=== PATIENT | male | born 1950 | race Caucasian/White ===

== ENCOUNTER → 2022-05-12 13:01 | Outpatient (BNVA) | payer MEDICARE, SELFPAY | PROVIDERS: PCP Internal Medicine; Visit Provider Internal Medicine | DX: M53.3 Sacrococcygeal disorders, not elsewhere classified (principal) | CPT/HCPCS: 99202 ==

== ENCOUNTER 2022-07-09 12:53 | Day surgery (SDC) | payer MEDICARE, SELFPAY ==
--- NOTE | ~2022-07-09 | FL_ITS ---
EXAMINATION: XR FLUOROSCOPY WITH IMAGES CLINICAL INFORMATION: Right sacroiliac joint RFA COMPARISON: None. TECHNIQUE: Fluoroscopy performed by Dr. Michele Rangel. Fluoroscopy time: 0.8. Cumulative Dose: 28.1 mGy. DAP: 4.36 Gy-cm2. Images: 6. FINDINGS: There are 3 electrodes overlying the right lumbosacral junction and right sacrum, at several positions mammography spot views. FL/FL guidance in OR IMPRESSION: Fluoroscopy for pain management procedure.
[2022-07-09 13:15] VITALS: BMI 38.0
--- NOTE | 2022-07-09 13:31 | PC.NURSE ---
verified IV ABX order with Dr. Rangel via [facility] as patient is scheduled as LOCAL procedure. Per Dr. Rangel IV Abx is not needed for this procedure today.
[2022-07-09 13:32] VITALS: BP 176/89; PULSE 98; RESP 20; TEMP 37.1; O2SAT 95
[2022-07-09 17:58] VITALS: BP 155/88; PULSE 92; RESP 18; TEMP 36.7; O2SAT 95
--- NOTE | 2022-07-09 18:03 | MHC.SHP ---
Pre-Procedural Eval Section A Date of Service: 07/09/22 The patient is an INPATIENT: No Changes since office visit: Yes Patient answered all questions The History & Physical has been completed within 30 days and I have reviewed it.: No Section B Chief Complaint: Sacrococcygeal disorders, not elsewhere classified Relevant Family History (Specify if Yes): Yes Relevant Social History: None Present Medications: see Short Stay Collaborative assessment Medical History: No relevant PMH History of Previous Operations: No relevant previous surgery Allergies: Allergies Allergy/AdvReac Type Severity Reaction Status Date / Time No Known Allergies Allergy Verified 05/12/22 13:05 Review of Systems Sugical H&P ROS: Negative: Constitution, Cardiovascular and Respiratory Exam Surgical H&P Exam: Normal: HEENT, Normal: Heart and Normal: Lungs Plan Diagnosis/Plan: Unchanged I have reviewed the history and physical and performed a pertinent physical examination on my patient. No changes have occurred unless specified.
--- NOTE | 2022-07-09 18:04 | PM.OP ---
Brief Operative Note Date of Service: 07/09/22 Pre-op diagnosis: Right sacroiliac joint dysfunction and pain Post-op diagnosis: same Procedure: Right SIJ innervation cooled radiofrequency ablation Implants: None Surgeon: Michele Rangel MD Anesthesia: local Was an Nuclear Weapons Mechanical Specialist used for this Procedure?: No Estimated blood loss (mL): 5 Pathology: none sent Condition: stable Disposition: same day
--- NOTE | 2022-07-09 18:05 | W.PM.OPN ---
Operative Note Operative Note Date of Service: 07/09/22 Narrative: Cooled radiofrequency ablation, Right L5 dorsal ramus and lateral branches of the S1, S2, S3 posterior primary rami nerves - fluoroscopic guided After obtaining written consent, pre-procedure blood pressure and heart rate were stable and recorded in the nursing record. The patient was placed prone on the fluoroscopy table. The area overlying the peripheral nerves was widely prepped with chloraprep, allowed to dry and sterilely draped. Using fluoroscopy, the appropriate landmarks were identified. The skin overlying the target was anesthetized with 0.5% lidocaine. 18 gauge 50mm radiofrequency needles were advanced under fluoroscopic guidance to the sacral ala (L5 medial branch) and around the lateral margins of the S1, S2 & S3 foramina (sacral lateral branches). Verification was done using lateral and AP views. Aspiration was negative for heme. Impedences were verified under 600 ohms. Sensory testing (50 Hz) and then motor testing (2 Hz) confirmed needle placement at each site within the appropriate voltage thresholds. Each site was injected with 0.5-1 ml 2% preservative-free lidocaine. Radiofrequency lesioning was performed for 165 seconds at 80 deg Celcius tissue temperature. Each site was then injected with 1 ml 0.5% preservative-free ropivacaine. The needles were removed, skin cleansed and a sterile bandage was applied. The patient tolerated the procedure well and no complications were encountered. No immediate evidence of skin damage was seen. Following the procedure the patient's vital signs were stable. The patient was discharged home in good condition with post-procedural instructions. Time Out: Immediately prior to the procedure, the following was verbally confirmed that there is a signed consent form and that the correct patient, planned procedure, site and side are consistent with documentation and that necessary equipment and/or blood products are available prior to the start of the case. Complications: none EBL: <5 cc
== END 2022-07-09 18:08 | disposition home or self-care (01) ==
PROVIDERS: PCP Internal Medicine; Visit Provider Internal Medicine
PROC: (CPT 64635; principal; 2022-07-09 14:50)
DX: M53.3 Sacrococcygeal disorders, not elsewhere classified (principal); M54.50 Low back pain, unspecified; I10 Essential (primary) hypertension; G40.909 Epilepsy, unspecified, not intractable, without status epilepticus; E11.9 Type 2 diabetes mellitus without complications; Z79.84 Long term (current) use of oral hypoglycemic drugs; Z79.899 Other long term (current) drug therapy
CPT/HCPCS: 64625; J2795; J3300

== ENCOUNTER → 2022-07-21 09:10 | Outpatient (BNVA) | payer MEDICARE, SELFPAY | PROVIDERS: PCP Internal Medicine; Visit Provider Internal Medicine | DX: M53.3 Sacrococcygeal disorders, not elsewhere classified (principal); M48.062 Spinal stenosis, lumbar region with neurogenic claudication; M54.16 Radiculopathy, lumbar region | CPT/HCPCS: Q3014 ==

== ENCOUNTER → 2022-08-08 10:04 | Outpatient (BNVA) | payer MEDICARE, SELFPAY | PROVIDERS: PCP Internal Medicine; Visit Provider Internal Medicine | DX: M48.062 Spinal stenosis, lumbar region with neurogenic claudication (principal) | CPT/HCPCS: 99212 ==

== ENCOUNTER 2023-09-14 14:00 | Outpatient (AMB) | payer MEDICARE, SELFPAY ==
[2023-09-14 14:06] VITALS: BP 149/83; PULSE 97; RESP 14; O2SAT 94; BMI 40.0
--- NOTE | 2023-09-14 14:06 | A.OFFVIS_ITS ---
Intake Vital Signs 09/14/23 14:06 Height 6 ft Weight 295 lb BMI 40.0 BP 149/83 H Blood Pressure Location Rt brachial Position Sitting Respiration 14 Pulse 97 Pulse Source Pulse Oximeter Pulse Oximetry (%) 94 Oxygen Delivery Method Room Air Intake Visit Reasons: DISORDER OF SACRUM Allergies No Known Allergies Allergy (Verified 09/14/23 14:07) Medication List - Last Reconciled 09/14/23 by Concepcion Lewis LPN glimepiride 4 mg PO BID hydrochlorothiazide 25 mg PO DAILY irbesartan 300 mg PO DAILY levetiracetam 500 mg PO BID pioglitazone 15 mg PO DAILY potassium chloride ER 10 mEq PO BID rosuvastatin 5 mg PO DAILY HPI DISORDER OF SACRUM HPI Details 72-year-old male who presents today to t office for a disorder of sacrum. He did not get much relief from the SI joint ablation. He had an MRI scan at [facility]. He states that his imaging shows some spinal stenosis at L3-L4-L5 levels. He visited Dr. Aragon, Dr. Stockton, and Dr. Singh for a second opinion. He underwent back surgery but continues to have significant pain. He reports pain in his lower back that radiates down to his lower extremities. His left side is worse compared to his right side. He describes his pain as ?someone stuck the screwdriver?. He states that he is not physically active at home and spends most of the time sitting or resting. He is also not performing exercises at home. He reports pain while standing from the sitting position. He lives alone at home. Past Procedures: 07/09/22: Right SIJ Innervation Cooled RF A ? greater than 50% relief, significant local site tenderness manages with cold compresses [facility] Medical History (Updated 09/22/23 @ 08:46 by Michele Rangel MD) Cluneal neuropathy Seizure disorder Hypertension Type 2 diabetes mellitus Review of Systems Const All systems reviewed & are unremarkable except as noted in HPI and below Physical Exam Vital Signs: Last Vital Signs Pulse 97 09/14/23 14:06 Resp 14 09/14/23 14:06 BP 149/83 H 09/14/23 14:06 Pulse Ox 94 09/14/23 14:06 Oxygen Delivery Method Room Air 09/14/23 14:06 BMI result Body Mass Index 40.0 General: Appears afebrile. Alert and oriented. Mood and affect appropriate. Follows and participates in conversation appropriately. Respiratory effort is unlabored. Able to transition from sit to stand unassisted. Ambulates with bilaterally normal heel strike and toe off. Results Reviewed Results Reviewed: No imaging is available for review. Assessment & Plan Assessment & Plan (1) Lumbar spondylosis: Code(s): M47.816 - Spondylosis without myelopathy or radiculopathy, lumbar region (2) Intractable back pain: Code(s): M54.9 - Dorsalgia, unspecified Plan Discussed temporary nerve stimulator vs. spinal cord stimulator as a possible treatment options. A device brochure was provided to the patient. Will schedule him for a right L4 medial branch nerve stimulator placement followed by left L4 medial branch nerve stimulator placement two weeks later for chronic intractable pain. Discussed the risks and benefits of the procedure with the patient in detail. All questions were answered. The patient is on board with the plan. Informed the patient that insurance approval is required. We will file a PA for approval and keep him updated. Justification for interventional therapy: ? Patient with average pain > 6/10 ? Patient has exhausted conservative therapy ? Patient unable to tolerate physical therapy due to pain. Scribed for Dr. Rangel by Derrick Corea, medical sociologist, on 09/14/2023. I, Dr. Rangel, have personally reviewed and agree with the information entered by the scribe. Coding Level of Care Code Est Pt Level 3 (82648) Diagnoses Lumbar spondylosis M47.816 Intractable back pain M54.9
== END 2023-09-14 14:36 | disposition home or self-care (01) ==
PROVIDERS: PCP Internal Medicine; Visit Provider Internal Medicine
DX: M47.816 Spondylosis without myelopathy or radiculopathy, lumbar region (principal); M54.9 Dorsalgia, unspecified
CPT/HCPCS: 99213

== ENCOUNTER → 2023-09-14 14:00 | Outpatient (BNVA) | payer MEDICARE, SELFPAY | PROVIDERS: PCP Internal Medicine; Visit Provider Internal Medicine | DX: M47.816 Spondylosis without myelopathy or radiculopathy, lumbar region (principal); M54.9 Dorsalgia, unspecified | CPT/HCPCS: 99212 ==

== ENCOUNTER 2023-10-14 08:16 | Day surgery (SDC) | payer MEDICARE, SELFPAY ==
--- NOTE | ~2023-10-14 | FL_ITS ---
EXAMINATION: XR FLUOROSCOPY WITH IMAGES CLINICAL INFORMATION: L4 medial branch Sprint, right. COMPARISON: None available. TECHNIQUE: Fluoroscopy Supervised By: Dr. Michele Rangel. Fluoroscopy Time: 0.1 minute. Cumulative Dose: 5.30 mGy. DAP: 0.744 Gycm2. Images: 2. FINDINGS: Images demonstrate wires projecting over the right lateral lower lumbar spine FL/FL guidance in OR IMPRESSION: Fluoroscopy guidance for pain management procedure
[2023-10-14 09:08] VITALS: BMI 40.0
[2023-10-14 09:15] VITALS: BP 102/72; PULSE 111; RESP 18; TEMP 36.8; O2SAT 94
[2023-10-14 11:36] VITALS: BP 132/82; PULSE 101; RESP 16; TEMP 36.4; O2SAT 95
--- NOTE | 2023-10-14 11:39 | PC.NURSE ---
patient received thorough treatment from [facility] patient representative
--- NOTE | 2023-10-14 15:12 | P.BOP_ITS ---
Brief Operative Note Date of Service: 10/14/23 Pre-op diagnosis: Intractable back pain, lumbar spondylosis Post-op diagnosis: same Procedure: Temporary left L4 medial branch nerve stimulator placement Implants: Sprint temporary PNS system Surgeon: Michele Rangel MD Anesthesia: local Was an Psychology Intern used for this Procedure?: No Estimated blood loss (mL): 1 Pathology: none sent Condition: stable Disposition: same day
--- NOTE | 2023-10-14 15:12 | MHC.SHP ---
Pre-Procedural Eval Section A Date of Service: 10/14/23 The patient is an INPATIENT: No Changes since office visit: Yes Patient answered all questions The History & Physical has been completed within 30 days and I have reviewed it.: No Section B Chief Complaint: Intractable back pain Relevant Family History (Specify if Yes): No Relevant Social History: None Present Medications: see Short Stay Collaborative assessment Medical History: No relevant PMH History of Previous Operations: No relevant previous surgery Allergies: Allergies Allergy/AdvReac Type Severity Reaction Status Date / Time No Known Allergies Allergy Verified 09/14/23 14:07 Review of Systems Sugical H&P ROS: Negative: Constitution, Cardiovascular and Respiratory Exam Surgical H&P Exam: Normal: HEENT, Normal: Heart and Normal: Lungs Plan Diagnosis/Plan: Unchanged I have reviewed the history and physical and performed a pertinent physical examination on my patient. No changes have occurred unless specified. Time Spent With Patient Time: Total time managing care of this patient today ____ minutes.
--- NOTE | 2023-10-14 15:13 | W.PM.OPN ---
Operative Note Operative Note Date of Service: 10/14/23 Narrative: Lumbar Medial Branch Nerve Stimulation Lead Placement, SPR (Sprint) System, right L4 ? After the risks, benefits and alternatives were discussed with the patient and informed consent was obtained, patient was placed in the prone position and padded to foster comfort. The skin overlying the lumbosacral spine was prepped and draped in sterile fashion. Fluoroscopy was used to identify the spinous process and lamina in the center of the patient?s region of pain. After identifying and marking the intended target along the course of the medial branch nerve, the skin around the planned entry point and the subcutaneous tissues were injected with lidocaine 1%. An introducer needle and stimulating probe were assembled, inserted and advanced along the intended course of the medial branch nerve as it traverses the lamina medial and inferior to the zygapophyseal joint, taking care to maintain the proper depth of insertion as the introducer is advanced under fluoroscopic guidance. The introducer needle was delivered to a location in proximity to the nerve. Multiple stimulation parameters were used to deliver stimulation to the target medial branch nerve in concert with stimulating at multiple positions around the nerve. Nerve target acquisition was confirmed noting generation of paresthesias in the paravertebral regions corresponding to the level being stimulated. Various electrical parameter combinations were tested, and the lead location was adjusted (physically relocated) until the patient indicated paresthesia/muscle tension overlapping the distribution of the patient?s typical region of pain. The stimulating probe was removed from the introducer and a percutaneous lead was guided through the needle and delivered to a location in similar proximity to the nerve. Final location was verified with electrical stimulation and documented with fluoroscopy. The introducer needle was removed, and the exposed end of the percutaneous lead was attached to an external stimulator unit. Various electrical parameter combinations were again tested until the patient indicated paresthesia or muscle tension overlapping the distribution of the patient?s typical region of pain. After confirming that lead impedance was in the normal range, the external unit was detached, the needle was removed, and the lead was anchored at the skin. The lead was threaded into the connector block and electrical continuity and desired patient response was confirmed. The connector block was attached to the external stimulator unit. The site was covered with a sterile occlusive dressing. The patient was observed for stability of vital signs and comfort.
== END 2023-10-14 11:44 | disposition home or self-care (01) ==
PROVIDERS: PCP Internal Medicine; Visit Provider Internal Medicine
PROC: (CPT 64555; principal; 2023-10-14 09:40)
DX: M48.062 Spinal stenosis, lumbar region with neurogenic claudication (principal); G58.9 Mononeuropathy, unspecified; M47.816 Spondylosis without myelopathy or radiculopathy, lumbar region; M54.9 Dorsalgia, unspecified; I10 Essential (primary) hypertension; G40.909 Epilepsy, unspecified, not intractable, without status epilepticus; E11.9 Type 2 diabetes mellitus without complications; Z79.84 Long term (current) use of oral hypoglycemic drugs; Z79.899 Other long term (current) drug therapy; Z98.890 Other specified postprocedural states
CPT/HCPCS: 64555; C1778

== ENCOUNTER → 2023-10-14 08:16 | Outpatient (BNV) | payer MEDICARE, SELFPAY | PROVIDERS: PCP Internal Medicine; Visit Provider Internal Medicine | DX: M47.816 Spondylosis without myelopathy or radiculopathy, lumbar region (principal) | CPT/HCPCS: 64555 ==

== ENCOUNTER 2023-10-19 10:55 | Outpatient (AMB) | payer MEDICARE, SELFPAY ==
[2023-10-19 11:00] VITALS: PULSE 108; RESP 12; O2SAT 94; BMI 40.7
--- NOTE | 2023-10-19 11:00 | MHC.OFFVIS ---
Intake Vital Signs 10/19/23 11:00 Height 6 ft Weight 300 lb BMI 40.7 Blood Pressure Location Rt brachial Position Sitting Respiration 12 Pulse 108 H Pulse Source Pulse Oximeter Pulse Oximetry (%) 94 Oxygen Delivery Method Room Air Intake Visit Reasons: s/p Right L4 Sprint/confirmed Allergies No Known Allergies Allergy (Verified 10/19/23 11:10) Medication List - Last Reconciled 10/19/23 by Concepcion Lewis LPN glimepiride 4 mg PO BID hydrochlorothiazide 25 mg PO DAILY irbesartan 300 mg PO DAILY levetiracetam 500 mg PO BID pioglitazone 15 mg PO DAILY potassium chloride ER 10 mEq PO BID rosuvastatin 5 mg PO DAILY HPI s/p Right L4 Sprint/confirmed HPI Details 72-year-old male who presents today to the office for a status post right L4 sprint. The patient reports mild relief following the procedure. His device is functional at 70, and he is tolerating it well. He reports right-sided back pain that is radiating down to his legs. He disconnected his device while driving. He requested extra dressing and bandages today in the office. The patient wants to reschedule his left L4 sprint after the removal of his right L4 sprint. His last MRI scan was completed earlier this year. He had surgery on 01/02/2023. He has been taking ALA with minimal benefit since his last surgery. He uses heating pad compression every morning around the implanted device with good relief. He had an epidural steroid injection by Dr. Stockton in the past. Past Procedures: 10/14/23: Lumbar Medial Branch Nerve Stimulation Lead Placement, SPR (Sprint) System, right L4: Mild relief tp date. 07/09/22: Right SIJ Innervation Cooled RFA ? greater than 50% relief, significant local site tenderness manages with cold compresses [facility] Medical History (Updated 09/22/23 @ 08:46 by Michele Rangel MD) Cluneal neuropathy Seizure disorder Hypertension Type 2 diabetes mellitus Review of Systems Const All systems reviewed & are unremarkable except as noted in HPI and below Physical Exam Vital Signs: Last Vital Signs Pulse 108 H 10/19/23 11:00 Resp 12 10/19/23 11:00 Pulse Ox 94 10/19/23 11:00 Oxygen Delivery Method Room Air 10/19/23 11:00 BMI result Body Mass Index 40.7 General: Appears afebrile. Alert and oriented. Mood and affect appropriate. Follows and participates in conversation appropriately. Respiratory effort is unlabored. Able to transition from sit to stand unassisted. Ambulates with bilaterally normal heel strike and toe off. Lead insertion site is clean dry and intact. Results Reviewed Results Reviewed: No imaging is available for review. Assessment & Plan Assessment & Plan (1) Lumbar spondylosis: Code(s): M47.816 - Spondylosis without myelopathy or radiculopathy, lumbar region (2) Lumbar radiculopathy: Code(s): M54.16 - Radiculopathy, lumbar region (3) Intractable back pain: Code(s): M54.9 - Dorsalgia, unspecified Plan The patient will follow up in seven weeks for the removal of the device. We will reschedule the left L4 sprint after the removal of the right L4 sprint. Discussed epidural steroid injection as a possible treatment option for his radicular symptoms. We will schedule him for caudal epidural steroid injection after removal of his right sprint device. Discussed the risks and benefits of the procedure with the patient in detail. All questions were answered. The patient is on board with the plan. Justification for interventional therapy: ? Patient with average pain > 6/10 ? Patient has exhausted conservative therapy Scribed for Dr. Rangel by Derrick Corea, biomedical engineering technician, on 10/19/2023. I, Dr. Rangel, have personally reviewed and agree with the information entered by the scribe. Coding Level of Care Code Est Pt Level 4 (34240) Diagnoses Lumbar spondylosis M47.816 Lumbar radiculopathy M54.16 Intractable back pain M54.9
== END 2023-10-19 11:43 | disposition home or self-care (01) ==
PROVIDERS: PCP Internal Medicine; Visit Provider Internal Medicine
DX: M47.26 Other spondylosis with radiculopathy, lumbar region (principal); M54.9 Dorsalgia, unspecified
CPT/HCPCS: 99024

== ENCOUNTER → 2023-10-19 10:55 | Outpatient (BNVA) | payer MEDICARE, SELFPAY | PROVIDERS: PCP Internal Medicine; Visit Provider Internal Medicine | DX: M47.816 Spondylosis without myelopathy or radiculopathy, lumbar region (principal); M54.16 Radiculopathy, lumbar region; M54.9 Dorsalgia, unspecified | CPT/HCPCS: 99212 ==

== ENCOUNTER 2023-12-18 08:48 | Outpatient (AMB) | payer MEDICARE, SELFPAY ==
--- NOTE | 2023-12-18 08:53 | MHC.OFFVIS ---
Intake Vital Signs 12/18/23 08:55 Height 6 ft Weight 290 lb BMI 39.3 BP 189/91 H Blood Pressure Location Lt radial Position Sitting Respiration 12 Pulse 104 H Pulse Source Pulse Oximeter Pulse Oximetry (%) 93 Oxygen Delivery Method Room Air Intake Visit Reasons: Right Sprint removal/confirmed Allergies No Known Allergies Allergy (Verified 12/18/23 08:58) Medication List - Last Reconciled 12/18/23 by Concepcion Lewis LPN glimepiride 4 mg PO BID hydrochlorothiazide 25 mg PO DAILY irbesartan 300 mg PO DAILY levetiracetam 500 mg PO BID pioglitazone 15 mg PO DAILY potassium chloride ER 10 mEq PO BID rosuvastatin 5 mg PO DAILY HPI Right Sprint removal/confirmed HPI Details 73-year-old male who presents today for right sprint removal. The patient reports minimal benefit from the last procedure. He reports some improvement in his low back pain but continues to have pain that radiates down to his right leg. He also reports stiffness and aching pain that radiates down to both sides of the back side of the calf. He has scheduled an epidural steroid injection in one week. He had back surgery on the 01/02/[address] Singh at [facility] where he underwent right L3 and L4 laminectomy for severe spinal stenosis. He had an MRI scan of the lumbar spine at [place] in March 2023 that showed adequate decompression with some fluid in the laminectomy beds. He has noticed elevated blood pressure and visited his PCP yesterday. He chops his wood with sledgehammer at home but he denies any heavy lifting. Past Procedures: 10/14/23: Lumbar Medial Branch Nerve Stimulation Lead Placement, SPR (Sprint) System, right L4: Mild relief of low back pain with persistent radicular symptoms 07/09/22: Right SIJ Innervation Cooled RFA ? greater than 50% relief, significant local site tenderness manages with cold compresses [facility] Medical History (Updated 12/18/23 @ 12:07 by Michele Rangel MD) Cluneal neuropathy Seizure disorder Hypertension Type 2 diabetes mellitus Review of Systems Const All systems reviewed & are unremarkable except as noted in HPI and below Physical Exam Vital Signs: Last Vital Signs Pulse 104 H 12/18/23 08:55 Resp 12 12/18/23 08:55 BP 189/91 H 12/18/23 08:55 Pulse Ox 93 12/18/23 08:55 Oxygen Delivery Method Room Air 12/18/23 08:55 BMI result Body Mass Index 39.3 General: Appears afebrile. Alert and oriented. Mood and affect appropriate. Follows and participates in conversation appropriately. Respiratory effort is unlabored. Able to transition from sit to stand unassisted. Ambulates with bilaterally normal heel strike and toe off. Results Reviewed Results Reviewed: Reviewed pre and postoperative MR images with the patient showing vertebral endplate degeneration, intervertebral disc degeneration, facet arthropathy and laminectomies Assessment & Plan Assessment & Plan (1) Post laminectomy syndrome: Code(s): M96.1 - Postlaminectomy syndrome, not elsewhere classified Plan Discussed spinal cord stimulator vs. epidural steroid injections vs. intrathecal pain pump as possible treatment options. The patient is already scheduled for a caudal epidural steroid injection next week. If he has a good response from the [facility] for 4-6 months, we can reschedule it every six months. We discussed risks and benefits of spinal cord stimulation for his post laminectomy pain issue. If his pain continues to persist, we can start with the trial of SCS for his pain. Scribed for Dr. Rangel by Derrick Corea, medical office manager, on 12/18/2023. I, Dr. Rangel, have personally reviewed and agree with the information entered by the scribe. Coding Level of Care Code Est Pt Level 4 (71145) Diagnoses Post laminectomy syndrome M96.1
[2023-12-18 08:55] VITALS: BP 189/91; PULSE 104; RESP 12; O2SAT 93; BMI 39.3
== END 2023-12-18 09:46 | disposition home or self-care (01) ==
PROVIDERS: PCP Internal Medicine; Visit Provider Internal Medicine
DX: M96.1 Postlaminectomy syndrome, not elsewhere classified (principal)
CPT/HCPCS: 99214

== ENCOUNTER → 2023-12-18 08:48 | Outpatient (BNVA) | payer MEDICARE, SELFPAY | PROVIDERS: PCP Internal Medicine; Visit Provider Internal Medicine | DX: M96.1 Postlaminectomy syndrome, not elsewhere classified (principal) | CPT/HCPCS: 99212 ==

== ENCOUNTER 2023-12-24 06:17 | Outpatient (REF) | payer MEDICARE, SELFPAY | END 2023-12-24 06:18 | disposition home or self-care (01) | LOC: CF 06:17 | PROVIDERS: Visit Provider Internal Medicine | DX: Z13.89 Encounter for screening for other disorder (principal) ==

== ENCOUNTER 2024-01-07 06:12 | Outpatient (REF) | payer MEDICARE, SELFPAY ==
--- NOTE | ~2024-01-07 | FL_ITS ---
EXAMINATION: XR FLUOROSCOPY WITH IMAGES CLINICAL INFORMATION: Spinal stenosis lumbar region with neurogenic claudication. COMPARISON: 11/03/2023 fluoroscopy with images. TECHNIQUE: Fluoroscopy Supervised By: Donna Zheng APRN Fluoroscopy Time: 0.3 minutes Cumulative Dose: 29.0 mGy-cm DAP: 0.273 Gy-cm2 Images: 4 FINDINGS: Two images demonstrate wire projecting over sacrum. Two images demonstrate contrast at the level of the inferior aspect of the sacrum on the left. FL/FL guidance in treatment room IMPRESSION: Fluoroscopy provided for pain management procedure. Please refer to operative report for more detailed evaluation.
== END 2024-01-07 06:13 | disposition home or self-care (01) ==
LOC: CF 06:12
PROVIDERS: Visit Provider Internal Medicine
DX: M48.062 Spinal stenosis, lumbar region with neurogenic claudication (principal); M54.16 Radiculopathy, lumbar region
CPT/HCPCS: 62323; J2795; J3301

== ENCOUNTER 2024-01-07 12:45 | Outpatient (AMB) | payer MEDICARE, SELFPAY ==
--- NOTE | 2024-01-07 12:49 | MHC.OFFVIS ---
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 Denies any recent cough, cold, infection, fever or other significant changes in medical history since last office visit. [facility] Medical History (Updated 12/18/23 @ 12:07 by Michele Rangel MD) Cluneal neuropathy Seizure disorder Hypertension Type 2 diabetes mellitus Physical Exam Vital Signs: Last Vital Signs Pulse 107 H 01/07/24 12:50 Resp 16 01/07/24 12:50 BP 142/70 H 01/07/24 12:50 Pulse Ox 96 01/07/24 12:50 Oxygen Delivery Method Room Air 01/07/24 12:50 BMI result Body Mass Index 38.6 Office Procedures Joint Injection/Drain Joint Injection/Drain Details: Caudal CHARLI with catheter After obtaining written consent, pre-procedure blood pressure and pulse were measured. Standard monitors were applied. The patient was placed in the prone position. The lumbosacral area was widely prepped with chloraprep and draped in sterile fashion. The skin overlying the target was anesthetized with 0.5% lidocaine. A 17 G needle was used to access the caudal epidural space using anatomic landmarks and x-ray guidance. We then threaded a catheter up to the L5/S1 level and injected contrast 1cc omnipaque 180 for verification of epidural spread. Following negative aspiration of heme or CSF, a mixture of 5 ml 0.5% lidocaine with 80 mg triamcinilone was injected with minimal pressure into the epidural space. The needle was removed, skin cleansed and a sterile bandage was applied. The patient tolerated the procedure well and no complications were encountered. Following the procedure the patient's vital signs were stable. The patient was discharged home in good condition with post-procedural instructions. Time Out: Immediately prior to the procedure, the following was verbally confirmed that there is a signed consent form and that the correct patient, planned procedure, site and side are consistent with documentation and that necessary equipment and/or blood products are available prior to the start of the case. Complications: none EBL: <5 cc Coding 70830 - Caudal/Lumbar Epidural/Interlaminar with fluoroscopy Procedure code (CPT) selection complete Assessment & Plan Assessment & Plan (1) Lumbar radiculopathy: Code(s): M54.16 - Radiculopathy, lumbar region Plan Patient is status post caudal CHARLI with catheter. Patient tolerated procedure well and was discharged home in stable condition with discharge instructions. All questions were answered. We will follow-up via telephone or in clinic to assess response to therapy. A follow-up appointment was made during today's visit. Orders: Orders FL guidance in treatment room Today M48.062 - Spinal stenosis, lumbar region with neurogenic claudication Coding Level of Care Code Procedure Only Diagnoses Lumbar radiculopathy M54.16 CPT Codes Coding - Joint 11: 58308 - Caudal/Lumbar Epidural/Interlaminar with fluoroscopy ([id number])
[2024-01-07 12:50] VITALS: BP 142/70; PULSE 107; RESP 16; O2SAT 96; BMI 38.6
[2024-01-07 13:54] VITALS: BP 140/68; PULSE 95; RESP 16; O2SAT 98; BMI 38.6
== END 2024-01-07 13:42 | disposition home or self-care (01) ==
LOC: HO.PMCPRC 12:45
PROVIDERS: PCP Internal Medicine; Visit Provider Internal Medicine
DX: M54.16 Radiculopathy, lumbar region (principal)
CPT/HCPCS: 62323

== ENCOUNTER 2024-02-05 11:39 | Outpatient (AMB) | payer MEDICARE, SELFPAY ==
--- NOTE | 2024-02-05 11:43 | MHC.OFFVIS ---
Intake Vital Signs 02/05/24 11:44 Height 6 ft Weight 285 lb BMI 38.6 BP 138/63 Blood Pressure Location Rt brachial Position Sitting Respiration 14 Pulse 117 H Pulse Source Pulse Oximeter Pulse Oximetry (%) 92 Oxygen Delivery Method Room Air Intake Visit Reasons: s/p caudal CHARLI Allergies No Known Allergies Allergy (Verified 02/05/24 11:45) Medication List - Last Reconciled 02/05/24 by Concepcion Lewis LPN glimepiride 4 mg PO BID hydrochlorothiazide 25 mg PO DAILY irbesartan 300 mg PO DAILY levetiracetam 500 mg PO BID pioglitazone 30 mg PO DAILY potassium chloride ER 10 mEq PO BID rosuvastatin 5 mg PO DAILY HPI s/p caudal CHARLI HPI Details 73-year-old male who presents today to the office for a status post caudal CHARLI. The patient reports no relief following the procedure. He reports pain in his right buttock cheek that is dull and constant in nature. He has sciatic pain down the back of his legs and into his calves. He states that his leg pain was worse this morning. He states that his leg pain is worse when standing, sitting, or lying down on the sides. He has difficulty sleeping due to pain. He has been using the SIJ belt that was provided by Dr. Stockton with some relief. He had surgery with Dr. Singh at [facility] on 01/02/23. He had a SIJ injection in the past from Dr. Stockton with short-lived relief. He has been applying ice compression every morning to provide some relief. He has a scheduled appointment with Dr. Aragon for 02/10/2024 to see if there are any surgical targets for his symptoms. Past Procedures: 01/07/24: Caudal CHARLI with catheter: No relief. 10/14/23: Lumbar Medial Branch Nerve Stimulation Lead Placement, SPR (Sprint) System, right L4: Mild relief of low back pain with persistent radicular symptoms 07/09/22: Right SIJ Innervation Cooled RFA ? greater than 50% relief, significant local site tenderness manages with cold compresses [facility] Medical History (Updated 12/18/23 @ 12:07 by Michele Rangel MD) Cluneal neuropathy Seizure disorder Hypertension Type 2 diabetes mellitus Review of Systems Const All systems reviewed & are unremarkable except as noted in HPI and below Physical Exam Vital Signs: Last Vital Signs Pulse 117 H 02/05/24 11:44 Resp 14 02/05/24 11:44 BP 138/63 02/05/24 11:44 Pulse Ox 92 02/05/24 11:44 Oxygen Delivery Method Room Air 02/05/24 11:44 BMI result Body Mass Index 38.6 General: Appears afebrile. Alert and oriented. Mood and affect appropriate. Follows and participates in conversation appropriately. Respiratory effort is unlabored. Able to transition from sit to stand unassisted. Ambulates with bilaterally normal heel strike and toe off. Pietro is positive. SI joint tenderness is positive. Results Reviewed Results Reviewed: No imaging is available for review. Assessment & Plan Assessment & Plan (1) Post laminectomy syndrome: Code(s): M96.1 - Postlaminectomy syndrome, not elsewhere classified (2) Intractable back pain: Code(s): M54.9 - Dorsalgia, unspecified (3) Sacroiliac joint dysfunction of right side: Code(s): M53.3 - Sacrococcygeal disorders, not elsewhere classified Plan I believe his current symptoms are secondary to right sacroiliac joint dysfunction. He did get more than 50% response to sacroiliac joint radiofrequency ablation and has a history of relief from prior sacroiliac joint injections done by Dr. Stockton. He also finds the current sacroiliac joint compression belt helpful. I have not done a sacroiliac joint injection on him yet. Will schedule him for a diagnostic right sacroiliac joint injection. Discussed the risks and benefits of the procedure with the patient in detail. All questions were answered. The patient is on board with the plan. Justification for interventional therapy: ? Patient with average pain > 6/10 ? Patient has exhausted conservative therapy ? Patient unable to tolerate physical therapy due to pain Scribed for Dr. Rangel by Derrick Corea, medical equipment repair technician, on 02/05/2024. I, Dr. Rangel, have personally reviewed and agree with the information entered by the scribe. Coding Level of Care Code Est Pt Level 4 (86147) Diagnoses Post laminectomy syndrome M96.1 Intractable back pain M54.9 Sacroiliac joint dysfunction of right side M53.3
[2024-02-05 11:44] VITALS: BP 138/63; PULSE 117; RESP 14; O2SAT 92; BMI 38.6
== END 2024-02-05 13:01 | disposition home or self-care (01) ==
PROVIDERS: PCP Internal Medicine; Visit Provider Internal Medicine
DX: M96.1 Postlaminectomy syndrome, not elsewhere classified (principal); M54.9 Dorsalgia, unspecified; M53.3 Sacrococcygeal disorders, not elsewhere classified
CPT/HCPCS: 99214

== ENCOUNTER → 2024-02-05 11:39 | Outpatient (BNVA) | payer MEDICARE, SELFPAY | PROVIDERS: PCP Internal Medicine; Visit Provider Internal Medicine | DX: M96.1 Postlaminectomy syndrome, not elsewhere classified (principal); M54.9 Dorsalgia, unspecified; M53.3 Sacrococcygeal disorders, not elsewhere classified | CPT/HCPCS: 99212 ==

== ENCOUNTER 2024-02-10 13:52 | Outpatient (AMB) | payer MEDICARE, SELFPAY ==
--- NOTE | 2024-02-10 14:00 | A.SPINEOV_ITS ---
Intake Intake Visit Reasons: Back pain Intake Note: Mr. Smith is here today c/o back pain. 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 HPI: This 73-year-old male is suffering from bilateral tightness with walking and standing that improves when he sits down. He underwent an L3-4 and L4-5 lumbar decompression [address] Singh last year without improvement of the symptoms. A repeat MRI shows a good decompression of the L3-4 and L4-5 areas. A 2nd complaint, which is the most bothersome complaint, is a pain in the right SI joint area. The pain is constant and severe. He had SI joint injections done in the past by Dr. Stockton which gave him significant relief for short period of time. An SI joint belt also relieves his symptoms. He is scheduled to undergo a diagnostic SI joint block by Dr. Rangel next week. PMH: Diabetes mellitus, hypercholesterolemia Medications: Glimepiride, hydrochlorothiazide, Irbesartan, levetiracetam, pioglitazone, rosuvastatin, olmesartan Allergies: NKDA Social history: Nonsmoker Physical Exam: Pleasant obese male. No neurological deficits. There is pain over the right SI joint area. Radiological Studies: No significant residual lumbar stenosis. A dynamic lumbar x-ray today shows no instability. Impression/Plan: This patient is still suffering from neurogenic claudication symptoms despite an adequate decompression. I explained to him that there is a subset of patients that will not respond to a lumbar decompression. I have no surgery to offer for the symptoms. Secondly, I think he suffering from a right SI joint dysfunction and I would recommend an SI joint fusion if the diagnostic block is positive next week. Thank you for allowing me to participate in your patients care. total time spent was 50 minutes in counseling ,coordination of plan, personal review of imaging, surgical decision making and subsequent plan Nolan Aragon MD, PhD Spine Fellowship Trained Neurosurgeon Director, [facility] (2) Sacroiliac joint dysfunction of right side: Code(s): M53.3 - Sacrococcygeal disorders, not elsewhere classified Plan s Orders: Orders XR lumbar spine 4V min Today M96.1 - Postlaminectomy syndrome, not elsewhere classified Coding Level of Care Code New Pt Level 4 (08501) Diagnoses Post laminectomy syndrome M96.1 Sacroiliac joint dysfunction of right side M53.3
== END 2024-02-10 15:15 | disposition home or self-care (01) ==
PROVIDERS: PCP Internal Medicine; Visit Provider Neurological Surgery
DX: M96.1 Postlaminectomy syndrome, not elsewhere classified (principal); M53.3 Sacrococcygeal disorders, not elsewhere classified
CPT/HCPCS: 99204; 99214

== ENCOUNTER 2024-02-10 13:52 | Outpatient (REF) | payer MEDICARE, SELFPAY ==
--- NOTE | ~2024-02-10 | XR_ITS ---
EXAMINATION: XR LUMBOSACRAL SPINE WITH OBLIQUES CLINICAL INFORMATION: Postlaminectomy syndrome. COMPARISON: Fluoroscopic images of the spine from 10/14/2023 and 01/07/2024. TECHNIQUE: 4 views of the lumbar spine, including lateral views acquired during flexion and extension. FINDINGS: 6 degrees of lumbar levocurvature is measured from the superior endplate of L1 to the inferior endplate of L5. The vertebral body heights are maintained. No evidence of vertebral compression fracture or pars interarticularis defect. The lordotic curvature of the lumbar spine is well-preserved. There is multilevel vertebral osteophyte formation and mild narrowing of disc spaces in the lumbar spine. There is approximately 0.2 cm of retrolisthesis at L2-L3 and L3-L4 that remains unchanged on flexion and extension views. The lumbar spinous processes are hypertrophied and are likely chronically abutting at L2-L3, L3-L4 and possibly L4-L5. No suspicious lytic or osteoblastic lesion. Sacrum and sacroiliac joints are unremarkable. There is mild atherosclerotic calcification of the abdominal aorta. XR/XR lumbar spine 4V min IMPRESSION: * Mild multilevel discovertebral degenerative changes of the lumbar spine. * There is a slight retrolisthesis at L2-L3 and L3-L4 that does not appreciably change on flexion or extension views. * There are no vertebral compression fractures.
== END 2024-02-10 13:53 | disposition home or self-care (01) ==
LOC: HO.HOSX 13:52
PROVIDERS: PCP Internal Medicine; Visit Provider Neurological Surgery
DX: M96.1 Postlaminectomy syndrome, not elsewhere classified (principal); M53.3 Sacrococcygeal disorders, not elsewhere classified
CPT/HCPCS: 72110; 99202

== ENCOUNTER 2024-02-18 06:12 | Outpatient (REF) | payer MEDICARE, SELFPAY ==
--- NOTE | ~2024-02-18 | FL_ITS ---
EXAMINATION: XR FLUOROSCOPY WITH IMAGES CLINICAL INFORMATION: Sacrooccygeal disorder COMPARISON: Lumbar spine xray on 04/11/24 TECHNIQUE: Fluoroscopy Supervised By: Dr. Michele Rangel. Fluoroscopy Time: 0.8min. Cumulative Dose: 42.4 mGy. DAP: 0.348 Gycm2. Images: 4. FINDINGS: Fluoroscopy performed during sacral injection. FL/FL guidance in treatment room IMPRESSION: Fluoroscopy performed in the OR. Please see the operative report for further information.
== END 2024-02-18 06:13 | disposition home or self-care (01) ==
LOC: CF 06:12
PROVIDERS: Visit Provider Internal Medicine
DX: M53.3 Sacrococcygeal disorders, not elsewhere classified (principal)
CPT/HCPCS: 27096; J2795

== ENCOUNTER 2024-02-18 12:47 | Outpatient (AMB) | payer MEDICARE, SELFPAY ==
[2024-02-18 13:04] VITALS: BP 150/70; PULSE 94; RESP 18; O2SAT 97; BMI 38.6
--- NOTE | 2024-02-18 13:04 | A.OFFVIS_ITS ---
Intake Vital Signs 02/18/24 13:04 02/18/24 14:19 Height 6 ft Weight 285 lb BMI 38.6 BP 150/70 H 138/80 Blood Pressure Location Lt brachial Lt brachial Position Sitting Sitting Respiration 18 18 Pulse 94 88 Pulse Source Pulse Oximeter Pulse Oximeter Pulse Oximetry (%) 97 98 Oxygen Delivery Method Room Air Room Air Comment Pre-Op Post-Op Intake Visit Reasons: Right Dx SIJ inj Allergies No Known Allergies Allergy (Verified 02/10/24 14:00) HPI Right Dx SIJ inj HPI Details Patient presents for scheduled procedure. Denies any recent cough, cold, infection, fever or other significant changes in medical history since last office visit. [facility] Medical History (Updated 12/18/23 @ 12:07 by Michele Rangel MD) Cluneal neuropathy Seizure disorder Hypertension Type 2 diabetes mellitus Physical Exam Vital Signs: Last Vital Signs Pulse 88 02/18/24 14:19 Resp 18 02/18/24 14:19 BP 138/80 02/18/24 14:19 Pulse Ox 98 02/18/24 14:19 Oxygen Delivery Method Room Air 02/18/24 14:19 BMI result Body Mass Index 38.6 Office Procedures Joint Injection/Drain Joint Injection/Drain Details: Sacroiliac Joint Injection, Right The procedure, its benefits, and its risks were explained and written informed consent was obtained from the patient. Immediately prior to starting the procedure, a time-out safety check was conducted. The patient's identification, procedure name, procedure site, and procedure laterality were confirmed with the patient. ? Patient was placed prone on the fluoroscopy table and the lumbosacral area was prepped using ChloraPrep and draped with sterile drapein standard fashion. The C-arm was rotated in a contralateral oblique fashion until the medial border of the iliac crest no longer foreshadowed the posterior sacroiliac joint line. The skin and subcutaneous tissue was anesthetized using 1 mL of 0.75% plain lidocaine with 1.5-inch 25-gauge needle in the middle region of the joint line.? A 3.5-inch 22-gauge spinal needle with small bend on the tip was slowly advanced towards the joint line, coaxial to the x-ray beam. Once bony content was obtained, the needle was easily slid into the intra-articular space.? Intra- articular needle position was confirmed using lateral fluoroscopy.? A total volume of 2.5mL of solution containing 0.5 ropivacaine was injected intra-a rticularly. The stylet was reinserted and needle was removed. The patient tolerated the procedure well. Patient denied any lower extremity weakness or numbness. Patient was observed for 30 min and was discharged after fulfilling the standard discharge criteria. Coding Procedure code (CPT) selection complete Assessment & Plan Assessment & Plan (1) Sacroiliac joint dysfunction of right side: Code(s): M53.3 - Sacrococcygeal disorders, not elsewhere classified Plan Patient is status post right diagnostic intra-articular sacroiliac joint injection. Patient tolerated procedure well and was discharged home in stable condition with discharge instructions. All questions were answered. We will follow-up via telephone or in clinic to assess response to therapy. A follow-up appointment was made during today's visit. Orders: Orders FL guidance in treatment room Today M53.3 - Sacrococcygeal disorders, not elsewhere classified Coding Level of Care Code Procedure Only Diagnoses Sacroiliac joint dysfunction of right side M53.3
[2024-02-18 14:19] VITALS: BP 138/80; PULSE 88; RESP 18; O2SAT 98
== END 2024-02-18 14:12 | disposition home or self-care (01) ==
LOC: HO.PMCPRC 12:47
PROVIDERS: PCP Internal Medicine; Visit Provider Internal Medicine
DX: M53.3 Sacrococcygeal disorders, not elsewhere classified (principal)
CPT/HCPCS: 27096

== ENCOUNTER 2024-02-22 10:38 | Outpatient (AMB) | payer MEDICARE, SELFPAY ==
--- NOTE | 2024-02-22 10:42 | A.OFFVIS_ITS ---
Intake Vital Signs 02/22/24 10:43 Height 6 ft Weight 285 lb BMI 38.6 BP 140/76 H Blood Pressure Location Rt brachial Position Sitting Respiration 14 Pulse 99 Pulse Source Pulse Oximeter Pulse Oximetry (%) 93 Oxygen Delivery Method Room Air Intake Visit Reasons: s/p right Dx SIJ inj Allergies No Known Allergies Allergy (Verified 02/22/24 10:44) Medication List - Last Reconciled 02/22/24 by Concepcion Lewis LPN glimepiride 4 mg PO BID hydrochlorothiazide 25 mg PO DAILY irbesartan 300 mg PO DAILY levetiracetam 500 mg PO BID pioglitazone 30 mg PO DAILY potassium chloride ER 10 mEq PO BID rosuvastatin 5 mg PO DAILY HPI s/p right Dx SIJ inj HPI Details 73-year-old male who presents today to t he office for a status post right diagnostic SIJ injection. The patient reports 90% relief following the procedure for 15-20 hours. The patient has significant pain relief and was able to sleep without any pain. The patient had an x-ray recently. The patient is amenable to proceed with steroid injection for relief. Past procedures: 02/18/24: Sacroiliac Joint Injection, Ri ght: 90 % relief 15-20 hours. 01/07/24: Caudal CHARLI with catheter: No r elief. 10/14/23: Lumbar Medial Branch Nerve Sti mulation Lead Placement, SPR (Sprint) System, right L4: Mild relief of low back pain with persistent radicular symptoms 07/09/22: Right SIJ Innervation Cooled RF A ? greater than 50% relief, significant local site tenderness manages with cold compresses [facility] Medical History (Updated 12/18/23 @ 12:07 by Michele Rangel MD) Cluneal neuropathy Seizure disorder Hypertension Type 2 diabetes mellitus Review of Systems Const All systems reviewed & are unremarkable except as noted in HPI and below Physical Exam Vital Signs: Last Vital Signs Pulse 99 02/22/24 10:43 Resp 14 02/22/24 10:43 BP 140/76 H 02/22/24 10:43 Pulse Ox 93 02/22/24 10:43 Oxygen Delivery Method Room Air 02/22/24 10:43 BMI result Body Mass Index 38.6 General: Appears afebrile. Alert and oriented. Mood and affect appropriate. Follows and participates in conversation appropriately. Respiratory effort is unlabored. Able to transition from sit to stand unassisted. Ambulates with bilaterally normal heel strike and toe off. Results Reviewed Results Reviewed: No imaging is available for review. Assessment & Plan Assessment & Plan (1) Sacroiliac joint dysfunction of right side: Code(s): M53.3 - Sacrococcygeal disorders, not elsewhere classified Plan Discussed SIJ steroid injection vs. cluneal nerve stimulator vs. SIJ fusion as possible treatment options. We will schedule him for a right sacroiliac joint injection with cortisone. Discussed the risks and benefits of the procedure with the patient in detail. All questions were answered. The patient is on board with the plan. I provided him with an informational brochure on cluneal nerve stimulator for SIJ pain. Justification for interventional therapy: ? Patient with average pain > 6/10 ? Patient has exhausted RFA, Sprint device, CHARLI, and joint injection. ? Diagnostic injection provided more than 90% relief . Patient has a good understanding of their pain condition and has appropriate mental and social support. Scribed for Dr. Rangel by Derrick Corea, medical officer, on 02/22/2024. I, Dr. Rangel, have personally reviewed and agree with the information entered by the scribe. Coding Level of Care Code Est Pt Level 3 (68409) Diagnoses Sacroiliac joint dysfunction of right side M53.3
[2024-02-22 10:43] VITALS: BP 140/76; PULSE 99; RESP 14; O2SAT 93; BMI 38.6
== END 2024-02-22 11:06 | disposition home or self-care (01) ==
PROVIDERS: PCP Internal Medicine; Visit Provider Internal Medicine
DX: M53.3 Sacrococcygeal disorders, not elsewhere classified (principal)
CPT/HCPCS: 99213

== ENCOUNTER → 2024-02-22 10:38 | Outpatient (BNVA) | payer MEDICARE, SELFPAY | PROVIDERS: PCP Internal Medicine; Visit Provider Internal Medicine | DX: M53.3 Sacrococcygeal disorders, not elsewhere classified (principal) | CPT/HCPCS: 99212 ==

== ENCOUNTER 2024-02-25 07:28 | Outpatient (REF) | payer MEDICARE, SELFPAY ==
--- NOTE | ~2024-02-25 | FL_ITS ---
EXAMINATION: XR FLUOROSCOPY WITH IMAGES CLINICAL INFORMATION: Sacrooccygeal disorder COMPARISON: Lumbar spine xray on 04/11/24 TECHNIQUE: Fluoroscopy Supervised By: Dr. Michele Rangel. Fluoroscopy Time: 0.2min. Cumulative Dose: 4.48 mGy. DAP: 0.389 Gycm2. Images: 2 FINDINGS: Fluoroscopy performed during sacral injection. FL/FL guidance in treatment room IMPRESSION: Fluoroscopy performed in the OR. Please see the operative report for further information.
== END 2024-02-25 07:29 | disposition home or self-care (01) ==
LOC: CF 07:28
PROVIDERS: Visit Provider Internal Medicine
DX: M53.3 Sacrococcygeal disorders, not elsewhere classified (principal)
CPT/HCPCS: 27096; J2795; J3301

== ENCOUNTER 2024-02-25 10:45 | Outpatient (AMB) | payer MEDICARE, SELFPAY ==
[2024-02-25 11:24] VITALS: BP 148/82; PULSE 88; RESP 18; O2SAT 97
--- NOTE | 2024-02-25 11:24 | MHC.OFFVIS ---
Intake Vital Signs 02/25/24 11:24 BP 148/82 H Blood Pressure Location Lt brachial Position Sitting Respiration 18 Pulse 88 Pulse Source Pulse Oximeter Pulse Oximetry (%) 97 Oxygen Delivery Method Room Air Comment Post-Op Intake Visit Reasons: right theraputic SIJ inj Allergies No Known Allergies Allergy (Verified 02/22/24 10:44) HPI right theraputic SIJ inj HPI Details Patient presents for scheduled procedure. Denies any recent cough, cold, infection, fever or other significant changes in medical history since last office visit. [facility] Medical History (Updated 12/18/23 @ 12:07 by Michele Rangel MD) Cluneal neuropathy Seizure disorder Hypertension Type 2 diabetes mellitus Physical Exam Vital Signs: Last Vital Signs Pulse 88 02/25/24 11:24 Resp 18 02/25/24 11:24 BP 148/82 H 02/25/24 11:24 Pulse Ox 97 02/25/24 11:24 Oxygen Delivery Method Room Air 02/25/24 11:24 Office Procedures Joint Injection/Drain Joint Injection/Drain Details: Sacroiliac Joint Injection, Right The procedure, its benefits, and its risks were explained and written informed consent was obtained from the patient. Immediately prior to starting the procedure, a time-out safety check was conducted. The patient's identification, procedure name, procedure site, and procedure laterality were confirmed with the patient. ? Patient was placed prone on the fluoroscopy table and the lumbosacral area was prepped using ChloraPrep and draped with sterile draped in standard fashion. The C-arm was rotated in a contralateral oblique fashion until the medial border of the iliac crest no longer foreshadowed the posterior sacroiliac joint line. The skin and subcutaneous tissue was anesthetized using 1 mL of 0.75% plain lidocaine with 1.5-inch 25-gauge needle in the middle region of the joint line.?A 5-inch 22-gauge spinal needle with small bend on the tip was slowly advanced towards the joint line, coaxial to the x-ray beam. Once bony content was obtained, the needle was easily slid into the intra-articular space.? Intra-articular needle position was confirmed using lateral fluoroscopy.? A total volume of 2.5mL of solution containing 40 mg triamcinolone and rest 0.5% of ropivacaine was injected intra-articularly. The stylet was reinserted and needle was removed. The patient tolerated the procedure well. Patient denied any lower extremity weakness or numbness. Patient was observed for 30 min and was discharged after fulfilling the standard discharge criteria. Coding 84615 - Sacroiliac Procedure code (CPT) selection complete Assessment & Plan Assessment & Plan (1) Sacroiliac joint dysfunction of right side: Code(s): M53.3 - Sacrococcygeal disorders, not elsewhere classified Plan Patient is status post therapeutic right intra-articular sacroiliac joint injection. Patient tolerated procedure well and was discharged home in stable condition with discharge instructions. All questions were answered. We will follow-up via telephone or in clinic to assess response to therapy. A follow-up appointment was made during today's visit. Coding Level of Care Code Procedure Only Diagnoses Sacroiliac joint dysfunction of right side M53.3 CPT Codes Coding - Joint 9: 35217 - Sacroiliac ([id number])
== END 2024-02-25 11:25 | disposition home or self-care (01) ==
LOC: HO.PMCPRC 10:45
PROVIDERS: PCP Internal Medicine; Visit Provider Internal Medicine
DX: M53.3 Sacrococcygeal disorders, not elsewhere classified (principal)
CPT/HCPCS: 27096

== ENCOUNTER 2024-03-25 08:28 | Outpatient (AMB) | payer MEDICARE, SELFPAY ==
--- NOTE | 2024-03-25 08:30 | A.OFFVIS_ITS ---
Vital Signs 03/25/24 08:32 Height 6 ft Weight 295 lb BMI 40.0 BP 146/66 H Blood Pressure Location Lt brachial Position Sitting Respiration 14 Pulse 99 Pulse Source Pulse Oximeter Pulse Oximetry (%) 93 Oxygen Delivery Method Room Air Intake Visit Reasons: s/p right theraputic SIJ inj Allergies No Known Allergies Allergy (Verified 03/25/24 08:33) Medication List - Last Reconciled 03/25/24 by Concepcion Lewis LPN glimepiride 4 mg PO BID hydrochlorothiazide 25 mg PO DAILY irbesartan 300 mg PO DAILY levetiracetam 500 mg PO BID pioglitazone 30 mg PO DAILY potassium chloride ER 10 mEq PO BID rosuvastatin 5 mg PO DAILY HPI HPI s/p right theraputic SIJ inj: Details: 73-year-old male who presents today to the office for a status post right therapeutic SIJ injection. The patient reports 90% relief following the procedure, which is ongoing. He sti ll has some pain in his leg, which is manageable. He states that his right-sided hip pain has significantly improved. His cousin recommended trying turmeric (curcumin) supplements for pain. Past procedures 02/25/24: Sacroiliac Joint Injection, Right: 90% relief, ongoing. 02/18/24: Sacroiliac Joint Injection, Right: 90 % relief 15-20 hours. 01/07/24: Caudal CHARLI with catheter: No relief. 10/14/23: Lumbar Medial Branch Nerve Stimulation Lead Placement, SPR (Sprint) System, right L4: Mild relief of low back pain with persistent radicular symptoms 07/09/22: Right SIJ Innervation Cooled RFA ? greater than 50% relief, significant local site tenderness manages with cold compresses [facility] Medical History (Updated 12/18/23 @ 12:07 by Michele Rangel MD) Cluneal neuropathy Seizure disorder Hypertension Type 2 diabetes mellitus Review of Systems Const All systems reviewed & are unremarkable except as noted in HPI and below Physical Exam Vital Signs: Last Vital Signs Pulse 99 03/25/24 08:32 Resp 14 03/25/24 08:32 BP 146/66 H 03/25/24 08:32 Pulse Ox 93 03/25/24 08:32 Oxygen Delivery Method Room Air 03/25/24 08:32 BMI result Body Mass Index 40.0 General: Appears afebrile. Alert and oriented. Mood and affect appropriate. Follows and participates in conversation appropriately. Respiratory effort is unlabored. Able to transition from sit to stand unassisted. Ambulates with bilaterally normal heel strike and toe off. Results Reviewed Results Reviewed: No imaging is available for review. Assessment & Plan Assessment & Plan (1) Sacroiliac joint dysfunction of right side: Code(s): M53.3 - Sacrococcygeal disorders, not elsewhere classified Category: Medical Plan The patient had about 90% relief, which is ongoing. He is more active, and his [place] symptoms have improved. Follow up as needed. He was curious about turmeric supplements; I encouraged him to try them and see if they were helpful.? Scribed for Dr. Rangel by Derrick Coera, medical technical writer, on 03/25/2024. I, Dr. Rangel, have personally reviewed and agree with the information entered by the scribe. Coding Level of Care Code Est Pt Level 3 (87376) Diagnoses Sacroiliac joint dysfunction of right side M53.3
[2024-03-25 08:32] VITALS: BP 146/66; PULSE 99; RESP 14; O2SAT 93; BMI 40.0
== END 2024-03-25 08:55 | disposition home or self-care (01) ==
PROVIDERS: PCP Internal Medicine; Visit Provider Internal Medicine
DX: M53.3 Sacrococcygeal disorders, not elsewhere classified (principal)
CPT/HCPCS: 99213

== ENCOUNTER → 2024-03-25 08:28 | Outpatient (BNVA) | payer MEDICARE, SELFPAY | PROVIDERS: PCP Internal Medicine; Visit Provider Internal Medicine | DX: M53.3 Sacrococcygeal disorders, not elsewhere classified (principal); Z98.890 Other specified postprocedural states | CPT/HCPCS: 99212 ==

== ENCOUNTER 2024-06-09 06:22 | Outpatient (REF) | payer MEDICARE, SELFPAY ==
--- NOTE | ~2024-06-09 | FL_ITS ---
EXAMINATION: XR FLUOROSCOPY WITH IMAGES CLINICAL INFORMATION: Sacrococcygeal disorder. COMPARISON: None available. TECHNIQUE: Fluoroscopy Supervised By: Dr. Rangel. Fluoroscopy Time: 0.1. Cumulative Dose: 4.40 mGy. DAP: 0.0279 Gycm2. Images: 2. FINDINGS: Intraoperative fluoroscopy and spot films were performed during a procedure in the OR. Spinal needle seen overlying the mid right SI joint. Please correlate with Dr. Rangel's report for complete details. FL/FL guidance in treatment room IMPRESSION: Intraoperative fluoroscopy and spot films were obtained. Please see Dr. Rangel's report for complete details.
== END 2024-06-09 06:23 | disposition home or self-care (01) ==
LOC: CF 06:22
PROVIDERS: Visit Provider Internal Medicine
DX: M53.3 Sacrococcygeal disorders, not elsewhere classified (principal)
CPT/HCPCS: 27096; J2795; J3301

== ENCOUNTER 2024-06-09 11:24 | Outpatient (AMB) | payer MEDICARE, SELFPAY ==
--- NOTE | 2024-06-09 11:30 | A.OFFVIS_ITS ---
Vital Signs 06/09/24 12:03 06/09/24 13:12 BP 186/92 H 174/92 H Blood Pressure Location Rt brachial Rt brachial Position Sitting Sitting Pulse 93 95 Pulse Source Pulse Oximeter Pulse Oximeter Pulse Oximetry (%) 97 94 Oxygen Delivery Method Room Air Room Air Comment pre-op post-op Intake Visit Reasons: right theraputic SIJ inj Allergies No Known Allergies Allergy (Verified 03/25/24 08:33) HPI HPI right theraputic SIJ inj: Details: Patient presents for scheduled procedure. Denies any recent cough, cold, infection, fever or other significant changes in medical history since last office visit. [facility] Medical History (Updated 12/18/23 @ 12:07 by Michele Rangel MD) Cluneal neuropathy Seizure disorder Hypertension Type 2 diabetes mellitus Physical Exam Vital Signs: Last Vital Signs Pulse 95 06/09/24 13:12 BP 174/92 H 06/09/24 13:12 Pulse Ox 94 06/09/24 13:12 Oxygen Delivery Method Room Air 06/09/24 13:12 Office Procedures Joint Injection/Drain Joint Injection/Drain Details: Sacroiliac Joint Injection, Right The procedure, its benefits, and its risks were explained and written informed consent was obtained from the patient. Immediately prior to starting the procedure, a time-out safety check was conducted. The patient's identificati on, procedure name, procedure site, and procedure laterality were confirmed with the patient. ? Patient was placed prone on the fluoroscopy table and the lumbosacral area was prepped using ChloraPrep and draped with sterile drape in standard fashion. The C-arm was rotated in a contralateral oblique fashion until the medial border of the iliac crest no longer foreshadowed the posterior sacroiliac joint line. The skin and subcutaneous tissue was anesthetized using 1 mL of 0.75% plain lidocaine with 1.5-inch 25-gauge needle in the middle region of the joint line.? A 3.5-inch 22-gauge spinal needle with small bend on the tip was slowly advanced towards the joint line, coaxial to the x-ray beam. Once bony content was obtained, the needle was easily slid into the intra-articular space.? Intra-ar ticular needle position was confirmed using lateral fluoroscopy.? A total volume of 2.5mL of solution containing 40 mg triamcinilone and rest 0.5% of ropivacaine was injected intra-articularly. The stylet was reinserted and needle was removed. The patient tolerated the procedure well. Patient denied any lower extremity weakness or numbness. Patient was observed for 30 min and was discharged after fulfilling the standard discharge criteria. Coding 47429 - Sacroiliac Procedure code (CPT) selection complete Assessment & Plan Assessment & Plan (1) Sacroiliac joint dysfunction of right side: Code(s): M53.3 - Sacrococcygeal disorders, not elsewhere classified Category: Medical Plan Patient is status post therapeutic right sacroiliac joint injection. Patient tolerated procedure well and was discharged home in stable condition with discharge instructions. All questions were answered. We will follow-up via telephone or in clinic to assess response to therapy. A follow-up appointment was made during today's visit. Orders: Orders FL guidance in treatment room Today M53.3 - Sacrococcygeal disorders, not elsewhere classified Coding Level of Care Code Procedure Only Diagnoses Sacroiliac joint dysfunction of right side M53.3 CPT Codes Coding - Joint 9: 98410 - Sacroiliac ([id number])
[2024-06-09 12:03] VITALS: BP 186/92; PULSE 93; O2SAT 97
[2024-06-09 13:12] VITALS: BP 174/92; PULSE 95; O2SAT 94
== END 2024-06-09 12:30 | disposition home or self-care (01) ==
LOC: HO.PMCPRC 11:24
PROVIDERS: PCP Internal Medicine; Visit Provider Internal Medicine
DX: M53.3 Sacrococcygeal disorders, not elsewhere classified (principal)
CPT/HCPCS: 27096

== ENCOUNTER 2024-07-06 10:32 | Outpatient (AMB) | payer MEDICARE, SELFPAY ==
--- NOTE | 2024-07-06 10:55 | A.OFFVIS_ITS ---
Vital Signs 07/06/24 10:56 Height 6 ft Weight 295 lb BMI 40.0 BP 196/82 H Blood Pressure Location Lt brachial Position Sitting Respiration 14 Pulse 112 H Pulse Source Pulse Oximeter Pulse Oximetry (%) 94 Oxygen Delivery Method Room Air Intake Visit Reasons: s/p right theraputic Sij inj Intake Note: Pt's BP elevated - he states he will call his PCP at the conclusion of the visit Allergies No Known Allergies Allergy (Verified 07/06/24 10:58) Medication List - Last Reconciled 07/06/24 by Concepcion Lewis LPN glimepiride 4 mg PO BID hydrochlorothiazide 25 mg PO DAILY irbesartan 300 mg PO DAILY levetiracetam 500 mg PO BID ondansetron 4 mg PO Q8H PRN pioglitazone 30 mg PO DAILY potassium chloride ER 10 mEq PO BID rosuvastatin 5 mg PO DAILY HPI HPI s/p right theraputic Sij inj: Details: 73-year-old male who presents today to the office for status post therapeutic right sacroiliac joint injection. The patient reports relief for 3 days following the procedure. He experienced severe pain in the morning to the point he was not able to move. When he checked his blood pressure, it was elevated at 180. He has difficulty sleeping due to pain and notices pain is present 22/06. He feels fatigued and drained due to lack of sleep. He was on curcumin for 5 weeks without any improvement. He is taking Mcdaniels 3 supplements. Past procedures 06/09/24: Therapeutic right sacroiliac joint injection: >75% relief for 3 days. 02/25/24: Sacroiliac Joint Injection, Right: 90% relief, ongoing. 02/18/24: Sacroiliac Joint Injection, Right: 90 % relief 15-20 hours. 01/07/24: Caudal CHARLI with catheter: No relief. 10/14/23: Lumbar Medial Branch Nerve Stimulation Lead Placement, SPR (Sprint) System, right L4: Mild relief of low back pain with persistent radicular symptoms 07/09/22: Right SIJ Innervation Cooled RFA ? greater than 50% relief, significant local site tenderness manages with cold compresses COUNT INCLUDES [facility] Medical History (Updated 12/18/23 @ 12:07 by Michele Rangel MD) Cluneal neuropathy Seizure disorder Hypertension Type 2 diabetes mellitus Physical Exam Vital Signs: Last Vital Signs Pulse 112 H 07/06/24 10:56 Resp 14 07/06/24 10:56 BP 196/82 H 07/06/24 10:56 Pulse Ox 94 07/06/24 10:56 Oxygen Delivery Method Room Air 07/06/24 10:56 BMI result Body Mass Index 40.0 Results Reviewed Results Reviewed: Date: 02/10/24 EXAMINATION: XR LUMBOSACRAL SPINE WITH OBLIQUES FINDINGS: 6 degrees of lumbar levocurvature is measured from the superior endplate of L1 to the inferior endplate of L5. The vertebral body heights are maintained. No evidence of vertebral compression fracture or pars interarticularis defect. The lordotic curvature of the lumbar spine is well-preserved. There is multilevel vertebral osteophyte formation and mild narrowing of disc spaces in the lumbar spine. There is approximately 0.2 cm of retrolisthesis at L2-L3 and L3-L4 that remains unchanged on flexion and extension views. The lumbar spinous processes are hypertrophied and are likely chronically abutting at L2-L3, L3-L4 and possibly L4-L5. No suspicious lytic or osteoblastic lesion. Sacrum and sacroiliac joints are unremarkable. There is mild atherosclerotic calcification of the abdominal aorta. IMPRESSION: * Mild multilevel discovertebral degenerative changes of the lumbar spine. * There is a slight retrolisthesis at L2-L3 and L3-L4 that does not appreciably change on flexion or extension views. * There are no vertebral compression fractures. Assessment & Plan Assessment & Plan (1) Post laminectomy syndrome: Code(s): M96.1 - Postlaminectomy syndrome, not elsewhere classified Category: Medical (2) Sacroiliac joint dysfunction of right side: Code(s): M53.3 - Sacrococcygeal disorders, not elsewhere classified Category: Medical Plan Will schedule the patient for a repeat right therapeutic SIJ injection. He only got 3 days relief from the last one and is interested in trying another round of corticosteroid injection before considering other options. I also had a discussion with him regarding a trial of Curonix? PNS device for cluneal neuropathy/SI joint pain. I provided him with a brochure and went over the details of the procedure. If the repeat SIJ injection is not helpful, then we can consider more permanent neuromodulation strategy to treat his right cluneal neuropathy. Discussed the risks and benefits of the procedure with the patient in detail. All questions were answered. The patient is on board with the plan. Justification for interventional therapy: ? Patient with average pain > 6/10 ? Patient has exhausted conservative therapy ? Patient unable to tolerate physical therapy due to pain ? previous SI joint injections have provided more than 90% diagnostic and therapeutic relief . Patient has a good understanding of their pain condition and has appropriate mental and social support Scribed for Dr. Rangel by Andres manager medical device, on 07/06/2024. I, Dr. Rangel, have personally reviewed and agree with the information entered by the scribe. Coding Level of Care Code Est Pt Level 3 (51650) Diagnoses Post laminectomy syndrome M96.1 Sacroiliac joint dysfunction of right side M53.3
[2024-07-06 10:56] VITALS: BP 196/82; PULSE 112; RESP 14; O2SAT 94; BMI 40.0
== END 2024-07-06 11:21 | disposition home or self-care (01) ==
PROVIDERS: PCP Internal Medicine; Visit Provider Internal Medicine
DX: M96.1 Postlaminectomy syndrome, not elsewhere classified (principal); M53.3 Sacrococcygeal disorders, not elsewhere classified
CPT/HCPCS: 99213

== ENCOUNTER → 2024-07-06 10:32 | Outpatient (BNVA) | payer MEDICARE, SELFPAY | PROVIDERS: PCP Internal Medicine; Visit Provider Internal Medicine | DX: M96.1 Postlaminectomy syndrome, not elsewhere classified (principal); M53.3 Sacrococcygeal disorders, not elsewhere classified | CPT/HCPCS: 99212 ==

== ENCOUNTER 2024-07-14 07:20 | Outpatient (REF) | payer MEDICARE, SELFPAY | END 2024-07-14 07:21 | disposition home or self-care (01) | LOC: CF 07:20 | PROVIDERS: Visit Provider Internal Medicine | DX: M53.3 Sacrococcygeal disorders, not elsewhere classified (principal) | CPT/HCPCS: 27096; J2795; J3301 ==

== ENCOUNTER 2024-07-14 13:13 | Outpatient (AMB) | payer MEDICARE, SELFPAY ==
[2024-07-14 13:25] VITALS: BP 150/72; PULSE 97; RESP 16; O2SAT 94
[2024-07-14 14:00] VITALS: BP 127/75; PULSE 90; RESP 16; O2SAT 94
--- NOTE | 2024-07-14 14:01 | MHC.OFFVIS ---
Vital Signs 07/14/24 13:25 07/14/24 14:00 BP 150/72 H 127/75 Blood Pressure Location Rt brachial Rt brachial Position Sitting Sitting Respiration 16 16 Pulse 97 90 Pulse Source Pulse Oximeter Pulse Oximeter Pulse Oximetry (%) 94 94 Oxygen Delivery Method Room Air Room Air Comment Pre-op Post-op Intake Visit Reasons: Right theraputic SIJ inj Allergies No Known Allergies Allergy (Verified 07/06/24 10:58) HPI HPI Right theraputic SIJ inj: Details: Patient presents for scheduled procedure. Denies any recent cough, cold, infection, fever or other significant changes in medical history since last office visit. [facility] Medical History (Updated 12/18/23 @ 12:07 by Michele Rangel MD) Cluneal neuropathy Seizure disorder Hypertension Type 2 diabetes mellitus Physical Exam Vital Signs: Last Vital Signs Pulse 90 07/14/24 14:00 Resp 16 07/14/24 14:00 BP 127/75 07/14/24 14:00 Pulse Ox 94 07/14/24 14:00 Oxygen Delivery Method Room Air 07/14/24 14:00 Office Procedures Joint Injection/Aspiration Joint Injection/Aspiration Details: Sacroiliac Joint Injection, Right The procedure, its benefits, and its risks were explained and written informed consent was obtained from the patient. Immediately prior to starting the procedure, a time-out safety check was conducted. The patient's identification, procedure name, procedure site, and procedure laterality were confirmed with the patient. ? Patient was placed prone on the fluoroscopy table and the lumbosacral area was prepped using ChloraPrep and draped with sterile drapein standard fashion. The C-arm was rotated in a contralateral oblique fashion until the medial border of the iliac crest no longer foreshadowed the posterior sacroiliac joint line. The skin and subcutaneous tissue was anesthetized using 1 mL of 0.75% plain lidocaine with 1.5-inch 25-gauge needle in the middle region of the joint line.? A 3.5-inch 22-gauge spinal needle with small bend on the tip was slowly advanced towards the joint line, coaxial to the x-ray beam. Once bony content was obtained, the needle was easily slid into the intra-articular space.? Intra-articular needle position was confirmed using lateral fluoroscopy.? A total volume of 2.5mL of solution containing 40 mg triamcinolone and rest 0.5% of ropivacaine was injected intra-articularly. The stylet was reinserted and needle was removed. The patient tolerated the procedure well. Patient denied any lower extremity weakness or numbness. Patient was observed for 30 min and was discharged after fulfilling the standard discharge criteria. Coding 65192 - Sacroiliac Procedure code (CPT) selection complete Assessment & Plan Assessment & Plan (1) Sacroiliac joint dysfunction of right side: Code(s): M53.3 - Sacrococcygeal disorders, not elsewhere classified Category: Medical Plan Patient is status post repeat right therapeutic sacroiliac joint injection. Patient tolerated procedure well and was discharged home in stable condition with discharge instructions. All questions were answered. We will follow-up via telephone or in clinic to assess response to therapy. A follow-up appointment was made during today's visit. Orders: Orders FL guidance in treatment room Today M53.3 - Sacrococcygeal disorders, not elsewhere classified Coding Level of Care Code Procedure Only Diagnoses Sacroiliac joint dysfunction of right side M53.3 CPT Codes Coding - Joint 9: 18164 - Sacroiliac ([id number])
== END 2024-07-14 14:00 | disposition home or self-care (01) ==
LOC: HO.PMCPRC 13:13
PROVIDERS: PCP Internal Medicine; Visit Provider Internal Medicine
DX: M53.3 Sacrococcygeal disorders, not elsewhere classified (principal)
CPT/HCPCS: 27096

== ENCOUNTER 2024-08-19 10:51 | Outpatient (AMB) | payer MEDICARE, SELFPAY ==
--- NOTE | 2024-08-19 10:55 | MHC.OFFVIS ---
Vital Signs 08/19/24 10:57 Height 6 ft Weight 301 lb BMI 40.8 BP 171/86 H Blood Pressure Location Lt brachial Position Sitting Respiration 16 Pulse 84 Pulse Source Pulse Oximeter Pulse Oximetry (%) 92 Oxygen Delivery Method Room Air Intake Visit Reasons: s/p right SIJ inj Allergies No Known Allergies Allergy (Verified 08/19/24 10:58) Medication List - Last Reconciled 08/19/24 by Concepcion Lewis LPN carvedilol 6.25 mg PO BID glimepiride 4 mg PO BID irbesartan 300 mg PO DAILY levetiracetam 500 mg PO BID ondansetron 4 mg PO Q8H PRN pioglitazone 30 mg PO DAILY potassium chloride ER 10 mEq PO BID rosuvastatin 5 mg PO DAILY HPI HPI s/p right SIJ inj: Details: 73-year-old male who presents today to the office for a status post right SIJ injection. The patient reports good relief initially following the procedure. He still reports some discomfort and tightness in his sacroiliac joint. He states that his pain aggravates with movements and sitting down. His pain is worse in the morning after waking up. He is a side sleeper. He is not using a pillow between the legs at night. He is using good mattress at home. He has difficulty sleeping at night and is fatigued. He also discussed different treatment options. He was evaluated and had home study for sleep apnea. He also reports discomfort in bowel movements and urinary frequency.? Past procedures: 07/14/24: Sacroiliac Joint Injection, Right: >60% relief for 4-6 weeks. 06/09/24: Therapeutic right sacroiliac joint injection: >75% relief for 3 days. 02/25/24: Sacroiliac Joint Injection, Right: 90% relief, ongoing. 02/18/24: Sacroiliac Joint Injection, Right: 90 % relief 15-20 hours. 01/07/24: Caudal CHARLI with catheter: No relief. 10/14/23: Lumbar Medial Branch Nerve Stimulation Lead Placement, SPR (Sprint) System, right L4: Mild relief of low back pain with persistent radicular symptoms 07/09/22: Right SIJ Innervation Cooled RFA ? greater than 50% relief, significant local site tenderness manages with cold compresses [facility] Medical History (Updated 09/16/24 @ 08:54 by Michele Rangel MD) Cluneal neuropathy Seizure disorder Hypertension Type 2 diabetes mellitus Review of Systems Const All systems reviewed & are unremarkable except as noted in HPI and below Physical Exam Vital Signs: Last Vital Signs Pulse 84 08/19/24 10:57 Resp 16 08/19/24 10:57 BP 171/86 H 08/19/24 10:57 Pulse Ox 92 08/19/24 10:57 Oxygen Delivery Method Room Air 08/19/24 10:57 BMI result Body Mass Index 40.8 General: Appears afebrile. Alert and oriented. Mood and affect appropriate. Follows and participates in conversation appropriately. Respiratory effort is unlabored. Able to transition from sit to stand unassisted. Ambulates with bilaterally normal heel strike and toe off. Results Reviewed Results Reviewed: No imaging is available for review. Assessment & Plan Assessment & Plan (1) Sacroiliac joint dysfunction of right side: Code(s): M53.3 - Sacrococcygeal disorders, not elsewhere classified Category: Medical (2) Cluneal neuropathy: Code(s): G58.8 - Other specified mononeuropathies Category: Medical Plan We will repeat the right sacroiliac joint injection in mid to late August 2024. Discussed the risks and benefits of the procedure with the patient in detail. All questions were answered. The patient is on board with the plan. Justification for interventional therapy: ? Patient with average pain > 6/10 ? Patient has exhausted conservative therapy ? Previous injection provided >50% relief x > 2 weeks. . Patient has a good understanding of their pain condition and has appropriate mental and social support Discussed peripheral nerve stimulator as possible treatment option as well. Will place a referral for psychology clearance. Once we have received psychology clearance, we will plan for trial of the middle cluneal nerve stimulation due to the intractable nature of his pain in the SI joint region. The patient will receive a call from [facility] for the psychology assessment. In the meanwhile recommended trying a knee cushion while sleeping to help support his SI joint while lying on his side. Scribed for Dr. Rangel by Derrick Corea, medical aides teacher, on 08/19/2024. I, Dr. Rangel, have personally reviewed and agree with the information entered by the scribe. Coding Level of Care Code Est Pt Level 3 (36070) Diagnoses Sacroiliac joint dysfunction of right side M53.3 Cluneal neuropathy G58.8
[2024-08-19 10:57] VITALS: BP 171/86; PULSE 84; RESP 16; O2SAT 92; BMI 40.8
== END 2024-08-19 11:27 | disposition home or self-care (01) ==
PROVIDERS: PCP Internal Medicine; Visit Provider Internal Medicine
DX: M53.3 Sacrococcygeal disorders, not elsewhere classified (principal); G58.8 Other specified mononeuropathies
CPT/HCPCS: 99213

== ENCOUNTER → 2024-08-19 10:51 | Outpatient (BNVA) | payer MEDICARE, SELFPAY | PROVIDERS: PCP Internal Medicine; Visit Provider Internal Medicine | DX: M53.3 Sacrococcygeal disorders, not elsewhere classified (principal); G58.8 Other specified mononeuropathies | CPT/HCPCS: 99212 ==

== ENCOUNTER 2024-09-15 06:06 | Outpatient (REF) | payer MEDICARE, SELFPAY | END 2024-09-15 06:07 | disposition home or self-care (01) | LOC: CF 06:06 | PROVIDERS: Visit Provider Internal Medicine | DX: M53.3 Sacrococcygeal disorders, not elsewhere classified (principal) | CPT/HCPCS: 27096; J2003; J2795; J3301 ==

== ENCOUNTER 2024-09-15 11:10 | Outpatient (AMB) | payer MEDICARE, SELFPAY ==
[2024-09-15 11:37] VITALS: BP 169/91; PULSE 95; O2SAT 95
--- NOTE | 2024-09-15 11:37 | MHC.OFFVIS ---
Vital Signs 09/15/24 11:37 09/15/24 12:13 BP 169/91 H 164/85 H Blood Pressure Location Lt brachial Lt brachial Position Sitting Sitting Pulse 95 94 Pulse Source Pulse Oximeter Pulse Oximeter Pulse Oximetry (%) 95 94 Oxygen Delivery Method Room Air Room Air Intake Visit Reasons: right SIJ inj Allergies No Known Allergies Allergy (Verified 08/19/24 10:58) HPI HPI right SIJ inj: Details: Patient presents for scheduled procedure. Denies any recent cough, cold, infection, fever or other significant changes in medical history since last office visit. [facility] Medical History (Updated 12/18/23 @ 12:07 by Michele Rangel MD) Cluneal neuropathy Seizure disorder Hypertension Type 2 diabetes mellitus Physical Exam Vital Signs: Last Vital Signs Pulse 94 09/15/24 12:13 BP 164/85 H 09/15/24 12:13 Pulse Ox 94 09/15/24 12:13 Oxygen Delivery Method Room Air 09/15/24 12:13 Office Procedures Joint Injection/Aspiration Joint Injection/Aspiration Details: Sacroiliac Joint Injection, right The procedure, its benefits, and its risks were explained and written informed consent was obtained from the patient. Immediately prior to starting the procedure, a time-out safety check was conducted. The patient's identification, procedure name, procedure site, and procedure laterality were confirmed with the patient. ? Patient was placed prone on the fluoroscopy table and the lumbosacral area was prepped using ChloraPrep and draped with sterile drapein standard fashion. The C-arm was rotated in a contralateral oblique fashion until the medial border of the iliac crest no longer foreshadowed the posterior sacroiliac joint line. The skin and subcutaneous tissue was anesthetized using 1 mL of 0.75% plain lidocaine with 1.5-inch 25-gauge needle in the middle region of the joint line.? A 3.5-inch 22-gauge spinal needle with small bend on the tip was slowly advanced towards the joint line, coaxial to the x-ray beam. Once bony content was obtained, the needle was easily slid into the intra-articular space.? Intra-articular needle position was confirmed using lateral fluoroscopy.? A total volume of 2.5mL of solution containing 40 mg triamcinolone and rest 0.5% of ropivacaine was injected intra-articularly. The stylet was reinserted and needle was removed. The patient tolerated the procedure well. Patient denied any lower extremity weakness or numbness. Patient was observed for 30 min and was discharged after fulfilling the standard discharge criteria. Coding 05379 - Sacroiliac Procedure code (CPT) selection complete Assessment & Plan Assessment & Plan (1) Sacroiliac joint dysfunction of right side: Code(s): M53.3 - Sacrococcygeal disorders, not elsewhere classified Category: Medical Plan Patient is status post right therapeutic sacroiliac joint injection. Patient tolerated procedure well and was discharged home in stable condition with discharge instructions. All questions were answered. We will follow-up via telephone or in clinic to assess response to therapy. A follow-up appointment was made during today's visit. Orders: Orders FL guidance in treatment room Today M53.3 - Sacrococcygeal disorders, not elsewhere classified Coding Level of Care Code Procedure Only Diagnoses Sacroiliac joint dysfunction of right side M53.3 CPT Codes Coding - Joint 9: 06298 - Sacroiliac ([id number])
[2024-09-15 12:13] VITALS: BP 164/85; PULSE 94; O2SAT 94
== END 2024-09-15 12:49 | disposition home or self-care (01) ==
LOC: HO.PMCPRC 11:10
PROVIDERS: PCP Internal Medicine; Visit Provider Internal Medicine
DX: M53.3 Sacrococcygeal disorders, not elsewhere classified (principal)
CPT/HCPCS: 27096

== ENCOUNTER 2024-10-14 11:27 | Outpatient (AMB) | payer MEDICARE, SELFPAY ==
[2024-10-14 11:32] VITALS: BP 171/82; PULSE 104; RESP 16; O2SAT 93; BMI 40.8
--- NOTE | 2024-10-14 11:32 | A.OFFVIS_ITS ---
Vital Signs 10/14/24 11:32 Height 6 ft Weight 301 lb BMI 40.8 BP 171/82 H Blood Pressure Location Lt brachial Position Sitting Respiration 16 Pulse 104 H Pulse Source Pulse Oximeter Pulse Oximetry (%) 93 Oxygen Delivery Method Room Air Intake Visit Reasons: s/p right SIJ inj Allergies No Known Allergies Allergy (Verified 10/14/24 11:35) Medication List - Last Reconciled 10/14/24 by Concepcion Lewis LPN carvedilol 6.25 mg PO BID glimepiride 4 mg PO BID irbesartan 300 mg PO DAILY levetiracetam 500 mg PO BID ondansetron 4 mg PO Q8H PRN pioglitazone 30 mg PO DAILY potassium chloride ER 10 mEq PO BID rosuvastatin 5 mg PO DAILY HPI HPI s/p right SIJ inj: Details: 73-year-old male who presents today to the office for a status post right sacroiliac joint injection. The patient reports 75% relief following the procedure for five days. He is not happy with the five days of response. His pain returned to the baseline. He describes his pain as constant dull aching sensations. His pain alleviates with sitting down straight on a hard surface. He uses a heating pad and ibuprofen/tylenol. He has increased constipation and had no bowel movements since Thursday. He has not tried Imodium. He denies any swelling in his leg. He had complete blood work with his primary care physician, which was normal. He has difficulty sleeping at night. He was referred to cardiology at [facility], who suspects that it might be related to sleep apnea. Past procedures 09/15/24: Sacroiliac Joint Injection, right: 75% relief for 5 days. 07/14/24: Sacroiliac Joint Injection, Right: >60% relief for 4-6 weeks. 06/09/24: Therapeutic right sacroiliac joint injection: >75% relief for 3 days. 02/25/24: Sacroiliac Joint Injection, Right: 90% relief, ongoing. 02/18/24: Sacroiliac Joint Injection, Right: 90 % relief 15-20 hours. 01/07/24: Caudal CHARLI with catheter: No relief. 10/14/23: Lumbar Medial Branch Nerve Stimulation Lead Placement, SPR (Sprint) System, right L4: Mild relief of low back pain with persistent radicular symptoms 07/09/22: Right SIJ Innervation Cooled RFA ? greater than 50% relief, significant local site tenderness manages with cold compresses [facility] Medical History (Updated 09/16/24 @ 08:54 by Michele Rangel MD) Cluneal neuropathy Seizure disorder Hypertension Type 2 diabetes mellitus Review of Systems Const All systems reviewed & are unremarkable except as noted in HPI and below Physical Exam Vital Signs: Last Vital Signs Pulse 104 H 10/14/24 11:32 Resp 16 10/14/24 11:32 BP 171/82 H 10/14/24 11:32 Pulse Ox 93 10/14/24 11:32 Oxygen Delivery Method Room Air 10/14/24 11:32 BMI result Body Mass Index 40.8 General: Appears afebrile. Alert and oriented. Mood and affect appropriate. Follows and participates in conversation appropriately. Respiratory effort is unlabored. Able to transition from sit to stand unassisted. Ambulates with bilaterally normal heel strike and toe off. Results Reviewed Results Reviewed: No imaging is available for review. Assessment & Plan Assessment & Plan (1) Cluneal neuropathy: Code(s): G58.8 - Other specified mononeuropathies Category: Medical (2) Post laminectomy syndrome: Code(s): M96.1 - Postlaminectomy syndrome, not elsewhere classified Category: Medical Plan 73-year-old man with refractory sacroiliac joint dysfunction and pain associated with cluneal neuropathy that has not been easy to treat. He has had a good response to sacroiliac joint injections in the past, but these have waned for the past half a few times. The last injection only provided him five days of relief. He is interested in proceeding with more definitive treatment options. I discussed a trial of a temporary right medial cluneal nerve stimulator for cluneal neuropathy to treat his right-sided sacral area of pain. He is in agreement with the plan. We will proceed with requesting authorization for the right medial cluneal nerve stimulator trial with a [employer] device and schedule it accordingly. He has already cleared psychological evaluation. Discussed the risks and benefits of the procedure with the patient in detail. All questions were answered. The patient is on board with the plan. Justification for interventional therapy: ? Patient with average pain > 6/10 ? Patient has exhausted conservative therapy epidural steroid injection, sacroiliac joint injection, temporary peripheral nerve stimulator, and radiofrequency ablation. ? Patient unable to tolerate physical therapy due to pain.? . Patient has a good understanding of their pain condition and has appropriate mental and social support. Scribed for Dr. Rangel by Derrick Corea, medical staff services manager, on 10/14/2024. I, Dr. Rangel, have personally reviewed and agree with the information entered by the scribe. Coding Level of Care Code Est Pt Level 3 (66605) Diagnoses Cluneal neuropathy G58.8 Post laminectomy syndrome M96.1
== END 2024-10-14 12:04 | disposition home or self-care (01) ==
PROVIDERS: PCP Internal Medicine; Visit Provider Internal Medicine
DX: G58.8 Other specified mononeuropathies (principal); M96.1 Postlaminectomy syndrome, not elsewhere classified
CPT/HCPCS: 99213

== ENCOUNTER → 2024-10-14 11:27 | Outpatient (BNVA) | payer MEDICARE, SELFPAY | PROVIDERS: PCP Internal Medicine; Visit Provider Internal Medicine | DX: G58.8 Other specified mononeuropathies (principal); M96.1 Postlaminectomy syndrome, not elsewhere classified | CPT/HCPCS: 99212 ==

== ENCOUNTER 2024-12-05 11:14 | Outpatient (AMB) | payer MEDICARE, SELFPAY ==
[2024-12-05 11:44] VITALS: BP 164/78; PULSE 100; RESP 16; O2SAT 92; BMI 40.4
--- NOTE | 2024-12-05 11:44 | MHC.OFFVIS ---
Vital Signs 12/05/24 11:44 Height 6 ft Weight 298 lb BMI 40.4 BP 164/78 H Blood Pressure Location Lt brachial Position Sitting Respiration 16 Pulse 100 Pulse Source Pulse Oximeter Pulse Oximetry (%) 92 Oxygen Delivery Method Room Air Intake Visit Reasons: Procedure Discussion Allergies No Known Allergies Allergy (Verified 12/05/24 11:45) Medication List - Last Reconciled 12/05/24 by Concepcion Lewis LPN carvedilol 6.25 mg PO BID glimepiride 4 mg PO BID irbesartan 300 mg PO DAILY levetiracetam 500 mg PO BID ondansetron 4 mg PO Q8H PRN pioglitazone 30 mg PO DAILY potassium chloride ER 10 mEq PO BID rosuvastatin 5 mg PO DAILY spironolactone 25 mg PO DAILY HPI HPI Procedure Discussion: Details: Patient presents with questions regarding preprocedure planning prior to proceeding with a trial of right cluneal nerve stimulation. He continues to have significant symptoms in the right hip, especially when he 1st wakes up. Also attributes aggravation of symptoms associated bowel movements. Has concerns regarding appropriate management of his blood pressure prior to proceeding with the trial. On exam today: Appears afebrile. Alert and oriented. Mood and affect appropriate. Follows and participates in conversation appropriately. Respiratory effort is unlabored. Able to transition from sit to stand unassisted. Ambulates with bilaterally normal heel strike and toe off. Able to stand and walk on toes and heels. [facility] Medical History (Updated 09/16/24 @ 08:54 by Michele Rangel MD) Cluneal neuropathy Seizure disorder Hypertension Type 2 diabetes mellitus Physical Exam Vital Signs: Last Vital Signs Pulse 100 12/05/24 11:44 Resp 16 12/05/24 11:44 BP 164/78 H 12/05/24 11:44 Pulse Ox 92 12/05/24 11:44 Oxygen Delivery Method Room Air 12/05/24 11:44 BMI result Body Mass Index 40.4 Assessment & Plan Assessment & Plan (1) Cluneal neuropathy: Code(s): G58.8 - Other specified mononeuropathies Category: Medical (2) Post laminectomy syndrome: Code(s): M96.1 - Postlaminectomy syndrome, not elsewhere classified Category: Medical Plan Answered patient's questions regarding optimal blood pressure management prior to proceeding with a trial. Reviewed steps for the trial and eventual implant if indicated. Patient expressed understanding and we will potentially proceed with the trial lead placement in early December to allow some more time for his blood pressure to adjust to the new medication that was recently started. Coding Level of Care Code Est Pt Level 3 (85408) Diagnoses Cluneal neuropathy G58.8 Post laminectomy syndrome M96.1
--- OUTSIDE RECORDS SUMMARY | 2024-12-05 12:51 | XMS_ITS ---
Author Organization [facility] rafaela Merrillan Address [address] [place] [address] Care Team Providers Care Rn Ostomy Name Role Phone Kev Miranda MD Primary Care Provider Denny Gao [phone] REASON FOR VISIT cx appt Encounters Encounter Location Date Provider Diagnosis [facility] [address] [place] [address] 05/02/2024 Denny Downing Plan Of Treatment No Information Progress Notes * Aden FELIZ FDOB:[birth year] (73 yo M)Acc No.[id number]:05/02/2024 Patient:?Aden Feliz :1950???Age:73 Y???Sex:Male Address:[address] [place], [place] [address] [place] [address] * true * Date:? Generated for Printi ng/Fayaseming/eTransmitting on:?12/05/2024 12:51 PM EST
--- OUTSIDE RECORDS SUMMARY | 2024-12-05 12:52 | XMS_ITS | Patient Health Record ---
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 Name Role Phone Kev Miranda MD Primary Care Provider Kev Carreno Unavailable [phone] ALLERGIES No Known Allergies REASON FOR REFERRAL No Information MEDICATIONS Medication SIG (Take, Route, Frequency, Duration) Notes Start Date End Date Status Vitamin D-3 125 MCG (5000 UT) as directed Orally Active Fish Oil 1000 MG 1 capsule Orally Once a day for 30 day(s) Active Multivitamin - as directed Orally Active Vitamin B 12 500 MCG 1 lozenge Orally Once a day for 30 day(s) Active Glimepiride 4 MG Oral for 90 A ctive MiraLax 17 GM/SCOOP as directed Orally Active Aspirin 81 81 MG 1 tablet Orally Once a day for 30 day(s) Not-Taking Irbesartan 300 MG Oral for 90 Active hydroCHLOROthiazide 25 MG TAKE 1 TABLET BY MOUTH EVERY DAY Oral for 90 Active Potassium Chloride ER 10 MEQ Oral for 30 Active levETIRAcetam 500 MG Oral for 90 Active Pioglitazone HCl 15 MG Oral for 30 Active IMMUNIZATIONS Vaccine Route Administration Date Status Comme nts Influenza Unknown 09/17/2021 Administered SOCIAL HISTORY Tobacco Use: Social History Observation Description Date Details (start date - stop date) Former Smoker NA - NA Sex Assigned At : Social History Observation Description Sex Assigned At Unknown Tobacco Use/Smoking Question Answer Notes Patient is a former smoker Alcohol Screen Question Answer Notes Did you have a drink contain ing alcohol in the past year? Yes How often did you have a dri nk containing alcohol in the past year? 2 to 4 times a month (2 points) How many drinks did you have on a typical day when you were drinking in the past year? 1 or 2 drinks (0 point) How often did you have 6 or more drinks on one occasion in the past year? Less than monthly (1 point) Points 3 Interpretation Negative PROBLEMS Problem Type ICD Code Onset Dates Problem Status W/U Status Risk SNOMED Code Notes Problem Encounter for screening for malignant neoplasm of colon (Z12.11) Active confirmed Screening for malignant neoplasm of colon (669285227) Problem Constipation (K59.00) Active confirmed Constipation (75473512) Problem Encounter for other preprocedural examination (Z01.818) Active confirmed Pre-procedure evaluation check (582654640) Problem Aspirin long-term use (Z79.82) Active confirmed Long-term current use of aspirin ([id number] 3) PLAN OF TREATMENT Future Test Test Name Order Date COLONOSCOPY 05/14/2022 Insurance Providers Payer Name Payer Address Payer Phone Subscriber Number Group Number Insured Name Patient Relationship to Insured Coverage Start Date Coverage End Date [employer] Medicare Advantage Plan [address] [address] [place] [address] [id number] ROHINI FELIZ Self - patient is the insured MEDICAL (GENERAL) HISTORY Medical History History ICD Code NIDDM HTN Sacroiliac pain on the right-seeing Dr. Rangel in [facility] at [facility] Denies [place],CVA,Lung disease,renal disease Constipation Surgical History Surgery Date(Month/Year) Left inguinal hernia
--- OUTSIDE RECORDS SUMMARY | 2024-12-05 12:52 | XMS_ITS | Patient Health Record ---
Author Organization [facility] Address [address] [place] [address] Care Team Providers Care Electronic Die Maker Name Role Phone Kev Miranda MD Primary Care Provider Denny Gao Unavailable [phone] Allergies No Known Allergies Results Component Value Reference Range Notes HEMOGLOBIN A1C (GLYCOHEMOGLO BIN) Reviewed date:04/20/2024 10:26:54 AM Interpretation: Performing Lab: Notes/Report: HEMOGLOBIN A1C % (HH) 6.5 Reason For Referral No Information Medications Medication SIG (Take, Route, Frequency, Duration) Notes Start Date End Date Status Pioglitazone HCl 30 MG Oral for 90 Days Active Irbesartan 300 MG TAKE 1 TABLET BY MOUTH ONCE DAILY Oral for 90 Days Active Rosuvastatin Calcium 5 MG Oral for 90 Days Active Glimepiride 4 MG TAKE 1 & 1/2 (ONE & ONE-HALF) TABLETS BY MOUTH ONCE DAILY BEFORE BREAKFAST AND 1/2 (ONE-HALF) WITH EVENING MEAL Oral for 90 Days Active Potassium Chloride ER 10 MEQ Oral for 90 Days Active hydroCHLOROthiazide 25 MG Oral for 90 Days Active levETIRAcetam 500 MG Oral for 90 Days Active Olmesartan Medoxomil 40 MG TAKE 1 TABLET BY MOUTH ONCE DAILY Oral for 90 Days Active Doxycycline Monohydrate 100 MG 1 capsule Orally Once a day for 10 days 04/20/2024 Active Social History Tobacco Use: Social History Observation Description Date Details (start date - stop date) Former Smoker NA - NA Tobacco Use/Smoking Question Answer Notes Are you a: former smoker Additional Findings: Tobacco Non-User Current no n-smoker Alcohol Screen Question Answer Notes Did you have a drink containing alcohol in the p ast year? No Points 0 Interpretation Negative Tobacco use other than smoking: Question Answer Notes Are you an other tobacco user? No Problems Problem Type SNOMED Code ICD Code Onset Dates Problem Status W/U Status Risk Notes Problem Acquired hammer toe of right foot (6946197339880030 ) Other hammer toe(s) (acquired), right foot (M20.41) Active confirmed Problem Acquired hammer toe of left foot (3234788473678555 ) Other hammer toe(s) (acquired), left foot (M20.42) Active confirmed Problem Polyneuropathy due to type 2 diabetes mellitus (661161283) Type 2 diabetes mellitus with diabetic polyneuropathy (E11.42) Active confirmed Vital Signs Height 6 ft in 04/20/2024 Weight 275 lbs 04/20/2024 BMI 37.29 kg/m2 04/20/2024 Encounters Encounter Location Date Provider Diagnosis [address] [address] 04/20/2024 Denny Downing Type 2 diabetes mellitus with diabetic polyneuropathy E11.42 ; Cellulitis of left toe L03.032 ; Tinea unguium B35.1 ; Pain in right toe(s) M79.674 ; Pain in left toe(s) M79.675 ; Ingrowing nail L60.0 ; Other hammer toe(s) (acquired), right foot M20.41 ; Other hammer toe(s) (acquired), left foot M20.42 and Abscess, toe, left L02.[address] [address] 04/19/[address] [address] 04/20/[address] [address] 05/02/2024 Denny Downing Assessments Encounter Date Diagnosis (ICD Code) Assessment Notes Treatment Notes Treatment Clinical Notes Section Notes 04/20/2024 Cellulitis of left toe (ICD-10 - L03.032) 04/20/2024 Type 2 diabetes mellitus with diabetic polyneuropathy (ICD-10 - E11.42) 04/20/2024 Tinea unguium (ICD-10 - B35.1) 04/20/2024 Pain in right toe(s) (ICD-10 - M79.674) 04/20/2024 Pain in left toe(s) (ICD-10 - M79.675) 04/20/2024 Ingrowing nail (ICD-10 - L60.0) 04/20/2024 Other hammer toe(s) (acquired), right foot (ICD-10 - M20.41) 04/20/2024 Other hammer toe(s) (acquired), left foot (ICD-10 - M20.42) 04/20/2024 Abscess, toe, left (ICD-10 - L02.612) Plan Of Treatment No Information Insurance Providers Payer Name Payer Address Payer Phone Subscriber Number Group Number Insured Name Patient Relationship to Insured Coverage Start Date Coverage End Date [employer] Medicare [id number] [address] [address] [place] [address] [id number] Aden Smith Self - patient is the insured Medical (General) History Medical History History ICD Code Diabetic High blood pressure Sciatica Surgical History Surgery Date(Month/Year) spinal stenosis surgery 01/02/2023
--- OUTSIDE RECORDS SUMMARY | 2024-12-05 12:52 | XMS_ITS ---
Author Organization [facility] Naila rafaela Rishi Address [address] [place] [address] Care Team Providers Care Hazardous Materials Tanker Driver Name Role Phone Kev Miranda MD Primary Care Provider Denny Gao [phone] REASON FOR VISIT Doxycycline Encounters Encounter Location Date Provider Diagnosis [facility] [address] [place] [address] 04/20/2024 Denny Downing Plan Of Treatment No Information Progress Notes * Aden FELIZ FDOB:[birth year] (73 yo M)Acc No.[id number]:04/20/2024 Patient:?BaileeAden gardner :1950???Age:73 Y???Sex:Male Address:[address] [place], [place] [address]ers[facility] [place] [address] * true * Date:? Generated for Printi celso/Fareggie/eTransmitting on:?12/05/2024 12:51 PM EST
== END 2024-12-05 12:05 | disposition home or self-care (01) ==
PROVIDERS: PCP Internal Medicine; Visit Provider Internal Medicine
DX: G58.8 Other specified mononeuropathies (principal); M96.1 Postlaminectomy syndrome, not elsewhere classified
CPT/HCPCS: 99213

== ENCOUNTER → 2024-12-05 11:14 | Outpatient (BNVA) | payer MEDICARE, SELFPAY | PROVIDERS: PCP Internal Medicine; Visit Provider Internal Medicine | DX: M96.1 Postlaminectomy syndrome, not elsewhere classified (principal); G58.8 Other specified mononeuropathies | CPT/HCPCS: 99212 ==

== ENCOUNTER 2025-03-01 11:24 | Day surgery (SDC) | payer MEDICARE, SELFPAY ==
[2025-02-27 12:22] VITALS: BMI 40.4
--- OUTSIDE RECORDS SUMMARY | 2025-02-27 13:56 | XMS_ITS | Encounter Summary ---
Author Organization [facility] Address [address] [place] [address] Phone Care Team Providers Care Product Designer Name Role Phone Kev Miranda MD Primary Care Provider [phone] Encounter Details Date Type Department Care Team (Late st Contact Info) Description 02/01/2025 Documentation Only [facility] [address] [place] [address] Nisha Amor [address] [place] [address] [phone] Social History Tobacco Use Types Packs/Day Years Used Date Smoking Tobacco: Never Assessed Sex and Gender Information Value Date Recorded Sex Assigned at Not on file Legal Sex Male 8:25 AM EST Gender Identity Not on file Sexual Orientation Not on file documented as of this encounter Plan of Treatment Upcoming Encounters Date Type Department Care Team (Late st Contact Info) Description 04/13/2025 3:00 PM EDT Office Visit [facility] [place] Dr Jo DOUGHERTY [address] [place] [phone] Hudson Atkinson MD [address] [place] [address] [place] [address] documented as of this encounter Visit Diagnoses Not on filedocumented in this encounter Care Teams Product Designer Relationship Specialty Start Date End Date Kev Miranda MD [address] [place] [address] PCP - General Internal Medicine 01/31/25 documented as of this encounter
--- OUTSIDE RECORDS SUMMARY | 2025-02-27 13:56 | XMS_ITS | Encounter Summary ---
Author Organization [facility] Address [address] [place] [address] Phone Care Team Providers Care Pre School Manager Name Role Phone Kev Miranda MD Primary Care Provider [phone] Encounter Details Date Type Department Care Team (Late st Contact Info) Description 01/31/2025 Documentation Only [facility] [address] [place] [address] [place] [address] [place] [address] [phone] Social History Tobacco Use Types Packs/Day Years [...] Visit [facility] [place] [address] Jo [address] [place] [phone] Hudson Atkinson MD [address] [place] [address] [place] [address] documented as of this encounter Visit Diagnoses Not on filedocumented in this encounter Care Teams Pre School Manager Relationship Specialty Start Date End Date Kev Miranda MD [address] [place] [address] PCP - General Internal Medicine 01/31/25 documented as of this encounter
--- OUTSIDE RECORDS SUMMARY | 2025-02-27 13:56 | XMS_ITS | Encounter Summary ---
Author Organization [facility] Address [address] [place] [address] Phone Care Team Providers Care Dairy Processing Equipment Operator Name Role Phone Kev Miranda MD Primary Care Provider [phone] Encounter Details Date Type Department Care Team (Late st Contact Info) Description 02/01/2025 Documentation Only [facility] [address] [place] [address] Nisha Amor [address] [place] [address] [phone] Social History Tobacco Use Types Packs/Day Years [...] Visit [facility] [place] [address] Jo DOUGHERTY [address] [place] [phone] Hudson Atkinson MD [address] [place] [address] [place] [address] documented as of this encounter Visit Diagnoses Not on filedocumented in this encounter Care Teams Dairy Processing Equipment Operator Relationship Specialty Start Date End Date Kev Miranda MD 40 [place] [address] PCP - General Internal Medicine 01/31/25 documented as of this encounter
--- OUTSIDE RECORDS SUMMARY | 2025-02-27 13:56 | XMS_ITS | Encounter Summary ---
Author Organization [facility] Address [address] [place] [address] Phone Care Team Providers Care Mingle Operator Name Role Phone Kev Miranda MD Primary Care Provider [phone] Encounter Details Date Type Department Care Team (Late st Contact Info) Description 02/01/2025 Documentation Only [facility] [address] [place] [address] Nisha Amor [address] [place] [address] [phone] Social History Tobacco Use Types Packs/Day Years [...] Visit [facility] [place] [address] Jo DOUGHERTY [address] [place] [phone] Hudson Atkinson MD [address] [place] [address] [place] [address] documented as of this encounter Visit Diagnoses Not on filedocumented in this encounter Care Teams Mingle Operator Relationship Specialty Start Date End Date Kev Miranda MD 40 [facility] [place] [address] PCP - General Internal Medicine 01/31/25 documented as of this encounter
--- OUTSIDE RECORDS SUMMARY | 2025-02-27 13:56 | XMS_ITS | Encounter Summary ---
Author Organization [facility] Address [address] [place] [address] Phone Care Team Providers Care Instrumentation Supervisor Name Role Phone Kev Miranda MD Primary Care Provider [phone] Encounter Details Date Type Department Care Team (Late st Contact Info) Description 02/01/2025 Documentation Only [facility] [address] [place] [address] Nisha Amor [address] [place] [address] [phone] Social History Tobacco Use Types Packs/Day Years [...] Visit [facility] [place] Dr Jo DOUGHERTY [address] [place] [phone] Hudson Atkinson MD [address] [place] [address] [place] [address] documented as of this encounter Visit Diagnoses Not on filedocumented in this encounter Care Teams Instrumentation Supervisor Relationship Specialty Start Date End Date Kev Miranda MD 40 [place] [address] PCP - General Internal Medicine 01/31/25 documented as of this encounter
--- OUTSIDE RECORDS SUMMARY | 2025-02-27 13:56 | XMS_ITS | Encounter Summary ---
Author Organization [facility] Address [address] [place] [address] Phone Care Team Providers Care Stock Mixer Name Role Phone Kev Miranda MD Primary Care Provider Encounter Details Date Type Department Care Team (Late st Contact Info) Description 02/01/2025 Documentation Only [facility] [address] [place] [address] Nisha Amor [address] [place] [address] [phone] Social History Tobacco Use Types Packs/Day Years [...] Visit [facility] [place] Dr Jo DOUGHERTY [address] [place] [phone] Hudson Atkinson MD [address] [place] [address] [place] [address] documented as of this encounter Visit Diagnoses Not on filedocumented in this encounter Care Teams Stock Mixer Relationship Specialty Start Date End Date Kev Miranda MD [address] [place] [address] PCP - General Internal Medicine 01/31/25 documented as of this encounter
--- OUTSIDE RECORDS SUMMARY | 2025-02-27 13:56 | XMS_ITS ---
Author Organization [facility] Naila Henriquezley Address [address] [place] [address] Care Team Providers Care Process Excellence Manager Name Role Phone Kev Miranda MD Primary Care Provider Denny Gao [phone] Encounters Encounter Location Date Provider Diagnosis [facility] [address] [place] [address] 05/02/2024 Denny Downing Plan Of Treatment No Information Progress Notes * Aden FELIZ FDOB:[birth year] (74 yo M)Acc No.[id number]:05/02/2024 Progress Notes Patient:?SHANONGISSELLAden Provider:?Denny Downing DPM :1950???Age:73 Y???Sex:Male Carrington e:05/02/2024 Address:[address] [place], [place] [address] Pcp:Kev Miranda MD Subjective: * Chief Complaints: * ??? * HPI: ???At Risk footcare:?Pt States Last PCP Visit:?Date?11/01/2023 ???Skin problems:?Nature:?tender, throbbing, swelling, redness.?Location:?Left , 1st.?Duration:?a month.?Onset/Cause:?unknown.?Course:?worse.?Aggravated by:?any pressure, standing.?Severity/Quality:?moderate.? * Medical History:? Objective: * Vitals:? Assessment: Plan: * Treatment: * Images: * The named appointment provid er may or may not be the originator of this progress note, and it is not deemed complete until electronically signed by the appointment provider. Sign off status: Pending * Provider:?Denny Downing DPM Date:? 024 Generated for Audrey houston/Julia/eTransmitting on:?02/27/2025 01:56 PM EDT History and Physical Notes * HPI (History of Present Illness) Category Sub-Category Detail Notes Category Not es Skin problems Nature: tender, throbbing, swelling , redness Location: Left , 1st Duration: a month Onset/Cause: unknown Course: worse Aggravated by: any pressure, radhai celso Severity/Quality: moderate At Risk footcare Pt States Last PCP Visit: Date: 3
--- OUTSIDE RECORDS SUMMARY | 2025-02-27 13:56 | XMS_ITS | Encounter Summary ---
Author Organization [facility] Address [address] [place] [address] Phone Care Team Providers Care Credit Operations Specialist Name Role Phone Kev Miranda MD Primary Care Provider [phone] Encounter Details Date Type Department Care Team (Late st Contact Info) Description 02/01/2025 Documentation Only [facility] [address] [place] [address] Nisha Amor [address] [place] [address] [phone] Social History Tobacco Use Types Packs/Day Years [...] Visit [facility] [place] Dr Jo DOUGHERTY [address] [place] [phone] Hudson Atkinson MD [address] [place] [address] [place] [address] documented as of this encounter Visit Diagnoses Not on filedocumented in this encounter Care Teams Credit Operations Specialist Relationship Specialty Start Date End Date eKv Miranda MD [address] [place] [address] PCP - General Internal Medicine 01/31/25 documented as of this encounter
--- OUTSIDE RECORDS SUMMARY | 2025-02-27 13:56 | XMS_ITS ---
Author Organization [facility] Naila rafaela Oglesby Address [address] [place] [address] Care Team Providers Care Juvenile Justice Officer Name Role Phone Kev Miranda MD Primary Care Provider Denny Gao [phone] REASON FOR VISIT Doxycycline Encounters Encounter Location Date Provider Diagnosis [facility] [address] [place] [address] 04/20/2024 Denny Downing Plan Of Treatment No Information Progress Notes * Aden FELIZ FDOB:[birth year] (73 yo M)Acc No.[id number]:04/20/2024 Patient:?Sarah Aden Diaz :1950???Age:73 Y???Sex:Male Address:[address] [place], [place] [address]ers[facility] [place] [address] * true * Date:? Generated for Printi ng/Fayaseming/eTransmitting on:?02/27/2025 01:56 PM EDT
--- OUTSIDE RECORDS SUMMARY | 2025-02-27 13:56 | XMS_ITS | Encounter Summary ---
Author Organization [facility] Address [address] [place] [address] Phone Care Team Providers Care Vocational Rehabilitation Specialist Name Role Phone Kev Miranda MD Primary Care Provider [phone] Encounter Details Date Type Department Care Team (Late st Contact Info) Description 02/01/2025 Documentation Only [facility] [address] [place] [address] Nisha Amor [address] [place] [address] [phone] Social History Tobacco Use Types Packs/Day Years [...] [facility] [place] [address] Jo DOUGHERTY [address] [place] [phone] Hudson Atkinson MD [address] [place] [address] [place] [address] documented as of this encounter Visit Diagnoses Not on filedocumented in this encounter Care Teams Vocational Rehabilitation Specialist Relationship Specialty Start Date End Date Kev Miranda MD 40 [place] [address] PCP - General Internal Medicine 01/31/25 documented as of this encounter
--- OUTSIDE RECORDS SUMMARY | 2025-02-27 13:56 | XMS_ITS | Patient Health Record ---
Author Organization [facility] Address [address] [facility] [place] [address] Care Team Providers Care Repairer Maintenance Building Name Role Phone Kev Miranda MD Primary Care Provider Denny Gao Unavailable [phone] Allergies No Known Allergies Results Component Value [...] Problem Acquired hammer toe of right foot (9623179532447777 ) Other hammer toe(s) (acquired), right foot (M20.41) Active confirmed Problem Acquired hammer toe of left foot (1986869795446230 ) Other hammer toe(s) (acquired), left foot (M20.42) Active confirmed Problem Polyneuropathy due to type 2 diabetes mellitus (281808978) Type 2 diabetes mellitus with diabetic polyneuropathy (E11.42) Active confirmed Vital Signs Height 6 ft in 04/20/2024 Weight 275 lbs 04/20/2024 BMI 37.29 kg/m2 04/20/2024 Encounters Encounter Location Date Provider Diagnosis [address] [address] 04/20/2024 Denny Downing Type 2 diabetes mellitus with diabetic polyneuropathy E11.42 ; Cellulitis of left toe L03.032 ; Tinea unguium B35.1 ; Pain in right toe(s) M79.674 ; Pain in left toe(s) M79.675 ; Ingrowing nail L60.0 ; Other hammer toe(s) (acquired), right foot M20.41 ; Other hammer toe(s) (acquired), left foot M20.42 and Abscess, toe, left L02.[address] [address] 04/19/[address] [address] 04/20/[address] [address] 05/02/2024 Denny Downing Assessments Encounter Date Diagnosis [...] Date Coverage End Date [employer] Medicare [id number] [address] [address] [place] [address] [id number] Aden Smith Self - patient is the insured Medical (General) History Medical History History ICD Code Diabetic High blood pressure Sciatica Surgical History Surgery Date(Month/Year) spinal stenosis surgery 01/02/2023
--- OUTSIDE RECORDS SUMMARY | 2025-02-27 13:56 | XMS_ITS | Encounter Summary ---
Author Organization [facility] Address [address] [place] [address] Phone Care Team Providers Care Datapower Consultant Name Role Phone Kev Miranda MD Primary Care Provider [phone] Encounter Details Date Type Department Care Team (Late st Contact Info) Description 02/01/2025 Documentation Only [facility] [address] [place] [address] Nisha Amor [address] [place] [address] [phone] Social History Tobacco Use Types Packs/Day Years [...] Visit [facility] [place] [address] Jo DOUGHERTY [address] [place] [phone] Hudson Atkinson MD [address] [place] [address] [place] [address] documented as of this encounter Visit Diagnoses Not on filedocumented in this encounter Care Teams Datapower Consultant Relationship Specialty Start Date End Date Kev Miranda MD 40 [facility] [address] PCP - General Internal Medicine 01/31/25 documented as of this encounter
--- OUTSIDE RECORDS SUMMARY | 2025-02-27 13:56 | XMS_ITS | Encounter Summary ---
Author Organization [facility] Address [address] [place] [address] Phone Care Team Providers Care Superintendent Plant Name Role Phone Kev Miranda MD Primary Care Provider Encounter Details Date Type Department Care Team (Late st Contact Info) Description 02/01/2025 Documentation Only [facility] [address] [place] [address] Nisha Amor [address] [place] [address] [phone] Social History Tobacco Use Types Packs/Day Years [...] Visit [facility] [place] Dr Jo DOUGHERTY [address] [place] [phone] Hudson Atkinson MD [address] [place] [address] [place] [address] documented as of this encounter Visit Diagnoses Not on filedocumented in this encounter Care Teams Superintendent Plant Relationship Specialty Start Date End Date Kev Miranda MD [address] [place] [address] PCP - General Internal Medicine 01/31/25 documented as of this encounter
--- OUTSIDE RECORDS SUMMARY | 2025-02-27 13:56 | XMS_ITS | Encounter Summary ---
Author Organization [facility] Address [address] [place] [address] Phone Care Team Providers Care Case Planner Name Role Phone Kev Miranda MD Primary Care Provider [phone] Encounter Details Date Type Department Care Team (Late st Contact Info) Description 02/01/2025 Documentation Only [facility] [address] [place] [address] Nisha Amor [address] [place] [address] [phone] Social History Tobacco Use Types Packs/Day Years [...] Visit [facility] [address] [address] Jo DOUGHERTY [address] [place] [phone] Hudson Atkinson MD [address] [place] [address] [place] [address] documented as of this encounter Visit Diagnoses Not on filedocumented in this encounter Care Teams Case Planner Relationship Specialty Start Date End Date Kev Miranda MD [address] [place] [address] PCP - General Internal Medicine 01/31/25 documented as of this encounter
--- OUTSIDE RECORDS SUMMARY | 2025-02-27 13:57 | XMS_ITS ---
Author Organization [facility] Joanne rafaela [place] Address [address] [place] [address] Care Team Providers Care Refrigeration Unit Repairer Name Role Phone Kev Miranda MD Primary Care Provider Denny Gao [phone] REASON FOR VISIT cx appt Encounters Encounter Location Date Provider Diagnosis [facility] [address] [place] [address] 05/02/2024 Denny Downing Plan Of Treatment No Information Progress Notes * Aden FELIZ FDOB:[birth year] (73 yo M)Acc No.[id number]:05/02/2024 Patient:?YohanamandoAden gardner :1950???Age:73 Y???Sex:Male Address:[address] [place], [place] [address]ers[facility] [address] * true * Date:? Generated for Printi ng/Faxing/eTransmitting on:?02/27/2025 01:57 PM EDT
--- OUTSIDE RECORDS SUMMARY | 2025-02-27 13:57 | XMS_ITS | Clinical Summary ---
Author Organization [facility] Address [address] [place] [address] Care Team Providers Care Bouffant Curtain Machine Tender Name Role Phone Unavailable Primary Care Provider Unavailabl e Encounters Date Type Department Care Team Description 02/06/[address] [facility] PRIMARY [facility]ARE [facility]AN Kev Miranda MD Nasal congestion (Primary Dx) from Last 3 Months Social History Tobacco Use Types Packs/Day Years Used Date Smoking Tobacco: Never Assessed Sex and Gender Information Value Date Recorded Sex Assigned at Male 01/03/2025 5:20 PM EST Gender Identity Male 01/03/2025 5:20 PM EST Sexual Orientation Not on file Plan of Treatment Health Maintenance Due Date Last Done Comments Hepatitis C Virus Screening 1950 DTaP/Tdap/Td Vaccines (1 - Tdap) 1967 Pneumococcal Vaccines 50+ (1 of 1 - PCV) 1998 Zoster (Shingles) Vaccine (1 of 2) 1998 RSV Vaccine 60 years and older and Patients (1 - 1-dose 75+ series) 2023 COVID-19 Vaccine (3 - 2023-2 5 season) 2024 03/01/2021, 02/01/2021 Hepatitis B Vaccines Aged Out No long er eligible based on patient's age to complete this topic
--- OUTSIDE RECORDS SUMMARY | 2025-02-27 13:57 | XMS_ITS | Encounter Summary ---
Author Organization [facility] Address [address] [place] [address] Phone Care Team Providers Care Linux Vmware Administrator Name Role Phone Kev Miranda MD Primary Care Provider [phone] Encounter Details Date Type Department Care Team (Late st Contact Info) Description 02/03/2025 Documentation Only [facility] [address] [place] [address] [place] [address] [place] [phone] Social History Tobacco Use Types Packs/Day Years [...] Visit [facility] [address] [place] [phone] Hudson Atkinson MD [address] [place] [address] [place] [address] documented as of this encounter Visit Diagnoses Not on filedocumented in this encounter Care Teams Linux Vmware Administrator Relationship Specialty Start Date End Date Kev Miranda MD [address] [facility] [place] [address] PCP - General Internal Medicine 01/31/25 documented as of this encounter
--- OUTSIDE RECORDS SUMMARY | 2025-02-27 13:57 | XMS_ITS | Patient Health Record ---
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 Name Role Phone Kev Miranda MD Primary Care Provider Kev Carreno Unavailable [phone] Allergies No Known Allergies Reason For Referral No Information Medications Medication [...] HCl 15 MG Oral for 30 Active Immunizations Vaccine Route Administration Date Status Comme nts Influenza Unknown 09/17/2021 Administered Social History Tobacco Use: Social History Observation Description Date Details (start date - stop date) Former Smoker NA - NA Tobacco Use/Smoking Question Answer Notes Patient is [...] monthly (1 point) Points 3 Interpretation Negative Section Notes: Nonsmoker, occ.alcohol Problems Problem Type SNOMED Code ICD Code Onset Dates Problem Status W/U Status Risk Notes Problem Screening for malignant neoplasm of colon (294016079) Encounter for screening for malignant neoplasm of colon (Z12.11) Active confirmed Problem Constipation (85913134) Constipation (K59.00) Active confirmed Problem Pre-procedure evaluation check (871858451) Encounter for other preprocedural examination (Z01.818) Active confirmed Problem Long-term current use of aspirin (028770068832585 ) Aspirin long-term use (Z79.82) Active confirmed Plan Of Treatment Future Test Test Name Order Date COLONOSCOPY 05/14/2022 Insurance Providers Payer Name Payer Address Payer Phone Subscriber Number Group Number Insured Name Patient Relationship to Insured Coverage Start Date Coverage End Date [employer] Medicare Advantage Plan [address] [address] [place] [address] [id number] ROHINI FELIZ Self - patient is the insured Medical (General) History Medical History History ICD Code NIDDM HTN Sacroiliac pain on the right-seeing Dr. Rangel in Pain Management at [facility] Denies [place],CVA,Lung disease,renal disease Constipation Surgical History Surgery Date(Month/Year) Left inguinal hernia
--- OUTSIDE RECORDS SUMMARY | 2025-02-27 13:57 | XMS_ITS | Clinical Summary ---
Author Organization [facility] [place], Address [address] [place] [address] [place] [address] Phone Care Team Providers Care Front Desk Monitor Name Role Phone Kev Miranda MD Primary Care Provider [phone] Allergies Active Allergy Reactions Criticality Noted Date Comments Atorvastatin Hives Medium 09/25/2021 Carvedilol Other (see comments),Itching,Trav h Low 08/23/2024 Hydrochlorothiazide Other (see comments) 2023 Increased urination 5 x at night Metformin Hives,Other (see comments) 03/12/2018 Nifedipine Other (see comments) 10/17/2024 Olmesartan Other (see comments) Low 12/17/2023 Spironolactone Itching,Other (see comments) 01/03/2025 Medications acetaminophen (TYLENOL) 500 MG tablet Take 1,000 mg by mouth 1 (one) time each day in the morning Active Chlorphen-Phenyle ph-ASA (Elizabeth-Millsap Severe Cold) 2-7.8-325 MG effervescent tablet Take 2 tablets by mouth at bed time Active Cholecalciferol (Vitamin D-3) 25 MCG (1000 UT) capsule Take 2,000 Units by mouth in the morning. Active cyanocobalamin 500 MCG tablet Take 500 mcg by mouth 1 (one) time each day Active fluticasone (FLONASE) 50 MCG/ACT nasal spray Administer 2 sprays into each nostril in the morning and 2 sprays in the evening. Active furosemide (LASIX) 20 MG tablet Take 20 mg by mouth 4 (four) times a week Active glimepiride (AMARYL) 4 MG tablet Take ONE AND A HALF (6 mg) tablets by mouth before breakfast and A HALF tablet (2 mg) with evening meal Active levETIRAcetam (KEPPRA) 500 MG tablet Take 500 mg by mouth in the morning and 500 mg in the evening. Active Multiple Vitamin (multivitamin) capsule Take 1 capsule by mouth 1 (one) time each day Active Shaniko-3 Fatty Acids (OMEGA 3 PO) Take 1,000 mg by mouth 1 (one) time each day Active pioglitazone (ACTOS) 30 MG tablet Take 30 mg by mouth 1 (one) time each day Active rosuvastatin (CRESTOR) 5 MG tablet Take 5 mg by mouth 1 (one) time each day Active lisinopril 20 MG tablet Take 20 mg by mouth 1 (one) time each day Active doxazosin (Cardura) 2 MG tablet Take 1 tablet (2 mg total) by mouth every night 30 tablet 3 5 02/03/20 26 Active Active Problems Problem Noted Date Diagnosed Date Chronic kidney disease, stage 2 (mild) 5 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/01/2025): with diabetic polyneuropathy Nocturia Impaired fasting glucose Essential hypertension Hyperlipidemia Encounters Date Type Department Care Team Description 02/07/2025 Telephone [facility] [address] [place] [address] Nisha Amor 02/03/2025 Documentation Only [facility] [address] [place] [address] Andrey Roman PA 02/02/2025 2:30 PM EST Office Visit [facility] [address] [place] [phone] Hudson Atkinson MD Essential hypertension (Primary Dx) 02/01/2025 Documentation Only [facility] [address] [place] [address] Nisha Amor 02/01/2025 Documentation Only [facility] [address] [place] [address] Mt, Nisha 02/01/2025 Documentation Only [facility] [place], [address] [place] [address] Mt, Nisha 02/01/2025 Documentation Only [facility] [place], [address] [place] [address] Mt, Nisha 02/01/2025 Documentation Only [facility] [place], [address] [place] [address] Mt, Nisha 02/01/2025 Documentation Only [facility] [place], [address] [place] [address] Mt, Nisha 02/01/2025 Documentation Only [facility] [place], [address] [place] [address] Mt, Nisha 02/01/2025 Documentation Only [facility] [place], [address] [place] [address] Mt, Nisha 02/01/2025 Documentation Only [facility] [place], [address] [place] [address] Mt, Nisha 02/01/2025 Documentation Only [facility] [place], [address] [place] [address] Mt, Nisha 01/31/2025 Documentation Only [facility] [place], [address] [place] [address] Andrey Roman MA from Last 3 Months Immunizations Name Administration Dates Next Due Influenza Split High Dose Pr eservative Free IM 08/23/2024,09/30/2019,09/09/2018,09/11,10/14/2016 Influenza Vaccine, Quadrival ent, Adjuvanted 09/11/2023 Moderna SARS-COV-2 03/01/2021,02/01/2021 Pneumococcal Conjugate 13-Valent 07/08/2016 Pneumococcal Polysaccharide 05/26/2019, 2 TD Preservative Free 09/11/2017,09/30/2007 Social History Tobacco Use Types Packs/Day Years Used Date Smoking Tobacco: Never Assessed Sex and Gender Information Value Date Recorded Sex Assigned at Not on file Legal Sex Male 8:25 AM EST Gender Identity Not on file Sexual Orientation Not on file Plan of Treatment Upcoming Encounters Date Type Department Care Team (Late st Contact Info) Description 04/13/2025 3:00 PM EDT Office Visit [facility] [place] [address] [address] [place] [address] Hudson Atkinson MD [address] [place] [address] Health Maintenance Due Date Last Done Comments Diabetes: Hemoglobin A1C 01/31/2025 Diabetes: Ophthalmology Exam 01/31/2025 Diabetes: Pedal Pulse Checked 01/31/2025 Diabetes: Sensory Foot Exam 01/31/2025 Diabetes: Visual Foot Exam 01/31/2025 Pneumococcal Vaccine: 65+ Years Completed 05/26/2019, 07/08/2016, 11/01/2012 Influenza Vaccine Completed 08/23/2024, , 09/30/2019, Additional history exists Hepatitis B Vaccine Aged Out No longe r eligible based on patient's age to complete this topic Insurance [facility] MEDICARE Care Teams Front Desk Monitor Relationship Specialty Start Date End Date Kev Miranda MD [address] [place] [address] PCP - General Internal Medicine 01/31/25
--- OUTSIDE RECORDS SUMMARY | 2025-02-27 13:57 | XMS_ITS ---
Author Name [facility] Organization Unknown Problems Problem Status Onset Date Problem Type Date of Resoluti on Source Nasal congestion [facility]
--- NOTE | 2025-02-27 14:57 | HO.ANESPROP2 ---
Documented by User: Mavis Garcia NP 02/27/25 14:58 HPI - Anesthesia Eval Consult details Narrative: 74yo M for Right Medial Cluneal Peripheral Nerve Stimulator Trial [facility] Active Problems Active Problems: All Active Problems Post laminectomy syndrome (Acute) Intractable back pain (Acute) Lumbar spondylosis (Acute) Lumbar radiculopathy (Acute) Spinal stenosis, lumbar region with neurogenic claudication (Acute) Sacroiliac joint dysfunction of right side (Acute) Cluneal neuropathy (Acute) Seizure disorder (Acute) Hypertension (Acute) Type 2 diabetes mellitus (Acute) Past Medical History Medical History JOSÉ MIGUEL (obstructive sleep apnea) Back pain HLD (hyperlipidemia) Nausea Hx of spinal stenosis Cluneal neuropathy Seizure disorder Hypertension Type 2 diabetes mellitus Surgical History Surgical History Hx of spinal surgery (12/2022) Hx of hernia repair (~2010) Social History Social History Are you a primary urgent care physician assistant to a significant other at home: No Do you presently have visiting nurse or other home services: No Patient Tobacco Use Status: Former Tobacco user Tobacco use type: Cigarette Use of substances other than those prescribed or required for medical reasons: No Have you been hit, kicked, punched, or otherwise hurt by someone within the past year? If so, by whom?: No Are you DNR?: No Advance Directives: No Advance Directives Information Provided: Yes (declined) Advance Directives on File: No Recently lost weight without trying: No Nutrition Risks: No Nutritional Risk Poor oral hygiene: No Meds Allergies Allergy/AdvReac Type Severity Reaction Status Date / Time carvedilol AdvReac Headache, Verified 03/01/25 11:36 Gastrointestinal Upset spironolactone AdvReac headache, Verified 03/01/25 11:36 Gastrointestinal Upset Home Medications ?Medication ?Instructions ?Recorded ?Confirmed ?Last Taken ?Type glimepiride 4 mg tablet 4 mg PO DAILY 05/12/22 02/27/25 10/14/23 History irbesartan 300 mg tablet 300 mg PO DAILY 05/12/22 02/27/2510/14/23 History levetiracetam 500 mg tablet 500 mg PO BID 05/12/22 03/01/25 03/01/25 History rosuvastatin 5 mg tablet 5 mg PO DAILY 05/12/22 02/27/25 10/14/23 History pioglitazone 30 mg tablet 30 mg PO DAILY 01/07/24 02/27/25 Unknown History amlodipine 2.5 mg tablet 2.5 mg PO DAILY 02/27/25 03/01/25 03/01/25 History ibuprofen 600 mg tablet 600 mg PO DAILY PRN Pain 02/27/25 02/27/25 Unknown History Exam Height,Weight and Vital Signs: Height 5 ft 11 in Weight 131.542 kg Assessment and Plan Assessment Anesthesia Assessment: Chart Reviewed Documented by User: Adrianna Pro MD 03/01/25 12:51 PMFSH Past Medical History Medical History JOSÉ MIGUEL (obstructive sleep apnea) Back pain HLD (hyperlipidemia) Nausea Hx of spinal stenosis Cluneal neuropathy Seizure disorder Hypertension Type 2 diabetes mellitus Family History Family history of problems with anesthesia: No Surgical History Surgical History Hx of spinal surgery (12/2022) Hx of hernia repair (~2010) History of Problems with Anesthesia: No Social History Social History Are you a primary urgent care physician assistant to a significant other at home: No Do you presently have visiting nurse or other home services: No Patient Tobacco Use Status: Former Tobacco user Tobacco use type: Cigarette Use of substances other than those prescribed or required for medical reasons: No Have you been hit, kicked, punched, or otherwise hurt by someone within the past year? If so, by whom?: No Are you DNR?: No Advance Directives: No Advance Directives Information Provided: Yes (declined) Advance Directives on File: No Recently lost weight without trying: No Nutrition Risks: No Nutritional Risk Poor oral hygiene: No Meds Allergies Allergy/AdvReac Type Severity Reaction Status Date / Time carvedilol AdvReac Headache, Verified 03/01/25 11:36 Gastrointestinal Upset spironolactone AdvReac headache, Verified 03/01/25 11:36 Gastrointestinal Upset Home Medications ?Medication ?Instructions ?Recorded ?Confirmed ?Last Taken ?Type glimepiride 4 mg tablet 4 mg PO DAILY 05/12/22 02/27/25 10/14/23 History irbesartan 300 mg tablet 300 mg PO DAILY 05/12/22 02/27/25 10/14/23 History levetiracetam 500 mg tablet 500 mg PO BID 05/12/22 03/01/25 03/01/25 History rosuvastatin 5 mg tablet 5 mg PO DAILY 05/12/22 02/27/25 10/14/23 History pioglitazone 30 mg tablet 30 mg PO DAILY 01/07/24 02/27/25 Unknown History amlodipine 2.5 mg tablet 2.5 mg PO DAILY 02/27/25 03/01/25 03/01/25 History ibuprofen 600 mg tablet 600 mg PO DAILY PRN Pain 02/27/25 02/27/25 Unknown History Exam Airway Mallampati Class: III TM Dist: <=3cm Neck ROM: Limited Heart: rrr Lungs: cta Assessment and Plan Assessment Anesthesia Assessment: Anesthesia Plan Discussed Final Anesthetic Review Family History of Problems with Anesthesia: No History of Problems with Anesthesia: No NPO: Yes ASA Class: III Final Preanesthetic Review: No Changes in Pt Med Stat, Meds/Allgs Chart Reviewed, Consent Obtained/Reviewed and Anes Risks/Benef Reviewed Patient Risk: Intermediate Procedure Risk: Low Anesthetic Plan Anesthetic Plan: MAC: Disposition: Standard PACU
--- NOTE | ~2025-03-01 | FL_ITS ---
EXAMINATION: FL GUIDANCE ONLY HISTORY: MEDIAL CLUNEAL NERVE TRIAL COMPARISON: None available. TECHNIQUE: Fluoroscopy time: 18.6 seconds. Cumulative Dose: 13.812 mGy. DAP: 3.6764 mGym2 Images: 2. FINDINGS: Images demonstrate an electrode dorsal to the right hemisacrum. FL/FL guidance in OR IMPRESSION: Fluoroscopy during procedure. Please see procedure report for additional information. Electronically signed by: Kev Elise MD 03/01/2025 02:09 PM EDT
[2025-03-01 12:25] LABS: Glucose, Whole Blood 171 mg/dL (60-115)
[2025-03-01 12:27] VITALS: BP 139/82; PULSE 104; RESP 18; TEMP 36.6; O2SAT 94; BMI 40.6
[2025-03-01] MEDS: Lactated Ringers 1,000 ML 100 ML IVCONT (12:30)
--- NOTE | 2025-03-01 12:40 | MHC.SHP ---
Pre-Procedural Eval Section A - 24 Hr Update-Section A only Date of Service: 03/01/25 The patient is an INPATIENT: No Changes since office visit: Yes Patient answered all questions The patient has been examined within 24 hours of the surgical procedure. The History & Physical has been completed within 30 days and I have reviewed it.: No Section B - Complete if H&P > 30 days Chief Complaint: Cluneal neuropathy Relevant Family History (Specify if Yes): No Relevant Social History: None Present Medications: see Short Stay Collaborative assessment Medical History: No relevant PMH History of Previous Operations: No relevant previous surgery Allergies: Allergies Allergy/AdvReac Type Severity Reaction Status Date / Time carvedilol AdvReac Headache, Verified 03/01/25 11:36 Gastrointestinal Upset spironolactone AdvReac headache, Verified 03/01/25 11:36 Gastrointestinal Upset Review of Systems Sugical H&P ROS: Negative: Constitution, Cardiovascular and Respiratory Exam Surgical H&P Exam: Normal: HEENT, Normal: Heart and Normal: Lungs Plan Diagnosis/Plan: Unchanged I have reviewed the history and physical and performed a pertinent physical examination on my patient. No changes have occurred unless specified. Time Spent With Patient Time: Total time managing care of this patient today ____ minutes.
[2025-03-01] MEDS: ceFAZolin Sodium/Dextrose,Iso 2 GM/50 ML PIGGYBACK IV (13:00)
--- NOTE | 2025-03-01 13:38 | PM.OP ---
Brief Operative Note Date of Service: 03/01/25 Pre-op diagnosis: Cluneal neuropathy Post-op diagnosis: same Procedure: Right middle cluneal nerve stimulator trial placement Implants: Curonix PNS trial lead Surgeon: Michele Rangel MD Anesthesia: MAC Was an General Manager Food used for this Procedure?: No Estimated blood loss (mL): 2 Pathology: none sent Condition: stable Disposition: PACU
[2025-03-01 13:40] VITALS: BP 109/64; PULSE 102; RESP 16; TEMP 36.8; O2SAT 96
[2025-03-01 13:55] VITALS: BP 106/59; PULSE 94; RESP 18; TEMP 36.4; O2SAT 94
--- NOTE | 2025-03-01 14:04 | W.PM.OPN ---
Operative Note Operative Note Date of Service: 03/01/25 Narrative: Preoperative diagnosis: Cluneal neuropathy Postoperative diagnosis: Same Procedure: Percutaneous trial of peripheral nerve stimulation of right middle cluneal nerve After obtaining written consent, pre-procedure blood pressure and heart rate were stable and recorded in the nursing record. Standard monitors were applied. A peripheral IV was started. Antibiotics, cefazolin 2 grams, were given prior to the start of the procedure. The patient was positioned in prone position. The lumbar area was widely prepped with chloraprep and draped in sterile fashion. Using a skin marker, a 1 cm saggital line was marked over the needle entry location. The skin at the insertion site was anesthetized with 0.5% lidocaine mixed with 0.25% bupivacaine. A small stab was made with a scalpel to allow for easy insertion of the introducer. The introducer was advanced subcutaneously along the length of the right sacrum. The electrode array was passed through the introducer using a tenting approach at a shallow angle. Fluoroscopy was used to confirm appropriate lead position. Stimulation was performed and good coverage was obtained. The lead was secured using benzoin, steri-strips and tegaderms. The patient tolerated the procedure well. No complications were encountered. Following the procedure the patient's vital signs were stable. The patient was discharged home in good condition with post-procedural instructions. Time Out: Immediately prior to the procedure, the following was verbally confirmed that there is a signed consent form and that the correct patient, planned procedure, site and side are consistent with documentation and that necessary equipment and/or blood products are available prior to the start of the case. Complications: none EBL: <5 cc
[2025-03-01 14:26] LABS: MRSA Nasal PCR NEGATIVE (Negative); SA Nasal PCR POSITIVE (Negative)
== END 2025-03-01 14:40 | disposition home or self-care (01) ==
PROVIDERS: Registered Nurse Emergency; PCP Internal Medicine; Visit Provider Internal Medicine
PROC: (CPT 64555; principal; 2025-03-01 13:20)
DX: G58.8 Other specified mononeuropathies (principal); M96.1 Postlaminectomy syndrome, not elsewhere classified; G40.909 Epilepsy, unspecified, not intractable, without status epilepticus; M54.9 Dorsalgia, unspecified; I10 Essential (primary) hypertension; E11.9 Type 2 diabetes mellitus without complications; Z79.84 Long term (current) use of oral hypoglycemic drugs; Z79.899 Other long term (current) drug therapy
CPT/HCPCS: 64555; 82947; 87640; 87641; C1897; J0690; J2003; J2704; J3010

== ENCOUNTER → 2025-03-01 11:24 | Outpatient (BNV) | payer MEDICARE, SELFPAY | PROVIDERS: PCP Internal Medicine; Visit Provider Internal Medicine | DX: G58.8 Other specified mononeuropathies (principal) | CPT/HCPCS: 64555 ==

== ENCOUNTER 2025-03-08 10:37 | Outpatient (AMB) | payer MEDICARE, SELFPAY ==
--- NOTE | 2025-03-08 10:44 | A.OFFVIS_ITS ---
Vital Signs 03/08/25 10:46 Height 5 ft 11 in Weight 295 lb BMI 41.1 BP 166/82 H Blood Pressure Location Lt brachial Position Sitting Respiration 16 Pulse 101 H Pulse Source Pulse Oximeter Pulse Oximetry (%) 93 Oxygen Delivery Method Room Air Intake Visit Reasons: S/p (R) Cluneal Nerve PNS Trial 03/01/25 Vehicle Upholsterer Required: No Allergies carvedilol Adverse Reaction (Verified 03/08/25 10:47) Headache, Gastrointestinal Upset spironolactone Adverse Reaction (Verified 03/08/25 10:47) headache, Gastrointestinal Upset Medication List - Last Reconciled 03/08/25 by Concepcion Lewis, [facility] amlodipine 2.5 mg PO DAILY glimepiride 4 mg PO DAILY ibuprofen 600 mg PO DAILY PRN irbesartan 300 mg PO DAILY levetiracetam 500 mg PO BID ondansetron 4 mg PO Q8H PRN pioglitazone 30 mg PO DAILY rosuvastatin 5 mg PO DAILY HPI HPI S/p (R) Cluneal Nerve PNS Trial 03/01/25: Details: History of Present Illness The patient is a 74-year-old male presenting with post-surgical pain and chronic pain. Following a recent procedure, he has experienced significant distress at the incision site, described as intense pain particularly recurring in the mornings. The baseline pain remains unresolved and debilitating. His chronic pain history includes post-laminectomy syndrome and sacroiliac joint related pain. These conditions lead to variations in pain intensity, with exacerbation from certain movements and prolonged sitting, while standing or walking provides relative relief. The patient struggles with mobility and executing daily functionalities due to ongoing pain challenges. Additionally, there is a noteworthy history of shingles, although no current direct link to his present symptoms is established. Despite past interventions providing limited benefit, the patient is committed to sustaining daily activities and is interested in further investigations to alleviate his pain symptoms. Pain Description - Severe aching pain at the site of the surgical incision, noted as highly distressing, particularly in the mornings. - Chronic pain associated with Complex Regional Pain Syndrome and lumbar spinal stenosis. - Pain exacerbated by certain movements and prolonged sitting; relieved somewhat by standing and walking. - Interferes with daily activities including mobility, contributing to restlessness at night. Physical Exam - Appears afebrile. - Alert and oriented. - Mood and affect appropriate. - Follows and participates in conversation appropriately. - Respiratory effort is unlabored. - Able to transition from sit to stand unassisted but with discomfort. - Ambulates with bilaterally normal heel strike and toe off. - Able to stand and walk on toes and heels. Pain Management - Affect: The pain is causing significant distress, impacting his overall mood and will to perform daily activities. - Analgesia: Current pain interventions have not been highly effective, and the patient continues to report intense pain. Previous interventions offered about 50% relief. - Adverse Effects: No specific adverse effects linked to pain medications were discussed. - Activities of Daily Living: Chronic pain affects his ability to engage in activities effectively, although he tries to remain active for familial roles. - Aberrant Drug Related Behaviors: None reported or observed. [facility] Medical History JOSÉ MIGUEL (obstructive sleep apnea) Back pain HLD (hyperlipidemia) Nausea Hx of spinal stenosis Cluneal neuropathy Seizure disorder Hypertension Type 2 diabetes mellitus Surgical History Hx of spinal surgery (12/2022) Hx of hernia repair (~2010) Social History Are you a primary rn progressive care unit to a significant other at home: No Do you presently have visiting nurse or other home services: No Patient Tobacco Use Status: Former Tobacco user Tobacco use type: Cigarette Physical Exam Vital Signs: Last Vital Signs Pulse 101 H 03/08/25 10:46 Resp 16 03/08/25 10:46 BP 166/82 H 03/08/25 10:46 Pulse Ox 93 03/08/25 10:46 Oxygen Delivery Method Room Air 03/08/25 10:46 BMI result Body Mass Index 41.1 Assessment & Plan Assessment & Plan (1) Sacroiliac joint dysfunction of right side: Code(s): M53.3 - Sacrococcygeal disorders, not elsewhere classified Category: Medical Plan Plan To address the patient's chronic SI joint related pain, I will evaluate the availability and coverage of radiofrequency ablation by his insurance, as the patient experienced relief with SI joint RFA in the past and this has been the only effective therapy for his SI joint related pain to date. Continual assessment of functional status and focused pain management strategies will be implemented considering the limited benefit of additional extensive interventions to date, including trial of middle cluneal nerve stimulation. Discussions about the potential future needs for surgical or non-invasive treatments will be closely aligned with the patient's clinical progression and symptomatology. Patient was informed and verbally consented to the use of an ambient scribe for clinic note documentation during this visit. Discussion Notes In our discussion, we emphasized evaluating the potential benefit of radiofrequency ablation, given previous partial success with this method. Coverage confirmation from insurance will dictate next steps. I explained that an MRI might not provide new insight into his symptoms as his pain pattern and history remain stable. Risks and benefits of the proposed pain management strategies were explored, affirming to closely monitor his symptoms and adapt treatment as necessary. We agreed that subsequent steps should be steered towards maximizing pain relief while avoiding unnecessary interventions based on current symptoms. Patient Instructions - Await confirmation on insurance coverage for radiofrequency ablation and follow up promptly for scheduling. - Continue engaging in activities that minimize discomfort, like standing and gentle walking. - Monitor pain levels and report any significant changes or worsening to guide further interventions. - Discuss with primary care physician any skin changes or occurrences that may relate to past shingles episodes. - Keep active communication with family for support and functional assistance as needed. Coding Level of Care Code Est Pt Level 4 (02755) Diagnoses Sacroiliac joint dysfunction of right side M53.3
[2025-03-08 10:46] VITALS: BP 166/82; PULSE 101; RESP 16; O2SAT 93; BMI 41.1
--- OUTSIDE RECORDS SUMMARY | 2025-03-08 12:10 | XMS_ITS ---
Author Organization [facility] Naila Henriquezley Address [address] [place] [address] Care Team Providers Care User Acceptance Tester Name Role Phone Kev Miranda MD Primary Care Provider Denny Gao [phone] Encounters Encounter Location Date Provider Diagnosis [facility] [address] [place] [address] 05/02/2024 Denny Downing Plan Of Treatment No Information Progress Notes * Aden FELIZ FDOB:[birth year] (74 yo M)Acc No.[id number]:05/02/2024 Progress Notes Patient:?SHANONGISSELLAden Provider:?Denny Downing DPM :1950???Age:73 Y???Sex:Male Carrington e:05/02/2024 Address:[address] [place], [place] [address] Pcp:Kev Miranda MD Subjective: * Chief Complaints: [...] DPM Date:? 024 Generated for Audrey houston/Julia/eTransmitting on:?03/08/2025 12:10 PM EDT History and Physical Notes * HPI (History of Present Illness) Category Sub-Category Detail Notes Category Not es Skin problems Nature: tender, throbbing, swelling , redness Location: Left , 1st Duration: a month Onset/Cause: unknown Course: worse Aggravated by: any pressure, radhai celso Severity/Quality: moderate At Risk footcare Pt States Last PCP Visit: Date: 3
--- OUTSIDE RECORDS SUMMARY | 2025-03-08 12:10 | XMS_ITS | Encounter Summary ---
Author Organization [facility] Address [address] [place] [address] Phone Care Team Providers Care Forest Pathology Professor Name Role Phone Kev Miranda MD Primary Care Provider [phone] Encounter Details Date Type Department Care Team (Late st Contact Info) Description 02/01/2025 Documentation Only [facility] [address] [place] [address] Nisha Amor [address] [place] [address] [phone] Social History Tobacco Use Types Packs/Day Years [...] Visit [facility] [address] [address] Jo DOUGHERTY [address] [place] [phone] Hudson Atkinson MD [address] [place] [address] [place] [address] documented as of this encounter Visit Diagnoses Not on filedocumented in this encounter Care Teams Forest Pathology Professor Relationship Specialty Start Date End Date Kev Miranda MD [address] [facility] [place] [address] PCP - General Internal Medicine 01/31/25 documented as of this encounter
--- OUTSIDE RECORDS SUMMARY | 2025-03-08 12:10 | XMS_ITS | Encounter Summary ---
Author Organization [facility] Address [address] [place] [address] Phone Care Team Providers Care Hot Metal Mixer Operator Helper Name Role Phone Kev Miranda MD Primary Care Provider [phone] Encounter Details Date Type Department Care Team (Late st Contact Info) Description 02/01/2025 Documentation Only [facility] [address] [place] [address] Nisha Amor [address] [place] [address] [phone] Social History Tobacco Use Types Packs/Day Years [...] [facility] [place] [address] Jo DOUGHERTY [address] [place] [phone] Hudson Atkinson MD [address] [place] [address] [place] [address] documented as of this encounter Visit Diagnoses Not on filedocumented in this encounter Care Teams Hot Metal Mixer Operator Helper Relationship Specialty Start Date End Date Kev Miranda MD [address] [place] [address] PCP - General Internal Medicine 01/31/25 documented as of this encounter
--- OUTSIDE RECORDS SUMMARY | 2025-03-08 12:10 | XMS_ITS | Encounter Summary ---
Author Organization [facility] Address [address] [place] [address] Phone Care Team Providers Care Cover Assembler Name Role Phone Kev Miranda MD Primary Care Provider [phone] Encounter Details Date Type Department Care Team (Late st Contact Info) Description 02/01/2025 Documentation Only [facility] [address] [place] [address] Nisha Amor [address] [place] [address] [phone] Social History Tobacco Use Types Packs/Day Years [...] [facility] [place] [address] Jo DOUGHERTY [address] [place] [phone] Hudson Atkinson MD [address] [place] [address] [place] [address] documented as of this encounter Visit Diagnoses Not on filedocumented in this encounter Care Teams Cover Assembler Relationship Specialty Start Date End Date Kev Miranda MD [address] [facility] [place] [address] PCP - General Internal Medicine 01/31/25 documented as of this encounter
--- OUTSIDE RECORDS SUMMARY | 2025-03-08 12:10 | XMS_ITS | Encounter Summary ---
Author Organization [facility] Address [address] [place] [address] Phone Care Team Providers Care News Internship Name Role Phone Kev Miranda MD Primary Care Provider [phone] Encounter Details Date Type Department Care Team (Late st Contact Info) Description 02/01/2025 Documentation Only [facility] [address] [place] [address] Nisha Amor [address] [place] [address] [phone] Social History Tobacco Use Types Packs/Day Years [...] Visit [facility] [place] [address] Jo DOUGHERTY [address] [place] [phone] Hudson Atkinson MD [address] [place] [address] [place] [address] documented as of this encounter Visit Diagnoses Not on filedocumented in this encounter Care Teams News Internship Relationship Specialty Start Date End Date Kev Miranda MD [address] [place] [address] PCP - General Internal Medicine 01/31/25 documented as of this encounter
--- OUTSIDE RECORDS SUMMARY | 2025-03-08 12:10 | XMS_ITS | Encounter Summary ---
Author Organization [facility] Address [address] [place] [address] Phone Care Team Providers Care Mining Helper Name Role Phone Kev Miranda MD Primary Care Provider [phone] Encounter Details Date Type Department Care Team (Late st Contact Info) Description 02/01/2025 Documentation Only [facility] [address] [place] [address] Nisha Amor [address] [place] [address] [phone] Social History Tobacco Use Types Packs/Day Years [...] Visit [facility] [place] Dr Jo DOUGHERTY [address] [place] [phone] Hudson Atkinson MD [address] [place] [address] [place] [address] documented as of this encounter Visit Diagnoses Not on filedocumented in this encounter Care Teams Mining Helper Relationship Specialty Start Date End Date Kev Miranda MD [address] [place] [address] PCP - General Internal Medicine 01/31/25 documented as of this encounter
--- OUTSIDE RECORDS SUMMARY | 2025-03-08 12:11 | XMS_ITS | Encounter Summary ---
Author Organization [facility] Address [address] [place] [address] Phone Care Team Providers Care Proofer Prepress Name Role Phone Kev Miranda MD Primary Care Provider Encounter Details Date Type Department Care Team (Late st Contact Info) Description 02/01/2025 Documentation Only [facility] [address] [place] [address] Nisha Amor [address] [place] [address] [phone] Social History Tobacco Use Types Packs/Day Years [...] Services [facility] [place] [address] Jo DOUGHERTY [address] [place] [phone] Hudson Atkinson MD [address] [place] [address] [place] [address] documented as of this encounter Visit Diagnoses Not on filedocumented in this encounter Care Teams Proofer Prepress Relationship Specialty Start Date End Date Kev Miranda MD [address] [place] [address] PCP - General Internal Medicine 01/31/25 documented as of this encounter
--- OUTSIDE RECORDS SUMMARY | 2025-03-08 12:11 | XMS_ITS | Patient Health Record ---
Author Organization [facility] Address [address] [place] [address] Care Team Providers Care Medicaid Service Coordinator Name Role Phone Kev Miranda MD Primary Care Provider Kev Carreno Unavailable [phone] Allergies No Known Allergies Reason For Referral [...] Problem Screening for malignant neoplasm of colon (400962629) Encounter for screening for malignant neoplasm of colon (Z12.11) Active confirmed Problem Constipation (28875765) Constipation (K59.00) Active confirmed Problem Pre-procedure evaluation check (753030489) Encounter for other preprocedural examination (Z01.818) Active confirmed Problem Long-term current use of aspirin (781176706678174 ) Aspirin long-term use (Z79.82) Active confirmed Plan Of Treatment Future Test Test Name Order Date COLONOSCOPY 05/14/2022 Insurance Providers Payer Name Payer Address Payer Phone Subscriber Number Group Number Insured Name Patient Relationship to Insured Coverage Start Date Coverage End Date [employer] Medicare Advantage Plan [address] [address] [place] [address] [id number] ROHINI FELIZ Self - patient is the insured Medical (General) History Medical History History ICD Code NIDDM HTN Sacroiliac pain on the right-seeing Dr. Rangel in Pain Management at [facility] Denies VA,CVA,Lung disease,renal disease Constipation Surgical History Surgery Date(Month/Year) Left inguinal hernia
--- OUTSIDE RECORDS SUMMARY | 2025-03-08 12:11 | XMS_ITS | Clinical Summary ---
Author Organization [facility], Address [address] [place] [address] [place] [address] Phone Care Team Providers Care Bag Turner Name Role Phone Kev Miranda MD Primary Care Provider [phone] Allergies Active Allergy Reactions Criticality Noted Date [...] day in the morning Active Chlorphen-Phenyle ph-ASA ([place] Severe Cold) 2-7.8-325 MG effervescent tablet Take [...] mouth 1 (one) time each day Active [place]-3 Fatty Acids (OMEGA 3 PO) Take 1,000 [...] Telephone [facility] [address] [place] [address] Nisha Amor 02/03/2025 Documentation Only [facility] [address] [place] [address] Andrey Roman PA 02/02/2025 2:30 PM EST Office Visit [facility] [place] [phone] Hudson Atkinson MD Essential hypertension (Primary Dx) 02/01/2025 Documentation Only [facility] [address] [place] [address] Nisha Amor 02/01/2025 Documentation Only [facility] [address] [place] [address] Mt, Nisha 02/01/2025 Documentation Only [facility], [address] [place] [address] Mt, Nisha 02/01/2025 Documentation Only [facility], [address] [place] [address] Mt, Nisha 02/01/2025 Documentation Only [facility], [address] [place] [address] Mt, Nisha 02/01/2025 Documentation Only [facility], [address] [place] [address] Mt, Nisha 02/01/2025 Documentation Only [facility], [address] [place] [address] Mt, Nisha 02/01/2025 Documentation Only [facility], [address] [place] [address] Mt, Nisha 02/01/2025 Documentation Only [facility], [address] [place] [address] Mt, Nisha 02/01/2025 Documentation Only [facility], [address] [place] [address] Mt, Nisha 01/31/2025 Documentation Only [facility], [address] [place] [address] Andrey Roman MA from Last 3 Months [...] Visit [facility], [facility] - Suyapa [address] [facility] [address] [place] [address] Hudson Atkinson MD [address] [place] [address] Health Maintenance Due Date Last [...] patient's age to complete this topic Insurance [facility] MEDICARE Care Teams Bag Turner Relationship Specialty Start Date End Date Kev Miranda MD [address] [place] [address] PCP - General Internal Medicine 01/31/25
--- OUTSIDE RECORDS SUMMARY | 2025-03-08 12:11 | XMS_ITS | Encounter Summary ---
Author Organization [facility] Address [address] [place] [address] Phone Care Team Providers Care Coil Tier Name Role Phone Kev Miranda MD Primary Care Provider [phone] Encounter Details Date Type Department Care Team (Late st Contact Info) Description 02/01/2025 Documentation Only [facility] [address] [place] [address] Nisha Amor [address] [place] [address] [phone] Social History Tobacco Use Types Packs/Day Years [...] Visit [facility] [place] [address] Jo DOUGHERTY [address] [place] [phone] Hudson Atkinson MD [address] [place] [address] [place] [address] documented as of this encounter Visit Diagnoses Not on filedocumented in this encounter Care Teams Coil Tier Relationship Specialty Start Date End Date Kev Miranda MD [address] [place] [address] PCP - General Internal Medicine 01/31/25 documented as of this encounter
--- OUTSIDE RECORDS SUMMARY | 2025-03-08 12:11 | XMS_ITS | Patient Health Record ---
Author Organization [facility] Address [address] [facility] [place] [address] Care Team Providers Care Bench Molder Name Role Phone Kev Miranda MD Primary Care Provider Denny Gao Unavailable [phone] Allergies No Known Allergies Results Component Value [...] Problem Acquired hammer toe of right foot (0268436951990200 ) Other hammer toe(s) (acquired), right foot (M20.41) Active confirmed Problem Acquired hammer toe of left foot (9984120608181394 ) Other hammer toe(s) (acquired), left foot (M20.42) Active confirmed Problem Polyneuropathy due to type 2 diabetes mellitus (762713815) Type 2 diabetes mellitus with diabetic polyneuropathy (E11.42) Active confirmed Vital Signs Height 6 ft in 04/20/2024 Weight 275 lbs 04/20/2024 BMI 37.29 kg/m2 04/20/2024 Encounters Encounter Location Date Provider Diagnosis [address] [address] 04/20/2024 Denny Downing Type 2 diabetes mellitus with diabetic polyneuropathy E11.42 ; Cellulitis of left toe L03.032 ; Tinea unguium B35.1 ; Pain in right toe(s) M79.674 ; Pain in left toe(s) M79.675 ; Ingrowing nail L60.0 ; Other hammer toe(s) (acquired), right foot M20.41 ; Other hammer toe(s) (acquired), left foot M20.42 and Abscess, toe, left L02.[address] [address] 04/19/[address] [address] 04/20/[address] [address] 05/02/2024 Denny Downing Assessments Encounter Date Diagnosis [...] Date Coverage End Date [employer] Medicare [id number] [address] [address] [place] [phone] [id number] Aden Smith Self - patient is the insured Medical (General) History Medical History History ICD Code Diabetic High blood pressure Sciatica Surgical History Surgery Date(Month/Year) spinal stenosis surgery 01/02/2023
--- OUTSIDE RECORDS SUMMARY | 2025-03-08 12:11 | XMS_ITS ---
Author Organization [facility] Naila rafaela Rishi Address [address] [place] [address] Care Team Providers Care Color Expert Name Role Phone Kev Miranda MD Primary Care Provider Denny Gao [phone] REASON FOR VISIT Doxycycline Encounters Encounter Location Date Provider Diagnosis [facility] [address] [place] [address] 04/20/2024 Denny Downing Plan Of Treatment No Information Progress Notes * Aden FELIZ FDOB:[birth year] (73 yo M)Acc No.[id number]:04/20/2024 Patient:?Sarah Aden Diaz :1950???Age:73 Y???Sex:Male Address:[address] [place], [place] [address], [place] [address] * true * Date:? Generated for Printi ng/Fayaseming/eTransmitting on:?03/08/2025 12:10 PM EDT
--- OUTSIDE RECORDS SUMMARY | 2025-03-08 12:11 | XMS_ITS | Encounter Summary ---
Author Organization [facility] Address [address] [place] [address] Phone Care Team Providers Care Correctional Classification Counselor Name Role Phone Kev Miranda MD Primary Care Provider [phone] Encounter Details Date Type Department Care Team (Late st Contact Info) Description 02/01/2025 Documentation Only [facility] [address] [place] [address] Nisha Amor [address] [place] [address] [phone] Social History Tobacco Use Types Packs/Day Years [...] Services Of [facility] [place] Dr Jo DOUGHERTY [address] [place] [phone] Hudson Atkinson MD [address] [place] [address] [place] [address] documented as of this encounter Visit Diagnoses Not on filedocumented in this encounter Care Teams Correctional Classification Counselor Relationship Specialty Start Date End Date Kev Miranda MD 40 [place] [address] PCP - General Internal Medicine 01/31/25 documented as of this encounter
--- OUTSIDE RECORDS SUMMARY | 2025-03-08 12:11 | XMS_ITS | Encounter Summary ---
Author Organization [facility] Address [address] [place] [address] Phone Care Team Providers Care Roof Fitter Name Role Phone Kev Miranda MD Primary Care Provider [phone] Encounter Details Date Type Department Care Team (Late st Contact Info) Description 02/01/2025 Documentation Only [facility] [address] [place] [address] Nisha Amor [address] [place] [address] [phone] Social History Tobacco Use Types Packs/Day Years [...] [facility] [place] Dr Jo DOUGHERTY [address] [place] [phone] Hudson Atkinson MD [address] [place] [address] [place] [address] documented as of this encounter Visit Diagnoses Not on filedocumented in this encounter Care Teams Roof Fitter Relationship Specialty Start Date End Date Kev Miranda MD 40 [facility] [place] [address] PCP - General Internal Medicine 01/31/25 documented as of this encounter
--- OUTSIDE RECORDS SUMMARY | 2025-03-08 12:11 | XMS_ITS | Encounter Summary ---
Author Organization [facility] Address [address] [place] [address] Phone Care Team Providers Care Medical Dermatologist Name Role Phone Kev Miranda MD Primary Care Provider [phone] Encounter Details Date Type Department Care Team (Late st Contact Info) Description 02/01/2025 Documentation Only [facility] [address] [place] [address] Nisha Amor [address] [place] [address] [phone] Social History Tobacco Use Types Packs/Day Years [...] Visit [facility] [address] Jo DOUGHERTY [address] [place] [phone] Hudson Atkinson MD [address] [place] [address] [place] [address] documented as of this encounter Visit Diagnoses Not on filedocumented in this encounter Care Teams Medical Dermatologist Relationship Specialty Start Date End Date Kev Miranda MD 40 [place] [address] PCP - General Internal Medicine 01/31/25 documented as of this encounter
--- OUTSIDE RECORDS SUMMARY | 2025-03-08 12:11 | XMS_ITS ---
Author Organization [facility] Joanne rafaela Orwell Address [address] [place] [address] Care Team Providers Care Welfare Administrator Name Role Phone Kev Miranda MD Primary Care Provider Denny Gao [phone] REASON FOR VISIT cx appt Encounters Encounter Location Date Provider Diagnosis [facility] [address] [place] [address] 05/02/2024 Denny Downing Plan Of Treatment No Information Progress Notes * Aden FELIZ FDOB:[birth year] (73 yo M)Acc No.[id number]:05/02/2024 Patient:?BaileeAden gardner :1950???Age:73 Y???Sex:Male Address:[address] [place], [place] [address]ers[facility] [place] [address] * true * Date:? Generated for Printi ng/Faxing/eTransmitting on:?03/08/2025 12:11 PM EDT
--- OUTSIDE RECORDS SUMMARY | 2025-03-08 12:11 | XMS_ITS | Encounter Summary ---
Author Organization [facility] Address [address] [place] [address] Phone Care Team Providers Care Quill Buncher And Sorter Name Role Phone Kev Miranda MD Primary Care Provider [phone] Encounter Details Date Type Department Care Team (Late st Contact Info) Description 01/31/2025 Documentation Only [facility] [address] [place] [place] [address] [place] [address] [place] [address] [phone] Social History Tobacco Use Types Packs/Day Years [...] And Transplant Services Of [facility] [address] Jo [address] [place] [phone] Hudson Atkinson MD [address] [place] [address] [place] [address] documented as of this encounter Visit Diagnoses Not on filedocumented in this encounter Care Teams Quill Buncher And Sorter Relationship Specialty Start Date End Date Kev Miranda MD 40 [place] [address] PCP - General Internal Medicine 01/31/25 documented as of this encounter
--- OUTSIDE RECORDS SUMMARY | 2025-03-08 12:11 | XMS_ITS | Clinical Summary ---
Author Organization [facility] Address [address] [place] [address] Care Team Providers Care Director Underwriter Sales Name Role Phone Unavailable Primary Care Provider Unavailabl e Encounters Date Type Department Care Team Description 02/06/2025 Transcribe Orders [facility] Kev Miranda MD [...]
--- OUTSIDE RECORDS SUMMARY | 2025-03-08 12:11 | XMS_ITS | Encounter Summary ---
Author Organization [facility] Address [address] [place] [address] Phone Care Team Providers Care Chainstitch Zipper Setter Name Role Phone Kev Miranda MD Primary Care Provider [phone] Encounter Details Date Type Department Care Team (Late st Contact Info) Description 02/03/2025 Documentation Only [facility] [address] [place] [address] [place] [address] [place] [address] [phone] Social History Tobacco Use Types Packs/Day Years [...] Visit [facility] [address] Jo [address] [place] [phone] Hudson Atkinson MD [address] [place] [address] [place] [address] documented as of this encounter Visit Diagnoses Not on filedocumented in this encounter Care Teams Chainstitch Zipper Setter Relationship Specialty Start Date End Date Kev Miranda MD 40 [place] [address] PCP - General Internal Medicine 01/31/25 documented as of this encounter
== END 2025-03-08 11:11 | disposition home or self-care (01) ==
LOC: HO.PMC 10:38
PROVIDERS: PCP Internal Medicine; Visit Provider Internal Medicine
DX: M53.3 Sacrococcygeal disorders, not elsewhere classified (principal)
CPT/HCPCS: 99024

== ENCOUNTER → 2025-03-08 10:37 | Outpatient (BNVA) | payer MEDICARE, SELFPAY | PROVIDERS: PCP Internal Medicine; Visit Provider Internal Medicine | DX: M53.3 Sacrococcygeal disorders, not elsewhere classified (principal) | CPT/HCPCS: 99212 ==

== ENCOUNTER 2025-03-30 07:11 | Outpatient (REF) | payer MEDICARE, SELFPAY ==
--- NOTE | ~2025-03-30 | FL_ITS ---
EXAMINATION: FL GUIDANCE ONLY HISTORY: M53.3 - Sacrococcygeal disorders, not elsewhere classified COMPARISON: None available. TECHNIQUE: Fluoroscopy time: 0.2 minutes. Cumulative Dose: 19.2 mGy. DAP: 0.183 mGym2 Images: 4. FINDINGS: Images demonstrate multiple needles in the region of the right sacroiliac joint. FL/FL guidance in treatment room IMPRESSION: Fluoroscopy during procedure. Please see procedure report for additional information. Electronically signed by: Kev Elise MD 03/30/2025 03:09 PM EDT
--- OUTSIDE RECORDS SUMMARY | 2025-03-30 07:14 | XMS_ITS | Encounter Summary ---
Author Organization [facility] Address [address] [place] [address] Phone Care Team Providers Care Data Integration Architect Name Role Phone Kev Miranda MD Primary Care Provider [phone] Encounter Details Date Type Department Care Team (Late st Contact Info) Description 02/01/2025 Documentation Only [facility] [address] [place] [address] Nisha Amor [address] [place] [address] [phone] Social History Tobacco Use Types Packs/Day Years [...] Visit [facility] [address] Jo DOUGHERTY [address] [place] [phone] Hudson Atkinson MD [address] [place] [address] [place] [address] documented as of this encounter Visit Diagnoses Not on filedocumented in this encounter Care Teams Data Integration Architect Relationship Specialty Start Date End Date Kev Miranda MD 40 [place] [address] PCP - General Internal Medicine 01/31/25 documented as of this encounter
--- OUTSIDE RECORDS SUMMARY | 2025-03-30 07:14 | XMS_ITS | Encounter Summary ---
Author Organization [facility] Address [address] [place] [address] Phone Care Team Providers Care Stone Gluer Name Role Phone Kev Miranda MD Primary Care Provider [phone] Encounter Details Date Type Department Care Team (Late st Contact Info) Description 02/01/2025 Documentation Only [facility] Of [address] [place] [address] Nisha Amor [address] [place] [address] [phone] Social History Tobacco Use Types Packs/Day Years [...] Visit [facility] [address] Jo DOUGH[address] [place] [phone] Hudson Atkinson MD [address] [place] [address] [place] [address] documented as of this encounter Visit Diagnoses Not on filedocumented in this encounter Care Teams Stone Gluer Relationship Specialty Start Date End Date Kev Miranda MD 40 [facility] [place] [address] PCP - General Internal Medicine 01/31/25 documented as of this encounter
--- OUTSIDE RECORDS SUMMARY | 2025-03-30 07:14 | XMS_ITS | Encounter Summary ---
Author Organization [facility] Address [address] [place] [address] Phone Care Team Providers Care Snuff Packing Machine Operator Name Role Phone Kev Miranda MD Primary Care Provider Encounter Details Date Type Department Care Team (Late st Contact Info) Description 02/01/2025 Documentation Only [facility] [address] [place] [address] Nisha Amor [address] [place] [address] [phone] Social History Tobacco Use Types Packs/Day Years [...] [facility] [address] Jo DOUGH[address] [place] [phone] Hudson Atkinson MD [address] [place] [address] [place] [address] documented as of this encounter Visit Diagnoses Not on filedocumented in this encounter Care Teams Snuff Packing Machine Operator Relationship Specialty Start Date End Date Kev Miranda MD 40 [place] [address] PCP - General Internal Medicine 01/31/25 documented as of this encounter
--- OUTSIDE RECORDS SUMMARY | 2025-03-30 07:14 | XMS_ITS ---
Author Organization [facility] Naila Henriquezley Address [address] [place] [address] Care Team Providers Care Erp Specialist Name Role Phone Kev Miranda MD Primary Care Provider Denny Gao [phone] Encounters Encounter Location Date Provider Diagnosis [facility] [address] [place] [address] 05/02/2024 Denny Downing Plan Of Treatment No Information Progress Notes * Aden FELIZ FDOB:[birth year] (74 yo M)Acc No.[id number]:05/02/2024 Progress Notes Patient:?SHANONELMIRAAden Das Provider:?Denny Downing DPM :1950???Age:73 Y???Sex:Male Carrington e:05/02/2024 Address:[address] [place] [address] Pcp:Kev Miranda MD Subjective: * Chief Complaints: [...] DPM Date:? 024 Generated for Audrey houston/Julia/eTransmitting on:?03/30/2025 07:13 AM EDT History and Physical Notes * HPI (History of Present Illness) Category Sub-Category Detail Notes Category Not es Skin problems Nature: tender, throbbing, swelling , redness Location: Left , 1st Duration: a month Onset/Cause: unknown Course: worse Aggravated by: any pressure, radhai celso Severity/Quality: moderate At Risk footcare Pt States Last PCP Visit: Date: 3
--- OUTSIDE RECORDS SUMMARY | 2025-03-30 07:14 | XMS_ITS | Encounter Summary ---
Author Organization [facility] Address [address] [place] [address] Phone Care Team Providers Care Communications Equipment Supervisor Name Role Phone Kev Miranda MD Primary Care Provider [phone] Encounter Details Date Type Department Care Team (Late st Contact Info) Description 02/01/2025 Documentation Only [facility] [address] [place] [address] Nisha Amor [address] [place] [address] [phone] Social History Tobacco Use Types Packs/Day Years [...] Visit [facility] [address] Jo DOUGHERTY [address] [place] [phone] Hudson Atkinson MD [address] [place] [address] [place] [address] documented as of this encounter Visit Diagnoses Not on filedocumented in this encounter Care Teams Communications Equipment Supervisor Relationship Specialty Start Date End Date Kev Miranda MD 40 [place] [address] PCP - General Internal Medicine 01/31/25 documented as of this encounter
--- OUTSIDE RECORDS SUMMARY | 2025-03-30 07:14 | XMS_ITS ---
Author Organization [facility] Naila rafaela Cimarron Address [address] [place] [address] Care Team Providers Care Track Production Engineer Name Role Phone Kev Miranda MD Primary Care Provider Denny Gao [phone] REASON FOR VISIT Doxycycline Encounters Encounter Location Date Provider Diagnosis [facility] [address] [place] [address] 04/20/2024 Denny Downing Plan Of Treatment No Information Progress Notes * Aden FELIZ FDOB:[birth year] (73 yo M)Acc No.[id number]:04/20/2024 Patient:?Sarah Aden Diaz :1950???Age:73 Y???Sex:Male Address:[address] [place], [place] [address]ers[facility] [place] [address] * true * Date:? Generated for Printi ng/Fayaseming/eTransmitting on:?03/30/2025 07:14 AM EDT
--- OUTSIDE RECORDS SUMMARY | 2025-03-30 07:14 | XMS_ITS | Clinical Summary ---
Author Organization [facility] [place], Address [address] [place] [address] [place] [address] Phone Care Team Providers Care Bag Bailer Name Role Phone Kev Miranda MD Primary Care Provider [phone] Allergies Active Allergy Reactions Criticality Noted Date [...] day in the morning Active Chlorphen-Phenyle ph-ASA ([place] Severe Cold) 2-7.8-325 MG effervescent tablet Take [...] mouth 1 (one) time each day Active [place]-3 Fatty Acids (OMEGA 3 PO) Take 1,000 [...] Telephone [facility] [address] [place] [address] Nisha Amor 02/03/2025 Documentation Only [facility] [address] [place] [address] Andrey Roman PA 02/02/2025 2:30 PM EST Office Visit [facility] [place] [phone] Hudson Atkinson MD Essential hypertension (Primary Dx) 02/01/2025 Documentation Only [facility] [address] [place] [address] Nisha Amor 02/01/2025 Documentation Only [facility] Of [address] [place] [address] [place], Nisha 02/01/2025 Documentation Only [facility] [place], [address] [place] [address] [place], Nisha 02/01/2025 Documentation Only [facility] [place], [address] [place] [address] [place], Nisha 02/01/2025 Documentation Only [facility] [place], [address] [place] [place] [address] Mt, Nisha 02/01/2025 Documentation Only [facility] [place], [address] [place] [place] [address] Mt, Nisha 02/01/2025 Documentation Only [facility] [place], [address] [place] [place] [address] Mt, Nisha 02/01/2025 Documentation Only [facility] [place], [address] [place] [place] [address] Mt, Nisha 02/01/2025 Documentation Only [facility] [place], [address] [place] [place] [address] Mt, Nisha 02/01/2025 Documentation Only [facility] [place], [address] [place] [place] [address] Mt, Nisha 01/31/2025 Documentation Only [facility] [place], [address] [place] [place] [address] Andrey Roman [place] from Last 3 Months Immunizations Immunization Administration Dates Next Due Influenza Split High [...] Visit [facility] [place], [facility] - [address] [facility] [address] [place] [address] Hudson Atkinson MD [address] [place] [address] Health Maintenance Due Date Last Done Comments Diabetes: Hemoglobin A1C 01/31/2025 Diabetes: Ophthalmology Exam 01/31/2025 Diabetes: Pedal Pulse Checked 01/31/2025 Diabetes: Sensory Foot Exam 01/31/2025 Diabetes: Visual Foot Exam 01/31/2025 Pneumococcal Vaccine: 50+ Years Completed 05/26/2019, 07/08/2016, 11/01/2012 Influenza Vaccine Completed 08/23/2024, , 09/30/2019, Additional history exists Hepatitis B Vaccine Aged Out No longe r eligible based on patient's age to complete this topic Insurance [facility] Medicare Care Teams Bag Bailer Relationship Specialty Start Date End Date Kev Miranda MD [address] [place] [address] PCP - General Internal Medicine 01/31/25
--- OUTSIDE RECORDS SUMMARY | 2025-03-30 07:14 | XMS_ITS | Encounter Summary ---
Author Organization [facility] Address [address] [place] [address] Phone Care Team Providers Care Business Development Intern Name Role Phone Kev Miranda MD Primary Care Provider [phone] Encounter Details Date Type Department Care Team (Late st Contact Info) Description 02/01/2025 Documentation Only [facility] Of [address] [place] [address] Nisha Amor [address] [place] [address] [phone] Social History Tobacco Use Types Packs/Day Years [...] Visit [facility] [address] Jo DOUGHERTY [address] [place] [phone] Hudson Atkinson MD [address] [place] [address] [place] [address] documented as of this encounter Visit Diagnoses Not on filedocumented in this encounter Care Teams Business Development Intern Relationship Specialty Start Date End Date Kev Miranda MD 40 [place] [address] PCP - General Internal Medicine 01/31/25 documented as of this encounter
--- OUTSIDE RECORDS SUMMARY | 2025-03-30 07:14 | XMS_ITS | Encounter Summary ---
Author Organization [facility] Address [address] [place] [address] Phone Care Team Providers Care Methods Analyst Data Processing Name Role Phone Kev Miranda MD Primary Care Provider [phone] Encounter Details Date Type Department Care Team (Late st Contact Info) Description 02/01/2025 Documentation Only [facility] Of [address] [place] [address] Nisha Amor [address] [place] [address] [phone] Social History Tobacco Use Types Packs/Day Years [...] Visit [facility] [address] Jo DOUGHERTY [address] [place] [phone] Hudson Atkinson MD [address] [place] [address] [place] [address] documented as of this encounter Visit Diagnoses Not on filedocumented in this encounter Care Teams Methods Analyst Data Processing Relationship Specialty Start Date End Date Kev Miranda MD 40 [facility] [place] [address] PCP - General Internal Medicine 01/31/25 documented as of this encounter
--- OUTSIDE RECORDS SUMMARY | 2025-03-30 07:14 | XMS_ITS | Encounter Summary ---
Author Organization [facility] Address [address] [place] [address] Phone Care Team Providers Care Engineer Technical Staff Name Role Phone Kev Miranda MD Primary Care Provider [phone] Encounter Details Date Type Department Care Team (Late st Contact Info) Description 02/03/2025 Documentation Only [facility] Of [address] [place] [address] [place] [address] [place] [address] [phone] Social History Tobacco Use Types Packs/Day Years [...] Visit [facility] Of [facility] [address] Jo [address] [place] [phone] Hudson Atkinson MD [address] [place] [address] [place] [address] documented as of this encounter Visit Diagnoses Not on filedocumented in this encounter Care Teams Engineer Technical Staff Relationship Specialty Start Date End Date Kev Miranda MD 40 [facility] [place] [address] PCP - General Internal Medicine 01/31/25 documented as of this encounter
--- OUTSIDE RECORDS SUMMARY | 2025-03-30 07:14 | XMS_ITS | Encounter Summary ---
Author Organization [facility] Address [address] [place] [address] Phone Care Team Providers Care Molecular Biology Director Name Role Phone Kev Miranda MD Primary Care Provider [phone] Encounter Details Date Type Department Care Team (Late st Contact Info) Description 02/01/2025 Documentation Only [facility] Of [address] [place] [address] Nisha Amor [address] [place] [address] [phone] Social History Tobacco Use Types Packs/Day Years [...] Visit [facility] Of [facility] [address] Jo DOUGHERTY [address] [place] [phone] Hudson Atkinson MD [address] [place] [address] [place] [address] documented as of this encounter Visit Diagnoses Not on filedocumented in this encounter Care Teams Molecular Biology Director Relationship Specialty Start Date End Date Kev Miranda MD [address] [facility] [place] [address] PCP - General Internal Medicine 01/31/25 documented as of this encounter
--- OUTSIDE RECORDS SUMMARY | 2025-03-30 07:14 | XMS_ITS | Patient Health Record ---
Author Organization [facility] Address [address] [facility] [place] [address] Care Team Providers Care Corrections Corporal Name Role Phone Kev Miranda MD Primary Care Provider Denny Gao Unavailable [phone] Allergies No Known Allergies Results Component Value [...] Problem Acquired hammer toe of right foot (7062174340914323 ) Other hammer toe(s) (acquired), right foot (M20.41) Active confirmed Problem Acquired hammer toe of left foot (8147587160862478 ) Other hammer toe(s) (acquired), left foot (M20.42) Active confirmed Problem Polyneuropathy due to type 2 diabetes mellitus (799093581) Type 2 diabetes mellitus with diabetic polyneuropathy (E11.42) Active confirmed Vital Signs Height 6 ft in 04/20/2024 Weight 275 lbs 04/20/2024 BMI 37.29 kg/m2 04/20/2024 Encounters Encounter Location Date Provider Diagnosis [address] [address] 04/20/2024 Denny Downing Type 2 diabetes mellitus with diabetic polyneuropathy E11.42 ; Cellulitis of left toe L03.032 ; Tinea unguium B35.1 ; Pain in right toe(s) M79.674 ; Pain in left toe(s) M79.675 ; Ingrowing nail L60.0 ; Other hammer toe(s) (acquired), right foot M20.41 ; Other hammer toe(s) (acquired), left foot M20.42 and Abscess, toe, left L02.[address] [address] 04/19/[address] [address] 04/20/[address] [address] 05/02/2024 Denny Downing Assessments Encounter Date Diagnosis [...] Date Coverage End Date [employer] Medicare [id number] [address] [address] [place] [address] [id number] Aden Smith Self - patient is the insured Medical (General) History Medical History History ICD Code Diabetic High blood pressure Sciatica Surgical History Surgery Date(Month/Year) spinal stenosis surgery 01/02/2023
--- OUTSIDE RECORDS SUMMARY | 2025-03-30 07:14 | XMS_ITS | Encounter Summary ---
Author Organization [facility] Address [address] [place] [address] Phone Care Team Providers Care Field Secretary Name Role Phone Kev Miranda MD Primary Care Provider [phone] Encounter Details Date Type Department Care Team (Late st Contact Info) Description 02/01/2025 Documentation Only [facility] [address] [place] [address] Nisha Amor [address] [place] [address] [phone] Social History Tobacco Use Types Packs/Day Years [...] Visit [facility] [address] Jo [address] [place] [phone] Hudson Atkinson MD [address] [place] [address] [place] [address] documented as of this encounter Visit Diagnoses Not on filedocumented in this encounter Care Teams Field Secretary Relationship Specialty Start Date End Date Kev Miranda MD [address] [facility] [place] [address] PCP - General Internal Medicine 01/31/25 documented as of this encounter
--- OUTSIDE RECORDS SUMMARY | 2025-03-30 07:14 | XMS_ITS | Encounter Summary ---
Author Organization [facility] Address [address] [place] [address] Phone Care Team Providers Care Building Inspector Name Role Phone Kev Miranda MD Primary Care Provider [phone] Encounter Details Date Type Department Care Team (Late st Contact Info) Description 01/31/2025 Documentation Only [facility] [address] [place] [address] [place] [address] [place] [address] [phone] Social History Tobacco Use Types Packs/Day Years [...] Visit [facility] [address] [place] [phone] Hudson Atkinson MD [address] [place] [address] [place] [address] documented as of this encounter Visit Diagnoses Not on filedocumented in this encounter Care Teams Building Inspector Relationship Specialty Start Date End Date Kev Miranda MD [address] [place] [address] PCP - General Internal Medicine 01/31/25 documented as of this encounter
--- OUTSIDE RECORDS SUMMARY | 2025-03-30 07:14 | XMS_ITS | Encounter Summary ---
Author Organization [facility] Address [address] [place] [address] Phone Care Team Providers Care Bicycle I Assembler Name Role Phone Kev Miranda MD Primary Care Provider [phone] Encounter Details Date Type Department Care Team (Late st Contact Info) Description 02/01/2025 Documentation Only [facility] [address] [place] [address] Nisha Amor [address] [place] [address] [phone] Social History Tobacco Use Types Packs/Day Years [...] [facility] [address] Jo [address] [place] [phone] Hudson Atkinson MD [address] [place] [address] [place] [address] documented as of this encounter Visit Diagnoses Not on filedocumented in this encounter Care Teams Bicycle I Assembler Relationship Specialty Start Date End Date Kev Miranda MD [address] [facility] [place] [address] PCP - General Internal Medicine 01/31/25 documented as of this encounter
--- OUTSIDE RECORDS SUMMARY | 2025-03-30 07:14 | XMS_ITS | Encounter Summary ---
Author Organization [facility] Address [address] [place] [address] Phone Care Team Providers Care Mortgage Loan Officer Originator Name Role Phone Kev Miranda MD Primary Care Provider [phone] Encounter Details Date Type Department Care Team (Late st Contact Info) Description 02/01/2025 Documentation Only [facility] [address] [place] [address] Nisha Amor [address] [place] [address] [phone] Social History Tobacco Use Types Packs/Day Years [...] Visit [facility] [address] Jo [address] [place] [phone] Hudson Atkinson MD [address] [place] [address] [place] [address] documented as of this encounter Visit Diagnoses Not on filedocumented in this encounter Care Teams Mortgage Loan Officer Originator Relationship Specialty Start Date End Date Kev Miranda MD [address] [place] [address] PCP - General Internal Medicine 01/31/25 documented as of this encounter
--- OUTSIDE RECORDS SUMMARY | 2025-03-30 07:15 | XMS_ITS ---
Author Organization [facility]aila [facility]so [place] Address [address] [place] [address] Care Team Providers Care Music Leader Name Role Phone Kev Miranda MD Primary Care Provider Denny Gao [phone] REASON FOR VISIT cx appt Encounters Encounter Location Date Provider Diagnosis [facility] [address] [place] [address] 05/02/2024 Denny Downing Plan Of Treatment No Information Progress Notes * Aden FELIZ FDOB:[birth year] (73 yo M)Acc No.[id number]:05/02/2024 Patient:?YohanamandoAden gardner :1950???Age:73 Y???Sex:Male Address:[address] [place], [place] [address] [place] [address] * true * Date:? Generated for Printi ng/Faxing/eTransmitting on:?03/30/2025 07:14 AM EDT
--- OUTSIDE RECORDS SUMMARY | 2025-03-30 07:15 | XMS_ITS | Clinical Summary ---
Author Organization [facility] Address [address] [place] [address] Care Team Providers Care Lime Vat Tender Name Role Phone Unavailable Primary Care Provider Unavailabl e Encounters Date Type Department Care Team Description 02/06/2025 Transcribe Orders [facility] Kev Miranda MD Nasal congestion (Primary Dx) from Last 3 Months Social History Tobacco Use Types Packs/Day Years Used Date Smoking Tobacco: Never Assessed Sex and Gender Information Value Date Recorded Sex Assigned at Male 01/03/2025 5:20 PM EST Legal Sex Male 5:20 PM EST Gender Identity Male 01/03/2025 [...]
== END 2025-03-30 07:12 | disposition home or self-care (01) ==
LOC: CF 07:11
PROVIDERS: Visit Provider Internal Medicine
DX: M47.816 Spondylosis without myelopathy or radiculopathy, lumbar region (principal); M53.3 Sacrococcygeal disorders, not elsewhere classified
CPT/HCPCS: 64635; J2003

== ENCOUNTER 2025-03-30 12:40 | Outpatient (AMB) | payer MEDICARE, SELFPAY ==
[2025-03-30 12:45] VITALS: BP 146/82; PULSE 87; RESP 16; O2SAT 94
--- NOTE | 2025-03-30 12:45 | MHC.OFFVIS ---
Vital Signs 03/30/25 12:45 03/30/25 13:49 BP 146/82 H 160/80 H Blood Pressure Location Rt brachial Lt brachial Position Sitting Sitting Respiration 16 16 Pulse 87 84 Pulse Source Pulse Oximeter Pulse Oximeter Pulse Oximetry (%) 94 92 Oxygen Delivery Method Room Air Room Air Intake Visit Reasons: Right SIJ innervation RFA/ Valium & oxy Network Support Technician Required: No Allergies carvedilol Adverse Reaction (Verified 03/30/25 12:46) Headache, Gastrointestinal Upset spironolactone Adverse Reaction (Verified 03/30/25 12:46) headache, Gastrointestinal Upset Medication List - Last Reconciled 03/30/25 by Concepcion Lewis LPN amlodipine 2.5 mg PO DAILY diazepam (Valium) 5 mg PO ONCE PRN glimepiride 4 mg PO DAILY ibuprofen 600 mg PO DAILY PRN irbesartan 300 mg PO DAILY levetiracetam 500 mg PO BID ondansetron 4 mg PO Q8H PRN oxycodone 10 mg PO ONCE PRN pioglitazone 30 mg PO DAILY rosuvastatin 5 mg PO DAILY HPI HPI Right SIJ innervation RFA/ Valium & oxy: Details: Patient presents for scheduled procedure. Denies any recent cough, cold, infection, fever or other significant changes in medical history since last office visit. [facility] Medical History JOSÉ MIGUEL (obstructive sleep apnea) Back pain HLD (hyperlipidemia) Nausea Hx of spinal stenosis Cluneal neuropathy Seizure disorder Hypertension Type 2 diabetes mellitus Surgical History Hx of spinal surgery (12/2022) Hx of hernia repair (~2010) Social History Are you a primary pet caretaker to a significant other at home: No Do you presently have visiting nurse or other home services: No Patient Tobacco Use Status: Former Tobacco user Tobacco use type: Cigarette Physical Exam Vital Signs: Last Vital Signs Pulse 84 03/30/25 13:49 Resp 16 03/30/25 13:49 BP 160/80 H 03/30/25 13:49 Pulse Ox 92 03/30/25 13:49 Oxygen Delivery Method Room Air 03/30/25 13:49 Office Procedures Details: Cooled radiofrequency ablation, Right L5 dorsal ramus and lateral branches of the S1, S2, S3 posterior primary rami nerves - fluoroscopic guided After obtaining written consent, pre-procedure blood pressure and heart rate were stable and recorded in the nursing record. Standard monitors were applied. The patient was placed prone on the fluoroscopy table. The area overlying the peripheral nerves was widely prepped with chloraprep, allowed to dry and sterilely draped. Using fluoroscopy, the appropriate landmarks were identified. The skin overlying the target was anesthetized with 0.5% lidocaine. 18 gauge 50mm radiofrequency needles were advanced under fluoroscopic guidance to the sacral ala (L5 medial branch) and around the lateral margins of the S1, S2 & S3 foramina (sacral lateral branches). Verification was done using lateral and AP views. Aspiration was negative for heme. Impedences were verified under 600 ohms. Sensory testing (50 Hz) and then motor testing (2 Hz) confirmed needle placement at each site within the appropriate voltage thresholds. Each site was injected with 0.5-1 ml 2% preservative-free lidocaine. Radiofrequency lesioning was performed for 165 seconds at 80 deg Celcius tissue temperature. Each site was then injected with 1 ml 0.5% preservative-free ropivacaine. The needles were removed, skin cleansed and a sterile bandage was applied. The patient tolerated the procedure well and no complications were encountered. [No immediate evidence of skin damage was seen]. Following the procedure the patient's vital signs were stable. The patient was discharged home in good condition with post-procedural instructions. Time Out: Immediately prior to the procedure, the following was verbally confirmed that there is a signed consent form and that the correct patient, planned procedure, site and side are consistent with documentation and that necessary equipment and/or blood products are available prior to the start of the case. Complications: none EBL: <5 cc 61681 - RFA Lumbar Medial Branches Additional procedure code (CPT) needed Office Meds lidocaine (PF) 10 mg/mL (1 %) injection solution Performing Provider: Michele Rangel MD Performing Location: [facility] Administered by: Michele Rangel MD on 03/30/25 13:46 Dose Route Admin Location Dispensed Lot Number Expiration Date NDC Fish Seiner 10 mg subcut 15 mL Assessment & Plan Assessment & Plan (1) Lumbar spondylosis: Code(s): M47.816 - Spondylosis without myelopathy or radiculopathy, lumbar region Category: Medical (2) Sacroiliac joint pain: Code(s): M53.3 - Sacrococcygeal disorders, not elsewhere classified Category: Medical (3) Cluneal neuropathy: Code(s): G58.8 - Other specified mononeuropathies Category: Medical Plan Patient is status post SIJ innervation RFL. Patient tolerated procedure well and was discharged home in stable condition with discharge instructions. All questions were answered. We will follow-up via telephone or in clinic to assess response to therapy. A follow-up appointment was made during today's visit. Orders: Orders [place] guidance in treatment room 03/30/25 Donna Zheng APRN, FAUZIA M53.3 - Sacrococcygeal disorders, not elsewhere classified AMB RFA Radiofrequency Ablation Pain Management 03/30/25 Michele Rangel MD M47.816 - Spondylosis without myelopathy or radiculopathy, lumbar region, M53.3 - Sacrococcygeal disorders, not elsewhere classified Medications: New diazepam (Valium) please take 30minutes prior to arrival for procedure 5 mg PO ONCE PRN 1 tab 0RF sleep Donna Zheng APRN, FAUZIA oxycodone take 30 minutes prior to arrival for procedure 10 mg PO ONCE PRN 1 tab 0RF pain Donna Zheng APRN, TAKE AWAY ATTENDANT Coding Level of Care Code Procedure Only Diagnoses Lumbar spondylosis M47.816 Sacroiliac joint pain M53.3 Cluneal neuropathy G58.8 CPT Codes Radiofrequency Ablation - Rad-Ablation 3: 79025 - RFA Lumbar Medial Branches ([id number])
[2025-03-30 13:49] VITALS: BP 160/80; PULSE 84; RESP 16; O2SAT 92
--- OUTSIDE RECORDS SUMMARY | 2025-03-30 15:07 | XMS_ITS | Encounter Summary ---
Author Organization [facility] Address [address] [place] [address] Phone Care Team Providers Care Can Reforming Machine Operator Name Role Phone Kev Miranda MD Primary Care Provider [phone] Encounter Details Date Type Department Care Team (Late st Contact Info) Description 02/01/2025 Documentation Only [facility] [address] [place] [address] Nisha Amor [address] [place] [address] [phone] Social History Tobacco Use Types Packs/Day Years [...] [facility] [address] Jo [address] [place] [phone] Hudson Atkinson MD [address] [place] [address] [place] [address] documented as of this encounter Visit Diagnoses Not on filedocumented in this encounter Care Teams Can Reforming Machine Operator Relationship Specialty Start Date End Date Kev Miranda MD [address] [facility] [place] [address] PCP - General Internal Medicine 01/31/25 documented as of this encounter
--- OUTSIDE RECORDS SUMMARY | 2025-03-30 15:07 | XMS_ITS | Encounter Summary ---
Author Organization [facility] Address [address] [place] [address] Phone Care Team Providers Care Net Web Application Developer Name Role Phone Kev Miranda MD Primary Care Provider [phone] Encounter Details Date Type Department Care Team (Late st Contact Info) Description 02/01/2025 Documentation Only [facility] [address] [place] [address] Nisha Amor [address] [place] [address] [phone] Social History Tobacco Use Types Packs/Day Years [...] Visit [facility] [address] Jo [address] [place] [phone] Hudson Atkinson MD [address] [place] [address] [place] [address] documented as of this encounter Visit Diagnoses Not on filedocumented in this encounter Care Teams Net Web Application Developer Relationship Specialty Start Date End Date Kev Miranda MD [address] [facility] [address] PCP - General Internal Medicine 01/31/25 documented as of this encounter
--- OUTSIDE RECORDS SUMMARY | 2025-03-30 15:07 | XMS_ITS | Encounter Summary ---
Author Organization [facility] Address [address] [place] [address] Phone Care Team Providers Care Electronic Page Makeup System Operator Name Role Phone Kev Miranda MD Primary Care Provider [phone] Encounter Details Date Type Department Care Team (Late st Contact Info) Description 02/01/2025 Documentation Only [facility] [address] [place] [address] Nisha Amor [address] [place] [address] [phone] Social History Tobacco Use Types Packs/Day Years [...] Services Of [facility] [address] Jo [address] [place] [phone] Hudson Atkinson MD [address] [place] [address] [place] [address] documented as of this encounter Visit Diagnoses Not on filedocumented in this encounter Care Teams Electronic Page Makeup System Operator Relationship Specialty Start Date End Date Kev Miranda MD [address] [place] [address] PCP - General Internal Medicine 01/31/25 documented as of this encounter
--- OUTSIDE RECORDS SUMMARY | 2025-03-30 15:07 | XMS_ITS | Encounter Summary ---
Author Organization [facility] Address [address] [place] [address] Phone Care Team Providers Care Senior Financial Consultant Name Role Phone Kev Miranda MD Primary Care Provider [phone] Encounter Details Date Type Department Care Team (Late st Contact Info) Description 02/01/2025 Documentation Only [facility] [address] [place] [address] Nisha Amor [address] [place] [address] [phone] Social History Tobacco Use Types Packs/Day Years [...] Visit [facility] [address] Jo [address] [place] [phone] Hudson Atkinson MD [address] [place] [address] [place] [address] documented as of this encounter Visit Diagnoses Not on filedocumented in this encounter Care Teams Senior Financial Consultant Relationship Specialty Start Date End Date Kev Miranda MD 40 [place] [address] PCP - General Internal Medicine 01/31/25 documented as of this encounter
--- OUTSIDE RECORDS SUMMARY | 2025-03-30 15:08 | XMS_ITS | Encounter Summary ---
Author Organization [facility] Address [address] [place] [address] Phone Care Team Providers Care Travel Information Center Supervisor Name Role Phone Kev Miranda MD Primary Care Provider [phone] Encounter Details Date Type Department Care Team (Late st Contact Info) Description 02/01/2025 Documentation Only [facility] [address] [place] [address] Nisha Amor [address] [place] [address] [phone] Social History Tobacco Use Types Packs/Day Years [...] Visit [facility] [address] Jo [address] [place] [phone] Hudson Atkinson MD [address] [place] [address] [place] [address] documented as of this encounter Visit Diagnoses Not on filedocumented in this encounter Care Teams Travel Information Center Supervisor Relationship Specialty Start Date End Date Kev Miranda MD 40 [facility] [place] [address] PCP - General Internal Medicine 01/31/25 documented as of this encounter
--- OUTSIDE RECORDS SUMMARY | 2025-03-30 15:08 | XMS_ITS | Encounter Summary ---
Author Organization [facility] Address [address] [place] [address] Phone Care Team Providers Care Digital Sales Assistant Name Role Phone Kev Miranda MD Primary Care Provider [phone] Encounter Details Date Type Department Care Team (Late st Contact Info) Description 02/01/2025 Documentation Only [facility] [address] [place] [address] Nisha Amor [address] [place] [address] [phone] Social History Tobacco Use Types Packs/Day Years [...] Visit [facility] [address] Jo [address] [place] [phone] Hudson Atkinson MD [address] [place] [address] [place] [address] documented as of this encounter Visit Diagnoses Not on filedocumented in this encounter Care Teams Digital Sales Assistant Relationship Specialty Start Date End Date Kev Miranda MD 40 [place] [address] PCP - General Internal Medicine 01/31/25 documented as of this encounter
--- OUTSIDE RECORDS SUMMARY | 2025-03-30 15:08 | XMS_ITS | Encounter Summary ---
Author Organization [facility] Address [address] [place] [address] Phone Care Team Providers Care Economic Geographer Name Role Phone Kev Miranda MD Primary Care Provider [phone] Encounter Details Date Type Department Care Team (Late st Contact Info) Description 02/01/2025 Documentation Only [facility] [address] [place] [address] Nisha Amor [address] [place] [address] [phone] Social History Tobacco Use Types Packs/Day Years [...] Transplant [facility] [address] Jo D[address] [place] [phone] Hudson Atkinson MD [address] [place] [address] [place] [address] documented as of this encounter Visit Diagnoses Not on filedocumented in this encounter Care Teams Economic Geographer Relationship Specialty Start Date End Date Kev Miranda MD 40 [place] [address] PCP - General Internal Medicine 01/31/25 documented as of this encounter
--- OUTSIDE RECORDS SUMMARY | 2025-03-30 15:10 | XMS_ITS | Encounter Summary ---
Author Organization [facility] Address [address] [place] [address] Phone Care Team Providers Care Wood Floor Layer Name Role Phone Kev Miranda MD Primary Care Provider [phone] Encounter Details Date Type Department Care Team (Late st Contact Info) Description 02/01/2025 Documentation Only [facility] [address] [place] [address] Nisha Amor [address] [place] [address] [phone] Social History Tobacco Use Types Packs/Day Years [...] Visit [facility] [address] Jo [address] [place] [phone] Hudson Atkinson MD [address] [place] [address] [place] [address] documented as of this encounter Visit Diagnoses Not on filedocumented in this encounter Care Teams Wood Floor Layer Relationship Specialty Start Date End Date Kev Miranda MD 40 [place] [address] PCP - General Internal Medicine 01/31/25 documented as of this encounter
--- OUTSIDE RECORDS SUMMARY | 2025-03-30 15:10 | XMS_ITS | Encounter Summary ---
Author Organization [facility] Address [address] [place] [address] Phone Care Team Providers Care Metalworking Instructor Name Role Phone Kev Miranda MD Primary Care Provider [phone] Encounter Details Date Type Department Care Team (Late st Contact Info) Description 02/01/2025 Documentation Only [facility] [address] [place] [address] Nisha Amor [address] [place] [address] [phone] Social History Tobacco Use Types Packs/Day Years [...] Visit [facility] [address] [place] [phone] Hudson Atkinson MD [address] [place] [address] [place] [address] documented as of this encounter Visit Diagnoses Not on filedocumented in this encounter Care Teams Metalworking Instructor Relationship Specialty Start Date End Date Kev Miranda MD [address] [place] [address] PCP - General Internal Medicine 01/31/25 documented as of this encounter
--- OUTSIDE RECORDS SUMMARY | 2025-03-30 15:11 | XMS_ITS | Encounter Summary ---
Author Organization [facility] Address [address] [place] [address] Phone Care Team Providers Care Employee Benefits Administrator Name Role Phone Kev Miranda MD Primary Care Provider [phone] Encounter Details Date Type Department Care Team (Late st Contact Info) Description 02/01/2025 Documentation Only [facility] [address] [place] [address] Nisha Amor [address] [place] [address] [phone] Social History Tobacco Use Types Packs/Day Years [...] Visit [facility] [address] [place] [phone] Hudson Atkinson MD [address] [place] [address] [place] [address] documented as of this encounter Visit Diagnoses Not on filedocumented in this encounter Care Teams Employee Benefits Administrator Relationship Specialty Start Date End Date Kev Miranda MD [address] [place] [address] PCP - General Internal Medicine 01/31/25 documented as of this encounter
--- OUTSIDE RECORDS SUMMARY | 2025-03-30 15:13 | XMS_ITS | Encounter Summary ---
Author Organization [facility] Address [address] [place] [address] Phone Care Team Providers Care Hose Builder Name Role Phone Kev Miranda MD Primary Care Provider [phone] Encounter Details Date Type Department Care Team (Late st Contact Info) Description 02/03/2025 Documentation Only [facility] [address] [place] [address] [place] [address] [place] [address] [phone] Social History Tobacco Use Types Packs/Day Years [...] Visit [facility] [address] [place] [phone] Hudson Atkinson MD [address] [place] [address] [place] [address] documented as of this encounter Visit Diagnoses Not on filedocumented in this encounter Care Teams Hose Builder Relationship Specialty Start Date End Date Kev Miranda MD [address] [place] [address] PCP - General Internal Medicine 01/31/25 documented as of this encounter
--- OUTSIDE RECORDS SUMMARY | 2025-03-30 15:13 | XMS_ITS | Clinical Summary ---
Author Organization [facility] Address [address] [place] [address] Care Team Providers Care Camp Manager Name Role Phone Unavailable Primary Care Provider Unavailabl e Encounters Date Type Department Care Team Description 02/06/[address] [facility] PRIMARY CARE SCAN Kev Miranda MD [...]
== END 2025-03-30 13:50 | disposition home or self-care (01) ==
LOC: HO.PMCPRC 12:40
PROVIDERS: PCP Internal Medicine; Visit Provider Internal Medicine
DX: M47.816 Spondylosis without myelopathy or radiculopathy, lumbar region (principal); M53.3 Sacrococcygeal disorders, not elsewhere classified
CPT/HCPCS: 64635

== ENCOUNTER 2025-04-26 09:54 | Outpatient (AMB) | payer MEDICARE, SELFPAY ==
[2025-04-26 10:01] VITALS: BP 192/88; PULSE 97; RESP 15; O2SAT 92; BMI 41.4
--- NOTE | 2025-04-26 10:01 | MHC.OFFVIS ---
Vital Signs 04/26/25 10:01 Height 5 ft 11 in Weight 297 lb BMI 41.4 BP 192/88 H Blood Pressure Location Lt brachial Position Sitting Respiration 15 Pulse 97 Pulse Source Pulse Oximeter Pulse Oximetry (%) 92 Oxygen Delivery Method Room Air Intake Visit Reasons: s/p Right SIJ RFA Digital Strategist Senior Manager Required: No Allergies carvedilol Adverse Reaction (Verified 04/26/25 10:02) Headache, Gastrointestinal Upset spironolactone Adverse Reaction (Verified 04/26/25 10:02) headache, Gastrointestinal Upset Medication List - Last Reconciled 04/26/25 by Concepcion Lewis LPN glimepiride 4 mg PO DAILY ibuprofen 600 mg PO DAILY PRN irbesartan 300 mg PO DAILY levetiracetam 500 mg PO BID pioglitazone 30 mg PO DAILY rosuvastatin 5 mg PO DAILY HPI HPI s/p Right SIJ RFA: Details: History of Present Illness The patient is a 74-year-old male presenting with chronic pain and urological symptoms. Following a lumbar procedure approximately one to two weeks ago, the patient has experienced persistent and severe pain localized to the lumbar region. The pain is exacerbated by sitting and is particularly noticeable upon waking in the morning. The patient reports that using ice, heat, and ibuprofen provides temporary relief. In addition to chronic pain, the patient reports urological symptoms suggestive of benign prostatic hyperplasia, including frequent urination in small amounts. Despite recent normal PSA test results, symptoms such as incomplete bladder emptying persist. The patient has also been experiencing disturbed sleep due to borderline sleep apnea, which affects the effectiveness of his CPAP mask. Constipation and difficulty in weight loss are ongoing issues, compounded by a history of type 2 diabetes mellitus managed with glimepiride. The patient is considering GLP-1 receptor agonists for weight management. Pain Description - Onset and Timing: Occurred one to two weeks post-lumbar procedure. - Quality and Character: Severe, tender pain. - Primary Location: Lumbar region. - Exacerbating Factors: Sitting, morning stiffness. - Relieving Factors: Ice, heat application, ibuprofen. - Interference: Significant reduction in activity levels, affecting daily functioning. Physical Exam - Appears afebrile. - Alert and oriented. - Mood and affect appropriate. - Follows and participates in conversation appropriately. - Respiratory effort is unlabored. - Tenderness overlying the right sacroiliac joint area Results - Labs: Recent PSA test - Normal. Pain Management - Affect: Chronic pain impacting activity levels and quality of life. - Analgesia: Pain managed with ibuprofen, providing temporary relief. - Adverse Effects: None reported from pain medication. - Activities of Daily Living: Pain significantly limits physical activity. - Aberrant Drug Related Behaviors: None reported. [facility] Medical History JOSÉ MIGUEL (obstructive sleep apnea) Back pain HLD (hyperlipidemia) Nausea Hx of spinal stenosis Cluneal neuropathy Seizure disorder Hypertension Type 2 diabetes mellitus Surgical History Hx of spinal surgery (12/2022) Hx of hernia repair (~2010) Social History Are you a primary care attendant to a significant other at home: No Do you presently have visiting nurse or other home services: No Patient Tobacco Use Status: Former Tobacco user Tobacco use type: Cigarette Physical Exam Vital Signs: Last Vital Signs Pulse 97 04/26/25 10:01 Resp 15 04/26/25 10:01 BP 192/88 H 04/26/25 10:01 Pulse Ox 92 04/26/25 10:01 Oxygen Delivery Method Room Air 04/26/25 10:01 BMI result Body Mass Index 41.4 Assessment & Plan Assessment & Plan (1) Sacroiliac joint pain: Code(s): M53.3 - Sacrococcygeal disorders, not elsewhere classified Category: Medical (2) Post laminectomy syndrome: Code(s): M96.1 - Postlaminectomy syndrome, not elsewhere classified Category: Medical (3) Lower urinary tract symptoms (LUTS): Code(s): R39.9 - Unspecified symptoms and signs involving the genitourinary system Category: Medical Plan Plan - Recommend Flomax for suspected benign prostatic hyperplasi and a prostate ultrasound for further evaluation by urology. - Continue ice, heat, and ibuprofen for pain relief. - Trial of SI compression belt. Reevaluate pain management in one month. - Coordinate with back up machine operator for potential GLP-1 therapy. - Optimize sleep apnea treatment with CPAP adjustments. Patient was informed and verbally consented to the use of an ambient scribe for clinic note documentation during this visit. Discussion Notes During the consultation, I discussed the patient's chronic lumbar pain and urological symptoms, highlighting the need for further evaluation through a prostate ultrasound. I explained the potential benefits of Flomax in alleviating urinary symptoms associated with benign prostatic hyperplasia. We reviewed the current pain management plan, emphasizing the importance of conservative measures such as ice, heat, and ibuprofen. The patient expressed interest in exploring GLP-1 receptor agonists for weight management, and I advised coordination with his back up machine operator. We also discussed the need to optimize CPAP therapy to improve sleep apnea management. Follow-up was advised in one month to assess the effectiveness of the current management plan. Patient Instructions - Discuss Flomax with PCP. - Consider an ultrasound for prostate evaluation. Consider urology referral. - Use ice and heat as needed for pain relief. - Continue taking ibuprofen for pain as needed. - Follow up with the back up machine operator regarding weight management options. - Discuss CPAP therapy adjustments with the sleep specialist. - Return for follow-up in one month or sooner if symptoms not better with SI compression belt. Coding Level of Care Code Est Pt Level 4 (28101) Diagnoses Sacroiliac joint pain M53.3 Post laminectomy syndrome M96.1 Lower urinary tract symptoms (LUTS) R39.9
--- OUTSIDE RECORDS SUMMARY | 2025-04-26 10:43 | XMS_ITS | Encounter Summary ---
Author Organization [facility] Address [address] [place] [address] Phone Care Team Providers Care Vinyl Dipper Name Role Phone Kev Miranda MD Primary Care Provider [phone] Encounter Details Date Type Department Care Team (Late st Contact Info) Description 02/01/2025 Documentation Only [facility] [place], [address] [place] [address] Nisha Amor [address] [place] [phone] Social History Tobacco Use Types Packs/Day Years Used Date Smoking Tobacco: Never Assessed Sex and Gender Information Value Date Recorded Sex Assigned at Not on file Legal Sex Male 8:25 AM EST Gender Identity Not on file Sexual Orientation Not on file documented as of this encounter Plan of Treatment Not on file documented as of this encounter Visit Diagnoses Not on filedocumented in this encounter Care Teams Vinyl Dipper Relationship Specialty Start Date End Date Kev Miranda MD [address] [place] [address] PCP - General Internal Medicine 01/31/25 documented as of this encounter
== END 2025-04-26 10:25 | disposition home or self-care (01) ==
PROVIDERS: PCP Internal Medicine; Visit Provider Internal Medicine
DX: M53.3 Sacrococcygeal disorders, not elsewhere classified (principal); M96.1 Postlaminectomy syndrome, not elsewhere classified; R39.9 Unspecified symptoms and signs involving the genitourinary system
CPT/HCPCS: 99214

== ENCOUNTER → 2025-04-26 09:54 | Outpatient (BNVA) | payer MEDICARE, SELFPAY | PROVIDERS: PCP Internal Medicine; Visit Provider Internal Medicine | DX: M53.3 Sacrococcygeal disorders, not elsewhere classified (principal); M96.1 Postlaminectomy syndrome, not elsewhere classified; R39.9 Unspecified symptoms and signs involving the genitourinary system | CPT/HCPCS: 99212 ==

== ENCOUNTER 2025-05-26 11:49 | Outpatient (AMB) | payer MEDICARE, SELFPAY ==
--- NOTE | 2025-05-26 11:56 | A.OFFVIS_ITS ---
Vital Signs 05/26/25 11:57 Height 5 ft 11 in Weight 296 lb BMI 41.3 BP 188/88 H Blood Pressure Location Lt brachial Position Sitting Respiration 16 Pulse 89 Pulse Source Pulse Oximeter Pulse Oximetry (%) 93 Oxygen Delivery Method Room Air Intake Visit Reasons: 1 Month Follow Up High Pressure Operator Required: No Allergies metoprolol Adverse Reaction (Severe, Verified 05/26/25 11:58) Fatigued carvedilol Adverse Reaction (Verified 05/26/25 11:58) Headache, Gastrointestinal Upset spironolactone Adverse Reaction (Verified 05/26/25 11:58) headache, Gastrointestinal Upset Medication List - Last Reconciled 05/26/25 by Concepcion Lewis LPN glimepiride 4 mg PO DAILY ibuprofen 600 mg PO DAILY PRN irbesartan 300 mg PO DAILY levetiracetam 500 mg PO BID pioglitazone 30 mg PO DAILY rosuvastatin 5 mg PO DAILY HPI HPI 1 Month Follow Up: Details: History of Present Illness The patient is a 74-year-old male presenting with chronic back pain and management of sacroiliac joint dysfunction. The patient reports wearing a belt intermittently to help manage his back pain, which he uses to hold an ice pack against his back for relief. He experiences significant pain upon waking in the morning, which he describes as severe and affecting his sleep apnea and blood pressure. The patient has a history of lumbar spine surgery at levels L3, L4, and L5 performed in December 2022. He has tried multiple blood pressure medications but has experienced adverse reactions such as hives and fatigue. The patient notes that his pain is worse in the morning and improves slightly after a bowel movement, although it does not completely resolve. He has been off ibuprofen for a week due to concerns about blood pressure management and is currently taking Tylenol. The patient has been dealing with chronic pain for several years, which affects his daily activities, including climbing stairs. He reports that sitting in a hard chair provides some relief. Pain Description - Pain onset: Worsens in the morning - Pain quality: Severe aching - Primary location: Lower back, primarily right shifting now to the left side - Exacerbating factors: Lying down, inactivity - Relieving factors: Standing, sitting in a hard chair, bowel movements - Interference with activities: Affects sleep, climbing stairs Physical Exam - Appears afebrile. - Alert and oriented. - Mood and affect appropriate. - Follows and participates in conversation appropriately. - Respiratory effort is unlabored. - Able to transition from sit to stand unassisted but unfortable in the lower back with motion. Results - Imaging: Recent ultrasound of kidneys and bladder was normal Pain Management - Affect: Pain impacts sleep and daily activities - Analgesia: Currently using Tylenol, previously used ibuprofen - Adverse Effects: Previous blood pressure medications caused hives and fatigue - Activities of Daily Living: Pain affects ability to climb stairs and perform daily tasks - Aberrant Drug Related Behaviors: None reported [facility] Medical History JOSÉ MIGUEL (obstructive sleep apnea) Back pain HLD (hyperlipidemia) Nausea Hx of spinal stenosis Cluneal neuropathy Seizure disorder Hypertension Type 2 diabetes mellitus Surgical History Hx of spinal surgery (12/2022) Hx of hernia repair (~2010) Social History Are you a primary director of career resources to a significant other at home: No Do you presently have visiting nurse or other home services: No Patient Tobacco Use Status: Former Tobacco user Tobacco use type: Cigarette Physical Exam Vital Signs: Last Vital Signs Pulse 89 05/26/25 11:57 Resp 16 05/26/25 11:57 BP 188/88 H 05/26/25 11:57 Pulse Ox 93 05/26/25 11:57 Oxygen Delivery Method Room Air 05/26/25 11:57 BMI result Body Mass Index 41.3 Assessment & Plan Assessment & Plan (1) Post laminectomy syndrome: Code(s): M96.1 - Postlaminectomy syndrome, not elsewhere classified Category: Medical (2) Lumbar radicular pain: Code(s): M54.16 - Radiculopathy, lumbar region Category: Medical Plan Plan - Plan for right L3 and L4 transforaminal epidural steroid injection for persistent lumbar radicular symptoms - Consideration of intrathecal pain pump as a potential treatment option - Discussion of sacroiliac joint injection for potential relief - Patient advised to discontinue ibuprofen due to blood pressure concerns and switch to Tylenol Patient was informed and verbally consented to the use of an ambient scribe for clinic note documentation during this visit. Discussion Notes I discussed with the patient the potential options for managing his chronic back pain, including the use of a spinal stimulator and an intrathecal pain pump. We reviewed the risks and benefits of these procedures, and I provided a brochure for further information on the pain pump. We also discussed the possibility of a sacroiliac joint injection, which had previously provided significant relief. The patient was advised to discontinue ibuprofen due to its impact on blood pressure and to use Tylenol instead. Patient Instructions - Discontinue ibuprofen and use Tylenol for pain management - Review the brochure on the intrathecal pain pump and prepare questions for the next visit - Await contact for scheduling the right-sided steroid injection Coding Level of Care Code Est Pt Level 3 (17380) Diagnoses Post laminectomy syndrome M96.1 Lumbar radicular pain M54.16
[2025-05-26 11:57] VITALS: BP 188/88; PULSE 89; RESP 16; O2SAT 93; BMI 41.3
--- OUTSIDE RECORDS SUMMARY | 2025-05-26 12:55 | XMS_ITS | Encounter Summary ---
Author Organization [facility] Address [address] [place] [address] Phone Care Team Providers Care Hair Boiler Operator Name Role Phone Kev Miranda MD Primary Care Provider [phone] Encounter Details Date Type Department Care Team (Late st Contact Info) Description 02/01/2025 Documentation Only [facility] [place], [address] [place] [address] Nisha Amor [address] [place] [phone] Social History Tobacco Use Types Packs/Day Years [...] on filedocumented in this encounter Care Teams Hair Boiler Operator Relationship Specialty Start Date End Date Kev Miranda MD [address] [place] [address] PCP - General Internal Medicine 01/31/25 documented as of this encounter
== END 2025-05-26 12:43 | disposition home or self-care (01) ==
LOC: HO.PMC 11:49
PROVIDERS: PCP Internal Medicine; Visit Provider Internal Medicine
DX: M96.1 Postlaminectomy syndrome, not elsewhere classified (principal); M54.16 Radiculopathy, lumbar region
CPT/HCPCS: 99213

== ENCOUNTER → 2025-05-26 11:49 | Outpatient (BNVA) | payer MEDICARE, SELFPAY | PROVIDERS: PCP Internal Medicine; Visit Provider Internal Medicine | DX: M96.1 Postlaminectomy syndrome, not elsewhere classified (principal); M54.16 Radiculopathy, lumbar region | CPT/HCPCS: 99212 ==

== ENCOUNTER 2025-06-29 06:30 | Outpatient (REF) | payer MEDICARE, SELFPAY ==
--- OUTSIDE RECORDS SUMMARY | 2024-05-02 06:15 | XMS_ITS ---
Author Organization [facility] Naila Blackwell Address [address] [place] [address] Care Team Providers Care Toolroom Machinist Name Role Phone Kev Miranda MD Primary Care Provider Denny Gao [phone] Encounters Encounter Location Date Provider Diagnosis [facility] [address] [place] [address] 05/02/2024 Denny Downing Plan Of Treatment No Information Progress Notes * Aden FELIZ FDOB:[birth year] (74 yo M)Acc No.[id number]:05/02/2024 Progress Notes Patient: Aden ARCHER Provider: Adry Downing DPM :1950 A ge:73 Y S ex:Male Date:05/02/2024 Address:[address] [place], [place] [address] Pcp:Kev Miranda MD Subjective: * Chief Complaints: * * HPI: A t Risk footcare: Pt States Last PCP Visit: D ate 1 01/02/2023 S kin problems: Nature: t jose, throbbing, swelling, redness. Location: [address] Duration: a month. Onset/Cause: u nknown. [...] 05/02/2024 Generated for Audrey houston/Julia/Manpreet on: 0 06/29/2025 06:33 AM EDT History and Physical Notes * HPI (History of Present Illness) Category Sub-Category Detail Notes Category Not es Skin problems Nature: tender, throbbing, swelling , redness Location: Left , 1st Duration: a month Onset/Cause: unknown Course: worse Aggravated by: any pressure, radhai celso Severity/Quality: moderate At Risk footcare Pt States Last PCP Visit: Date: 3
--- NOTE | ~2025-06-29 | FL_ITS ---
EXAMINATION: FL GUIDANCE ONLY HISTORY: M54.16 - Radiculopathy, lumbar region COMPARISON: None available. TECHNIQUE: Fluoroscopy time: 0.1 minutes. Cumulative Dose: 7.37 mGy. DAP: 0.0777 mGym2 Images: 3. FINDINGS: Fluoroscopic spot films of the lumbar spine demonstrate needles and contrast material inferior to the right L4 and L5 pedicles. FL/FL guidance in treatment room IMPRESSION: Fluoroscopy during procedure. Please see procedure report for additional information. Electronically signed by: Kev Elise MD 06/29/2025 03:30 PM EDT
--- OUTSIDE RECORDS SUMMARY | 2025-06-29 06:33 | XMS_ITS | Clinical Summary ---
Author Organization [facility] Address [email or web address] [facility] [address] [place] [phone] Phone Care Team Providers Care Application Security Consultant Name Role Phone Kev Miranda MD Unavailable Kev Miranda MD Primary Care Provider [phone] Allergies Active Allergy Reactions Criticality Noted Date Comments Atorvastatin Hives Medium 09/25/2021 Carvedilol Itching,Rash,Fatigue Low 08/23/2024 Doxazosin Other (See Comments) 03/16/2025 dyspnea Hydrochlorothiazide Other (See Comments) 2023 Increased urination 5 x at night Hydralazine Headaches 05/22/2025 Lisinopril Cough 02/09/2025 Metformin Headaches 03/12/2018 Metoprolol Succinate Other (See Comments) 04/13 Urinary frequency and nocturia, made him feel tired and zombie-like Nadolol Fatigue Low 06/27/2025 Nifedipine Headaches 10/17/2024 Olmesartan Fatigue Low 12/17/2023 Spironolactone Itching,Maculopapula r Rash 01/03/2025 Medications cyanocobalamin, vitamin B-12, 500 MCG tablet Take 1 tablet by mouth daily. Active omega-3 fatty acids 1,000 mg Cap 1 tab Orally once a day Active cholecalciferol (VITAMIN D3) 1,000 unit tablet Take 2,000 Units by mouth daily. Active ibuprofen (ADVIL,MOTRIN) 200 MG tablet Take 600 mg by mouth every morning. And 200 mg at bedtime(PM dose PRN);Taken with tylenol 1000 mg QAM. Active ACCU-CHEK GUIDE ME GLUCOSE MTR Misc meter by Miscellaneous route as needed. 1 each 021 Active Additional Information Patient not taking.Reported on 06/07/2025 acetaminophen (TYLENOL) 500 MG tablet Take 1,000 mg by mouth every morning. Active ACCU-CHEK GUIDE TEST STRIPS Strp stripsIndicatio ns:Type 2 diabetes mellitus with diabetic polyneuropathy, without long-term current use of insulin USE TO CHECK GLUCOSE TWICE DAILY 200 strip 3 024 Active Additional Information Patient not taking.Reported on 06/07/2025 ACCU-CHEK FASTCLIX LANCET DRUM Misc USE 1 TO CHECK GLUCOSE TWICE DAILY 204 each Active Additional Information Patient not taking.Reported on 06/07/2025 levETIRAcetam (KEPPRA) 500 MG tabletIndicatio ns:History of seizure Take 1 tablet by mouth twice daily 180 tablet 3 024 Active fluticasone propionate (FLONASE) 50 mcg/actuation nasal sprayIndication s:Nasal congestion 2 sprays by Nasal route 2 (two) times a day. 16 g 12 024 Active Additional Information Patient taking differently: 1 sprayNasalEvery morning, As needed, Reported on 06/07/2025 irbesartan (AVAPRO) 300 MG tabletIndicatio ns:Resistant hypertension Take 1 tablet (300 mg total) by mouth daily. 90 tablet 3 025 Active pioglitazone (ACTOS) 30 MG tabletIndicatio ns:Type 2 diabetes mellitus with diabetic polyneuropathy, without long-term current use of insulin Take 1 tablet by mouth once daily 90 tablet 025 Active fluticasone furoate (FLONASE SENSIMIST) 27.5 mcg/actuation nasal spray 2 sprays by Nasal route daily. Active rosuvastatin (CRESTOR) 5 MG tabletIndicatio ns:Hyperlipidem ia LDL goal <100 Take 1 tablet by mouth once daily 90 tablet 3 025 Active glimepiride (AMARYL) 4 MG tabletIndicatio ns:Type 2 diabetes mellitus with diabetic polyneuropathy, without long-term current use of insulin TAKE 1 & 1/2 (ONE & ONE-HALF) TABLETS BY MOUTH ONCE DAILY BEFORE BREAKFAST AND 1/2 (ONE-HALF) WITH EVENING MEAL 180 tablet 025 Active amLODIPine (NORVASC) 2.5 MG tabletIndicatio ns:Benign essential hypertension Take 1 tablet (2.5 mg total) by mouth daily. 30 tablet 1 025 Active multivitamins capsule 1 tab Orally once a day 2024 Discontinued rosuvastatin (CRESTOR) 5 MG tabletIndicatio ns:Hyperlipidem ia LDL goal <100 Take 1 tablet by mouth once daily 90 tablet 3 024 2024 Discontinued glimepiride (AMARYL) 4 MG tabletIndicatio ns:Type 2 diabetes mellitus with diabetic polyneuropathy, without long-term current use of insulin TAKE 1 & 1/2 (ONE & ONE-HALF) TABLETS BY MOUTH ONCE DAILY BEFORE BREAKFAST AND 1/2 TABLET ONCE DAILY WITH EVENING MEAL 180 tablet 1 024 2024 Discontinued dilTIAZem (TIAZAC) 180 MG 24 hr capsuleIndicati ons:Benign essential hypertension Take 1 capsule (180 mg total) by mouth daily. 30 capsule 3 025 2024 Discontinued dilTIAZem (TIAZAC) 240 MG 24 hr capsuleIndicati ons:Benign essential hypertension Take 1 capsule (240 mg total) by mouth daily. 30 capsule 1 025 2024 Discontinued(S wesley Effects) Active Problems Problem Noted Date Diagnosed Date Post laminectomy syndrome 08/03/2024 Overview (08/03/2024): Marifer sim [facility] [place]- Dr. Michele Rangel MD last ov 07/06/24 plan repeat SI injection had injection 07/14 Ingrown nail 05/28/2023 IGTN (ingrowing toe nail) 05/15/2022 Assessment & Plan (05/15/2022 4:13 PM EDT): Strongly encouraged patient to f/u with Switch[employer] Installer due to current nail and risk of infection given h/o DM2 Patient verbalized understanding and agreement of the above Paronychia of toe of left foot 05/15/2022 Assessment & Plan (05/15/2022 4:12 PM EDT): Trial of Augmentin for possible infection educ re risks/benefits Hyperlipidemia LDL goal <100 03/04/2022 Assessment & Plan (04/20/2025 4:12 PM EDT): Controlled. LDL 52 mg/dL. No changes required continue rosuvastatin. Assessment & Plan (10/07/2024 12:52 PM EST): Controlled. LDL 55 mg/dL on rosuvastatin 5 mg no changes required. Assessment & Plan (04/06/2024 1:31 PM EDT): Controlled. LDL 55 mg/dL continue rosuvastatin 5 mg no changes required. Assessment & Plan (10/07/2023 1:40 PM EST): Controlled. LDL 56 mg/dl continue rosuvastatin 5 mg daily Assessment & Plan (04/06/2023 1:44 PM EDT): Old. LDL 52 mg/dL continue rosuvastatin 5 mg. Assessment & Plan (10/07/2022 1:43 PM EST): Controlled. LDL 52 mg/dL on rosuvastatin 5 mg daily no changes required. Assessment & Plan (06/19/2022 2:53 PM EDT): LDL controlled 45 mg/dL on rosuvastatin unlikely make any changes. Assessment & Plan (03/04/2022 2:06 PM EDT): Controlled. LDL 45 mg/dL on rosuvastatin 5 mg no changes required. Disorder of sacrum 03/21/2021 Severe obesity (BMI >= 40) 02/22/2021 Essential hypertension 03/15/2018 Assessment & Plan (05/15/2022 4:11 PM EDT): Controlled on meds Assessment & Plan (05/27/2021 1:36 PM EDT): Controlled on current medications. He is using Avapro for renal protection urine microalbumin not elevated. Assessment & Plan (02/21/2021 2:10 PM EDT): Controlled. He is taking irbesartan 300 mg daily microalbumin is not elevated. Assessment & Plan (08/15/2020 2:36 PM EDT): Controlled on current medications. No changes. Assessment & Plan (06/23/2019 1:58 PM EDT): He is on hydrochlorothiazide and losartan the blood pressure is controlled he does not have nephropathy. No changes in medications. HTN (hypertension) 03/15/2018 Assessment & Plan (08/15/2020 2:36 PM EDT): Controlled on current medications. Assessment & Plan (08/25/2019 1:33 PM EDT): Controlled, no changes. Non-seasonal allergic rhinitis 03/15/2018 Routine medical exam 03/15/2018 Seizure disorder 03/15/2018 Type 2 diabetes mellitus wit h diabetic polyneuropathy, without long-term current use of insulin 03/15/2018 Overview (06/08/2024): Diabetic eye exam done 04/26/24, no diabetic complications noted. Assessment & Plan (04/20/2025 4:11 PM EDT): Controlled. His hemoglobin A1c is 6.5%. He states that he just picked up pioglitazone recently. He also has glimepiride. He does not want the prescription sent he will call in for the request because he has enough medications presently. Assessment & Plan (10/07/2024 12:52 PM EST): Controlled. Hemoglobin A1c 6.5%. No episodes of hypoglycemia and will continue current regimen. Return for follow-up in 6 months. Assessment & Plan (04/06/2024 1:31 PM EDT): Controlled. He is using glimepiride which is a very good medication in terms of lowering glucose levels but does not have any secondary benefits. On the last visit I suggest that he try an SGLT2 inhibitor. He contacted his insurance and is covered. But he may need a co-pay card in order to make the medication affordable. So I prescribed Jardiance 10 mg. He should continue pioglitazone 30. I asked him to stop the evening dose of glimepiride and if he finds that his glucose levels are going low he can decrease the glimepiride in the morning to 2 mg or stop it altogether. He should return for follow-up in 6 months if he has any issues with his glycemic control he should reach me through the patient portal. He was advised that he needs to drink plenty of water otherwise he can get dehydrated. He also needs to use proper hygiene. That means that shower once daily or use wet wipes. I did not reorder the glimepiride because he states he has enough at home and maybe he will require it. Assessment & Plan (10/07/2023 1:38 PM EST): Controlled. Hemoglobin A1c 6.7% continue current regimen. Again discussed possibility of SGLT2 inhibitor [address] of glimepiride. Assessment & Plan (04/06/2023 1:44 PM EDT): Controlled. Hemoglobin A1c 6.5% would not make any changes but asked them to inquire about SGLT2 inhibitor such as Farxiga, Invokana and Jardiance see if his insurance covers it. If it does we can potentially give him medication in the morning and maybe he can stop the morning dose glimepiride I would want to stop both medications of both doses at the same time as you say. I did warn him it could be associated with yeast infections but is minimal and man who was circumcised and if he uses proper hygiene that should not happen assuming his glucose is not too [id number]. He will have to drink proper amounts of water with this medication especially at the beginning. For now he is just going to continue his medication glimepiride and pioglitazone. He should repeat lab work fasting prior to the follow-up visit in 6 months. Assessment & Plan (10/07/2022 1:53 PM EST): Controlled. Hemoglobin A1c 6.8 percent no changes required repeat hemoglobin A1c prior to follow-up visit in 6 months. I noticed that he is using glimepiride which I prescribed and maybe I renew this medication because normally I do not like to use sulfonylureas since they cause beta cell apoptosis in the long run. He is tolerating pioglitazone 30 mg now. In the past I have prescribed metformin but he stopped it and cannot remember he thinks maybe he had nausea or headaches. I did notice that I have not prescribed an SGLT2 inhibitor and it surprises me because as a very good medication so unclear if this was prescribed in the past that he could not tolerated. The patient does not believe so. He has not wanted injectables so we have not prescribed GLP-1 agonist which is also a very good medication. I wonder if we should consider SGLT2 inhibitors in the future these medications are more expensive but they are associated with cardiovascular benefits and renal benefits unlike sulfonylureas. In the meantime we will continue everything the same but we can discuss this in the future. Assessment & Plan (06/19/2022 2:53 PM EDT): Improvement in hemoglobin A1c from 8.0 to 7.7% but he has been getting intra-articular corticosteroid injections and not being able to walk or exercise due to back pain so this is causing elevated glucose levels. This is despite him taking his medications regularly. I am going to increase the pioglitazone from 15 to 30 mg. In the past he states that it made him groggy but he does not want to add any new medications he does not want to do weekly injectable medications so he is willing to try increasing pioglitazone to 30 mg again. He will follow in 3 months. Assessment & Plan (05/15/2022 4:12 PM EDT): Unclear if controlled Long discussion and education today regarding increased risks of infection, sepsis, etc. Assessment & Plan (03/04/2022 2:15 PM EDT): Uncontrolled. His hemoglobin A1c has increased to 8.0% but he admits that he has not been regularly taking his medications because of a pipe burst in his home has made him change his routine. He states that he rarely takes the evening dose of glimepiride. And the morning medications sometimes he does not take on a regular basis. So I advised him to go back to his routine and to continue monitoring his diet and exercise. He states that he has been doing well with the diet but despite this his hemoglobin A1c has increased. Return for follow-up in [address] Make any changes at his request and I guess this this is probable considering that he has not been taking the medications consistently. Assessment & Plan (05/27/2021 1:37 PM EDT): Fair control hemoglobin A1c 7.2% with glimepiride 2 mg and Actos 15 mg. Previously prescribed Metformin 500 mg 6 daily. Use higher dose of Actos without becoming groggy. However apparently he is not forming and this is fine. For his age hemoglobin A1c of 7.2 is fine. We will give him a follow-up appointment in 6 months time. Assessment & Plan (02/21/2021 2:08 PM EDT): The patient's hemoglobin A1c is 7.2% which is fair control. I would not make any changes in medication especially since he is only started using Metformin for the last 2 weeks. Assuming he uses this for 3 months there may be an improvement in the hemoglobin A1c. In any case 7.2% A1c is susceptible for his age. So at this point I will give him a follow-up appointment again in 3 months just to make sure he is doing well. Assessment & Plan (08/15/2020 2:33 PM EDT): Fair control the hemoglobin A1c is now 7.0% it was 6.9% in the past. At this point I am going to decrease the Actos to 15 mg because he is cutting the pill in half. He will continue glimepiride 2 mg for now and I am going to add metformin extended release 500 mg so that he can take it in the evening because he wakes up with elevated fasting glucose and maybe the metformin in the evening with dinner will improve glycemic levels the following day. I will give him a follow-up appointment in 3 months time. Assessment & Plan (02/15/2020 2:22 PM EDT): Controlled based on glycemic levels and his last hemoglobin A1c. Since I am not going to make any more changes I will just give him a follow-up appointment in 6 months. I wanted to discontinue glimepiride but he finds that he is groggy with the use of Actos so I do not want to increase the dose further. Assessment & Plan (11/16/2019 2:38 PM EST): He is controlled based on hemoglobin A1c of 6.9% the only problem is that he is having headaches in the morning even though he has good glycemic control in the morning. I have asked him to stop the evening dose of glimepiride continue Actos 30 mg. I will ask him to return for follow-up in 3 months time we will see if there is any changes. If he continues having the headaches and wants to come in sooner he can. Otherwise he can call me. 1 other option that we can do is increase the Actos to 45 mg and stop the glimepiride altogether. We can consider this in the future. He should monitor his glucose levels twice a day always a fasting glucose and a second alternating be for lunch, dinner, and bedtime. He can do this 2 weeks prior to the follow-up visit and make sure to bring in the meter. I will give him a log sheet to remind him. Assessment & Plan (08/25/2019 1:35 PM EDT): Uncontrolled, Hemoglobin A1c 8.3%. Continue glimepiride 4 mg BID, will increase Actos to 30 mg daily. Follow-up in 3 months time. Assessment & Plan (06/23/2019 1:58 PM EDT): Controlled based on his hemoglobin A1c. He could not tolerate metformin in the past he is willing to retry using may be the extended release form. However, I think that is better to start out with Actos 15mg daily and titrate up if he requires it and if he tolerates the medication. In the meantime he should use glimepiride. If at all possible it would be great if we can titrate up the Actos and discontinue glimepiride because it can result in beta cell apoptosis in the long run although is quite effective as glucose lowering drug but he has no secondary benefits such as Actos which is cardiovascular benefits. I have given him a FreeStyle lite meter and requested strips and lancets. He is been stressed about monitoring glucose levels and I asked him all he has to do is monitor glucose levels a week before the visit and bring the meter in and that gives me some type of feedback about how the glucose are doing because we can always repeat her hemoglobin A1c since is done every 3 months. I have asked him to monitor a fasting glucose and a second alternating between lunch, dinner, and bedtime. At this would be helpful and he does not have to do it every single day. Just 1 week prior to the visit. Review of LDL shows that he has very good levels without any statins. Nocturia Encounters Date Type Department Care Team Description 06/27/2025 Telephone [facility] Internal Medicine [address] [place] [address] Kev Miranda MD 06/19/2025 Refill [facility] [address] [place] [address] Jam Álvarez, Medication Refill 06/14/2025 Telephone [facility] Internal Medicine [address] [place] [address] Kev Miranda MD Constipation 06/11/2025 Refill [facility] Internal Medicine [address] [place] [address] Kev Miranda MD Medication Refill 06/07/2025 4:00 PM EDT Office Visit [facility] Internal Medicine [address] [place] [address] Kev Miranda MD Benign essential hypertension (Primary Dx); Back pain with sciatica; Urinary frequency 05/29/2025 11:30 AM EDT Office Visit [facility] Internal Medicine [address] [place] [address] Kev Miranda MD Benign essential hypertension (Primary Dx); Back pain with sciatica 05/22/2025 3:30 PM EDT Office Visit [facility] Internal Medicine [address] [place] [address] Kev Miranda MD Benign essential hypertension (Primary Dx) 05/10/2025 4:34 PM EDT - 05/10/2025 11:59 PM EDT Hospital Encounter [facility] - [address] [place] [address] Kev Miranda MD Discharge Disposition: Home or Self Care 05/10/[address] 3[address] Floor, [address] [place] [address] Cuate Ramos MD 05/09/2025 4:30 PM EDT Office Visit [facility] Internal Medicine [address] [place] [address] Kev Miranda MD Benign essential hypertension (Primary Dx) 05/04/2025 Telephone [facility] Internal Medicine [address] [place] [address] Zulay Mobley RN Medication Problem 05/02/2025 4:30 PM EDT Office Visit [address] Floor, [address] [place] [address] Cuate Ramos MD JOSÉ MIGUEL (obstructive sleep apnea) (Primary Dx); Primary insomnia 04/26/2025 Telephone [facility] Internal Medicine [address] [place] [address] Kev Miranda MD request for ultrasound; Dysuria 04/21/2025 Telephone [facility] Endocrinology [address] [place] [address] Jam Álvarez, DO Medication recommended? (Medication recommended?) 04/20/2025 4:00 PM EDT Office Visit [facility] Endocrinology [address] [place] [address] Jam Álvarez, DO Type 2 diabetes mellitus with diabetic polyneuropathy, without long-term current use of insulin (Primary Dx); Hyperlipidemia LDL goal <100 04/17/2025 9:58 AM EDT - 04/17/2025 11:59 PM EDT Hospital Encounter [facility] Laboratory [address] [place] [address] Jam Álvarez DO Discharge Disposition: Home or Self Care 04/17/2025 Telephone [facility] Internal Medicine [address] [place] [address] Kev Miranda MD Labs 04/13/2025 2:30 PM EDT Office Visit [facility] Internal Medicine [address] [place] [address] Kev Miranda MD Type 2 diabetes mellitus with diabetic polyneuropathy, without long-term current use of insulin (Primary Dx); Benign essential hypertension; Hyperlipidemia LDL goal <100; Severe obesity (BMI >= 40); Low back pain without sciatica, unspecified back pain laterality, unspecified chronicity 04/12/2025 2:24 PM EDT - 04/12/2025 11:59 PM EDT Hospital Encounter [facility] X-Ray [address] [place] [address] Kev Miranda MD Discharge Disposition: Home or Self Care 04/12/2025 Refill [facility] [address] [place] [address] Jam Álvarez DO Medication Refill 04/10/2025 1:33 PM EDT - 04/10/2025 11:59 PM EDT Hospital Encounter [facility] Laboratory [address] [place] [address] Kev Miranda MD Discharge Disposition: Home or Self Care from Last 3 Months Immunizations Immunization Administration Dates Next Due COVID-19 (Pre-09/21) Moderna Vaccine, mRNA, PF 03/01/2021,02/01/2021 Influenza High-Dose Quadriva lent Preservative Free IM 10/06/2022,08/27/2021,09/14/2020 Influenza High-Dose Trivalen t Preservative Free IM 08/23/2024,09/30/2019,09/09/2018,09/11,10/14/2016 Influenza Quadrivalent Adjuv anted Preservative Free IM 09/11/2023 Influenza Trivalent w/ Preservative IM 1 ,11/13/2014,09/06/2013,11/01 Pneumococcal conjugate PCV13 07/08/2016 Pneumococcal polysaccharide PPSV23 05/26/2019, RSV Vaccine (monovalent, adjuvanted) 08/07/2024 Td (adult) 5 Lf Tetanus Toxo id, PF, Adsorbed 09/11/2017,09/30/2007 Family History Medical History Relation Comments Diabetes Father Heart disease Mother Relation Status Comments Father Mother Social History Tobacco Use Types Packs/Day Years Used Date Smoking Tobacco: Former Cigarettes 1986 Smokeless Tobacco: Never Tobacco Cessation:Counseling Given: Not Answered Comments:Ciggs a few ciggs a week Alcohol Use Standard Drinks/Week Comments Yes 0 (1 standard drink = 0.6 oz pure alcohol) 1 drink every couple of months but more so during Summer months and around the holidays Education Answer Date Recorded Are you interested in more education? Not on christopher e 03/27/2023 Are you concerned about learning? Not on file 03/27/2023 No 03/27/2023 No 03/27/2023 Digital Access Answer Date Recorded No 04/22/2023 No 04/22/2023 Reliable internet access at home? Not on file 04/22/2023 Device with a working camera? Not on file Intimate Partner Violence Answer Date R ecorded Denied Basic Needs Not on file 10/10/2024 In the past 12 months have y ou been in a relationship with a person who hurts, threatens, or tries to control you? No 10/10/2024 Worried food would run out Not on file 10/10 In the past 12 months have y ou been in a relationship with a person who hurts, threatens, or tries to control you? No 10/10/2024 Sex and Gender Information Value Date Recorded Sex Assigned at Male 05/15/2022 3:38 PM EDT Legal Sex Male 10:05 PM EDT Gender Identity Male 05/15/2022 3:38 PM EDT Sexual Orientation Straight 05/15/2022 3: 38 PM EDT Last Filed Vital Signs Vital Sign Reading Time Taken Comments Blood Pressure 155/84 06/07/2025 4:37 PM EDT Pulse 90 06/07/2025 4:03 PM EDT Temperature 36.3 C (97.3 F) 06/07/2025 4:03 PM EDT Respiratory Rate 24 06/07/2025 4:03 PM EDT Oxygen Saturation 94% 06/07/2025 4:03 PM EDT Inhaled Oxygen Concentration - - Weight 135.6 kg (299 lb) 06/07/2025 4:03 PM EDT Height 177.8 cm (5' 10 ) 06/07/2025 4:03 PM EDT Body Mass Index 42.9 06/07/2025 4:03 PM EDT Plan of Treatment Upcoming Encounters Date Type Department Care Team (Late st Contact Info) Description 07/07/2025 11:30 AM EDT Office Visit [facility] Internal Medicine [address] [place] [address] Kev Miranda MD [address] [place] [address] 08/08/2025 2:15 PM EDT Office Visit [facility] [address] [place] [address] 3rd Floor, [address] [place] [address] Cuate Ramos MD [address] [address] 10/23/2025 2:00 PM EST Office Visit [facility] [address] [place] [address] Jam Álvarez DO [address] [place] [address] 11/27/2025 1:00 PM EST Office Visit [facility] [address] [facility] [place] [address] Kev Miranda MD [address] [place] [address] [email or web address] [employer] Health Maintenance Due Date Last Done Comments ZOSTER VACCINES (1 of 2) 1998 COVID-19 VACCINE ( season) 2025 08/07/2024, 09/11/2023, 03/31/2023, Additional history exists DIABETIC EYE EXAM 04/26/2025 04/26/2024, , 01/04/2021, Additional history exists DEPRESSION SCREENING 10/10/2025 10/10/2024 HEMOGLOBIN A1C 10/18/2025 04/17/2025, 08/31, 03/31/2024, Additional history exists BLOOD PRESSURE 12/08/2025 06/07/2025 CREATININE LEVEL 04/10/2026 04/10/2025, , 12/07/2024, Additional history exists POTASSIUM LEVEL 04/10/2026 04/10/2025, 12/01, 12/07/2024, Additional history exists SMOKING Hx and SMOKELESS TOBACCO SCREENING 06/07/2026 06/07/2025 Adult Td,Tdap Booster 09/11/2027 09/11/2017, 007 PNEUMOCOCCAL VACCINES (50+ years) Completed 05/26/2019, 07/08/2016, 11/01/2012 HEPATITIS C SCREENING Completed 10/21/2019, 019 RSV VACCINE Completed 08/07/2024 HEPATITIS A VACCINES Aged Out No long er eligible based on patient's age to complete this topic HIB VACCINES Aged Out No longer eligi ble based on patient's age to complete this topic MENINGOCOCCAL VACCINES (ACWY) Aged Out No longer eligible based on patient's age to complete this topic MENINGOCOCCAL VACCINES (B) Aged Out N o longer eligible based on patient's age to complete this topic Medical Devices Not on file Procedures Procedure Name Priority Date/Time Associated Diagnosis Comments US KIDNEYS AND BLADDER Routine 05/10/2025 5:24 PM EDT Urinary frequency Benign prostatic hyperplasia with urinary frequency PSA (SCREENING) Routine 04/17/2025 9:58 AM EDT LIPID PANEL Routine 04/17/2025 9:58 AM EDT Type 2 diabetes mellitus with diabetic polyneuropathy, without long-term current use of insulin HEMOGLOBIN A1C Routine 04/17/2025 9:58 AM EDT Type 2 diabetes mellitus with diabetic polyneuropathy, without long-term current use of insulin XR CHEST PA AND LATERAL 2 VIEWS Routine 04/12/2025 2:47 PM EDT Chronic cough Benign essential hypertension COMPREHENSIVE METABOLIC PANEL Routine 04/10/2025 1:33 PM EDT Chronic cough Benign essential hypertension HM DIABETES EYE EXAM FOR RESULT ENTRY ONLY Routine 04/26/2024 HEPATITIS C ANTIBODY, QUALITATIVE Routine 10/21/2019 8:38 AM EST Need for hepatitis C screening test from Last 3 Months or Most Recently Relevant to Health Maintenance Results * US Kidneys and Bladder (05/10/2025 5:24 PM EDT) Anatomical Region Laterality Modality Abdomen, Kidney Ultrasound 05/10/2025 5:31 PM EDT Impressions 05/10/2025 5:32 PM EDT 1. No hydronephrosis. 2. No sonographic evidence for solid renal mass or shadowing stone. Narrative 05/10/2025 5:32 PM EDT US KIDNEYS AND BLADDER Referring clinician's provided indication for this examination in Epic: Benign prostatic hyperplasia (BPH) suspected; urinary frequency r/o hydronephrosis and urinary retention TECHNIQUE: Kidney Ultrasound. COMPARISON: None available FINDINGS: Right Kidney: Size: 11.4 cm No stones or hydronephrosis. Left Kidney: Size: 11.5 cm No stones or hydronephrosis. Bladder: Underdistended and therefore not well evaluated. Procedure Note Jam Morrison MD - 05/10/2025 US KIDNEYS AND BLADDER Referring clinician's provided indication for this examination in [facility]:Benign prostatic hyperplasia (BPH) suspected; urinary frequency r/ohydronephrosis and urinary retention TECHNIQUE: Kidney Ultrasound. COMPARISON: None available FINDINGS: Right Kidney: Size: 11.4 cm No stones or hydronephrosis. Left Kidney: Size: 11.5 cm No stones or hydronephrosis. Bladder: Underdistended and therefore not well evaluated. IMPRESSION: 1. No hydronephrosis. 2. No sonographic evidence for solid renal mass or shadowing stone. us Kev Miranda MD [facility] US RENAL Final Result * PSA (screening) (04/17/2025 9:58 AM EDT) PSA 1.88 0 - 4.00 ng/mL [facility] Comment: Test Methodology Carmen [id number] Patient results determined by assays using different manufacturers or methods may not be comparable. 04/17/2025 9:58 AM EDT 04/17/2025 10:01 AM EDT Jam Álvarez DO LAB BLOOD ORDERABLES Final Resul t Performing Organization Address [facility] Co de Phone Number [address] [address] * (ABNORMAL) Hemoglobin A1c (04/17/2025 9:58 AM EDT) HEMOGLOBIN A1C 6.5(H) 4.3 - 5.8 % [facility] Blood 04/17/2025 9:5 8 AM EDT 04/17/2025 10:01 AM EDT Jam Álvarez DO LAB BLOOD ORDERABLES Final Resul t Performing Organization Address [facility] Co de Phone Number [address] [address] * (ABNORMAL) Lipid panel (04/17/2025 9:58 AM EDT) HDL 46 mg/dL [facility] Comment: Interpretation <40 mg/dL: Low HDL cholesterol (major risk factor for CHD) Greater than or equal to 60 mg/dL: High HDL cholesterol ( negative risk factor for CHD) HDL - cholesterol is affected by a number of factors, e.g. smoking, excerise, hormones, sex and age. CHOLESTEROL 119 0 - 240 mg/dL [facility] TRIGLYCERIDES 103 30 - 160 mg/dL [facility] LDL 52 50 - 129 mg/dL [facility] Comment: LDL levels in terms of risk for coronary heart disease: <100 mg/dL: Optimal 100-129 mg/dL: Near or above optimal 130-159 mg/dL: Borderline high 160-189 mg/dL: High >190 mg/dL: Very High CARDIAC RISK RATIO 2.6(L) 3.4 - 5.0 C [facility] Blood 04/17/2025 9:58 AM EDT 04/17/2025 10:01 AM EDT Jam Álvarez DO LAB BLOOD ORDERABLES Final Resul t Performing Organization Address City/State/[facility] Co de Phone Number [address] [address] * XR CHEST PA AND LATERAL 2 VIEWS (04/12/2025 2:47 PM EDT) Anatomical Region Laterality Modality Chest Computed Radiogr aphy 04/12/2025 2:48 PM EDT Impressions 04/12/2025 2:50 PM EDT No acute abnormality. Narrative 04/12/2025 2:50 PM EDT XR CHEST PA AND LATERAL 2 VIEWS Referring clinician's provided indication for this examination in Epic: Cough; Hypertension COMPARISON: March 2019 FINDINGS: Devices/Tubes/Lines: None. Lungs: Unchanged elevation of the right hemidiaphragm. No consolidation. Pleura: No effusion. No pneumothorax. Heart/Mediastinum: Unchanged in appearance. Bones/Soft Tissues: No acute abnormality. Procedure Note Pb Gaspar MD - 04/12/2025 XR CHEST PA AND LATERAL 2 VIEWS Referring clinician's provided indication for this examination in Epic:Cough; Hypertension COMPARISON: March 2019 FINDINGS: Devices/Tubes/Lines: None. Lungs: Unchanged elevation of the right hemidiaphragm. No consolidation. Pleura: No effusion. No pneumothorax. Heart/Mediastinum: Unchanged in appearance. Bones/Soft Tissues: No acute abnormality. IMPRESSION: No acute abnormality. us Kev Miranda MD IMG XR CHEST Final Result * (ABNORMAL) Comprehensive metabolic panel (04/10/2025 1:33 PM EDT) SODIUM 134 133 - 146 mmol/L [facility] POTASSIUM 4.2 3.3 - 5.1 mmol/L [facility] CHLORIDE 100 96 - 108 mmol/L [facility] CO2 26 21 - 35 mmol/L [facility] BUN 21(H) 6 - 19 mg/dL [facility] CREATININE 0.70 0.5 - 1.5 mg/dL [facility] GLUCOSE 154(H) 70 - 99 mg/dL [facility] ALBUMIN 4.0 3.9 - 4.8 g/dL [facility] TOTAL PROTEIN 7.0 6.5 - 8.0 g/dL [facility] CALCIUM 9.3 8.4 - 10.3 mg/dL [facility] ALKALINE PHOSPHATASE 102 39 - 117 U/L [facility] TOTAL BILIRUBIN 0.5 0.0 - 1.2 mg/dL [facility] AST 20 0 - 37 U/L [facility] ALT 13 0 - 40 U/L [facility] GLOBULIN 3.0 1 - 4.8 g/dL [facility] EGFR 95 >59 mL/min/1.7 3m2 [facility] Comment:Estimated glomerular filtration rate calculated using the CKD-EPI refit equation. ANION GAP 12 10 - 20 mmol/L [facility] Blood 04/10/2025 1:33 PM EDT 04/10/2025 1:36 PM EDT Kev Miranda MD LAB BLOOD ORDERABLES Final Re sult [address] [address] * DIABETES EYE EXAM FOR RESULT ENTRY ONLY (04/26/2024) EYE EXAM no retinopathy us Historical Provider MD HEALTH MAINTENANCE Final Result * Hepatitis C antibody, qualitative (10/21/2019 8:38 AM EST) HCV NON-REACTIV E NON-REACTI VE [facility] Blood 10/21/2019 8:38 AM EST 10/21/2019 8:41 AM EST Kev Miranda MD LAB BLOOD ORDERABLES Final Re sult Performing Organization Address City/[facility]/ZIP Co de Phone Number [address] [address] from Last 3 Months or Most Recently Relevant to Health Maintenance Insurance MEDICARE REPLACEMENT MEDICARE REPLACEMENT MEDICARE REPLACEMENT MEDICARE REPLACEMENT MEDICARE REPLACEMENT MEDICARE REPLACEMENT MEDICARE REPLACEMENT MEDICARE REPLACEMENT [facility] MEDICARE REPLACEMENT Care Teams Application Security Consultant Relationship Specialty Start Date End Date Kev Miranda MD [address] [place] [id number] [email or web address] PCP - General 10/29/17 Kev Miranda MD [address] [place] [id number] [email or web address] Historical LMR Provider 09/20/17 Additional Source Comments The information contained in this document represents components of the legal health record. It is not the complete legal health record.[facility]
--- OUTSIDE RECORDS SUMMARY | 2025-06-29 06:33 | XMS_ITS | Clinical Summary ---
Author Organization [facility] Address [address] [place] [address] Care Team Providers Care Director Biologics Name Role Phone Unavailable Primary Care Provider Unavailabl e Social History Tobacco Use Types Packs/Day Years [...]
--- OUTSIDE RECORDS SUMMARY | 2025-06-29 06:33 | XMS_ITS | Patient Health Record ---
Author Organization [facility] Address [address] [place] [phone] Care Team Providers Care Gate Services Supervisor Name Role Phone Kev Miranda MD Primary Care Provider Kev Carreno Unavailable [phone] Allergies No Known Allergies Reason For Referral [...] Problem Screening for malignant neoplasm of colon (295063010) Encounter for screening for malignant neoplasm of colon (Z12.11) Active confirmed Problem Constipation (13383477) Constipation (K59.00) Active confirmed Problem Pre-procedure evaluation check (505208353) Encounter for other preprocedural examination (Z01.818) Active confirmed Problem Long-term current use of aspirin (459780620019398 ) Aspirin long-term use (Z79.82) Active confirmed Plan Of Treatment Future Test Test Name Order Date COLONOSCOPY 05/14/2022 Insurance Providers Payer Name Payer Address Payer Phone Subscriber Number Group Number Insured Name Patient Relationship to Insured Coverage Start Date Coverage End Date [employer] Medicare Advantage Plan [address] [address] [place] [address] [phone] [id number] ROHINI FELIZ Self - patient is the insured Medical (General) History Medical History History ICD Code NIDDM HTN Sacroiliac pain on the right-seeing Dr. Rangel in Pain Management at [facility] Denies GA,CVA,Lung disease,renal disease Constipation Surgical History Surgery Date(Month/Year) Left inguinal hernia
--- OUTSIDE RECORDS SUMMARY | 2025-06-29 06:33 | XMS_ITS ---
Author Name [facility] Organization Unknown Problems Problem Status Onset Date Problem Type Date of Resoluti on Source Nasal congestion active EncounterDiagnosisAct CCT
--- OUTSIDE RECORDS SUMMARY | 2025-06-29 06:33 | XMS_ITS | Encounter Summary ---
Author Organization [facility] Address [address] [place] [address] Phone Care Team Providers Care Paramedic Supervisor Name Role Phone Kev Miranda MD Primary Care Provider [phone] Encounter Details Date Type Department Care Team (Late st Contact Info) Description 02/01/2025 Documentation Only [facility], [address] [place] [address] Nisha Amor [address] [place] [phone] Social History Tobacco Use Types Packs/Day Years [...] on filedocumented in this encounter Care Teams Paramedic Supervisor Relationship Specialty Start Date End Date Kev Miranda MD [address] [place] [address] PCP - General Internal Medicine 01/31/25 documented as of this encounter
== END 2025-06-29 06:31 | disposition home or self-care (01) ==
LOC: CF 06:30
PROVIDERS: Visit Provider Internal Medicine
DX: M54.16 Radiculopathy, lumbar region (principal)
CPT/HCPCS: 64483; 64484; J1100; J2003; Q9967

== ENCOUNTER 2025-06-29 13:18 | Outpatient (AMB) | payer MEDICARE, SELFPAY ==
--- NOTE | 2025-06-29 13:24 | A.OFFVIS_ITS ---
Vital Signs 06/29/25 13:30 06/29/25 14:12 Height 5 ft 11 in Weight 296 lb BMI 41.3 BP 140/80 H 206/106 H Blood Pressure Location Lt radial Rt brachial Position Sitting Sitting Respiration 16 16 Pulse 104 H 89 Pulse Source Pulse Oximeter Pulse Oximeter Pulse Oximetry (%) 95 93 Oxygen Delivery Method Room Air Room Air Comment Per Patient always have HTN Intake Visit Reasons: Right L3-L4, L4-L5 TFESI Allergies metoprolol Adverse Reaction (Severe, Verified 05/26/25 11:58) Fatigued carvedilol Adverse Reaction (Verified 05/26/25 11:58) Headache, Gastrointestinal Upset spironolactone Adverse Reaction (Verified 05/26/25 11:58) headache, Gastrointestinal Upset HPI HPI Right L3-L4, L4-L5 TFESI: Details: Patient presents for scheduled procedure. Denies any recent cough, cold, infection, fever or other significant changes in medical history since last office visit. [facility] Medical History JOSÉ MIGUEL (obstructive sleep apnea) Back pain HLD (hyperlipidemia) Nausea Hx of spinal stenosis Cluneal neuropathy Seizure disorder Hypertension Type 2 diabetes mellitus Surgical History Hx of spinal surgery (12/2022) Hx of hernia repair (~2010) Social History Are you a primary nanny caregiver to a significant other at home: No Do you presently have visiting nurse or other home services: No Patient Tobacco Use Status: Former Tobacco user Tobacco use type: Cigarette Physical Exam Vital Signs: Last Vital Signs Pulse 89 06/29/25 14:12 Resp 16 06/29/25 14:12 BP 206/106 H 06/29/25 14:12 Pulse Ox 93 06/29/25 14:12 Oxygen Delivery Method Room Air 06/29/25 14:12 BMI result Body Mass Index 41.3 Office Procedures Details: Transforaminal epidural steroid injection, Right L3/4, L4/5 After obtaining written consent, pre-procedure blood pressure and heart rate were stable and recorded in the nursing record. The patient was placed in the prone position on the fluoroscopy table. The lumbosacral area was prepped with chloraprep, allowed to dry and draped in sterile fashion. Using fluoroscopy, the skin overlying our target was anesthetized with 0.5% lidocaine. A 22 gauge 3.5 inch spinal needle was advanced to the safe triangle in the upper pole of the right L3 foramen. No paresthesias were elicited with needle placement and aspiration was negative for blood and CSF. Correct needle position was confirmed with approximately 1 ml contrast dye (Omnipaque 180 mg/ml) injected under real-time fluoroscopy. No evidence of vascular or intrathecal uptake was seen and there was both epidural and peripheral spread of the contrast agent. 10 mg dexamethasone plus 1 ml containing 0.5% lidocaine was slowly injected. The needle was flushed and removed. The same procedure was repeated for the remaining levels. The skin was cleansed and a sterile bandages were applied. The patient tolerated the procedure well and no complications were encountered. Following the procedure the patient's vital signs were stable. The patient was discharged home in good condition with post-procedural instructions. Time Out: Immediately prior to the procedure, the following was verbally confirmed that there is a signed consent form and that the correct patient, planned procedure, site and side are consistent with documentation and that necessary equipment and/or blood products are available prior to the start of the case. Complications: none EBL: <5 cc 73263 - Lumbar/Sacral 18758 - Lumbar/Sacral, additional level Procedure code (CPT) selection complete Assessment & Plan Assessment & Plan (1) Lumbar radiculopathy: Code(s): M54.16 - Radiculopathy, lumbar region Category: Medical Plan Patient is status post right L3 and L4 TFESI. Patient tolerated procedure well and was discharged home in stable condition with discharge instructions. All questions were answered. We will follow-up via telephone or in clinic to assess response to therapy. A follow-up appointment was made during today's visit. Orders: Orders FL guidance in treatment room 06/29/25 M54.16 - Radiculopathy, lumbar region Coding Level of Care Code Procedure Only Diagnoses Lumbar radiculopathy M54.16 CPT Codes Transforaminal Epidural Steroid Inj - TESI 3: 14748 - Lumbar/Sacral ([id number]) Transforaminal Epidural Steroid Inj - TESI 4: 08663 - Lumbar/Sacral, additional level ([id number])
[2025-06-29 13:30] VITALS: BP 140/80; PULSE 104; RESP 16; O2SAT 95; BMI 41.3
[2025-06-29 14:12] VITALS: BP 206/106; PULSE 89; RESP 16; O2SAT 93
== END 2025-06-29 14:14 | disposition home or self-care (01) ==
LOC: HO.PMCPRC 13:18
PROVIDERS: PCP Internal Medicine; Visit Provider Internal Medicine
DX: M54.16 Radiculopathy, lumbar region (principal)
CPT/HCPCS: 64483; 64484

== ENCOUNTER 2025-07-17 12:15 | Outpatient (AMB) | payer MEDICARE, SELFPAY ==
--- OUTSIDE RECORDS SUMMARY | 2024-05-02 06:15 | XMS_ITS ---
Author Organization [facility] Naila Blackwell Address [address] [place] [address] Care Team Providers Care Bingo Floater Name Role Phone Kev Miranda MD Primary Care Provider Denny Gao [phone] Encounters Encounter Location Date Provider Diagnosis [facility] [address] [place] [address] 05/02/2024 Denny Downing Plan Of Treatment No Information Progress Notes * Aden FELIZ FDOB:[birth year] (74 yo M)Acc No.[id number]:05/02/2024 Progress Notes Patient: Aden ARCHER Provider: Adry Downing DPM :1950 A ge:73 Y S ex:Male Date:05/02/2024 Address:[address] [place], [place] [address] Pcp:Kev Miranda MD Subjective: * Chief Complaints: * * HPI: A t Risk footcare: Pt States Last PCP Visit: D ate 1 01/02/2023 S kin problems: Nature: t jose, throbbing, swelling, redness. Location: [address] Duration: a month. Onset/Cause: u nknown. [...] Pending * Provider: Adry Downing DPM Date: 05/02/2024 Generated for Audrey houston/Julia/Manpreet on: 0 07/17/2025 01:23 PM EDT History and Physical Notes * HPI (History of Present Illness) Category Sub-Category Detail Notes Category Not es Skin problems Nature: tender, throbbing, swelling , redness Location: Left , 1st Duration: a month Onset/Cause: unknown Course: worse Aggravated by: any pressure, jonny houston Severity/Quality: moderate At Risk footcare Pt States Last PCP Visit: Date: 3
[2025-07-17 12:31] VITALS: BP 190/86; PULSE 111; RESP 16; O2SAT 92; BMI 40.3
--- NOTE | 2025-07-17 12:31 | A.OFFVIS_ITS ---
Vital Signs 07/17/25 12:31 Height 5 ft 11 in Weight 289 lb BMI 40.3 BP 190/86 H Blood Pressure Location Lt brachial Position Sitting Respiration 16 Pulse 111 H Pulse Source Pulse Oximeter Pulse Oximetry (%) 92 Oxygen Delivery Method Room Air Intake Visit Reasons: s/p right L3-L4, L4-L5 TFESI Biopsychologist Required: No Allergies metoprolol Adverse Reaction (Severe, Verified 07/17/25 12:32) Fatigued carvedilol Adverse Reaction (Verified 07/17/25 12:32) Headache, Gastrointestinal Upset spironolactone Adverse Reaction (Verified 07/17/25 12:32) headache, Gastrointestinal Upset Medication List - Last Reconciled 07/17/25 by Concepcion Lewis LPN amlodipine 2.5 mg PO DAILY glimepiride 4 mg PO DAILY ibuprofen 600 mg PO DAILY PRN irbesartan 300 mg PO DAILY levetiracetam 500 mg PO BID pioglitazone 30 mg PO DAILY rosuvastatin 5 mg PO DAILY HPI HPI s/p right L3-L4, L4-L5 TFESI: Details: History of Present Illness The patient is a 74-year-old male presenting with post-laminectomy pain. The patient reports that the last transforaminal epidural steroid injection provided relief for approximately two and a half days, with pain reduction of about 60-70%. However, the pain has returned and is currently significant, affecting his daily activities. The patient has a history of spinal stenosis, which was previously addressed with surgery, and an MRI post-surgery showed improvement. Despite surgical intervention, the patient continues to experience pain due to scar tissue formation. The patient also reports sleep apnea, which is currently affecting his sleep quality. He experiences significant tossing and turning at night, contributing to poor sleep. Pain Description - Pain relief from the last injection lasted approximately two and a half days. - Pain reduction was about 60-70% during the relief period. - Current pain is significant and affects daily activities. - Pain is located at the bottom of the feet and radiates from the buttocks to the calves. - Pain interferes with activities such as climbing ladders and getting out of a boat. Physical Exam - Appears afebrile. - Alert and oriented. - Mood and affect appropriate. - Follows and participates in conversation appropriately. - Respiratory effort is unlabored. - Able to transition from sit to stand unassisted. - Ambulates with bilaterally normal heel strike and toe off. - Able to stand and walk on toes and heels. Results Pain Management - Affect: Pain significantly impacts daily activities and sleep quality. - Analgesia: Current pain management includes ibuprofen; considering gabapentin for additional relief. - Adverse Effects: Concerns about gabapentin causing tiredness. - Activities of Daily Living: Pain limits ability to climb ladders and perform other physical activities. - Aberrant Drug Related Behaviors: No aberrant behaviors reported. [facility] Medical History JOSÉ MIGUEL (obstructive sleep apnea) Back pain HLD (hyperlipidemia) Nausea Hx of spinal stenosis Cluneal neuropathy Seizure disorder Hypertension Type 2 diabetes mellitus Surgical History Hx of spinal surgery (12/2022) Hx of hernia repair (~2010) Social History Are you a primary healthcare advisory services manager to a significant other at home: No Do you presently have visiting nurse or other home services: No Patient Tobacco Use Status: Former Tobacco user Tobacco use type: Cigarette Physical Exam Vital Signs: Last Vital Signs Pulse 111 H 07/17/25 12:31 Resp 16 07/17/25 12:31 BP 190/86 H 07/17/25 12:31 Pulse Ox 92 07/17/25 12:31 Oxygen Delivery Method Room Air 07/17/25 12:31 BMI result Body Mass Index 40.3 Assessment & Plan Assessment & Plan (1) Post laminectomy syndrome: Code(s): M96.1 - Postlaminectomy syndrome, not elsewhere classified Category: Medical Plan Plan - Plan to initiate a lumbar spinal cord stimulation trial with Nevro HFX system to address post-laminectomy axial and leg pain. - Interim Gabapentin trial to potentially improve sleep quality. - Follow-up on the effectiveness of gabapentin and adjust dosage as needed. - Prior authorization for the spinal cord stimulation trial will be submitted; psych clearance on file. - Continue current pain management with ibuprofen as needed. Patient was informed and verbally consented to the use of an ambient scribe for clinic note documentation during this visit. Discussion Notes I discussed with the patient the option of a lumbar spinal cord stimulation trial to manage his post-laminectomy pain, explaining that the trial would be similar to previous procedures he has undergone. We reviewed the potential benefits and the process, including the outpatient nature of both the trial and the implant procedure if successful. I also addressed the patient's concerns about sleep apnea and the potential use of gabapentin to alleviate pain and improve sleep quality. Patient Instructions - Start gabapentin at night, around 6 PM, to assess tolerance and effectiveness. - Monitor for any side effects, particularly increased tiredness. - Continue taking ibuprofen as needed for pain management. - Await contact from Licha regarding the scheduling of the spinal cord stimulation trial. Medications: New gabapentin 300 mg PO BID 60 caps 0RF Coding Level of Care Code Est Pt Level 4 (57856) Diagnoses Post laminectomy syndrome M96.1
--- OUTSIDE RECORDS SUMMARY | 2025-07-17 13:23 | XMS_ITS | Encounter Summary ---
Author Organization [facility] Address [address] [place] [address] Phone Care Team Providers Care Puffer Tender Name Role Phone Kev Miranda MD Unavailable [phone] Kev Miranda MD Primary Care Provider [phone] Reason for Visit * Reason Onset Date Comments Medication Problem 05/04/2025 Encounter Details Date Type Department Care Team (Late st Contact Info) Description 05/04/2025 Telephone [facility] Internal Medicine [address] [place], [place] [phone] Zulay Mobley, BILLY [address] [place], [place] [phone] [email or web address] Medication Problem Social History Tobacco Use Types Packs/Day Years Used Date Smoking Tobacco: Former Cigarettes 8 1986 Smokeless Tobacco: Never Comments:Ciggs a few ciggs a week Alcohol [...] Orientation Straight 05/15/2022 3: 38 PM EDT documented as of this encounter Progress Notes * Zulay Mobley RN - 07/17/2025 10:57 AM EDT Spoke to Aden. States the amlodipine was working well, but the adverse affects have gotten worse over the last 5-7 days. States he now has frequent urination, sleeplessness, breathing is kind of labored. States he read all of these are side effects. States it feels like it's difficult to take a deep. Not gasping, or SOB, but not breathing evenly, or slowly. No chest pain. BP is still elevated. Normally around 165/90's. He is currently on 2.5mg daily, and has not taken it today. States this is the 8th or 9th medication he's tried for BP and he doesn't think he can take it either. No lightheadedness, dizziness, headaches, vision changes. He states he thinks he is well hydration. As far as frequent urination, no burning with urination, urgency, back pain, fever. Will review with PCP. Pt states he will not be home between 12 and 2. * Zulay Mobley RN - 07/17/2025 10:56 AM EDT Pt called and LVM. States he has been on a new BP medication (amlodipine). States he's been having terrible side effects (urinating often, SOB, sleeplessness) and he needs to get off of this ALLISON. * Zulay Mobley RN - 05/09/2025 10:38 AM EDT Spoke to Aden, scheduled at [address] Miranda to discuss. * Zulay Mobley RN - 05/09/2025 10:36 AM EDT Aden called and LVM. States he's having trouble with BP medications. States he's taken the hydralazine for 3-4 days, and has had nothing but headaches. Looking for something with less side effects, his BP is still very elevated. * Zulay Mobley RN - 05/05/2025 8:11 AM EDT Spoke to Aden and advised. He states understanding, agreeable to plan. Appreciative of call. * Kev Miranda MD - 05/04/2025 7:04 PM EDT I will place him on Hydralazine 10 mg three times a day. He can stay off the metoprolol. * Zulay Mobley RN - 05/04/2025 10:34 AM EDT Aden called and LVM. States Dr Miranda has had him on irbesartan (AVAPRO) 300 MG tablet and metoprolol succinate (TOPROL-XL) 25 MG 24 hr tablet . States he was told to call if there was any problems. States he stopped taking the metoprolol. States it turned me into a zombie, and I just can't takeit. documented in this encounter Plan of Treatment Upcoming Encounters Date Type Department Care Team (Late st Contact Info) Description 08/08/2025 2:15 PM EDT Office Visit [facility] [address] [place] [address] 3rd Floor, [address] [place] [address] Cuate Ramos MD [address] [place] [address] 10/23/2025 2:00 PM EST Office Visit [facility] [address] [place] [address] Jam Álvarez DO [address] [place] [address] 11/27/2025 1:00 PM EST Office Visit [facility] [place] Internal Medicine [address] [place], [place] [phone] Kev Miranda MD [address] [place], [place] [phone] documented as of this encounter Visit Diagnoses Diagnosis Benign essential hypertension- Primary Essential hypertension, benign documented in this encounter Additional Health Concerns Assessment Noted Time PHQ-2 Depression Total Score: 2 10/10/20 24 7:04 PM EST documented as of this encounter Care Teams Puffer Tender Relationship Specialty Start Date End Date Kve Miranda MD [address] [place] [address] [phone] PCP - General 10/29/17 Kev Miranda MD [address] [place] [address] [email or web address] Historical LMR Provider 09/20/17 documented as of this encounter Additional Source Comments The information contained in this document represents components of the legal health record. It is not the complete legal health record.[facility]
--- OUTSIDE RECORDS SUMMARY | 2025-07-17 13:23 | XMS_ITS | Clinical Summary ---
Author Organization [facility] Address [address] [place] [address] Care Team Providers Care Slasher Runner Name Role Phone Unavailable Primary Care Provider [...]
--- OUTSIDE RECORDS SUMMARY | 2025-07-17 13:24 | XMS_ITS | Patient Health Record ---
Author Organization [facility] Address [address] [place] [address] Care Team Providers Care Ssis Ssrs Developer Name Role Phone Kev Miranda MD Primary Care Provider Kev Carreno Unavailable [phone] Allergies No Known Allergies Reason For Referral [...] Problem Screening for malignant neoplasm of colon (150072853) Encounter for screening for malignant neoplasm of colon (Z12.11) Active confirmed Problem Constipation (22722259) Constipation (K59.00) Active confirmed Problem Pre-procedure evaluation check (781626610) Encounter for other preprocedural examination (Z01.818) Active confirmed Problem Long-term current use of aspirin (400860321557820 ) Aspirin long-term use (Z79.82) Active confirmed Plan Of Treatment Future Test Test Name Order Date COLONOSCOPY 05/14/2022 Insurance Providers Payer Name Payer Address Payer Phone Subscriber Number Group Number Insured Name Patient Relationship to Insured Coverage Start Date Coverage End Date [employer] Medicare Advantage Plan [address] [address] [place] [address] [id number] ROHINI FELIZ Self - patient is the insured Medical (General) History Medical History History ICD Code NIDDM HTN Sacroiliac pain on the right-seeing Dr. Rangel in Pain Management at [facility] Denies DC,CVA,Lung disease,renal disease Constipation Surgical History Surgery Date(Month/Year) Left inguinal hernia
--- OUTSIDE RECORDS SUMMARY | 2025-07-17 13:24 | XMS_ITS | Encounter Summary ---
Author Organization [facility] Address [address] [place] [address] Phone Care Team Providers Care Toll Test Worker Name Role Phone Kev Miranda MD Primary Care Provider [phone] Encounter Details Date Type Department Care Team (Late st Contact Info) Description 02/01/2025 Documentation Only [facility], [address] [place] [address] Nisha Amor [address] [place] [phone] Social History Tobacco Use Types Packs/Day Years [...] on filedocumented in this encounter Care Teams Toll Test Worker Relationship Specialty Start Date End Date Kev Miranda MD 40 [place] [address] PCP - General Internal Medicine 01/31/25 documented as of this encounter
== END 2025-07-17 13:28 | disposition home or self-care (01) ==
LOC: HO.PMC 12:16
PROVIDERS: PCP Internal Medicine; Visit Provider Internal Medicine
DX: M96.1 Postlaminectomy syndrome, not elsewhere classified (principal)
CPT/HCPCS: 99214

== ENCOUNTER → 2025-07-17 12:15 | Outpatient (BNVA) | payer MEDICARE, SELFPAY | PROVIDERS: PCP Internal Medicine; Visit Provider Internal Medicine | DX: M96.1 Postlaminectomy syndrome, not elsewhere classified (principal) | CPT/HCPCS: 99212 ==

== ENCOUNTER 2025-08-11 14:16 | Outpatient (AMB) | payer MEDICARE, SELFPAY ==
--- OUTSIDE RECORDS SUMMARY | 2024-05-02 06:15 | XMS_ITS ---
Author Organization [facility] Naila Blackwell Address [address] [place] [address] Care Team Providers Care Change Agent Name Role Phone Kev Miranda MD Primary Care Provider Denny Gao [phone] Encounters Encounter Location Date Provider Diagnosis [facility] [address] [place] [address] 05/02/2024 Denny Downing Plan Of Treatment No Information Progress Notes * Aden FELIZ FDOB:[birth year] (74 yo M)Acc No.[id number]:05/02/2024 Progress Notes Patient: Aden ARCHER Provider: Adry Downing DPM :1950 A ge:73 Y S ex:Male Date:05/02/2024 Address:[address] [place], [place] [address] Pcp:Kev Miranda MD Subjective: * Chief Complaints: * * HPI: A t Risk footcare: Pt States Last PCP Visit: D ate 1 01/02/2023 S kin problems: Nature: t jose, throbbing, swelling, redness. Location: [address] Duration: a month. Onset/Cause: u nknown. [...] 05/02/2024 Generated for Audrey houston/Julia/Manpreet on: 0 08/11/2025 05:13 PM EDT History and Physical Notes * HPI (History of Present Illness) Category Sub-Category Detail Notes Category Not es Skin problems Nature: tender, throbbing, swelling , redness Location: Left , 1st Duration: a month Onset/Cause: unknown Course: worse Aggravated by: any pressure, radhai celso Severity/Quality: moderate At Risk footcare Pt States Last PCP Visit: Date: 3
--- OUTSIDE RECORDS SUMMARY | 2025-08-08 14:15 | XMS_ITS | Encounter Summary ---
Author Organization [facility] Address [address] [facility] [address] [place] [address] Phone Care Team Providers Care Supervisor Sewing Department Name Role Phone Kev Miranda MD Unavailable [phone] Kev Miranda MD Primary Care Provider [phone] Reason for Visit * Consultation (Routine) - Authorized Specialty Diagnoses / Procedures Referred By Contac t Referred To Contact Cardiology Diagnoses Return in about 4 months (around 09/01/2025). Procedures FOLLOW UP Kev Miranda MD [address] [place] [address] Phone: tel: fax: [email or web address] [facility] [address] [place] [address] 3rd [facility], [address] [place] [address] Phone: tel: fax: Referral ID Status Reason Start Date Expiration Date V isits Requested Visits Authorized [id number] Authorized 08/08/2025 08/08/2026 99 99 Encounter Details Date Type Department Care Team (Latest Contact Info) Description 08/08/2025 2:15 PM EDT Office Visit [facility] [address] [place] [address] 3rd Floor, [address] [place] [address] Cuate Ramos MD [address] [facility], [address] [address] [email or web address] JOSÉ MIGUEL (obstructive sleep apnea) (Primary Dx); Allergic rhinitis due to pollen, unspecified seasonality Social History Tobacco Use Types Packs/Day Years Used Date Smoking Tobacco: Former Cigarettes 1 8 - 1986 Smokeless Tobacco: Never Tobacco Cessation:Counseling Given: [...] PM EDT documented as of this encounter Last Filed Vital Signs Vital Sign Reading Time Taken Comments Blood Pressure 170/80 08/08/2025 2:14 PM EDT Pulse 89 08/08/2025 2:14 PM EDT Temperature - - Respiratory Rate - - Oxygen Saturation 97% 08/08/2025 2:14 PM EDT Inhaled Oxygen Concentration - - Weight 134.3 kg (296 lb) 08/08/2025 2:14 PM EDT Height 177.8 cm (5' 10 ) 08/08/2025 2:14 PM EDT Body Mass Index 42.47 08/08/2025 2:14 PM EDT documented in this encounter Progress Notes * Cuate Ramos MD - 08/08/2025 2:15 PM EDT Aden Smith [id number] 08/08/2025 Sciatica and nasal congestion disrupt sleep and he can't use cpap: which also dislodges. Fluticasone and loratidine help some Baseline study AHI 22, RDI 40 He remains quite tired during the day He never took zafirlukast Current Outpatient Medications: ACCU-CHEK FASTCLIX LANCET DRUM Misc, USE 1 TO CHECK GLUCOSE TWICE DAILY, Disp: 204 each, Rfl: 0, Last Dispense: Unknown (outside pharmacy) ACCU-CHEK GUIDE ME GLUCOSE MTR Misc meter, by Miscellaneous route as needed., Disp: 1 each, Rfl: 0,Last Dispense: Unknown (outside pharmacy) ACCU-CHEK GUIDE TEST STRIPS Strp strips, USE TO CHECK GLUCOSE TWICE DAILY (Patient taking differently: as needed. USE TO CHECK GLUCOSE TWICE DAILY), Disp: 200 strip, Rfl: 3, Last Dispense: Unknown (outside pharmacy) acetaminophen (TYLENOL) 500 MG tablet, Take 500 mg by mouth every morning., Disp: , Rfl: , Last Dispense: Unknown (patient-reported) amLODIPine (NORVASC) 2.5 MG tablet, Take 1 tablet (2.5 mg total) by mouth daily. (Patient taking differently: Take 2.5 mg by mouth every other day.), Disp: 30 tablet, Rfl: 1, Last Dispense: Unknown (outside pharmacy) cholecalciferol (VITAMIN D3) 1,000 unit tablet, Take 2,000 Units by mouth daily. , Disp: , Rfl: , Last Dispense: Unknown (patient-reported) fluticasone furoate (FLONASE SENSIMIST) 27.5 mcg/actuation nasal spray, 2 sprays by Nasal route daily. (Patient taking differently: 1 spray by Nasal route as needed.), Disp: , Rfl: , Last Dispense: Unknown (patient-reported) glimepiride (AMARYL) 4 MG tablet, TAKE 1 & 1/2 (ONE & ONE-HALF) TABLETS BY MOUTH ONCE DAILYBEFORE BREAKFAST AND 1/2 (ONE-HALF) WITH EVENING MEAL, Disp: 180 tablet, Rfl: 0, Last Dispense: Unknown (outside pharmacy) ibuprofen (ADVIL,MOTRIN) 200 MG tablet, Take 200 mg by mouth every morning. 3 tabs in the a.m and 2tabs at night, Disp: , Rfl: , Last Dispense: Unknown (patient-reported) irbesartan (AVAPRO) 300 MG tablet, Take 1 tablet (300 mg total) by mouth daily., Disp: 90 tablet, Rfl: 3, Last Dispense: Unknown (outside pharmacy) levETIRAcetam (KEPPRA) 500 MG tablet, Take 1 tablet by mouth twice daily, Disp: 180 tablet, Rfl: 3,Last Dispense: Unknown (outside pharmacy) omega-3 fatty acids 1,000 mg Cap, 1 tab Orally once a day, Disp: , Rfl: , Last Dispense: Unknown (patient-reported) pioglitazone (ACTOS) 30 MG tablet, Take 1 tablet by mouth once daily, Disp: 90 tablet, Rfl: 0, LastDispense: Unknown (outside pharmacy) pyridoxine HCl, vitamin B6, (VITAMIN B-6 ORAL), Take 1 capsule by mouth daily., Disp: , Rfl: , LastDispense: Unknown (patient-reported) rosuvastatin (CRESTOR) 5 MG tablet, Take 1 tablet by mouth once daily, Disp: 90 tablet, Rfl: 3, Last Dispense: Unknown (outside pharmacy) Atorvastatin, Diltzac er [diltiazem hcl], Doxazosin, Hctz [hydrochlorothiazide], Hydralazine, Lisinopril, Metformin, Metoprolol succinate, Nifedipine, Spironolactone, Carvedilol, Nadolol, and Olmesartan BP (!) 170/80 Pulse 89 Ht 177.8 cm (5' 10 ) Wt 134.3 kg (296 lb) SpO2 97% BMI 42.47 kg/m?? Social History Socioeconomic History Marital status: /Civil Union Spouse name: Not on file Number of children: Not on file Years of education: Not on file Highest education level: Not on file Occupational History Not on file Tobacco Use Smoking status: Former Current packs/day: 0.00 Types: Cigarettes Start date: 1967 Quit date: 1986 Years since quittin.7 Smokeless tobacco: Never Tobacco comments: Ciggs a few ciggs a week Vaping Use Vaping status: never used Substance and Sexual Activity Alcohol use: Yes Comment: 1 drink every couple of months but more so during Summer months and around the holidays Drug use: Never Sexual activity: Not Currently Partners: Female control/protection: None Other Topics Concern Not on file Social History Narrative Not on file Social Drivers of Health Residential Stability: Not on file Physical Exam Assessment: JOSÉ MIGUEL and CPAP: Moderate to severe JOSÉ MIGUEL, non compliant due to sciatica, nasal congestion, mask dislodgement Plan: tube placement Contour pillow Zafirlukast bid (side effects) documented in this encounter Plan of Treatment Upcoming Encounters Date Type Department Care Team (Late st Contact Info) Description 10/23/2025 2:00 PM EST Office Visit [facility] [address] [place] [address] Jam Álvarez DO 22 [place] [address] 11/27/2025 1:00 PM EST Office Visit [facility] [place] Internal Medicine 40 [place] [address] Kev Miranda MD 40 [place] [address] 11/28/2025 2:15 PM EST Office Visit [facility] [address] [place] [address] Dr 3rd Floor, [address] [place] [address] Cuate Ramos MD 22 [facility], [address] [id number] documented as of this encounter Visit Diagnoses Diagnosis JOSÉ MIGUEL (obstructive sleep apnea)- Primary Obstructive sleep apnea (adult) (pediatric) Allergic rhinitis due to pollen, unspecified seasonality documented in this encounter Additional Health Concerns Assessment Noted Time PHQ-2 Depression Total Score: 2 10/10/20 24 7:04 PM EST documented as of this encounter Care Teams Supervisor Sewing Department Relationship Specialty Start Date End Date Kev Miranda MD 40 [place] [address] PCP - General 10/29/17 Kev Miranda MD [address] [place] [address] Historical LMR Provider 09/20/17 documented as of this encounter Additional Source Comments The information contained in this document represents components of the legal health record. It is not the complete legal health record.[facility]
--- NOTE | 2025-08-11 14:23 | A.SPINEOV_ITS ---
Intake Visit Reasons: back pain/new symptoms Intake Note: Mr. Smith is here today c/o back pain and new symptoms. Volcanologist Required: No Allergies metoprolol Adverse Reaction (Severe, Verified 08/11/25 14:23) Fatigued carvedilol Adverse Reaction (Verified 08/11/25 14:23) Headache, Gastrointestinal Upset spironolactone Adverse Reaction (Verified 08/11/25 14:23) headache, Gastrointestinal Upset Assessment & Plan Assessment & Plan (1) Post laminectomy syndrome: Code(s): M96.1 - Postlaminectomy syndrome, not elsewhere classified Category: Medical Plan This patient is suffering from a failed back syndrome. He is scheduled to undergo a spinal cord stimulator with . He is coming to see me for a 2nd opinion regarding his back pain. He wants to know if he needs another MRI before trial is implanted. I reviewed his old MRI and compared to latest fluoroscopy images of 2024 and the disc heights are similar than the MRI images. There is no signs of instability either from looking at those images. Therefore I do not recommend to do another MRI prior to spinal cord stimulator trial. He should go ahead with the spinal cord stimulation trial. I spent 30 minutes in his consult reviewing imaging and answering questions Coding Level of Care Code Est Pt Level 4 (58216) Diagnoses Post laminectomy syndrome M96.1
--- OUTSIDE RECORDS SUMMARY | 2025-08-11 17:13 | XMS_ITS | Encounter Summary ---
Author Organization [facility] Address [address] [place] [address] Phone Care Team Providers Care Voip Engineer Name Role Phone Kev Miranda MD Unavailable [phone] Kev Miranda MD Primary Care Provider [phone] Encounter Details Date Type Department Care Team (Late st Contact Info) Description 11/01/2024 Procedure Pass [facility] [place] [address] Social History Tobacco Use Types Packs/Day Years Used Date Smoking Tobacco: Former Cigarettes 968 - 1986 Smokeless Tobacco: Never Alcohol Use Standard Drinks/Week Comments Yes 0 [...] PM EDT documented as of this encounter Plan of Treatment Upcoming Encounters Date Type Department Care Team (Late st Contact Info) Description 10/23/2025 2:00 PM EST Office Visit [facility] [address] [place] [address] Jam Álvarez DO 22 [place] [address] 11/27/2025 1:00 PM EST Office Visit [facility] Internal Medicine 40 [place], [place] 0008907 Kev Miranda MD 40 [place] [address] 11/28/2025 2:15 PM EST Office Visit [facility] [address] [place] [address] 3rd Floor, [address] [place] [address] Cuate Ramos MD 22 [facility], [address] [phone] documented as of this encounter Visit Diagnoses Not on filedocumented in this encounter Additional Health Concerns Assessment Noted Time PHQ-2 Depression Total Score: 2 10/10/20 24 7:04 PM EST documented as of this encounter Care Teams Voip Engineer Relationship Specialty Start Date End Date Kev Miranda MD 40 [place] [address] PCP - General 10/29/17 Kev Miranda MD [address] [place] [address] [email or web address] Historical LMR Provider 09/20/17 documented as of this encounter Additional Source Comments The information contained in this document represents components of the legal health record. It is not the complete legal health record.[facility]
--- OUTSIDE RECORDS SUMMARY | 2025-08-11 17:13 | XMS_ITS | Encounter Summary ---
Author Organization [facility] Address [address] [place] [address] Phone Care Team Providers Care Musician Instrumental Name Role Phone Kev Miranda MD Primary Care Provider [phone] Encounter Details Date Type Department Care Team (Late st Contact Info) Description 02/01/2025 Documentation Only [facility] [place], [address] [place] [address] Nisha Amor [address] [place] [phone] Social History Tobacco Use Types Packs/Day Years [...] on filedocumented in this encounter Care Teams Musician Instrumental Relationship Specialty Start Date End Date Kev Miranda MD 40 [place] [address] PCP - General Internal Medicine 01/31/25 documented as of this encounter
--- OUTSIDE RECORDS SUMMARY | 2025-08-11 17:13 | XMS_ITS | Encounter Summary ---
Author Organization [facility] Address [address] [facility] [address] [place] [address] Phone Care Team Providers Care Disk Grinder Name Role Phone Kev Miranda MD Unavailable Zainab Bardales WIND ENERGY TECHNICIAN Unavailable Dorina Patel WIND ENERGY TECHNICIAN Unavailable [phone] Dwayne Candelaria MD Unavailable Kev Miranda MD Primary Care Provider Kev Miranda MD Unavailable Encounter Details Date Type Department Care Team (Late st Contact Info) Description 04/03/2021 Procedure Pass [address] [place] [address] Social History Tobacco Use Types Packs/Day Years Used Date Smoking Tobacco: Never Smokeless Tobacco: Never Alcohol Use Standard Drinks/Week Comments No 0 (1 standard drink = 0.6 oz pur e alcohol) Sex and Gender Information Value Date Recorded [...] 2:00 PM EST Office Visit [facility] [place] [address] Jam Álvarez DO 22 [place] [address] 11/27/2025 1:00 PM EST Office Visit [facility] [place] Internal Medicine 40 [place] [address] Kev Miranda MD 40 [place] [address] 11/28/2025 2:15 PM EST Office Visit [facility] [address] [facility] 3rd Floor, [address] [place] [address] Cuate Ramos MD [address] [address] documented as of this encounter Visit Diagnoses Not on filedocumented in this encounter Additional Health Concerns Assessment Noted Time PHQ-2 Depression Total Score: 0 02/23/20 21 12:57 PM EDT documented as of this encounter Care Teams Disk Grinder Relationship Specialty Start Date End Date Kev Miranda MD [address] [place] [address] PCP - General 10/29/17 Kev Miranda MD [address] [place] [address] Historical LMR Provider 09/20/17 Zainab Bardales NP [address] [place] [address] Historical LMR Provider 09/20/17 2 Dorina Patel NP [address] [place] [address] 6 [place] [address] [email or web address] Historical LMR Provider 09/20/17 12/07/21 Dwayne Candelaria MD [address] [place] [phone] Historical LMR Provider 09/20/17 2 Kev Miranda MD 40 [place] [address] [email or web address] Insurance Assigned Provider 02/27/1808/10 documented as of this encounter Additional Source Comments The information contained in this document represents components of the legal health record. It is not the complete legal health record.[facility]
--- OUTSIDE RECORDS SUMMARY | 2025-08-11 17:13 | XMS_ITS | Encounter Summary ---
Author Organization [facility] Address [address] [place] [address] Phone Care Team Providers Care Captain Assistant Name Role Phone Kev Miranda MD Primary Care Provider [phone] Encounter Details Date Type Department Care Team (Late st Contact Info) Description 01/31/2025 Documentation Only [facility] [place], [address] [place] [place] [address] [place], [place] [address] [place] [phone] Social History Tobacco Use Types Packs/Day Years [...] on filedocumented in this encounter Care Teams Captain Assistant Relationship Specialty Start Date End Date Kev Miranda MD [address] [place] [address] PCP - General Internal Medicine 01/31/25 documented as of this encounter
--- OUTSIDE RECORDS SUMMARY | 2025-08-11 17:13 | XMS_ITS | Encounter Summary ---
Author Organization [facility] Address [address] [place] [address] Phone Care Team Providers Care Gallery Manager Name Role Phone Kev Miranda MD Primary Care Provider [phone] Encounter Details Date Type Department Care Team (Late st Contact Info) Description 02/01/2025 Documentation Only [facility] [place], [address] [place] [address] Nisha Amor [address] [place] [phone] Social History Tobacco Use Types Packs/Day Years [...] on filedocumented in this encounter Care Teams Gallery Manager Relationship Specialty Start Date End Date Kev Miranda MD 40 [place] [address] PCP - General Internal Medicine 01/31/25 documented as of this encounter
--- OUTSIDE RECORDS SUMMARY | 2025-08-11 17:13 | XMS_ITS | Clinical Summary ---
Author Organization [facility] Address [address] [place] [address] Care Team Providers Care Sawdust Machine Operator Name Role Phone Unavailable Primary Care Provider [...] Health Maintenance Due Date Last Done Comments Advance Care Planning 1950 Hepatitis C Virus Screening 1950 DTaP/Tdap/Td Vaccines [...]
--- OUTSIDE RECORDS SUMMARY | 2025-08-11 17:13 | XMS_ITS | Encounter Summary ---
Author Organization [facility] Address [address] [place] [address] Phone Care Team Providers Care Preservationist Name Role Phone Kev Miranda MD Primary Care Provider [phone] Encounter Details Date Type Department Care Team (Late st Contact Info) Description 02/01/2025 Documentation Only [facility] [place], [address] [place] [address] Nisha Amor [address] [place] [phone] Social History Tobacco Use Types Packs/Day Years [...] on filedocumented in this encounter Care Teams Preservationist Relationship Specialty Start Date End Date Kev Miranda MD [address] [place] [address] PCP - General Internal Medicine 01/31/25 documented as of this encounter
--- OUTSIDE RECORDS SUMMARY | 2025-08-11 17:13 | XMS_ITS | Patient Health Record ---
Author Organization [facility] Address [address] [place] [address] Care Team Providers Care Ssis Developer Name Role Phone Kev Miranda MD Primary Care Provider Kev Carreno Unavailable [phone] Allergies No Known Allergies Reason For Referral [...] Problem Screening for malignant neoplasm of colon (300506766) Encounter for screening for malignant neoplasm of colon (Z12.11) Active confirmed Problem Constipation (05739052) Constipation (K59.00) Active confirmed Problem Pre-procedure evaluation check (767093092) Encounter for other preprocedural examination (Z01.818) Active confirmed Problem Long-term current use of aspirin (030332503771738 ) Aspirin long-term use (Z79.82) Active confirmed Plan Of Treatment Future Test Test Name Order Date COLONOSCOPY 05/14/2022 Insurance Providers Payer Name Payer Address Payer Phone Subscriber Number Group Number Insured Name Patient Relationship to Insured Coverage Start Date Coverage End Date [employer] Medicare Advantage Plan [address] [address] [place] [address] [id number] ROHINI FELIZ Self - patient is the insured Medical (General) History Medical History History ICD Code NIDDM HTN Sacroiliac pain on the right-seeing Dr. Rangel in Pain Management at [facility] Denies ME,CVA,Lung disease,renal disease Constipation Surgical History Surgery Date(Month/Year) Left inguinal hernia
--- OUTSIDE RECORDS SUMMARY | 2025-08-11 17:13 | XMS_ITS | Encounter Summary ---
Author Organization [facility] Address [address] [place] [address] Phone Care Team Providers Care Automatic Machine Attendant Name Role Phone Kev Miranda MD Primary Care Provider [phone] Encounter Details Date Type Department Care Team (Late st Contact Info) Description 02/01/2025 Documentation Only [facility] [place], [address] [place] [address] Nisha Amor [address] [place] [phone] Social History Tobacco Use Types Packs/Day Years [...] on filedocumented in this encounter Care Teams Automatic Machine Attendant Relationship Specialty Start Date End Date Kev Miranda MD [address] [place] [address] PCP - General Internal Medicine 01/31/25 documented as of this encounter
--- OUTSIDE RECORDS SUMMARY | 2025-08-11 17:13 | XMS_ITS | Encounter Summary ---
Author Organization [facility] Address [address] [place] [address] Phone Care Team Providers Care Shirt Folder Name Role Phone Kev Miranda MD Primary Care Provider [phone] Encounter Details Date Type Department Care Team (Late st Contact Info) Description 02/03/2025 Documentation Only [facility] [place], [address] [place] [address] [place], [place] [address] [place] [phone] Social History Tobacco Use Types Packs/Day Years [...] on filedocumented in this encounter Care Teams Shirt Folder Relationship Specialty Start Date End Date Kev Miranda MD [address] [place] [address] PCP - General Internal Medicine 01/31/25 documented as of this encounter
--- OUTSIDE RECORDS SUMMARY | 2025-08-11 17:13 | XMS_ITS | Encounter Summary ---
Author Organization [facility] Address [address] [place] [address] Phone Care Team Providers Care Stewarding Supervisor Name Role Phone Kev Miranda MD Primary Care Provider [phone] Encounter Details Date Type Department Care Team (Late st Contact Info) Description 02/01/2025 Documentation Only [facility] [place], [address] [place] [address] Nisha Amor [address] [place] [phone] Social History Tobacco Use Types Packs/Day Years [...] on filedocumented in this encounter Care Teams Stewarding Supervisor Relationship Specialty Start Date End Date Kev Miranda MD [address] [place] [address] PCP - General Internal Medicine 01/31/25 documented as of this encounter
--- OUTSIDE RECORDS SUMMARY | 2025-08-11 17:13 | XMS_ITS | Encounter Summary ---
Author Organization [facility] Address [address] [place] [address] Phone Care Team Providers Care Cutting And Boning Supervisor Name Role Phone Kev Miranda MD Primary Care Provider [phone] Encounter Details Date Type Department Care Team (Late st Contact Info) Description 02/01/2025 Documentation Only [facility] [place], [address] [place] [address] Nisha Amor [address] [place] [phone] Social History Tobacco Use Types Packs/Day Years [...] on filedocumented in this encounter Care Teams Cutting And Boning Supervisor Relationship Specialty Start Date End Date Kev Miranda MD [address] [place] [address] PCP - General Internal Medicine 01/31/25 documented as of this encounter
--- OUTSIDE RECORDS SUMMARY | 2025-08-11 17:13 | XMS_ITS | Clinical Summary ---
Author Organization [facility] Address [address] [facility] [address] [place] [address] Phone Care Team Providers Care Manager Assurance Name Role Phone Kev Miranda MD Unavailable [phone] Kev Miranda MD Primary Care Provider [phone] Allergies Active Allergy Reactions Criticality Noted Date Comments Atorvastatin Hives Medium 09/25/2021 Carvedilol Itching,Rash,Fatigue Low 08/23/2024 Diltiazem Hcl Constipation 07/09/2025 Severe constipation Doxazosin Other (See Comments) 03/16/2025 dyspnea Hydrochlorothiazide Other (See Comments) 2023 Increased urination 5 x at night Hydralazine Headaches 05/22/2025 Lisinopril Cough 02/09/2025 Metformin Headaches 03/12/2018 Metoprolol Succinate Other (See Comments) 04/13 Urinary frequency and nocturia, made him feel tired and zombie-like Nadolol Fatigue Low 06/27/2025 Nifedipine Headaches 10/17/2024 Olmesartan Fatigue Low 12/17/2023 Spironolactone Itching,Maculopapula r Rash 01/03/2025 Medications omega-3 fatty acids 1,000 mg Cap 1 tab Orally once a day Active cholecalciferol (VITAMIN D3) 1,000 unit tablet Take 2,000 Units by mouth daily. Active ibuprofen (ADVIL,MOTRIN) 200 MG tablet Take 200 mg by mouth every morning. 3 tabs in the a.m and 2 tabs at night Active ACCU-CHEK GUIDE ME GLUCOSE MTR Misc meter by Perceptive Pixelaneous route as needed. 1 each 021 Active acetaminophen (TYLENOL) 500 MG tablet Take 500 mg by mouth every morning. Active ACCU-CHEK GUIDE TEST STRIPS Strp stripsIndicatio ns:Type 2 diabetes mellitus with diabetic polyneuropathy, without long-term current use of insulin USE TO CHECK GLUCOSE TWICE DAILY 200 strip 3 024 Active Additional Information Patient taking differently: As needed, USE TO CHECK GLUCOSE TWICE DAILY, Reported on 08/08/2025 ACCU-CHEK FASTCLIX LANCET DRUM [facility] USE 1 TO CHECK GLUCOSE TWICE DAILY 204 each 024 Active levETIRAcetam (KEPPRA) 500 MG tabletIndicatio ns:History of seizure Take 1 tablet by mouth twice daily 180 tablet 3 024 Active irbesartan (AVAPRO) 300 MG tabletIndicatio ns:Resistant hypertension Take 1 tablet (300 mg total) by mouth daily. 90 tablet 3 025 Active fluticasone furoate (FLONASE SENSIMIST) 27.5 [...] mouth daily. 30 tablet 1 025 Active Additional Information Patient taking differently:2.5 mg OralEvery other day, Reported on 08/08/2025 pyridoxine HCl, vitamin B6, (VITAMIN B-6 ORAL) Take 1 capsule by mouth daily. Active pioglitazone (ACTOS) 30 MG tabletIndicatio ns:Type 2 diabetes mellitus with diabetic polyneuropathy, without long-term current use of insulin Take 1 tablet by mouth once daily 90 tablet Active zafirlukast (ACCOLATE) 20 MG tablet Take 1 tablet (20 mg total) by mouth 2 (two) times a day. 60 tablet 11 Active pioglitazone (ACTOS) 30 MG tabletIndicatio ns:Type 2 diabetes mellitus with diabetic polyneuropathy, without long-term current use of insulin Take 1 tablet by mouth once daily 90 tablet 025 2024 Discontinued Active Problems Problem Noted Date Diagnosed Date Post laminectomy syndrome 08/03/2024 Overview (08/03/2024): Marifer sim [facility] pain- Dr. Michele Rangel MD last ov 07/06/24 plan repeat SI injection had injection 07/14 Ingrown nail 05/28/2023 IGTN (ingrowing toe nail) 05/15/2022 Assessment & Plan (05/15/2022 4:13 PM EDT): Strongly encouraged patient to f/u with Potable Water Treatment Operator due to current nail and risk of [...] to inquire about SGLT2 inhibitor such as Moyxidiane, Marsha and Trae see if his insurance covers it. If [...] happen assuming his glucose is not too [id number]-nahmocr. He will have to drink proper amounts [...] Return for follow-up in 3 months with . Make any changes at his request and [...] Encounters Date Type Department Care Team Description 08/08/2025 2:15 PM EDT Office Visit [facility] [address], [address] [place] [address] Cuate Ramos MD JOSÉ MIGUEL (obstructive sleep apnea) (Primary Dx); Allergic rhinitis due to pollen, unspecified seasonality 08/01/2025 Refill [facility] [address] [place] [address] Jam Álvarez, DO Medication Refill 07/24/2025 3:30 PM EDT Office Visit [facility] Internal Medicine [address] [place] [address] Kev Miranda MD Benign essential hypertension (Primary Dx); Rash and other nonspecific skin eruption; Chronic bilateral low back pain with bilateral sciatica 07/07/2025 11:30 AM EDT Office Visit [facility] Internal Medicine [address] [place] [address] Kev Miranda MD Benign essential hypertension (Primary Dx); Allergic rhinitis, unspecified seasonality, unspecified trigger; Constipation, unspecified constipation type 06/27/2025 Telephone [facility] Internal Medicine [address] [place] [address] Kev Miranda MD 06/19/2025 Refill [facility] [address] [place] [address] Jam Álvarez, DO Medication Refill 06/14/2025 Telephone [facility] Internal Medicine [address] [place] [address] Kev Miranda MD Constipation 06/11/2025 Refill [facility] Medicine [address] [place] [address] Kev Miranda MD Medication Refill 06/07/2025 4:00 PM EDT Office Visit [facility] Internal Medicine [address] [place] [address] Kev Miranda MD Benign essential hypertension (Primary Dx); Back pain with sciatica; Urinary frequency 05/29/2025 11:30 AM EDT Office Visit [facility] Internal Medicine [address] [place] [address] Kev Miranda MD Benign essential hypertension (Primary Dx); Back pain with sciatica 05/22/2025 3:30 PM EDT Office Visit [facility] Internal Medicine [address] [place] [address] Kev Miranda MD Benign essential hypertension (Primary Dx) from Last 3 Months Immunizations Immunization Administration Dates Next Due COVID-19 (Pre-09/21) Moderna Vaccine, mRNA, PF 03/01/2021,02/01/2021 INFLUENZA, SPLIT VIRUS, TRIV ALENT W/ PRESERVATIVE IM 09/17/2021,11/13/2014,09/06/2013,11/01 Influenza High-Dose Quadriva lent Preservative Free IM 10/06/2022,08/27/2021,09/14/2020 Influenza High-Dose Trivalen t Preservative Free IM 08/23/2024,09/30/2019,09/09/2018,09/11,10/14/2016 Influenza Quadrivalent Adjuv anted Preservative Free IM 09/11/2023 Pneumococcal conjugate PCV13 07/08/2016 Pneumococcal polysaccharide PPSV23 05/26/2019, RSV Vaccine (monovalent, adjuvanted) 08/07/2024 Td (adult) 5 Lf Tetanus Toxo id, PF, Adsorbed 09/11/2017,09/30/2007 Family History Medical History Relation Comments Diabetes Father Heart disease Mother Relation Status Comments Father Mother Social History Tobacco Use Types Packs/Day Years Used Date Smoking Tobacco: Former Cigarettes 1 968 - 1987 Smokeless Tobacco: Never Tobacco Cessation:Counseling Given: Not [...] Pulse 89 08/08/2025 2:14 PM EDT Temperature 36.3 C (97.4 F) 07/24/2025 3:35 PM EDT Respiratory Rate 24 07/24/2025 3:35 PM EDT Oxygen Saturation 97% 08/08/2025 2:14 PM EDT Inhaled Oxygen Concentration - - Weight 134.3 kg (296 lb) 08/08/2025 2:14 PM EDT Height 177.8 cm (5' 10 ) 08/08/2025 2:14 PM EDT Body Mass Index 42.47 08/08/2025 2:14 PM EDT Plan of Treatment Upcoming Encounters Date Type Department Care Team (Late st Contact Info) Description 10/23/2025 2:00 PM EST Office Visit [facility] [address] [place] [address] [place] [address] Jam Álvarez DO [address] [place] [address] 11/27/2025 1:00 PM EST Office Visit [facility] [address] [place] [address] Kev Miranda MD [address] [place] [address] 11/28/2025 2:15 PM EST Office Visit [facility] [address] [facility] 3rd Floor, [address] [place] [address] Cuate Ramos MD [address] [facility], [address] [place] [address] [email or web address] Health Maintenance Due Date Last Done Comments ZOSTER VACCINES (1 of 2) 1998 DIABETIC EYE EXAM 04/26/2025 04/26/2024, , 01/04/2021, Additional history exists INFLUENZA VACCINE (#1) 2025 , 09/11/2023, 10/06/2022, Additional history exists COVID-19 VACCINE ( season) 2025 08/07/2024, 09/11/2023, 03/31/2023, Additional history exists DEPRESSION SCREENING 10/10/2025 10/10/2024 HEMOGLOBIN A1C 10/18/2025 04/17/2025, 08/31, 03/31/2024, Additional history exists BLOOD PRESSURE 02/05/2026 08/08/2025 CREATININE LEVEL 04/10/2026 04/10/2025, , 12/07/2024, Additional history exists POTASSIUM LEVEL 04/10/2026 04/10/2025, 12/01, 12/07/2024, Additional history exists SMOKING Hx and SMOKELESS TOBACCO SCREENING 08/08/2026 08/08/2025 Adult Td,Tdap Booster 09/11/2027 09/11/2017, 007 PNEUMOCOCCAL [...] Procedure Name Priority Date/Time Associated Diagnosis Comments HEMOGLOBIN A1C Routine 04/17/2025 9:58 AM EDT Type 2 diabetes mellitus with diabetic polyneuropathy, without long-term current use of insulin COMPREHENSIVE METABOLIC PANEL Routine 04/10/2025 1:33 PM EDT Chronic cough Benign essential hypertension HM DIABETES EYE EXAM FOR RESULT ENTRY ONLY Routine 04/26/2024 HEPATITIS C ANTIBODY, QUALITATIVE Routine 10/21/2019 8:38 AM EST Need for hepatitis C screening test from Last 3 Months or Most Recently Relevant to Health Maintenance Results * (ABNORMAL) Hemoglobin A1c (04/17/2025 9:58 AM EDT) HEMOGLOBIN A1C 6.5(H) 4.3 - 5.8 % [facility] Blood 04/17/2025 9:58 AM EDT 04/17/2025 10:01 AM EDT us Jam Álvarez DO LAB BLOOD ORDERABLES Final Resul t [facility] [address] [place] [address] * (ABNORMAL) Comprehensive metabolic panel (04/10/2025 1:33 PM EDT) SODIUM 134 133 - 146 mmol/L [facility] POTASSIUM 4.2 3.3 - 5.1 mmol/L [facility] CHLORIDE 100 96 - 108 mmol/L [facility] CO2 26 21 - 35 mmol/L [facility] BUN 21(H) 6 - 19 mg/dL [facility] CREATININE 0.70 0.5 - 1.5 mg/dL [facility] GLUCOSE 154(H) 70 - 99 mg/dL [facility] ALBUMIN 4.0 3.9 - 4.8 g/dL [facility] TOTAL PROTEIN 7.0 6.5 - 8.0 g/dL [facility] CALCIUM 9.3 8.4 - 10.3 mg/dL [facility] ALKALINE PHOSPHATASE 102 39 - 117 U/L [facility] TOTAL BILIRUBIN 0.5 0.0 - 1.2 mg/dL [facility] AST 20 0 - 37 U/L [facility] ALT 13 0 - 40 U/L [facility] GLOBULIN 3.0 1 - 4.8 g/dL [facility] EGFR 95 >59 mL/min/1.7 3m2 [facility] Comment:Estimated glomerular filtration rate calculated using the CKD-EPI refit equation. ANION GAP 12 10 - 20 mmol/L [facility] Blood 04/10/2025 1:33 PM EDT 04/10/2025 1:36 PM EDT Kev Miranda MD LAB BLOOD ORDERABLES Final Re sult Performing Organization Address City/[facility] Co de Phone Number [address] [address] * DIABETES EYE EXAM FOR RESULT ENTRY ONLY (04/26/2024) EYE EXAM no retinopathy Marcela Baxter MD HEALTH MAINTENANCE Final Result * Hepatitis C antibody, qualitative (10/21/2019 8:38 AM EST) HCV NON-REACTIV E NON-REACTI VE [facility] Blood 10/21/2019 8:38 AM EST 10/21/2019 8:41 AM EST Kev Miranda MD LAB BLOOD ORDERABLES Final Re sult Performing Organization Address City/[facility]/ZIP Co de Phone Number [address] [address] from Last 3 Months or Most Recently Relevant to Health Maintenance [place] [address] MEDICARE REPLACEMENT [facility] MEDICARE REPLACEMENT [place] [address] MEDICARE REPLACEMENT MEDICARE REPLACEMENT MEDICARE REPLACEMENT MEDICARE REPLACEMENT MEDICARE REPLACEMENT MEDICARE REPLACEMENT [place] [address] Care Teams Manager Assurance Relationship Specialty Start Date End Date Kev Miranda MD [address] [place] [address] PCP - General 10/29/17 Kev Miranda MD [address] [place] [address] Historical LMR Provider 09/20/17 Additional Source Comments The information contained in this document represents components of the legal health record. It is not the complete legal health record.[facility]
--- OUTSIDE RECORDS SUMMARY | 2025-08-11 17:13 | XMS_ITS | Encounter Summary ---
Author Organization [facility] Address [address] [place] [address] Phone Care Team Providers Care Seed Laboratory Assistant Name Role Phone Kev Miranda MD Primary Care Provider [phone] Encounter Details Date Type Department Care Team (Late st Contact Info) Description 02/01/2025 Documentation Only [facility] [place], [address] [place] [address] Nisha Amor [address] [place] [phone] Social History Tobacco Use Types Packs/Day Years [...] on filedocumented in this encounter Care Teams Seed Laboratory Assistant Relationship Specialty Start Date End Date Kev Miranda MD [address] [place] [address] PCP - General Internal Medicine 01/31/25 documented as of this encounter
--- OUTSIDE RECORDS SUMMARY | 2025-08-11 17:13 | XMS_ITS | Clinical Summary ---
Author Organization [facility] [place], Address [address] [place] [address] [place] [address] Phone Care Team Providers Care Mirror Fabrication Supervisor Name Role Phone Kev Miranda MD Primary Care Provider [phone] Allergies Active Allergy Reactions Criticality Noted Date Comments Atorvastatin Hives Medium 09/25/2021 Carvedilol Other (see comments),Itching,Trav h Low 08/23/2024 Doxazosin Other (see comments) 03/16/2025 dyspnea Hydrochlorothiazide Other (see comments) 2023 Increased urination 5 x at night Lisinopril Other (see comments) 02/09/2025 Metformin Hives,Other (see comments) 03/12/2018 Nifedipine Other (see comments) 10/17/2024 Olmesartan Other (see comments) Low 12/17/2023 Spironolactone Itching,Other (see comments) 01/03/2025 Medications acetaminophen (TYLENOL) 500 MG tablet Take 1,000 mg by mouth 1 (one) time each day in the morning Active Chlorphen-Phenyle ph-ASA (Elizabeth-[place] Severe Cold) 2-7.8-325 MG effervescent tablet Take [...] mouth 1 (one) time each day Active [place]-3 Fatty Acids (OMEGA 3 PO) Take 1,000 [...] Date Chronic kidney disease, stage 2 (mild) 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/01/2025): with diabetic polyneuropathy Nocturia Impaired fasting glucose Essential hypertension Hyperlipidemia Immunizations Immunization Administration Dates Next Due Influenza [...] Exam 01/31/2025 Diabetes: Visual Foot Exam 01/31/2025 Influenza Vaccine (#1) 2025 4, 09/11/2023, 09/30/2019, Additional history exists Pneumococcal Vaccine: 50+ Years Completed 05/26/2019, 07/08/2016, 11/01/2012 Hepatitis B Vaccine Aged Out No longe r eligible based on patient's age to complete this topic Insurance [facility] Medicare Care Teams Mirror Fabrication Supervisor Relationship Specialty Start Date End Date Kev Miranda MD [address] [place] [address] PCP - General Internal Medicine 01/31/25
--- OUTSIDE RECORDS SUMMARY | 2025-08-11 17:13 | XMS_ITS | Encounter Summary ---
Author Organization [facility] Address [address] [place] [address] Phone Care Team Providers Care Stock Patch Sawyer Name Role Phone Kev Miranda MD Primary Care Provider [phone] Encounter Details Date Type Department Care Team (Late st Contact Info) Description 02/01/2025 Documentation Only [facility] [place], [address] [place] [address] Nisha Amor [address] [place] [phone] Social History Tobacco Use Types Packs/Day Years [...] filedocumented in this encounter Care Teams Stock Patch Sawyer Relationship Specialty Start Date End Date Kev Miranda MD [address] [place] [address] PCP - General Internal Medicine 01/31/25 documented as of this encounter
--- OUTSIDE RECORDS SUMMARY | 2025-08-11 17:13 | XMS_ITS | Encounter Summary ---
Author Organization [facility] Address [address] [place] [address] Phone Care Team Providers Care Defence Force Member Other Ranks Name Role Phone Kev Miranda MD Primary Care Provider [phone] Encounter Details Date Type Department Care Team (Late st Contact Info) Description 02/01/2025 Documentation Only [facility] [place], [address] [place] [address] Nisha Amor [address] [place] [phone] Social History Tobacco Use Types Packs/Day Years [...] on filedocumented in this encounter Care Teams Defence [employer] Member Other Ranks Relationship Specialty Start Date End Date Kev Miranda MD [address] [place] [address] PCP - General Internal Medicine 01/31/25 documented as of this encounter
--- OUTSIDE RECORDS SUMMARY | 2025-08-11 17:13 | XMS_ITS | Patient Health Record ---
Author Organization [facility] Address [address] [place] [address] Care Team Providers Care Tray Worker Name Role Phone Kev Miranda MD Primary Care Provider Denny Gao Unavailable [phone] Allergies No Known Allergies Reason For Referral No Information Medications Medication SIG (Take, Route, Frequency, Duration) Notes Start Date End Date Status Pioglitazone HCl 30 MG Oral; Duration: 9 0 Days Active Irbesartan 300 MG TAKE 1 TABLET BY MOUTH ONCE DAILY Oral; Duration: 90 Days Active Rosuvastatin Calcium 5 MG Oral; Duration : 90 Days Active Glimepiride 4 MG TAKE 1 & 1/2 (ONE & ONE-HALF) TABLETS BY MOUTH ONCE DAILY BEFORE BREAKFAST AND 1/2 (ONE-HALF) WITH EVENING MEAL Oral; Duration: 90 Days Active Potassium Chloride ER 10 MEQ Oral; Durat ion: 90 Days Active hydroCHLOROthiazide 25 MG Oral; Duration : 90 Days Active levETIRAcetam 500 MG Oral; Duration: 90 Days Active Olmesartan Medoxomil 40 MG TAKE 1 TABLET BY MOUTH ONCE DAILY Oral; Duration: 90 Days Active Doxycycline Monohydrate 100 MG 1 capsule Orally Once a day; Duration: 10 days 04/20/2024 Active Social History Tobacco [...] Problem Acquired hammer toe of right foot (4544543515106090 ) Other hammer toe(s) (acquired), right foot (M20.41) Active confirmed Problem Acquired hammer toe of left foot ([id number] ) Other hammer toe(s) (acquired), left foot (M20.42) Active confirmed Problem Polyneuropathy due to type 2 diabetes mellitus (795426969) Type 2 diabetes mellitus with diabetic polyneuropathy (E11.42) Active confirmed Plan Of Treatment No Information Insurance Providers Payer Name Payer Address Payer Phone Subscriber Number Group Number Insured Name Patient Relationship to Insured Coverage Start Date Coverage End Date [employer] Medicare [id number] [address] [address] [place] [address] [phone] [id number] Aden Smith Self - patient is the insured Medical (General) History Medical History History ICD Code Diabetic High blood pressure Sciatica Surgical History Surgery Date(Month/Year) spinal stenosis surgery 01/02/2023
--- OUTSIDE RECORDS SUMMARY | 2025-08-11 17:13 | XMS_ITS | Encounter Summary ---
Author Organization [facility] Address [address] [place] [address] Phone Care Team Providers Care Speed Reading Teacher Name Role Phone Kev Miranda MD Primary Care Provider [phone] Encounter Details Date Type Department Care Team (Late st Contact Info) Description 02/01/2025 Documentation Only [facility], [address] [place] [address] Nisha Amor [address] [place] [id number] Social History Tobacco Use Types Packs/Day Years [...] on filedocumented in this encounter Care Teams Speed Reading Teacher Relationship Specialty Start Date End Date Kev Miranda MD [address] [place] [address] PCP - General Internal Medicine 01/31/25 documented as of this encounter
== END 2025-08-11 15:23 | disposition home or self-care (01) ==
LOC: HO.HNS 14:16
PROVIDERS: PCP Internal Medicine; Visit Provider Neurological Surgery
DX: M96.1 Postlaminectomy syndrome, not elsewhere classified (principal)
CPT/HCPCS: 99214

== ENCOUNTER → 2025-08-11 14:16 | Outpatient (BNVA) | payer MEDICARE, SELFPAY | PROVIDERS: PCP Internal Medicine; Visit Provider Neurological Surgery | DX: M96.1 Postlaminectomy syndrome, not elsewhere classified (principal) | CPT/HCPCS: 99212 ==

== ENCOUNTER 2025-08-23 10:55 | Day surgery (SDC) | payer MEDICARE, SELFPAY ==
[2025-08-21 11:14] VITALS: BMI 40.3
--- NOTE | 2025-08-21 14:49 | HO.ANESPROP2 ---
Documented by User: Mavis Garcia NP 08/21/25 14:49 HPI - Anesthesia Eval Consult details Narrative: 74yo M for Spinal Cord Stimulation Trial s/p periph stim trial 02/2025 with [facility] Active Problems Active Problems: All Active Problems Lumbar radicular pain (Acute) Lower urinary tract symptoms (LUTS) (Acute) Sacroiliac joint pain (Acute) Post laminectomy syndrome (Acute) Intractable back pain (Acute) Lumbar spondylosis (Acute) Lumbar radiculopathy (Acute) Spinal stenosis, lumbar region with neurogenic claudication (Acute) Sacroiliac joint dysfunction of right side (Acute) Cluneal neuropathy (Acute) Seizure disorder (Acute) Hypertension (Acute) Type 2 diabetes mellitus (Acute) Past Medical History Medical History OUMOU (obstructive sleep apnea) Back pain HLD (hyperlipidemia) Nausea Hx of spinal stenosis Cluneal neuropathy Seizure disorder Hypertension Type 2 diabetes mellitus Family History Family history of problems with anesthesia: No Surgical History Surgical History Hx of spinal surgery (12/2022) Hx of hernia repair (~2010) History of Problems with Anesthesia: No Social History Social History Are you a primary patient centered care specialist to a significant other at home: No Do you presently have visiting nurse or other home services: No Patient Tobacco Use Status: Former Tobacco user Tobacco use type: Cigarette Advance Directives: No Advance Directives Information Provided: Yes Meds Allergies Allergy/AdvReac Type Severity Reaction Status Date / Time metoprolol AdvReac Severe Fatigued Verified 08/11/25 14:23 carvedilol AdvReac Headache, Verified 08/11/25 14:23 Gastrointestinal Upset spironolactone AdvReac headache, Verified 08/11/25 14:23 Gastrointestinal Upset Home Medications ?Medication ?Instructions ?Recorded ?Confirmed ?Last Taken ?Type glimepiride 4 mg tablet 4 mg PO DAILY 05/12/22 07/17/25 10/14/23 History irbesartan 300 mg tablet 300 mg PO DAILY 05/12/22 07/17/25 10/14/23 History levetiracetam 500 mg tablet 500 mg PO BID 05/12/22 07/17/25 03/01/25 History rosuvastatin 5 mg tablet 5 mg PO DAILY 05/12/22 07/17/25 10/14/23 History pioglitazone 30 mg tablet 30 mg PO DAILY 01/07/24 07/17/25 Unknown History ibuprofen 600 mg tablet 600 mg PO DAILY PRN Pain 02/27/25 07/17/25 Unknown History amlodipine 2.5 mg tablet 2.5 mg PO DAILY 07/17/25 07/17/25 Unknown History Exam Height,Weight and Vital Signs: Height 5 ft 11 in Weight 131.088 kg Assessment and Plan Assessment Anesthesia Assessment: Chart Reviewed Final Anesthetic Review Family History of Problems with Anesthesia: No History of Problems with Anesthesia: No Documented by User: Adrianna Pro MD 08/23/25 11:09 [facility] Past Medical History Medical History OUMOU (obstructive sleep apnea) Back pain HLD (hyperlipidemia) Nausea Hx of spinal stenosis Cluneal neuropathy Seizure disorder Hypertension Type 2 diabetes mellitus Surgical History Surgical History Hx of spinal surgery (12/2022) Hx of hernia repair (~2010) Social History Social History Are you a primary patient centered care specialist to a significant other at home: No Do you presently have visiting nurse or other home services: No Patient Tobacco Use Status: Former Tobacco user Tobacco use type: Cigarette Advance Directives: No Advance Directives Information Provided: Yes Meds Allergies Allergy/AdvReac Type Severity Reaction Status Date / Time metoprolol AdvReac Severe Fatigued Verified 08/11/25 14:23 carvedilol AdvReac Headache, Verified 08/11/25 14:23 Gastrointestinal Upset spironolactone AdvReac headache, Verified 08/11/25 14:23 Gastrointestinal Upset Home Medications ?Medication ?Instructions ?Recorded ?Confirmed ?Last Taken ?Type glimepiride 4 mg tablet 4 mg PO DAILY 05/12/22 07/17/25 10/14/23 History irbesartan 300 mg tablet 300 mg PO DAILY 05/12/22 07/17/25 10/14/23 History levetiracetam 500 mg tablet 500 mg PO BID 05/12/22 07/17/25 03/01/25 History rosuvastatin 5 mg tablet 5 mg PO DAILY 05/12/22 07/17/25 10/14/23 History pioglitazone 30 mg tablet 30 mg PO DAILY 01/07/24 07/17/25 Unknown History ibuprofen 600 mg tablet 600 mg PO DAILY PRN Pain 02/27/25 07/17/25 Unknown History amlodipine 2.5 mg tablet 2.5 mg PO DAILY 07/17/25 07/17/25 Unknown History Exam Airway Mallampati Class: III TM Dist: >3cm Neck ROM: Limited Heart: rrr Lungs: cta Assessment and Plan Assessment Anesthesia Assessment: Anesthesia Plan Discussed Final Anesthetic Review NPO: Yes ASA Class: III Final Preanesthetic Review: No Changes in Pt Med Stat, Meds/Allgs Chart Reviewed, Consent Obtained/Reviewed and Anes Risks/Benef Reviewed Patient Risk: Intermediate Procedure Risk: Low Anesthetic Plan Anesthetic Plan: MAC: (high risk due to morbid obesity, oumou) and Agree w/ Assess. and Plan Disposition: Standard PACU
--- OUTSIDE RECORDS SUMMARY | 2025-08-21 17:00 | XMS_ITS | Encounter Summary ---
Demographics Address [address] [place], [place] [id number] Home Phone Email Address [email or web address]
--- OUTSIDE RECORDS SUMMARY | 2025-08-21 17:01 | XMS_ITS ---
Encounter Summary Created on: August 21, 2025
--- NOTE | ~2025-08-23 | FL_ITS ---
EXAMINATION: FLUOROSCOPY GUIDANCE FOR NEEDLE PLACEMENT CLINICAL INFORMATION: SPINAL CORD STIM TRIAL COMPARISON: None available. TECHNIQUE: 3 digital images obtained. FINDINGS: There are 2 stimulator electrodes visualized overlying the midline spine in mid to lower thoracic spine. FLUOROSCOPY TIME: 2 minutes 52 seconds. DOSE AREA PRODUCT: 1698 uGy-m2 (microgray-meter squared) FL/FL guidance in OR IMPRESSION: Fluoroscopy guidance was provided to referring physician for placement of stimulator electrodes in mid to lower dorsal spine. Electronically signed by: Daquan Stevens MD 08/24/2025 07:36 AM EDT
[2025-08-23 11:12] VITALS: BP 157/77; PULSE 90; RESP 14; TEMP 36.8; O2SAT 95; BMI 40.6
[2025-08-23] MEDS: Lactated Ringers 1,000 ML 100 ML IVCONT (11:32)
[2025-08-23 11:45] LABS: Glucose, Whole Blood 128 mg/dL (60-115)
--- NOTE | 2025-08-23 12:23 | MHC.SHP ---
Pre-Procedural Eval Section A - 24 Hr Update-Section A only Date of Service: 08/23/25 The patient is an INPATIENT: No Changes since office visit: Yes Cold of Flu in the past 2 weeks and Yes Patient answered all questions The patient has been examined within 24 hours of the surgical procedure. The History & Physical has been completed within 30 days and I have reviewed it.: No Section B - Complete if H&P > 30 days Chief Complaint: Postlaminectomy syndrome, not elsewhere classified Relevant Family History (Specify if Yes): No Relevant Social History: None Present Medications: see Short Stay Collaborative assessment Medical History: No relevant PMH History of Previous Operations: No relevant previous surgery Allergies: Allergies Allergy/AdvReac Type Severity Reaction Status Date / Time metoprolol AdvReac Severe Fatigued Verified 08/11/25 14:23 carvedilol AdvReac Headache, Verified 08/11/25 14:23 Gastrointestinal Upset spironolactone AdvReac headache, Verified 08/11/25 14:23 Gastrointestinal Upset Review of Systems Sugical H&P ROS: Negative: Constitution, Cardiovascular and Respiratory Exam Surgical H&P Exam: Normal: HEENT, Normal: Heart and Normal: Lungs Plan Diagnosis/Plan: Unchanged I have reviewed the history and physical and performed a pertinent physical examination on my patient. No changes have occurred unless specified. Time Spent With Patient Time: Total time managing care of this patient today ____ minutes.
[2025-08-23 12:29] LABS: MRSA Nasal PCR NEGATIVE (Negative); SA Nasal PCR POSITIVE (Negative)
[2025-08-23 13:30] VITALS: BP 141/70; PULSE 90; RESP 12; TEMP 36.1; O2SAT 94
--- NOTE | 2025-08-23 13:42 | PM.OP ---
Brief Operative Note Date of Service: 08/23/25 Pre-op diagnosis: Post-laminectomy syndrome Post-op diagnosis: same Procedure: Lumbar spinal cord stimulation trial Implants: Nevro trial leads Surgeon: Michele Rangel MD Anesthesia: MAC Was an Flake Or Shred Roll Operator used for this Procedure?: No Estimated blood loss (mL): 3 Pathology: none sent Condition: stable Disposition: PACU
--- NOTE | 2025-08-23 13:43 | W.PM.OPN ---
Operative Note Operative Note Date of Service: 08/23/25 Narrative: Preprocedure Diagnosis: Post-laminectomy Syndrome Postprocedure Diagnosis: Same Percutaneous Spinal Cord Stimulator Trial, Lumbar After obtaining written consent, pre-procedure blood pressure and heart rate were recorded and are in the nursing record for review. A peripheral IV was started. Antibiotics, cefazolin 3 gram, were given intraoperatively. The patient was placed in a prone position.? The patient was sedated by the anesthesiologist. The thoracolumbar area was widely prepped with ChloraPrep, allowed to dry and draped in sterile fashion. Fluoroscopy was used to identify the target interlaminar spaces and appropriate needle insertion sites. The skin and subcutaneous tissue was anesthetized with 0.5% lidocaine. Two separate 14 gauge Epimed epidural needles were then advanced from this point in a paramedian approach to the epidural space opening at T12/L1 interspace, where loss of resistance was found using air. No paresthesias were elicited with needle placement. No CSF or heme was present upon needle placement. A guide wire was then used to confirm placement into the epidural space at each level under live fluoroscopy. The 1x8 stimulator lead wire was then threaded to the top of T8 in the right parasagittal position and mid T8 in the left parasagittal position under live fluoroscopy. The leads advanced midline.?The needles were then completely removed under live fluoroscopy. The stimulator wires were then secured with steristrips, gauze and tegaderm for skin dressing. The patient tolerated the procedure well and no complications were encountered. Following the procedure the patient's vital signs were stable. The patient was discharged home in good condition after being given discharge instructions. Time Out: Immediately prior to the procedure, the following was verbally confirmed that there is a signed consent form and that the correct patient, planned procedure, site and side are consistent with documentation and that necessary equipment and/or blood products are available prior to the start of the case. Complications: none EBL: <2 cc
[2025-08-23 13:45] VITALS: BP 132/74; PULSE 84; RESP 12; O2SAT 94
[2025-08-23 14:00] VITALS: BP 134/74; PULSE 82; RESP 12; O2SAT 94
== END 2025-08-23 14:40 | disposition home or self-care (01) ==
PROVIDERS: Registered Nurse Emergency; PCP Internal Medicine; Visit Provider Internal Medicine
PROC: (CPT 63650; principal; 2025-08-23 12:20)
DX: M96.1 Postlaminectomy syndrome, not elsewhere classified (principal); G40.909 Epilepsy, unspecified, not intractable, without status epilepticus; G47.33 Obstructive sleep apnea (adult) (pediatric); G52.9 Cranial nerve disorder, unspecified; I10 Essential (primary) hypertension; E11.9 Type 2 diabetes mellitus without complications; E78.5 Hyperlipidemia, unspecified; M54.9 Dorsalgia, unspecified; Z79.84 Long term (current) use of oral hypoglycemic drugs; Z79.1 Long term (current) use of non-steroidal anti-inflammatories (NSAID); Z79.899 Other long term (current) drug therapy; Z88.8 Allergy status to other drugs, medicaments and biological substances; Z98.890 Other specified postprocedural states; Z87.891 Personal history of nicotine dependence
CPT/HCPCS: 63650 ×2; 82947; 87640; 87641; C1897; J0690; J2003; J2250; J3010

== ENCOUNTER → 2025-08-23 10:55 | Outpatient (BNV) | payer MEDICARE, SELFPAY | PROVIDERS: PCP Internal Medicine; Visit Provider Internal Medicine | DX: M96.1 Postlaminectomy syndrome, not elsewhere classified (principal) | CPT/HCPCS: 63650 ==

== ENCOUNTER 2025-08-30 09:53 | Outpatient (AMB) | payer MEDICARE, SELFPAY ==
--- OUTSIDE RECORDS SUMMARY | 2024-05-02 06:15 | XMS_ITS ---
Author Organization [facility] Naila Blackwell Address [address] [place] [address] Care Team Providers Care Section Supervisor Name Role Phone Kev Miranda MD Primary Care Provider Denny Gao [phone] Encounters Encounter Location Date Provider Diagnosis [facility] [address] [place] [address] 05/02/2024 Denny Downing Plan Of Treatment No Information Progress Notes * Aden FELIZ FDOB:[birth year] (74 yo M)Acc No.[id number]:05/02/2024 Progress Notes Patient: Aden ARCHER Provider: Adry Downing DPM :1950 A ge:73 Y S ex:Male Date:05/02/2024 Address:[address] [place], [place] [address] Pcp:Kev Miranda MD Subjective: * Chief Complaints: * * HPI: A t Risk footcare: Pt States Last PCP Visit: D ate 1 01/02/2023 S kin problems: Nature: t jose, throbbing, swelling, redness. Location: [address] Duration: a month. Onset/Cause: u nknown. [...] DPM Date: 0 05/02/2024 Generated for Audrey houston/Julai/Manpreet on: 1 10:54 AM EDT History and Physical Notes * HPI (History of Present Illness) Category Sub-Category Detail Notes Category Not es Skin problems Nature: tender, throbbing, swelling , redness Location: Left , 1st Duration: a month Onset/Cause: unknown Course: worse Aggravated by: any pressure, jonny houston Severity/Quality: moderate At Risk footcare Pt States Last PCP Visit: Date: 3
--- NOTE | 2025-08-30 09:54 | A.OFFVIS_ITS ---
Vital Signs 08/30/25 09:55 Height 6 ft Weight 295 lb BMI 40.0 BP 160/88 H Blood Pressure Location Lt brachial Position Sitting Respiration 18 Pulse 103 H Pulse Source Pulse Oximeter Pulse Oximetry (%) 93 Oxygen Delivery Method Room Air Intake Visit Reasons: S/p Nevro SCS Trial 08/23/25 Financial Planning Consultant Required: No Allergies metoprolol Adverse Reaction (Severe, Verified 09/01/25 10:50) Fatigued carvedilol Adverse Reaction (Verified 09/01/25 10:50) Headache, Gastrointestinal Upset spironolactone Adverse Reaction (Verified 09/01/25 10:50) headache, Gastrointestinal Upset Medication List - Last Reconciled 08/30/25 by Concepcion Lewis LPN amlodipine 2.5 mg PO DAILY gabapentin 300 mg PO BID glimepiride 4 mg PO DAILY ibuprofen 600 mg PO DAILY PRN irbesartan 300 mg PO DAILY levetiracetam 500 mg PO BID pioglitazone 30 mg PO DAILY rosuvastatin 5 mg PO DAILY HPI HPI S/p Nevro SCS Trial 08/23/25: Details: History of Present Illness The patient is a 74-year-old male presenting for follow-up regarding his ongoing lumbar spinal cord stimulation trial. Initially, the patient did not experience significant relief from high frequency stimulation during the first five days of the trial. The stimulation was switched to a low frequency HD, paresthesia, and non-paresthesia program from [employer], which provided noticeable improvement within hours. The patient reports that the new program has yet achieved a 20% improvement, but he is hopeful as it has been less than 24 hours since the change. He was left with four programs and is currently using program 3, which is a 'No Feel' program. The patient has a history of spinal stenosis, which contributes to his pain. The pain is multifaceted, with scar tissue from previous surgeries being a contributing factor. Pain Description - Onset: Pain is longstanding, associated with spinal stenosis and scar tissue from previous surgeries. - Quality: Multifaceted pain, not fully relieved by initial high frequency stimulation. - Location: Primarily in the lumbar region, with sensations noted in various areas during stimulation adjustments. - Exacerbating factors: Inadequate placement of spinal cord stimulator leads. - Relieving factors: Switching to low frequency NHD program provided some improvement. Physical Exam - Lumbar Region: Examination of sensation and placement of spinal cord stimulator leads. Results Pain Management - Affect: Patient is hopeful for improvement with the new stimulation program. - Analgesia: Currently using a low frequency NHD program, with some improvement noted. - Adverse Effects: None reported from the current program. - Activities of Daily Living: Pain has impacted sleep, requiring the patient to sleep in a recliner. - Aberrant Drug Related Behaviors: None reported. [facility] Medical History JOSÉ MIGUEL (obstructive sleep apnea) Back pain HLD (hyperlipidemia) Nausea Hx of spinal stenosis Cluneal neuropathy Seizure disorder Hypertension Type 2 diabetes mellitus Surgical History Hx of spinal surgery (12/2022) Hx of hernia repair (~2010) Social History Are you a primary patient centered care specialist to a significant other at home: No Do you presently have visiting nurse or other home services: No Patient Tobacco Use Status: Former Tobacco user Tobacco use type: Cigarette Physical Exam Vital Signs: Last Vital Signs Pulse 103 H 08/30/25 09:55 Resp 18 08/30/25 09:55 BP 160/88 H 08/30/25 09:55 Pulse Ox 93 08/30/25 09:55 Oxygen Delivery Method Room Air 08/30/25 09:55 BMI result Body Mass Index 40.0 Assessment & Plan Assessment & Plan (1) Post laminectomy syndrome: Code(s): M96.1 - Postlaminectomy syndrome, not elsewhere classified Category: Medical Plan Plan Patient was informed and verbally consented to the use of an ambient scribe for clinic note documentation during this visit. 1. Lumbar Spinal Cord Stimulation Trial - Continue with the current low frequency program and monitor for improvement over the next 24 to 48 hours. - Re-evaluate the placement of the spinal cord stimulator leads for optimal results. - Follow-up appointment scheduled for Thursday to assess progress and make necessary adjustments. 2. Spinal Stenosis - Continue monitoring pain levels and effectiveness of the spinal cord stimulation. - Consider further interventions if current management does not provide adequate relief. Discussion Notes I discussed with the patient the current status of his lumbar spinal cord stimulation trial and the switch to a low frequency NHD program. We reviewed the potential for improvement over the next 24 to 48 hours and the importance of optimal lead placement for the [employer] system. I advised a follow-up appointment on Thursday to assess progress and make necessary adjustments. The patient was informed about the possibility of cumulative effects with continued use of the current program. Patient Instructions - Continue using the current low frequency NHD program and monitor for any changes in pain relief. - Attend the follow-up appointment on Thursday to evaluate progress and make any necessary adjustments. - Report any significant changes in pain or sensation to the office immediately. Medications: New cephalexin 750 mg PO TID 10 caps 0RF Coding Level of Care Code Est Pt Level 3 (29761) Diagnoses Post laminectomy syndrome M96.1
[2025-08-30 09:55] VITALS: BP 160/88; PULSE 103; RESP 18; O2SAT 93; BMI 40.0
--- OUTSIDE RECORDS SUMMARY | 2025-08-30 10:54 | XMS_ITS | Clinical Summary ---
Author Organization [facility] Address [address] [facility] [address] [place] [address] Phone Care Team Providers Care Medical Lab Specialist Name Role Phone Kev Miranda MD Unavailable [phone] Kev Miranda MD Primary Care Provider [phone] Allergies Active Allergy Reactions Criticality Noted Date [...] GUIDE ME GLUCOSE MTR Misc meter by Ujogoaneous route as needed. 1 each 021 Active [...] Reported on 08/08/2025 ACCU-CHEK FASTCLIX LANCET DRUM [facility] USE 1 TO CHECK GLUCOSE TWICE DAILY [...] laminectomy syndrome 08/03/2024 Overview (08/03/2024): Marifer sim [facility] pain- Dr. Michele Rangel MD last ov 07/06/24 plan repeat SI injection had injection 07/14 Ingrown nail 05/28/2023 IGTN (ingrowing toe nail) 05/15/2022 Assessment & Plan (05/15/2022 4:13 PM EDT): Strongly encouraged patient to f/u with Training Administrator due to current nail and risk of [...] to inquire about SGLT2 inhibitor such as Moyxiidane, Marsha and Trae see if his insurance [...] happen assuming his glucose is not too mbw-qg-ttfssme. He will have to drink proper amounts [...] Encounters Date Type Department Care Team Description 08/24/2025 [facility] [address] [place] [address] Marcela Baxter MD 08/08/2025 2:15 PM EDT Office Visit [facility] [address] 3rd Floor, [address] [place] [address] Cuate Ramos MD JOSÉ MIGUEL (obstructive sleep apnea) (Primary Dx); Allergic rhinitis due to pollen, unspecified seasonality 08/01/2025 Refill [facility] [address] [place] [address] Jam Álvarez DO Medication Refill 07/24/2025 3:30 PM EDT Office Visit [facility] Internal Medicine [address] [place] [address] Kev Miranda MD Benign essential hypertension (Primary Dx); Rash and other nonspecific skin eruption; Chronic bilateral low back pain with bilateral sciatica 07/07/2025 11:30 AM EDT Office Visit [facility] Internal Medicine [address] [place] [address] Kev Miranda MD Benign essential hypertension (Primary Dx); Allergic rhinitis, unspecified seasonality, unspecified trigger; Constipation, unspecified constipation type 06/27/2025 Telephone [facility] Internal Medicine [address] [place] [address] Kev Miranda MD 06/19/2025 Refill [facility] [address] [place] [address] Jam Álvarez DO Medication Refill 06/14/2025 Telephone [facility] Internal Medicine [address] [place] [address] Kev Miranda MD Constipation 06/11/2025 Refill [facility] Internal Medicine [address] [place] [address] Kev Miranda MD Medication Refill 06/07/2025 4:00 PM EDT Office Visit [facility] Internal Medicine [address] [place] [address] Kev Miranda MD Benign essential hypertension (Primary Dx); Back pain with sciatica; Urinary frequency from Last 3 Months Immunizations Immunization Administration [...] Used Date Smoking Tobacco: Former Cigarettes 1 1986 Smokeless Tobacco: Never Tobacco Cessation:Counseling Given: [...] 2:00 PM EST Office Visit [facility] [address] [place] [address] Jam Álvarez DO [address] [place] [address] 11/27/2025 1:00 PM EST Office Visit [facility] Internal Medicine [address] [place] [address] Kev Miranda MD [address] [place] [address] 11/28/2025 2:15 PM EST Office Visit [facility] [address] [place] [address] 3rd Floor, [address] [place], [place] [id number] Cuate Ramos MD [address] [facility], [address] [place] [address] [email or web address] Health Maintenance Due Date Last Done Comments [...] Procedure Name Priority Date/Time Associated Diagnosis Comments OUTSIDE IMAGING Routine 08/23/2025 12:08 PM EDT HEMOGLOBIN A1C Routine 04/17/2025 9:58 AM EDT [...] Recently Relevant to Health Maintenance Results * Outside Imaging Report Only (08/23/2025 12:08 PM EDT) Historical Provider IMG XR CHEST Final Res ult * (ABNORMAL) Hemoglobin A1c (04/17/2025 9:58 AM EDT) HEMOGLOBIN A1C 6.5(H) 4.3 - 5.8 % [facility] Blood 04/17/2025 9:58 AM EDT 04/17/2025 10:01 AM EDT Jam Álvarez DO LAB BLOOD ORDERABLES Final Resul t [facility] [address] [place] [address] * (ABNORMAL) Comprehensive metabolic panel (04/10/2025 1:33 PM EDT) SODIUM 134 133 - 146 mmol/L [facility] POTASSIUM 4.2 3.3 - 5.1 mmol/L [facility] CHLORIDE 100 96 - 108 mmol/L [facility] CO2 26 21 - 35 mmol/L [facility] BUN 21(H) 6 - 19 mg/dL [facility] CREATININE 0.70 0.5 - 1.5 mg/dL [facility] GLUCOSE 154(H) 70 - 99 mg/dL [facility] ALBUMIN 4.0 3.9 - 4.8 g/dL [facility] TOTAL PROTEIN 7.0 6.5 - 8.0 g/dL [facility] CALCIUM 9.3 8.4 - 10.3 mg/dL [facility] ALKALINE PHOSPHATASE 102 39 - 117 U/L [facility] TOTAL BILIRUBIN 0.5 0.0 - 1.2 mg/dL [facility] AST 20 0 - 37 U/L [facility] ALT 13 0 - 40 U/L [facility] GLOBULIN 3.0 1 - 4.8 g/dL [facility] EGFR 95 >59 mL/min/1.7 3m2 [facility] Comment:Estimated glomerular filtration rate calculated using the CKD-EPI refit equation. ANION GAP 12 10 - 20 mmol/L [facility] Blood 04/10/2025 1:33 PM EDT 04/10/2025 1:36 PM EDT Kev Miranda MD LAB BLOOD ORDERABLES Final Re sult Performing Organization Address City/[facility]/ZIP Co de Phone Number [address] [address] * DIABETES EYE EXAM FOR RESULT ENTRY ONLY (04/26/2024) EYE EXAM no retinopathy Marcela Baxter MD HEALTH MAINTENANCE Final Result * Hepatitis C antibody, qualitative (10/21/2019 8:38 AM EST) HCV NON-REACTIV E NON-REACTI VE [facility] Blood 10/21/2019 8:38 AM EST 10/21/2019 8:41 AM EST us Kev Miranda MD LAB BLOOD ORDERABLES Final Re sult Performing Organization Address City/[facility]/ZIP Co de Phone Number [address] [address] from Last 3 Months or Most Recently Relevant to Health Maintenance Insurance MEDICARE REPLACEMENT MEDICARE REPLACEMENT MEDICARE REPLACEMENT MEDICARE REPLACEMENT MEDICARE [place] [place] [address] MEDICARE REPLACEMENT MEDICARE REPLACEMENT MEDICARE REPLACEMENT MEDICARE REPLACEMENT Care Teams Medical Lab Specialist Relationship Specialty Start Date End Date Kev Miranda MD [address] [place] [address] [email or web address] PCP - General 10/29/17 Kev Miranda MD [address] [place] [address] [email or web address] Historical LMR Provider 09/20/17 Additional Source Comments The information contained in this document represents components of the legal health record. It is not the complete legal health record.[facility]
--- OUTSIDE RECORDS SUMMARY | 2025-08-30 10:54 | XMS_ITS | Clinical Summary ---
Author Organization [facility] Address [address] [place] [address] Care Team Providers Care Newsagent Name Role Phone Unavailable Primary Care Provider [...] 75+ series) 2023 COVID-19 Vaccine (3 - 2024-2 6 season) 2025 03/01/2021, 02/01/2021 Hepatitis B Vaccines Aged Out No long er eligible based on patient's age to complete this topic
--- OUTSIDE RECORDS SUMMARY | 2025-08-30 10:54 | XMS_ITS | Encounter Summary ---
Author Organization [facility] Address [address] [facility] [address] [place] [address] Phone Care Team Providers Care Science Instructor Name Role Phone Kev Miranda MD Unavailable [phone] Zainab Bardales POT RUNNER Unavailable Dorina Patel POT RUNNER Unavailable [phone] Dwayne Candelaria MD Unavailable [phone] Kev Miranda MD Primary Care Provider Kev Miranda MD Unavailable Encounter Details Date Type Department Care Team (Late st Contact Info) Description 04/03/2021 Procedure Pass [address] [place] [address] Social History Tobacco Use Types Packs/Day Years [...] 2:00 PM EST Office Visit [facility] [place] [address] Jam Álvarez DO [address] [place] [address] 11/27/2025 1:00 PM EST Office Visit [facility] [address] [place] [address] Kve Miranda MD [address] [place] [address] 11/28/2025 2:15 PM EST Office Visit [facility] [address] [facility] 3rd Floor, [address] [place] [address] Cuate Ramos MD [address] [address] documented as of this encounter Visit Diagnoses Not on filedocumented in this encounter Additional Health Concerns Assessment Noted Time PHQ-2 Depression Total Score: 0 02/23/20 21 12:57 PM EDT documented as of this encounter Care Teams Science Instructor Relationship Specialty Start Date End Date Kev Miranda MD [address] [place] [address] PCP - General 10/29/17 Kev Miranda MD [address] [place] [address] Historical LMR Provider 09/20/17 Zainab Bardales NP [address] [place] [address] Historical LMR Provider 09/20/17 2 Dorina Patel NP [address] [place] [address] [address] [place] [address] [email or web address] Historical LMR Provider 09/20/17 12/07/21 Dwayne Candelaria MD [address] [place] [address] Historical LMR Provider 09/20/17 2 Kev Miranda MD [address] [place] [address] [email or web address] Insurance Assigned Provider 02/27/1808/10 documented as of this encounter Additional Source Comments The information contained in this document represents components of the legal health record. It is not the complete legal health record.[facility]
--- OUTSIDE RECORDS SUMMARY | 2025-08-30 10:55 | XMS_ITS | Encounter Summary ---
Author Organization [facility] Address [address] [place] [address] Phone Care Team Providers Care Solid Waste Truck Driver Name Role Phone Kev Miranda MD Primary Care Provider [phone] Encounter Details Date Type Department Care Team (Late st Contact Info) Description 01/31/2025 Documentation Only [facility] [place], [address] [place] [address] [place], [place] [address] [place] [phone] Social History Tobacco Use Types Packs/Day Years [...] on filedocumented in this encounter Care Teams Solid Waste Truck Driver Relationship Specialty Start Date End Date Kev Miranda MD [address] [place] [address] PCP - General Internal Medicine 01/31/25 documented as of this encounter
--- OUTSIDE RECORDS SUMMARY | 2025-08-30 10:55 | XMS_ITS | Encounter Summary ---
Author Organization [facility] Address [address] [place] [address] Phone Care Team Providers Care Computer Support Specialist Name Role Phone Kev Miranda MD Primary Care Provider [phone] Encounter Details Date Type Department Care Team (Late st Contact Info) Description 02/03/2025 Documentation Only [facility] [place], [address] [place] [address] [place], [place] [address] [place] [phone] Social History Tobacco Use Types Packs/Day Years [...] on filedocumented in this encounter Care Teams Computer Support Specialist Relationship Specialty Start Date End Date Kev Miranda MD [address] [place] [address] PCP - General Internal Medicine 01/31/25 documented as of this encounter
--- OUTSIDE RECORDS SUMMARY | 2025-08-30 10:55 | XMS_ITS | Encounter Summary ---
Author Organization [facility] Address [address] [place] [address] Phone Care Team Providers Care Incendiaries Supervisor Name Role Phone Kev Miranda MD Primary Care Provider [phone] Encounter Details Date Type Department Care Team (Late st Contact Info) Description 02/01/2025 Documentation Only [facility] [place], [address] [place] [address] Nisha Amor [address] [place] [phone] Social History Tobacco Use Types Packs/Day Years [...] on filedocumented in this encounter Care Teams Incendiaries Supervisor Relationship Specialty Start Date End Date Kev Miranda MD [address] [place] [address] PCP - General Internal Medicine 01/31/25 documented as of this encounter
--- OUTSIDE RECORDS SUMMARY | 2025-08-30 10:55 | XMS_ITS | Encounter Summary ---
Author Organization [facility] Address [address] [place] [address] Phone Care Team Providers Care Automatic Thread Winder Name Role Phone Kev Miranda MD Primary Care Provider [phone] Encounter Details Date Type Department Care Team (Late st Contact Info) Description 02/01/2025 Documentation Only [facility] [place], [address] [place] [address] Nisha Amor [address] [place] [phone] Social History Tobacco Use Types Packs/Day Years [...] filedocumented in this encounter Care Teams Automatic Thread Winder Relationship Specialty Start Date End Date Kev Miranda MD [address] [place] [address] PCP - General Internal Medicine 01/31/25 documented as of this encounter
--- OUTSIDE RECORDS SUMMARY | 2025-08-30 10:55 | XMS_ITS | Encounter Summary ---
Author Organization [facility] Address [address] [place] [address] Phone Care Team Providers Care Cardiopulmonary Specialist Name Role Phone Kev Miranda MD Primary Care Provider [phone] Encounter Details Date Type Department Care Team (Late st Contact Info) Description 02/01/2025 Documentation Only [facility] [place], [address] [place] [address] Nisha Amor [address] [place] [phone] Social History Tobacco Use Types Packs/Day Years [...] on filedocumented in this encounter Care Teams Cardiopulmonary Specialist Relationship Specialty Start Date End Date Kev Miranda MD [address] [place] [address] PCP - General Internal Medicine 01/31/25 documented as of this encounter
--- OUTSIDE RECORDS SUMMARY | 2025-08-30 10:55 | XMS_ITS | Patient Health Record ---
Author Organization [facility] Address [address] [place] [address] Care Team Providers Care Diesel Inspector Name Role Phone Kev Miranda MD Primary Care Provider Kev Carreno Unavailable [phone] Allergies No Known Allergies Reason For Referral [...] Problem Screening for malignant neoplasm of colon (063269062) Encounter for screening for malignant neoplasm of colon (Z12.11) Active confirmed Problem Constipation (94330555) Constipation (K59.00) Active confirmed Problem Pre-procedure evaluation check (881068207) Encounter for other preprocedural examination (Z01.818) Active confirmed Problem Long-term current use of aspirin (183654229129568 ) Aspirin long-term use (Z79.82) Active confirmed Plan Of Treatment Future Test Test Name Order Date COLONOSCOPY 05/14/2022 Insurance Providers Payer Name Payer Address Payer Phone Subscriber Number Group Number Insured Name Patient Relationship to Insured Coverage Start Date Coverage End Date [employer] Medicare Advantage Plan [address] [address] [place] [address] [phone] [id number] ROHINI FELIZ Self - patient is the insured Medical (General) History Medical History History ICD Code NIDDM HTN Sacroiliac pain on the right-seeing Dr. Rangel in Pain Management at [facility] Denies CA,CVA,Lung disease,renal disease Constipation Surgical History Surgery Date(Month/Year) Left inguinal hernia
--- OUTSIDE RECORDS SUMMARY | 2025-08-30 10:55 | XMS_ITS | Encounter Summary ---
Author Organization [facility] Address [address] [place] [address] Phone Care Team Providers Care Supervisor Dental Laboratory Name Role Phone Kev Miranda MD Primary Care Provider [phone] Encounter Details Date Type Department Care Team (Late st Contact Info) Description 02/01/2025 Documentation Only [facility] [place], [address] [place] [address] Nisha Amor [address] [place] [phone] Social History Tobacco Use Types Packs/Day Years [...] on filedocumented in this encounter Care Teams Supervisor Dental Laboratory Relationship Specialty Start Date End Date Kev Miranda MD [address] [place] [address] PCP - General Internal Medicine 01/31/25 documented as of this encounter
--- OUTSIDE RECORDS SUMMARY | 2025-08-30 10:55 | XMS_ITS | Patient Health Record ---
Author Organization [facility] Address [address] [facility] [place] [address] Care Team Providers Care Dewaxer Name Role Phone Kev Miranda MD Primary Care Provider Denny Gao Unavailable [phone] Allergies No Known Allergies Reason For Referral [...] Problem Acquired hammer toe of right foot (5922151014398804 ) Other hammer toe(s) (acquired), right foot (M20.41) Active confirmed Problem Acquired hammer toe of left foot (0453360816729809 ) Other hammer toe(s) (acquired), left foot (M20.42) Active confirmed Problem Polyneuropathy due to type 2 diabetes mellitus (428635022) Type 2 diabetes mellitus with diabetic polyneuropathy (E11.42) Active confirmed Plan Of Treatment No Information Insurance Providers Payer Name Payer Address Payer Phone Subscriber Number Group Number Insured Name Patient Relationship to Insured Coverage Start Date Coverage End Date [employer] Medicare [id number] [address] [address] [place] [address] [id number] Aden Smith Self - patient is the insured Medical (General) History Medical History History ICD Code Diabetic High blood pressure Sciatica Surgical History Surgery Date(Month/Year) spinal stenosis surgery 01/02/2023
--- OUTSIDE RECORDS SUMMARY | 2025-08-30 10:55 | XMS_ITS | Encounter Summary ---
Author Organization [facility] Address [address] [place] [address] Phone Care Team Providers Care Human Resources Talent Manager Name Role Phone Kev Miranda MD Primary Care Provider [phone] Encounter Details Date Type Department Care Team (Late st Contact Info) Description 02/01/2025 Documentation Only [facility] [place], [address] [place] [address] Nisha Amor [address] [place] [phone] Social History Tobacco Use Types Packs/Day Years [...] on filedocumented in this encounter Care Teams Human Resources Talent Manager Relationship Specialty Start Date End Date Kev Miranda MD [address] [place] [address] PCP - General Internal Medicine 01/31/25 documented as of this encounter
--- OUTSIDE RECORDS SUMMARY | 2025-08-30 10:55 | XMS_ITS | Encounter Summary ---
Author Organization [facility] Address [address] [place] [address] Phone Care Team Providers Care Food Stand Manager Name Role Phone Kev Miranda MD Primary Care Provider [phone] Encounter Details Date Type Department Care Team (Late st Contact Info) Description 02/01/2025 Documentation Only [facility] [place], [address] [place] [address] Nisha Amor [address] [place] [phone] Social History Tobacco Use Types Packs/Day Years [...] on filedocumented in this encounter Care Teams Food Stand Manager Relationship Specialty Start Date End Date Kev Miranda MD [address] [place] [address] PCP - General Internal Medicine 01/31/25 documented as of this encounter
--- OUTSIDE RECORDS SUMMARY | 2025-08-30 10:55 | XMS_ITS | Encounter Summary ---
Author Organization [facility] Address [address] [place] [address] Phone Care Team Providers Care College Teacher Name Role Phone Kev Miranda MD Primary Care Provider [phone] Encounter Details Date Type Department Care Team (Late st Contact Info) Description 02/01/2025 Documentation Only [facility] [place], [address] [place] [address] Nisha Amor [address] [place] [phone] Social History Tobacco Use Types Packs/Day Years [...] on filedocumented in this encounter Care Teams College Teacher Relationship Specialty Start Date End Date Kev Miranda MD [address] [place] [address] PCP - General Internal Medicine 01/31/25 documented as of this encounter
--- OUTSIDE RECORDS SUMMARY | 2025-08-30 10:55 | XMS_ITS | Clinical Summary ---
Author Organization [facility] [place] Address [address] [place] [address] [place] [address] Phone Care Team Providers Care Safety Supervisor Name Role Phone Kev Miranda MD Primary Care Provider [phone] Allergies Active Allergy Reactions Criticality Noted Date [...] day in the morning Active Chlorphen-Phenyle ph-ASA ([place] Severe Cold) 2-7.8-325 MG effervescent tablet Take [...] mouth 1 (one) time each day Active [place]-3 Fatty Acids (OMEGA 3 PO) Take 1,000 [...] patient's age to complete this topic Insurance [facility] Medicare Care Teams Safety Supervisor Relationship Specialty Start Date End Date Kev Miranda MD [address] [place] [address] PCP - General Internal Medicine 01/31/25
--- OUTSIDE RECORDS SUMMARY | 2025-08-30 10:55 | XMS_ITS | Encounter Summary ---
Author Organization [facility] Address [address] [place] [address] Phone Care Team Providers Care Certified Medical Dosimetrist Name Role Phone Kev Miranda MD Primary Care Provider [phone] Encounter Details Date Type Department Care Team (Late st Contact Info) Description 02/01/2025 Documentation Only [facility] [place], [address] [place] [place] [address] Nisha Amor [address] [place] [phone] Social History Tobacco Use Types Packs/Day Years [...] on filedocumented in this encounter Care Teams Certified Medical Dosimetrist Relationship Specialty Start Date End Date Kev Miranda MD [address] [place] [address] PCP - General Internal Medicine 01/31/25 documented as of this encounter
--- OUTSIDE RECORDS SUMMARY | 2025-08-30 10:55 | XMS_ITS | Encounter Summary ---
Author Organization [facility] Address [address] [place] [address] Phone Care Team Providers Care Chief Analytics Officer Name Role Phone Kev Miranda MD Primary Care Provider Encounter Details Date Type Department Care Team (Late st Contact Info) Description 02/01/2025 Documentation Only [facility] [place], [address] [place] [address] Nisha Amor [address] [place] [phone] Social History Tobacco Use Types Packs/Day Years [...] on filedocumented in this encounter Care Teams Chief Analytics Officer Relationship Specialty Start Date End Date Kev Miranda MD [address] [place] [address] PCP - General Internal Medicine 01/31/25 documented as of this encounter
--- OUTSIDE RECORDS SUMMARY | 2025-08-30 10:55 | XMS_ITS | Encounter Summary ---
Author Organization [facility] Address [address] [place] [address] Phone Care Team Providers Care Steam Plant Operator Name Role Phone Kev Miranda MD Unavailable [phone] Kev Miranda MD Primary Care Provider [phone] Encounter Details Date Type Department Care Team (Late st Contact Info) Description 08/24/2025 Orders Only [facility] Internal Medicine [address] [place] [address] Provider, MD Marcela [address] [place] [address] Social History Tobacco Use Types Packs/Day Years Used Date Smoking Tobacco: Former Cigarettes 1986 Smokeless Tobacco: Never Comments:Ciggs a few [...] 2:00 PM EST Office Visit [facility] [address] [place] [address] Jam Álvarez DO 22 [place] [address] 11/27/2025 1:00 PM EST Office Visit [facility] Internal Medicine [address] [place] [address] Kev Miranda MD 40 [place] [address] 11/28/2025 2:15 PM EST Office Visit [facility] [address] [place] [address] Dr 3rd Floor, [address] [place] [address] Cuate Ramos MD 22 [facility], [address] [address] documented as of this encounter Procedures Procedure Name Priority Date/Time Associated Diagnosis Comments OUTSIDE IMAGING Routine 08/23/2025 12:08 PM EDT documented in this encounter Results * Outside Imaging Report Only (08/23/2025 12:08 PM EDT) us Historical Provider MD SALAZAR XR CHEST Final Res ult documented in this encounter Visit Diagnoses Not on filedocumented in this encounter Additional Health Concerns Assessment Noted Time PHQ-2 Depression Total Score: 2 10/10/20 24 7:04 PM EST documented as of this encounter Care Teams Steam Plant Operator Relationship Specialty Start Date End Date Kev Miranda MD 40 [place] [address] PCP - General 10/29/17 Kev Miranda MD 40 [place] [address] Historical LMR Provider 09/20/17 documented as of this encounter Additional Source Comments The information contained in this document represents components of the legal health record. It is not the complete legal health record.[facility]
--- OUTSIDE RECORDS SUMMARY | 2025-08-30 10:55 | XMS_ITS | Encounter Summary ---
Author Organization [facility] Address [address] [place] [address] Phone Care Team Providers Care Datastage Developer Name Role Phone Kev Miranda MD Primary Care Provider [phone] Encounter Details Date Type Department Care Team (Late st Contact Info) Description 02/01/2025 Documentation Only [facility], [address] [place] [address] Nisha Amor [address] [place] [phone] Social History Tobacco Use Types Packs/Day Years [...] on filedocumented in this encounter Care Teams Datastage Developer Relationship Specialty Start Date End Date Kev Miranda MD 40 [place] [address] PCP - General Internal Medicine 01/31/25 documented as of this encounter
--- OUTSIDE RECORDS SUMMARY | 2025-08-30 10:56 | XMS_ITS | Encounter Summary ---
Author Organization [facility] Address [address] [place] [address] Phone Care Team Providers Care Sampling Theory Teacher Name Role Phone Kev Miranda MD Unavailable [phone] Kev Miranda MD Primary Care Provider [phone] Encounter Details Date Type Department Care Team (Late st Contact Info) Description 11/01/2024 Procedure Pass Echo [facility] [address] [place] [address] Social History Tobacco Use Types Packs/Day Years [...] 2:00 PM EST Office Visit [facility] [address] [place] [address] Jam Álvarez DO 22 [place] [address] 11/27/2025 1:00 PM EST Office Visit [facility] Internal Medicine [address] [place], [place] [phone] Kev Miranda MD 40 [place] [address] 11/28/2025 2:15 PM EST Office Visit [facility] [address] [place] [address] 3rd Floor, [address] [place] [address] Cuate Ramos MD 22 [facility], [address] [id number] documented as of this encounter Visit Diagnoses Not on filedocumented in this encounter Additional Health Concerns Assessment Noted Time PHQ-2 Depression Total Score: 2 10/10/20 24 7:04 PM EST documented as of this encounter Care Teams Sampling Theory Teacher Relationship Specialty Start Date End Date Kev Miranda MD 40 [place] [address] PCP - General 10/29/17 Kev Miranda MD [address] [place] [address] [email or web address] Historical LMR Provider 09/20/17 documented as of this encounter Additional Source Comments The information contained in this document represents components of the legal health record. It is not the complete legal health record.[facility]
== END 2025-08-30 10:39 | disposition home or self-care (01) ==
LOC: HO.PMC 09:53
PROVIDERS: PCP Internal Medicine; Visit Provider Internal Medicine
DX: M96.1 Postlaminectomy syndrome, not elsewhere classified (principal)
CPT/HCPCS: 99024

== ENCOUNTER → 2025-08-30 09:53 | Outpatient (BNVA) | payer MEDICARE, SELFPAY | PROVIDERS: PCP Internal Medicine; Visit Provider Internal Medicine | DX: M96.1 Postlaminectomy syndrome, not elsewhere classified (principal) | CPT/HCPCS: 99212 ==

== ENCOUNTER 2025-09-01 10:46 | Outpatient (AMB) | payer MEDICARE, SELFPAY ==
--- OUTSIDE RECORDS SUMMARY | 2024-05-02 06:15 | XMS_ITS ---
Author Organization [facility] Naila Blackwell Address [address] [place] [address] Care Team Providers Care Biomedical Engineering Aide Name Role Phone Kev Miranda MD Primary Care Provider Denny Gao [phone] Encounters Encounter Location Date Provider Diagnosis [facility] [address] [place] [address] 05/02/2024 Denny Downing Plan Of Treatment No Information Progress Notes * Aden FELIZ FDOB:[birth year] (74 yo M)Acc No.[id number]:05/02/2024 Progress Notes Patient: Aden ARCHER Provider: Adry Downing DPM :1950 A ge:73 Y S ex:Male Date:05/02/2024 Address:[address] [place], [place] [address] Pcp:Kev Miranda MD Subjective: * Chief Complaints: * * HPI: A t Risk footcare: Pt States Last PCP Visit: D ate 1 01/02/2023 S kin problems: Nature: t jose, throbbing, swelling, redness. Location: [address] Duration: a month. Onset/Cause: u nknown. [...] 05/02/2024 Generated for Audrey houston/Julia/Manpreet on: 1 11:47 AM EDT History and Physical Notes * HPI (History of Present Illness) Category Sub-Category Detail Notes Category Not es Skin problems Nature: tender, throbbing, swelling , redness Location: Left , 1st Duration: a month Onset/Cause: unknown Course: worse Aggravated by: any pressure, jonny houston Severity/Quality: moderate At Risk footcare Pt States Last PCP Visit: Date: 3
--- NOTE | 2025-09-01 10:48 | MHC.OFFVIS ---
Vital Signs 09/01/25 10:49 Height 6 ft Weight 295 lb BMI 40.0 BP 160/66 H Blood Pressure Location Lt brachial Position Sitting Respiration 16 Pulse 71 Pulse Source Pulse Oximeter Pulse Oximetry (%) 94 Oxygen Delivery Method Room Air Intake Visit Reasons: lead removal School Business Manager Required: No Allergies metoprolol Adverse Reaction (Severe, Verified 09/01/25 10:50) Fatigued carvedilol Adverse Reaction (Verified 09/01/25 10:50) Headache, Gastrointestinal Upset spironolactone Adverse Reaction (Verified 09/01/25 10:50) headache, Gastrointestinal Upset Medication List - Last Reconciled 09/01/25 by Concepcion Lewis LPN amlodipine 2.5 mg PO DAILY cephalexin 750 mg PO TID gabapentin 300 mg PO BID glimepiride 4 mg PO DAILY ibuprofen 600 mg PO DAILY PRN irbesartan 300 mg PO DAILY levetiracetam 500 mg PO BID pioglitazone 30 mg PO DAILY rosuvastatin 5 mg PO DAILY HPI HPI lead removal: Details: History of Present Illness The patient is a 74-year-old male presenting with management of chronic pain and evaluation for spinal cord stimulator implantation. The patient reports chronic lower back pain, which has significantly improved during the last 2 days of Gavino Sci trial, allowing him to perform activities such as climbing stairs without severe discomfort. He attributes the improvement to the recent trial. He also experiences pain in the feet, which fluctuates and was not present the previous night or morning but appeared later in the day. The patient has a history of hypertension, which he believes is exacerbated by stress and lack of sleep. He is hopeful that successful pain management will help reduce his blood pressure. He reports sleep disturbances, which have improved slightly over the past few nights, although he still experiences difficulty due to discomfort and stress. He has been able to get up at night without significant struggle, indicating some improvement in his condition. Pain Description - Onset: Pain in the feet appeared during the trial period, not present in the morning or night but developed later in the day. - Quality: Pain in the lower back has improved, allowing for increased activity. - Exacerbating factors: Stress and lack of sleep exacerbate hypertension and discomfort. - Relieving factors: Recent adjustments in pain management regimen have improved back pain. Physical Exam - Back: No tenderness at lead insertion site, no signs of infection. - Leads removed with tips intact and dry. Pain Management - Affect: Pain impacts sleep and daily activities, causing stress and frustration. - Analgesia: Current pain management regimen has improved back pain; patient is not taking gabapentin due to adverse effects. - Adverse Effects: Gabapentin caused excessive tiredness, leading to discontinuation. - Activities of Daily Living: Pain previously limited activities such as climbing stairs, but recent improvements have been noted. - Aberrant Drug Related Behaviors: None reported. [facility] Medical History JOSÉ MIGUEL (obstructive sleep apnea) Back pain HLD (hyperlipidemia) Nausea Hx of spinal stenosis Cluneal neuropathy Seizure disorder Hypertension Type 2 diabetes mellitus Surgical History Hx of spinal surgery (12/2022) Hx of hernia repair (~2010) Social History Are you a primary career education teacher to a significant other at home: No Do you presently have visiting nurse or other home services: No Patient Tobacco Use Status: Former Tobacco user Tobacco use type: Cigarette Physical Exam Vital Signs: Last Vital Signs Pulse 71 09/01/25 10:49 Resp 16 09/01/25 10:49 BP 160/66 H 09/01/25 10:49 Pulse Ox 94 09/01/25 10:49 Oxygen Delivery Method Room Air 09/01/25 10:49 BMI result Body Mass Index 40.0 Assessment & Plan Assessment & Plan (1) Post laminectomy syndrome: Code(s): M96.1 - Postlaminectomy syndrome, not elsewhere classified Category: Medical Plan Plan Patient was informed and verbally consented to the use of an ambient scribe for clinic note documentation during this visit. 1. Chronic Lower Back Pain - Plan to proceed with spinal cord stimulator implantation using a [employer] device. - Patient advised to avoid bending, lifting, and twisting for six weeks post-surgery. - Continue current pain management regimen, excluding gabapentin due to adverse effects. 2. Peripheral Neuropathy - Monitor symptoms and adjust pain management as needed. 3. Hypertension - Monitor blood pressure and adjust antihypertensive therapy as needed. 4. Sleep Disturbances - Address underlying pain and stress to improve sleep quality. Discussion Notes I discussed with the patient the plan to proceed with spinal cord stimulator implantation using a [employer] device, emphasizing the benefits of the rechargeable option due to its smaller size and longer life. We reviewed post-operative care instructions, including avoiding bending, lifting, and twisting for six weeks, and the importance of continuing the current pain management regimen while excluding gabapentin due to adverse effects. I advised monitoring blood pressure and addressing stress and pain to improve sleep quality. Patient Instructions - Avoid bending, lifting, and twisting for six weeks after surgery. - Continue current pain management regimen, excluding gabapentin. - Monitor blood pressure regularly and report any significant changes. - Address stress and pain to improve sleep quality. Medications: Discontinued gabapentin Discontinued Reason: Duplicate 300 mg PO BID 60 caps 0RF Coding Level of Care Code Est Pt Level 4 (12827) Diagnoses Post laminectomy syndrome M96.1
[2025-09-01 10:49] VITALS: BP 160/66; PULSE 71; RESP 16; O2SAT 94; BMI 40.0
--- OUTSIDE RECORDS SUMMARY | 2025-09-01 11:47 | XMS_ITS | Clinical Summary ---
Author Organization [facility] Address [address] [place] [address] Care Team Providers Care Maintenance Craftsman Name Role Phone Unavailable Primary Care Provider [...]
--- OUTSIDE RECORDS SUMMARY | 2025-09-01 11:47 | XMS_ITS | Encounter Summary ---
Author Organization [facility] Address [address] [facility] [address] [place] [address] Phone Care Team Providers Care Crop Roller Name Role Phone Kev Miranda MD Unavailable Zainab Bardales TEAM PRIMARY CARE PHYSICIAN Unavailable Dorina Patel TEAM PRIMARY CARE PHYSICIAN Unavailable [phone] Dwayne Candelaria MD Unavailable [phone] Kev Miranda MD Primary Care Provider Kev Miranda MD Unavailable Encounter Details Date Type Department Care Team (Late st Contact Info) Description 04/03/2021 Procedure Pass [address] [place] [address] Social History Tobacco Use Types Packs/Day Years [...] 2:00 PM EST Office Visit [facility] [address] Jam Álvarez DO 22 [place] [address] 11/27/2025 1:00 PM EST Office Visit [facility] Internal Medicine 40 [place] [address] Kev Miranda MD [address] [place] [address] 11/28/2025 2:15 PM EST Office Visit [facility] 22 [facility] 3rd Floor, [address] [place] [address] Cuate Ramos MD [address] [address] documented as of this encounter Visit Diagnoses Not on filedocumented in this encounter Additional Health Concerns Assessment Noted Time PHQ-2 Depression Total Score: 0 02/23/20 21 12:57 PM EDT documented as of this encounter Care Teams Crop Roller Relationship Specialty Start Date End Date Kev Miranda MD [address] [place] [address] PCP - General 10/29/17 Kev Miranda MD [address] [place] [address] Historical LMR Provider 09/20/17 Zainab Bardales NP [address] [place] [address] Historical LMR Provider 09/20/17 2 Dorina Patel NP [address] [place] [address] 6 [place] [address] [email or web address] Historical LMR Provider 09/20/17 12/07/21 Dwayne Candelaria MD [address] [place] [phone] Historical LMR Provider 09/20/17 2 Kev Miranda MD [address] [place] [address] [email or web address] Insurance Assigned Provider 02/27/1808/10 documented as of this encounter Additional Source Comments The information contained in this document represents components of the legal health record. It is not the complete legal health record.[facility]
--- OUTSIDE RECORDS SUMMARY | 2025-09-01 11:47 | XMS_ITS | Clinical Summary ---
Author Organization [facility] Address [address] [facility] [address] [place] [address] Phone Care Team Providers Care Homicide Squad Sergeant Name Role Phone Kev Miranda MD Unavailable [phone] Kev Miranda MD Primary Care Provider [phone] Allergies Active Allergy Reactions Criticality Noted Date [...] GUIDE ME GLUCOSE MTR Misc meter by TidePoolaneous route as needed. 1 each 021 Active [...] Reported on 08/08/2025 ACCU-CHEK FASTCLIX LANCET DRUM [facility] USE 1 TO CHECK GLUCOSE TWICE DAILY 204 each 024 Active irbesartan (AVAPRO) 300 MG tabletIndicatio [...] mouth once daily 90 tablet 025 Active zafirlukast (ACCOLATE) 20 MG tablet Take 1 tablet (20 mg total) by mouth 2 (two) times a day. 60 tablet 11 025 Active levETIRAcetam (KEPPRA) 500 MG tabletIndicatio ns:History of seizure Take 1 tablet by mouth twice daily 180 tablet 3 025 Active levETIRAcetam (KEPPRA) 500 MG tabletIndicatio ns:History of seizure Take 1 tablet by mouth twice daily 180 tablet 3 024 2024 Discontinued Active Problems Problem Noted Date Diagnosed Date Post laminectomy syndrome 08/03/2024 Overview (08/03/2024): Marifer sim [facility] pain- Dr. Michele Rangel MD last ov 07/06/24 plan repeat SI injection had injection 07/14 Ingrown nail 05/28/2023 IGTN (ingrowing toe nail) 05/15/2022 Assessment & Plan (05/15/2022 4:13 PM EDT): Strongly encouraged patient to f/u with Ecommerce Marketing Manager due to current nail and risk of [...] to inquire about SGLT2 inhibitor such as Marsha Dickinson and Trae see if his insurance covers [...] happen assuming his glucose is not too [id number]. He will have to drink proper amounts [...] Encounters Date Type Department Care Team Description 08/31/2025 [facility] 40 [facility] [place] [address] Kev Miarnda MD Medication Refill 08/24/2025 Orders Only [facility] Internal Medicine [address] [place] [address] Marcela Baxter MD 08/08/2025 2:15 PM EDT Office Visit [facility] [address] [facility] 3rd Floor, [address] [place] [address] Cuate Ramos MD JOSÉ MIGUEL (obstructive sleep apnea) (Primary Dx); Allergic rhinitis due to pollen, unspecified seasonality 08/01/2025 Refill [facility] [address] [place] [address] Jam Álvarez DO Medication Refill 07/24/2025 3:30 PM EDT Office Visit [facility] Internal Medicine [address] [place] [address] Kev Miranda MD Benign essential hypertension (Primary Dx); Rash and other nonspecific skin eruption; Chronic bilateral low back pain with bilateral sciatica 07/07/2025 11:30 AM EDT Office Visit [facility] Internal Medicine [address] [place] [address] Kev Miranda MD Benign essential hypertension (Primary Dx); Allergic rhinitis, unspecified seasonality, unspecified trigger; Constipation, unspecified constipation type 06/27/2025 Telephone [facility] Internal Medicine [address] [place] [address] Kev Miranda MD 06/19/2025 Refill [facility] [address] [place] [address] Jam Álvarez DO Medication Refill 06/14/2025 Telephone [facility] Internal Medicine [address] [place] [address] Kev Miranda MD Constipation 06/11/2025 Refill [facility] Internal Medicine [address] [place] [address] Kev Miranda MD Medication Refill 06/07/2025 4:00 PM EDT Office Visit [facility] [address] [place] [address] Kev Miranda MD Benign essential hypertension (Primary [...] 2:00 PM EST Office Visit [facility] [address] [place] [address] [place] [address] Jam Álvarez DO 22 [place] [address] 11/27/2025 1:00 PM EST [facility] 40 [facility] [place] [facility] [place] [address] Kev Miranda MD 40 [place] [address] 11/28/2025 2:15 PM EST Office Visit [facility] [address] [place] [address] 3rd Floor, [address] [place] [address] Cuate Ramos MD 22 [facility], [address] [place] [address] [email or web address] Health Maintenance Due Date Last Done Comments [...] Only (08/23/2025 12:08 PM EDT) Historical Provider IMFly XR CHEST Final Res ult * (ABNORMAL) Hemoglobin A1c (04/17/2025 9:58 AM EDT) HEMOGLOBIN A1C 6.5(H) 4.3 - 5.8 % [facility] Blood 04/17/2025 9:58 AM EDT 04/17/2025 10:01 AM EDT Jam Álvarez DO LAB BLOOD ORDERABLES Final Resul t [facility] [address] [place] [address] * (ABNORMAL) Comprehensive metabolic panel (04/10/2025 1:33 PM EDT) SODIUM 134 133 - 146 mmol/L [facility] POTASSIUM 4.2 3.3 - 5.1 mmol/L [facility] CHLORIDE 100 96 - 108 mmol/L [facility] CO2 26 21 - 35 mmol/L [facility] BUN 21(H) 6 - 19 mg/dL [facility] CREATININE 0.70 0.5 - 1.5 mg/dL [facility] GLUCOSE 154(H) 70 - 99 mg/dL [facility] ALBUMIN 4.0 3.9 - 4.8 g/dL [facility] TOTAL PROTEIN 7.0 6.5 - 8.0 g/dL [facility] CALCIUM 9.3 8.4 - 10.3 mg/dL [facility] ALKALINE PHOSPHATASE 102 39 - 117 U/L [facility] TOTAL BILIRUBIN 0.5 0.0 - 1.2 mg/dL [facility] AST 20 0 - 37 U/L [facility] ALT 13 0 - 40 U/L [facility] GLOBULIN 3.0 1 - 4.8 g/dL [facility] EGFR 95 >59 mL/min/1.7 3m2 [facility] Comment:Estimated glomerular filtration rate calculated using the CKD-EPI refit equation. ANION GAP 12 10 - 20 mmol/L [facility] Blood 04/10/2025 1:33 PM EDT 04/10/2025 1:36 PM EDT us Kev Miranda MD LAB BLOOD ORDERABLES Final Re sult Performing Organization Address City/State/[facility] Co de Phone Number [address] [address] * DIABETES EYE EXAM FOR RESULT ENTRY ONLY (04/26/2024) EYE EXAM no retinopathy us Marcela Baxter MD HEALTH MAINTENANCE Final Result * Hepatitis C antibody, qualitative (10/21/2019 8:38 AM EST) HCV NON-REACTIV E NON-REACTI VE [facility] Blood 10/21/2019 8:38 AM EST 10/21/2019 8:41 AM EST us Kev Miranda MD LAB BLOOD ORDERABLES Final Re [facility] Organization Address City/State/ZIP Co de Phone Number [address] [address] from Last 3 Months or Most Recently Relevant to Health Maintenance Insurance MEDICARE REPLACEMENT [place] [id number] MEDICARE REPLACEMENT [place] [address] MEDICARE REPLACEMENT MEDICARE REPLACEMENT MEDICARE REPLACEMENT MEDICARE REPLACEMENT MEDICARE REPLACEMENT MEDICARE REPLACEMENT MEDICARE REPLACEMENT Care Teams Homicide Squad Sergeant Relationship Specialty Start Date End Date Kev Miranda MD [address] [place] [address] PCP - General 10/29/17 Kev Miranda MD [address] [place] [address] Historical LMR Provider 09/20/17 Additional Source Comments The information contained in this document represents components of the legal health record. It is not the complete legal health record.[facility]
--- OUTSIDE RECORDS SUMMARY | 2025-09-01 11:47 | XMS_ITS | Encounter Summary ---
Author Organization [facility] Address [address] [place] [address] Phone Care Team Providers Care Bill Collector Name Role Phone Kev Miranda MD Unavailable [phone] Kev Miranda MD Primary Care Provider [phone] Reason for Visit * Reason Comments Medication Refill Encounter Details Date Type Department Care Team (Late st Contact Info) Description 08/31/2025 Refill [facility] Internal Medicine [address] [place] [address] Kev Miranda MD 40 [place] [address] [email or web address] Medication Refill Social History Tobacco Use Types Packs/Day Years Used Date Smoking Tobacco: Former Cigarettes 1 8 - 1986 Smokeless Tobacco: Never Comments:Ciggs a few [...] as of this encounter Progress Notes * Licha Chiu MA - 08/31/2025 2:49 PM EDT Rx Care Gap Status - Instructions for Clinical Staff (prescriber discretion applies): > Mismatch review guide > N/a - No action needed Visit Info Last visit: 07/24/2025 Kev Miranda MD - Internal Medicine [facility] > Requested f/u: Return in about 23 days (around 08/16/2025) for Recheck. Upcoming visit: 11/27/2025 Kev Miranda MD - Internal Medicine [facility] ACTIONS TAKEN BY Licha Chiu MA - Sig/Pt Instructions matches med list. Antiepileptic Without Labs Rx Protocol - levetiracetam Criteria met; renew for up to 12 months. Visit in the past 14 months: Yes documented in this encounter Plan of Treatment Upcoming Encounters Date Type Department Care Team (Late st Contact Info) Description 10/23/2025 2:00 PM EST Office Visit [facility] [address] [place] [address] [place] [address] Jam Álvarez DO [address] [place] [address] 11/27/2025 1:00 PM EST Office Visit [facility] [facility] [address] [place] [address] Kev Miranda MD 40 [place] [address] 11/28/2025 2:15 PM EST Office Visit [facility] 22 [facility] 3rd Floor, [address] [place] [address] Cuate Ramos MD 22 [facility], [address] [place] [id number] documented as of this encounter Visit Diagnoses Diagnosis History of seizure documented in this encounter Additional Health Concerns Assessment Noted Time PHQ-2 Depression Total Score: 2 10/10/20 24 7:04 PM EST documented as of this encounter Care Teams Bill Collector Relationship Specialty Start Date End Date Kev Miranda MD 40 [place] [address] PCP - General 10/29/17 Kev Miranda MD [address] [place] [address] Historical LMR Provider 09/20/17 documented as of this encounter Additional Source Comments The information contained in this document represents components of the legal health record. It is not the complete legal health record.[facility]
--- OUTSIDE RECORDS SUMMARY | 2025-09-01 11:48 | XMS_ITS | Encounter Summary ---
Author Organization [facility] Address [address] [place] [address] Phone Care Team Providers Care Barber Stylist Name Role Phone Kev Miranda MD Primary Care Provider [phone] Encounter Details Date Type Department Care Team (Late st Contact Info) Description 02/01/2025 Documentation Only [facility] [place], [address] [place] [address] Nisha Amor [address] [place] [phone] Social History Tobacco Use Types Packs/Day Years [...] on filedocumented in this encounter Care Teams Barber Stylist Relationship Specialty Start Date End Date Kev Miranda MD [address] [place] [address] PCP - General Internal Medicine 01/31/25 documented as of this encounter
--- OUTSIDE RECORDS SUMMARY | 2025-09-01 11:48 | XMS_ITS | Encounter Summary ---
Author Organization [facility] Address [address] [place] [address] Phone Care Team Providers Care Clinical Interviewer Name Role Phone Kev Miranda MD Primary Care Provider [phone] Encounter Details Date Type Department Care Team (Late st Contact Info) Description 02/03/2025 Documentation Only [facility] [place], [address] [place] [address] [place], [place] [address] [place] [phone] Social History Tobacco Use Types Packs/Day Years [...] on filedocumented in this encounter Care Teams Clinical Interviewer Relationship Specialty Start Date End Date Kev Miranda MD [address] [place] [address] PCP - General Internal Medicine 01/31/25 documented as of this encounter
--- OUTSIDE RECORDS SUMMARY | 2025-09-01 11:48 | XMS_ITS | Encounter Summary ---
Author Organization [facility] Address [address] [place] [address] Phone Care Team Providers Care Associate Spa Director Name Role Phone Kev Miranda MD Unavailable [phone] Kev Miranda MD Primary Care Provider [phone] Encounter Details Date Type Department Care Team (Late st Contact Info) Description 08/24/2025 Orders Only [facility] Internal Medicine [address] [place] [address] Provider, MD Marcela [address] [place] [address] Social History Tobacco Use Types Packs/Day Years [...] 2:00 PM EST Office Visit [facility] [address] [place] [address] Jam Álvarez DO [address] [place] [address] 11/27/2025 1:00 PM EST Office Visit [facility] Internal Medicine [address] [place] [address] Kev Miranda MD [address] [place] [address] 11/28/2025 2:15 PM EST Office Visit [facility] [address] [place] [address] Dr 3rd Floor, [address] [place] [address] Cuate Ramos MD 22 [facility], [address] [address] documented as of this encounter Procedures Procedure [...] documented as of this encounter Care Teams Associate Spa Director Relationship Specialty Start Date End Date Kev Miranda MD [address] [place] [address] [email or web address] PCP - General 10/29/17 Kev Miranda MD [address] [place] [address] Historical LMR Provider 09/20/17 documented as of this encounter Additional Source Comments The information contained in this document represents components of the legal health record. It is not the complete legal health record.[facility]
--- OUTSIDE RECORDS SUMMARY | 2025-09-01 11:48 | XMS_ITS | Patient Health Record ---
Author Organization [facility] Address [address] [place] [address] Care Team Providers Care Bar Examiner Name Role Phone Kev Miranda MD Primary Care Provider Kev Carreno Unavailable [phone] Allergies No Known Allergies Reason For Referral [...] Problem Screening for malignant neoplasm of colon (302072248) Encounter for screening for malignant neoplasm of colon (Z12.11) Active confirmed Problem Constipation (18132285) Constipation (K59.00) Active confirmed Problem Pre-procedure evaluation check (894064113) Encounter for other preprocedural examination (Z01.818) Active confirmed Problem Long-term current use of aspirin (725362028887680 ) Aspirin long-term use (Z79.82) Active confirmed Plan Of Treatment Future Test Test Name Order Date COLONOSCOPY 05/14/2022 Insurance Providers Payer Name Payer Address Payer Phone Subscriber Number Group Number Insured Name Patient Relationship to Insured Coverage Start Date Coverage End Date A[employer] Medicare Advantage Plan [address] [address] [place] [address] [id number] ROHINI FELIZ Self - patient is the insured Medical (General) History Medical History History ICD Code NIDDM HTN Sacroiliac pain on the right-seeing Dr. Rangel in Pain Management at [facility] Denies RI,CVA,Lung disease,renal disease Constipation Surgical History Surgery Date(Month/Year) Left inguinal hernia
--- OUTSIDE RECORDS SUMMARY | 2025-09-01 11:48 | XMS_ITS | Encounter Summary ---
Author Organization [facility] Address [address] [place] [address] Phone Care Team Providers Care Economic History Teacher Name Role Phone Kev Miranda MD Unavailable [phone] Kev Miranda MD Primary Care Provider [phone] Encounter Details Date Type Department Care Team (Late st Contact Info) Description 11/01/2024 Procedure Pass [facility] [address] [place] [address] Social History Tobacco Use Types Packs/Day Years Used Date Smoking Tobacco: Former Cigarettes 8 - 1986 Smokeless Tobacco: Never Alcohol Use [...] 2:00 PM EST Office Visit [facility] [address] [place] [address] Jam Álvarez DO [address] [place] [address] 11/27/2025 1:00 PM EST Office Visit [facility] Internal Medicine [address] [place], [place] [phone] Kev Miranda MD [address] [place] [address] 11/28/2025 2:15 PM EST Office Visit [facility] [address] [place] [address] 3rd Floor, [address] [place] [address] Cuate Ramos MD 22 [facility], [address] [id number] documented as of this encounter Visit Diagnoses Not on filedocumented in this encounter Additional Health Concerns Assessment Noted Time PHQ-2 Depression Total Score: 2 10/10/20 24 7:04 PM EST documented as of this encounter Care Teams Economic History Teacher Relationship Specialty Start Date End Date Kev Miranda MD [address] [place] [address] PCP - General 10/29/17 Kev Miranda MD [address] [place] [address] [email or web address] Historical LMR Provider 09/20/17 documented as of this encounter Additional Source Comments The information contained in this document represents components of the legal health record. It is not the complete legal health record.[facility]
--- OUTSIDE RECORDS SUMMARY | 2025-09-01 11:48 | XMS_ITS | Patient Health Record ---
Author Organization [facility] Address [address] [address] Care Team Providers Care Hr Generalist Name Role Phone Kev Miranda MD Primary Care Provider Denny Gao Unavailable [phone] Allergies No Known Allergies Reason For Referral [...] Problem Acquired hammer toe of right foot (0909994059270432 ) Other hammer toe(s) (acquired), right foot (M20.41) Active confirmed Problem Acquired hammer toe of left foot (2204833859945511 ) Other hammer toe(s) (acquired), left foot (M20.42) Active confirmed Problem Polyneuropathy due to type 2 diabetes mellitus (437861343) Type 2 diabetes mellitus with diabetic polyneuropathy (E11.42) Active confirmed Plan Of Treatment No Information Insurance Providers Payer Name Payer Address Payer Phone Subscriber Number Group Number Insured Name Patient Relationship to Insured Coverage Start Date Coverage End Date [employer] Medicare [id number] [address] [address] [place] [address] [id number] Aden Smith Self - patient is the insured Medical (General) History Medical History History ICD Code Diabetic High blood pressure Sciatica Surgical History Surgery Date(Month/Year) spinal stenosis surgery 01/02/2023
--- OUTSIDE RECORDS SUMMARY | 2025-09-01 11:48 | XMS_ITS | Encounter Summary ---
Author Organization [facility] Address [address] [place] [address] Phone Care Team Providers Care Harp Repairer Name Role Phone Kev Miranda MD Primary Care Provider [phone] Encounter Details Date Type Department Care Team (Late st Contact Info) Description 02/01/2025 Documentation Only [facility] [place], [address] [place] [address] Nisha Amor [address] [place] [phone] Social History Tobacco Use Types Packs/Day Years [...] on filedocumented in this encounter Care Teams Harp Repairer Relationship Specialty Start Date End Date Kev Miranda MD [address] [place] [address] PCP - General Internal Medicine 01/31/25 documented as of this encounter
--- OUTSIDE RECORDS SUMMARY | 2025-09-01 11:48 | XMS_ITS | Encounter Summary ---
Author Organization [facility] Address [address] [place] [address] Phone Care Team Providers Care Support Associate Name Role Phone Kev Miranda MD Primary Care Provider [phone] Encounter Details Date Type Department Care Team (Late st Contact Info) Description 01/31/2025 Documentation Only [facility] [place], [address] [place] [address] [place], [place] [address] [place] [phone] Social History Tobacco Use Types Packs/Day Years [...] on filedocumented in this encounter Care Teams Support Associate Relationship Specialty Start Date End Date Kev Miranda MD [address] [place] [address] PCP - General Internal Medicine 01/31/25 documented as of this encounter
--- OUTSIDE RECORDS SUMMARY | 2025-09-01 11:48 | XMS_ITS | Encounter Summary ---
Author Organization [facility] Address [address] [place] [address] Phone Care Team Providers Care Casino Dealer Name Role Phone Kev Miranda MD Primary Care Provider [phone] Encounter Details Date Type Department Care Team (Late st Contact Info) Description 02/01/2025 Documentation Only [facility] [place], [address] [place] [address] Nisha Amor [address] [place] [phone] Social History Tobacco Use Types Packs/Day Years [...] on filedocumented in this encounter Care Teams Casino Dealer Relationship Specialty Start Date End Date Kev Miranda MD [address] [place] [address] PCP - General Internal Medicine 01/31/25 documented as of this encounter
--- OUTSIDE RECORDS SUMMARY | 2025-09-01 11:48 | XMS_ITS | Encounter Summary ---
Author Organization [facility] Address [address] [place] [address] Phone Care Team Providers Care Dental Office Coordinator Name Role Phone Kev Miranda MD Primary Care Provider [phone] Encounter Details Date Type Department Care Team (Late st Contact Info) Description 02/01/2025 Documentation Only [facility] [place], [address] [place] [address] Nisha Amor [address] [place] [phone] Social History Tobacco Use Types Packs/Day Years [...] on filedocumented in this encounter Care Teams Dental Office Coordinator Relationship Specialty Start Date End Date Kev Miranda MD [address] [place] [address] PCP - General Internal Medicine 01/31/25 documented as of this encounter
--- OUTSIDE RECORDS SUMMARY | 2025-09-01 11:48 | XMS_ITS | Encounter Summary ---
Author Organization [facility] Address [address] [place] [address] Phone Care Team Providers Care Peripheral Equipment Operator Name Role Phone Kev Miranda MD Primary Care Provider Encounter Details Date Type Department Care Team (Late st Contact Info) Description 02/01/2025 Documentation Only [facility] [place], [address] [place] [address] Nisha Amor [address] [place] [phone] Social History Tobacco Use Types Packs/Day Years [...] on filedocumented in this encounter Care Teams Peripheral Equipment Operator Relationship Specialty Start Date End Date Kev Miranda MD [address] [place] [address] PCP - General Internal Medicine 01/31/25 documented as of this encounter
--- OUTSIDE RECORDS SUMMARY | 2025-09-01 11:48 | XMS_ITS | Encounter Summary ---
Author Organization [facility] Address [address] [place] [address] Phone Care Team Providers Care Soccer Commentator Name Role Phone Kev Miranda MD Primary Care Provider [phone] Encounter Details Date Type Department Care Team (Late st Contact Info) Description 02/01/2025 Documentation Only [facility] [place], [address] [place] [address] Nisha Amor [address] [place] [phone] Social History Tobacco Use Types Packs/Day Years [...] on filedocumented in this encounter Care Teams Soccer Commentator Relationship Specialty Start Date End Date Kev Miranda MD [address] [place] [address] PCP - General Internal Medicine 01/31/25 documented as of this encounter
--- OUTSIDE RECORDS SUMMARY | 2025-09-01 11:48 | XMS_ITS | Encounter Summary ---
Author Organization [facility] Address [address] [place] [address] Phone Care Team Providers Care Label Coder Name Role Phone Kev Miranda MD Primary Care Provider Encounter Details Date Type Department Care Team (Late st Contact Info) Description 02/01/2025 Documentation Only [facility] [place], [address] [place] [address] Nisha Amor [address] [place] [phone] Social History Tobacco Use Types Packs/Day Years [...] on filedocumented in this encounter Care Teams Label Coder Relationship Specialty Start Date End Date Kev Miranda MD [address] [place] [address] PCP - General Internal Medicine 01/31/25 documented as of this encounter
--- OUTSIDE RECORDS SUMMARY | 2025-09-01 11:48 | XMS_ITS | Clinical Summary ---
Author Organization [facility] [place], Address [address] [place] [address] [place] [address] Phone Care Team Providers Care Loan Secretary Name Role Phone Kev Miranda MD Primary Care Provider [phone] Allergies Active Allergy Reactions Criticality Noted Date [...] day in the morning Active Chlorphen-Phenyle ph-ASA ([place] Severe Cold) 2-7.8-325 MG effervescent tablet Take [...] mouth 1 (one) time each day Active [place]-3 Fatty Acids (OMEGA 3 PO) Take 1,000 [...] patient's age to complete this topic Insurance [facility] Medicare Care Teams Loan Secretary Relationship Specialty Start Date End Date Kev Miranda MD [address] [place] [address] PCP - General Internal Medicine 01/31/25
--- OUTSIDE RECORDS SUMMARY | 2025-09-01 11:48 | XMS_ITS | Encounter Summary ---
Author Organization [facility] Address [address] [place] [address] Phone Care Team Providers Care Supplier Quality Engineer Name Role Phone Kev Miranda MD Primary Care Provider [phone] Encounter Details Date Type Department Care Team (Late st Contact Info) Description 02/01/2025 Documentation Only [facility] [place], [address] [place] [address] Nisha Amor [address] [place] [phone] Social History Tobacco Use Types Packs/Day Years [...] on filedocumented in this encounter Care Teams Supplier Quality Engineer Relationship Specialty Start Date End Date Kev Miranda MD [address] [place] [address] PCP - General Internal Medicine 01/31/25 documented as of this encounter
--- OUTSIDE RECORDS SUMMARY | 2025-09-01 11:48 | XMS_ITS | Encounter Summary ---
Author Organization [facility] Address [address] [place] [address] Phone Care Team Providers Care Lumber Mover Name Role Phone Kev Miranda MD Primary Care Provider [phone] Encounter Details Date Type Department Care Team (Late st Contact Info) Description 02/01/2025 Documentation Only [facility] [place], [address] [place] [address] Nisha Amor [address] [place] [phone] Social History Tobacco Use Types Packs/Day Years [...] on filedocumented in this encounter Care Teams Lumber Mover Relationship Specialty Start Date End Date Kev Miranda MD [address] [place] [address] PCP - General Internal Medicine 01/31/25 documented as of this encounter
--- OUTSIDE RECORDS SUMMARY | 2025-09-01 11:48 | XMS_ITS | Encounter Summary ---
Author Organization [facility] Address [address] [place] [address] Phone Care Team Providers Care Travel Registered Nurse Nicu Name Role Phone Kev Miranda MD Primary Care Provider [phone] Encounter Details Date Type Department Care Team (Late st Contact Info) Description 02/01/2025 Documentation Only [facility] [place], [address] [place] [address] Nisha Amor [address] [place] [phone] Social History Tobacco Use Types Packs/Day Years [...] filedocumented in this encounter Care Teams Travel Registered Nurse Nicu Relationship Specialty Start Date End Date Kev Miranda MD [address] [place] [address] PCP - General Internal Medicine 01/31/25 documented as of this encounter
== END 2025-09-01 11:21 | disposition home or self-care (01) ==
PROVIDERS: PCP Internal Medicine; Visit Provider Internal Medicine
DX: M96.1 Postlaminectomy syndrome, not elsewhere classified (principal)
CPT/HCPCS: 99024

== ENCOUNTER → 2025-09-01 10:46 | Outpatient (BNVA) | payer MEDICARE, SELFPAY | PROVIDERS: PCP Internal Medicine; Visit Provider Internal Medicine | DX: M96.1 Postlaminectomy syndrome, not elsewhere classified (principal) | CPT/HCPCS: 99212 ==

== ENCOUNTER 2025-11-01 11:22 | Day surgery (SDC) | payer MEDICARE, SELFPAY ==
--- OUTSIDE RECORDS SUMMARY | 2024-05-02 05:15 | XMS_ITS ---
Author Organization [facility] Address [address] [place] [address] Care Team Providers Care Nuclear Plant Operator Name Role Phone Kev Miranda MD Primary Care Provider Denny Nunez [phone] Encounters Encounter Location Date Provider Diagnosis [facility] [address] [place] [address] 05/02/2024 eDnny Rock Plan Of Treatment No Information Progress Notes * Aden FELIZ FDOB:[birth year] (74 yo M)Acc No.[id number]:05/02/2024 Progress Notes Patient: Aden ARCHER Provider: Adry Downing DPM :1950 A ge:73 Y S ex:Male Date:05/02/2024 Address:[address] [place] [address] Pcp:Kev Miranda MD Subjective: * Chief Complaints: * * HPI: A t Risk footcare: Pt States Last PCP Visit: D ate 1 01/02/2023 S kin problems: Nature: t jose, throbbing, swelling, redness. Location: [address] Duration: a month. Onset/Cause: u nknown. Course: w orse. Aggravated by: a ny pressure, standing. Severity/Quality: m oderate. * Medical History: Objective: * Vitals: Assessment: Plan: * Treatment: * Images: * The named appointment provid er may or may not be the originator of this progress note, and it is not deemed complete until electronically signed by the appointment provider. Sign off status: Pending * Provider: Adry Downing DPM Date: 0 05/02/2024 Generated for Audrey houston/Julia/Manpreet on: 1 12/19/2024 03:34 PM EST History and Physical Notes * HPI (History of Present Illness) Category Sub-Category Detail Notes Category Not es Skin problems Nature: tender, throbbing, swelling , redness Location: Left , 1st Duration: a month Onset/Cause: unknown Course: worse Aggravated by: any pressure, jonny houston Severity/Quality: moderate At Risk footcare Pt States Last PCP Visit: Date: 3
--- OUTSIDE RECORDS SUMMARY | 2025-10-19 15:35 | XMS_ITS | Clinical Summary ---
Author Organization [facility] Address [address] [facility] [address] [place] [address] Phone Care Team Providers Care Hand Tufter Name Role Phone Kev Miranda MD Unavailable [phone] Kev Miranda MD Primary Care Provider [phone] Allergies Active Allergy Reactions Criticality Noted Date [...] GUIDE ME GLUCOSE MTR Misc meter by RateItAllaneous route as needed. 1 each 021 Active [...] TO CHECK GLUCOSE TWICE DAILY, Reported on 09/08/2025 ACCU-CHEK FASTCLIX LANCET DRUM [facility] USE 1 TO CHECK GLUCOSE TWICE DAILY [...] once daily 90 tablet 3 025 Active pyridoxine HCl, vitamin B6, (VITAMIN B-6 ORAL) [...] twice daily 180 tablet 3 025 Active eplerenone (INSPRA) 25 MG tabletIndicatio ns:Essential hypertension Take 1 tablet (25 mg total) by mouth daily. 30 tablet 1 025 Active glimepiride (AMARYL) 4 MG tabletIndicatio ns:Type 2 diabetes mellitus with diabetic polyneuropathy, without long-term current use of insulin TAKE 1 AND 1/2 (ONE & ONE-HALF) TABLET BY MOUTH ONCE DAILY BEFORE BREAKFAST AND 1/2 (ONE-HALF) TABLET WITH EVENING MEAL 180 tablet 025 Active glimepiride (AMARYL) 4 MG tabletIndicatio ns:Type 2 diabetes mellitus with diabetic polyneuropathy, without long-term current use of insulin TAKE 1 & 1/2 (ONE & ONE-HALF) TABLETS BY MOUTH ONCE DAILY BEFORE BREAKFAST AND 1/2 (ONE-HALF) WITH EVENING MEAL 180 tablet 025 2024 Discontinued Active Problems Problem Noted Date Diagnosed Date Post laminectomy syndrome 08/03/2024 Overview (08/03/2024): Marifer sim [facility] pain- Dr. Michele Rangel MD last ov 07/06/24 plan repeat SI injection had injection 07/14 Ingrown nail 05/28/2023 IGTN (ingrowing toe nail) 05/15/2022 Assessment & Plan (05/15/2022 4:13 PM EDT): Strongly encouraged patient to f/u with Maintenance Service Dispatcher due to current nail and risk of [...] inquire about SGLT2 inhibitor such as Moyxidiane, Catherineokacesar and Trae see if his insurance covers [...] happen assuming his glucose is not too fdh-nk-oykmuym. He will have to drink proper amounts [...] Encounters Date Type Department Care Team Description 10/13/2025 Telephone [facility] Internal Medicine [address] [place] [address] Kev Miranda MD Follow Up Visit 10/03/2025 Refill [facility] [address] [place] [address] Jam Álvarez DO Medication Refill 09/08/2025 3:00 PM EDT Office Visit [facility] Internal Medicine [address] [place] [address] Kev Miranda MD Essential hypertension (Primary Dx); Ingrown nail; Chronic right-sided low back pain with bilateral sciatica; Rash of face; Type 2 diabetes mellitus with diabetic polyneuropathy, without long-term current use of insulin 09/08/2025 Telephone [facility] Internal Medicine [address] [place] [address] Kev Miranda MD Medication Problem 09/05/2025 Telephone [facility] Internal Medicine [address], [place] [phone] Kev Miranda MD Medication Problem 08/31/2025 Refill [facility] Internal [facility] [address] [place] [address] Kev Miranda MD Medication Refill 08/24/2025 Orders Only [facility] Internal Medicine [address] [place] [address] Marcela Baxter MD 08/08/2025 2:15 PM EDT Office Visit [facility] [address], [address] [place] [address] Cuate Ramos MD JOSÉ MIGUEL (obstructive sleep apnea) (Primary Dx); Allergic rhinitis due to pollen, unspecified seasonality 08/01/2025 Refill [facility] [address] [place] [address] Jam Álvarez DO Medication Refill 07/24/2025 3:30 PM EDT Office Visit [facility] Internal Medicine [address] [place] [address] Kev Miranda MD Benign essential hypertension (Primary Dx); Rash and other nonspecific skin eruption; Chronic bilateral low back pain with bilateral sciatica from Last 3 Months Immunizations Immunization Administration Dates Next Due COVID-19 (Pre-09/21) Moderna Vaccine, mRNA, PF 03/01/2021,02/01/2021 INFLUENZA, SPLIT VIRUS, TRIV ALENT W/ PRESERVATIVE IM 09/17/2021,11/13/2014,09/06/2013,11/01 Influenza High-Dose Quadriva lent Preservative Free IM 10/06/2022,08/27/2021,09/14/2020 Influenza High-Dose Trivalen t Preservative Free IM 08/14/2025,08/23/2024,09/30/2019,09/09,09/11/2017,10/14/2016 Influenza Quadrivalent Adjuv anted Preservative Free IM 09/11/2023 Pneumococcal conjugate PCV13 07/08/2016 Pneumococcal polysaccharide PPSV23 05/26/2019, RSV Vaccine (monovalent, adjuvanted) 08/07/2024 Td (adult) 5 Lf Tetanus Toxo id, PF, Adsorbed 09/11/2017,09/30/2007 Family History Medical History Relation Comments Diabetes Father Heart disease Mother Relation Status Comments Father Mother Social History Tobacco Use Types Packs/Day Years Used Date Smoking Tobacco: Former Cigarettes 1 968 - 1986 Smokeless Tobacco: Never Tobacco Cessation:Counseling [...] Sign Reading Time Taken Comments Blood Pressure 162/84 09/08/2025 3:17 PM EDT Pulse 82 09/08/2025 3:04 PM EDT Temperature 36.7 C (98.1 F) 09/08/2025 3:04 PM EDT Respiratory Rate 24 07/24/2025 3:3 5 PM EDT Oxygen Saturation 96% 09/08/2025 3:04 PM EDT Inhaled Oxygen Concentration - - Weight 134.4 kg (296 lb 3.2 oz) 09/08/2025 3:04 PM EDT Height 177.8 cm (5' 10 ) 09/08/2025 3:04 PM EDT Body Mass Index 42.5 09/08/2025 3:04 PM EDT Plan of Treatment Upcoming Encounters Date Type Department Care Team (Late st Contact Info) Description 10/20/2025 3:00 PM EST Office Visit [facility] [address] [place] [address] Kev Miranda MD [address] [place] [address] 10/23/2025 2:00 PM EST Office Visit [facility] [address] [place] [address] Jam Álvarez DO [address] [place] [address] 11/27/2025 1:00 PM EST Office Visit [facility] [address] [place] [address] Kev Miranda MD [address] [place], [place] [phone] 11/28/2025 2:15 PM EST Office Visit [facility] [address] [place] [address] [address]rd Floor, [address] [place], [place] [phone] Cuate Ramos MD [address] [facility], [address] [place] [address] [phone] Health Maintenance Due Date Last Done Comments ZOSTER VACCINES (1 of 2) 1998 DIABETIC EYE EXAM 04/26/2025 04/26/2024, , 01/04/2021, Additional history exists DEPRESSION SCREENING 10/10/2025 10/10/2024 COVID-19 VACCINE ( season) 2026 08/14/2025, 08/07/2024, 09/11/2023, Additional history exists BLOOD PRESSURE 03/09/2026 09/08/2025 HEMOGLOBIN A1C 04/11/2026 10/12/2025, 03/30, 09/22/2024, Additional history exists SMOKING Hx and SMOKELESS TOBACCO SCREENING 09/08/2026 09/08/2025 CREATININE LEVEL 10/12/2026 10/12/2025, 10/2025, 12/27/2024, Additional history exists POTASSIUM LEVEL 10/12/2026 10/12/2025, 03/30, 12/27/2024, Additional history exists Adult Td,Tdap Booster 09/11/2027 09/11/2017, 007 PNEUMOCOCCAL VACCINES (50+ years) Completed 05/26/2019, 07/08/2016, 11/01/2012 HEPATITIS C SCREENING Completed 10/21/2019, 019 RSV VACCINE Completed 08/07/2024 INFLUENZA VACCINE Completed 08/14/2025, , 09/11/2023, Additional history exists HEPATITIS A VACCINES Aged Out No long [...] Procedure Name Priority Date/Time Associated Diagnosis Comments CBC AND DIFFERENTIAL Routine 10/12/2025 11:28 AM EST Essential hypertension CBC AND DIFFERENTIAL Routine 10/12/2025 11:28 AM EST Essential hypertension COMPREHENSIVE METABOLIC PANEL (CMP) Routine 10/12/2025 11:28 AM EST Essential hypertension HEMOGLOBIN A1C Routine 10/12/2025 11:28 AM EST Type 2 diabetes mellitus with diabetic polyneuropathy, without long-term current use of insulin OUTSIDE IMAGING Routine 08/23/2025 12:08 PM EDT DIABETES EYE EXAM FOR RESULT ENTRY ONLY Routine 04/26/2024 HEPATITIS C ANTIBODY, QUALITATIVE Routine 10/21/2019 8:38 AM EST Need for hepatitis C screening test from Last 3 Months or Most Recently Relevant to Health Maintenance Results * (ABNORMAL) Comprehensive Metabolic Panel (CMP) (10/12/2025 11:28 AM EST) Sodium 136 136 - 145 mmol/L 10/12/2025 9:14 PM [facility] Potassium 4.3 3.4 - 5.1 mmol/L 10/12/2025 9:14 PM [facility] Chloride 101 98 - 107 mmol/L 10/12/2025 9:14 PM [facility] CO2 24 20 - 31 mmol/L 10/12/2025 9:14 PM [facility] Anion Gap 11 3 - 17 mmol/L 10/12/2025 9:14 PM [facility] BUN 25(H) 6 - 23 mg/dL 10/12/2025 9:14 PM [facility] Creatinine 0.80 0.60 - 1.30 mg/dL 10/12/2025 9:14 PM [facility] eGFR 92 >59 mL/min/1.7 3m2 10/12/2025 9:14 PM [facility] Comment:Estimated glomerular filtration rate calculated using the CKD-EPI refit equation. Glucose 135(H) 70 - 99 mg/dL 10/12/2025 9:14 PM [facility] Calcium 9.1 8.5 - 10.5 mg/dL 10/12/2025 9:14 PM [facility] AST 28 <40 U/L 10/12/2025 9:14 PM [facility] ALT 17 <50 U/L 10/12/2025 9:14 PM [facility] Alkaline Phosphatase 87 40 - 130 U/L 10/12/2025 9:14 PM [facility] Bilirubin, Total 0.6 0.0 - 1.2 mg/dL 10/12/2025 9:14 PM [facility] Total Protein 6.9 6.4 - 8.3 g/dL 10/12/2025 9:14 PM [facility] Albumin 3.9 3.5 - 5.2 g/dL 10/12/2025 9:14 PM [facility] Globulin 3.0 1.9 - 4.1 g/dL 10/12/2025 9:14 PM [facility] Blood 10/12/2025 11:2 8 AM EST 10/12/2025 11:28 AM EST us Kev Miranda MD LAB BLOOD BKR ORDERABLES Charissa hernandez Result [facility] [address] [place] [address] * (ABNORMAL) CBC and Differential (10/12/2025 11:28 AM EST) WBC 7.05 4.00 - 11.00 K/uL 10/12/2025 8:38 PM [facility] RBC 4.42(L) 4.50 - 5.90 M/uL 10/12/2025 8:38 PM [facility] Hemoglobin 13.6 13.5 - 17.5 g/dL 10/12/2025 8:38 PM [facility] Hematocrit 40.6(L) 41.0 - 53.0 % 10/12/2025 8:38 PM [facility] MCV 91.9 80.0 - 100.0 fL 10/12/2025 8:38 PM [facility] MCH 30.8 27.0 - 31.0 pg 10/12/2025 8:38 PM [facility] MCHC 33.5 32.0 - 36.0 g/dL 10/12/2025 8:38 PM [facility] MPV 10.2 8.4 - 12.0 fL 10/12/2025 8:38 PM [facility] RDW-CV 13.0 11.5 - 14.5 % 10/12/2025 8:38 PM [facility] PLT 190 150 - 450 K/uL 10/12/2025 8:38 PM [facility] Neutrophils 64.2 % 10/12/2025 8:38 PM [facility] Lymphocytes 22.7 % 10/12/2025 8:38 PM [facility] Monocytes 10.8 % 10/12/2025 8:38 PM [facility] Eosinophils 1.6 % 10/12/2025 8:38 PM [facility] Basophils 0.4 % 10/12/2025 8:38 PM [facility] Imm Grans 0.3 % 10/12/2025 8:38 PM [facility] NRBC 0.0 <=0.0 /100 WBCs 10/12/2025 8:38 PM [facility] Absolute Neutrophils 4.53 1.92 - 7.60 K/uL 10/12/2025 8:38 PM [facility] Absolute Lymphocytes 1.60 0.72 - 4.10 K/uL 10/12/2025 8:38 PM [facility] Absolute Monocytes 0.76 0.16 - 1.10 K/uL 10/12/2025 8:38 PM [facility] Absolute Eosinophils 0.11 0.00 - 0.50 K/uL 10/12/2025 8:38 PM [facility] Absolute Basophils 0.03 0.00 - 0.15 K/uL 10/12/2025 8:38 PM [facility] Absolute Imm Grans 0.02 0.00 - 0.09 K/uL 10/12/2025 8:38 PM [facility] Absolute NRBC 0.00 <=0.00 K cells/uL 10/12/2025 8:38 PM [facility] Absolute Neutrophils 4.53 1.92 - 7.60 K/uL 10/12/2025 8:38 PM [facility] Comment:Automated cell count . Manual ANC may differ if performed. Diff Type Auto 10/12/2025 8:38 PM [facility] Blood 10/12/2025 11:2 8 AM EST 10/12/2025 11:28 AM EST us Kev Miranda MD LAB BLOOD BKR ORDERABLES Charissa hernandez Result [address] [address] * (ABNORMAL) Hemoglobin A1c (10/12/2025 11:28 AM EST) Hemoglobin A1c 6.2(H) 4.3 - 5.6 % 10/12/2025 9:29 PM [facility] Calculated Mean Blood Glucose 131 mg/dL 10/12/2025 9:29 PM [facility] Comment:There is no establis [facility] normal range for the Estimated Average Glucose (EAG). However, a HbA1c of 5.6% (upper limit of normal) represents an EAG of 114 mg/dL. The diagnostic HbA1c level for diabetes is greater than or equal to 6.5%, which represents an EAG greater than or equal to 140 mg/dL. Blood 10/12/2025 11:2 8 AM EST 10/12/2025 11:28 AM EST Jam Álvarez DO LAB BLOOD BKR ORDERABLES Final R esult [address] [address] * Outside Imaging Report Only (08/23/2025 12:08 PM EDT) Historical Provider IMG XR CHEST Final Res ult * DIABETES EYE EXAM FOR RESULT ENTRY ONLY (04/26/2024) EYE EXAM no retinopathy Historical Provider HEALTH MAINTENANCE Final Result * Hepatitis C antibody, qualitative (10/21/2019 8:38 AM EST) HCV NON-REACTIV E NON-REACTI VE [facility] Blood 10/21/2019 8:38 AM EST 10/21/2019 8:41 AM EST Kev Miranda MD LAB BLOOD BKR ORDERABLES Charissa l Result Performing Organization Address City/[facility]/ZIP Co de Phone Number [address] [address] from Last 3 Months or Most Recently Relevant to Health Maintenance [place] [address] [place] [address] MEDICARE REPLACEMENT MEDICARE REPLACEMENT MEDICARE REPLACEMENT MEDICARE REPLACEMENT [place] [address] [place] [address] MEDICARE REPLACEMENT MEDIC[place] [address] [place] [address] MEDICARE REPLACEMENT [facility] MEDICARE REPLACEMENT [facility] MEDICARE REPLACEMENT Member Subscriber Plan / Payer (Ef fective 2020-Present) Name:Aden Smith Relation to Subscriber:Self Name:Aden Smith Payer ID:[id number] (NAIC) Type:Medicare Address: [place] [id number] Care Teams Hand Tufter Relationship Specialty Start Date End Date Kev Miranda MD [address] [place] [address] PCP - General 10/29/17 Kev Miranda MD [address] [place] [address] Historical LMR Provider 09/20/17 Additional Source Comments The information contained in this document represents components of the legal health record. It is not the complete legal health record.[facility]
--- OUTSIDE RECORDS SUMMARY | 2025-10-19 15:35 | XMS_ITS | Patient Health Record ---
Author Organization [facility] Address [address] [place] [address] Care Team Providers Care Mash Tub Cooker Name Role Phone Kev Miranda MD Primary Care Provider Kev Carreno Unavailable [phone] Allergies No Known Allergies Reason For Referral No Information Medications Medication SIG (Take, Route, Frequency, Duration) Notes Start Date End Date Status Vitamin D-3 125 MCG (5000 UT) Tablet as directed Orally Active Fish Oil 1000 MG Capsule 1 capsule Orall y Once a day; Duration: 30 day(s) Active Multivitamin - Tablet Chewable as directed Orally Active Vitamin B 12 500 MCG Lozenge 1 lozenge Orally Once a day; Duration: 30 day(s) Active Glimepiride 4 MG Tablet Oral; Duration: 90 Active MiraLax 17 GM/SCOOP Powder as directed Orally Active Aspirin 81 81 MG Tablet Delayed Release 1 tablet Orally Once a day; Duration: 30 day(s) Not-Taking/PRN Irbesartan 300 MG Tablet Oral; Duration: 90 Active hydroCHLOROthiazide 25 MG Tablet TAKE 1 TABLET BY MOUTH EVERY DAY Oral; Duration: 90 Active Potassium Chloride ER 10 MEQ Tablet Extended Release Oral; Duration: 30 Active levETIRAcetam 500 MG Tablet Oral; Duration: 90 Active Pioglitazone HCl 15 MG Tablet Oral; Duration: 30 Active Immunizations Vaccine Route Administration Date Status Comme nts Influenza Unknown 09/17/2021 Administered Social History Tobacco Use: Social History Observation Description Date Details (start date - stop date) Former Smoker NA - NA Social History Drugs/Alcohol: Social Info Question Answer Notes Alcohol Screen Did you have a drink containing alcohol in the past year? Yes How often did you have a drink containing alcohol in the past year? 2 to 4 times a month (2 points) How many drinks did you have on a typical day when you were drinking in the past year? 1 or 2 drinks (0 point) How often did you have 6 or more drinks on one occasion in the past year? Less than monthly (1 point) Points 3 Interpretation Negative Tobacco Use: Social Info Question Answer Notes Tobacco Use/Smoking Patient is a former smoker Additional Details Category Social Info Options Details Miscellaneous: Marital status: Occupation: retired Section Notes: Nonsmoker, occ.alcohol Problems Problem Type SNOMED Code ICD Code Onset Dates Problem Status W/U Status Risk Notes Problem Screening for malignant neoplasm of colon (155036367) Encounter for screening for malignant neoplasm of colon (Z12.11) Active confirmed Problem Constipation (46574407) Constipation (K59.00) Active confirmed Problem Pre-procedure evaluation check (572486864) Encounter for other preprocedural examination (Z01.818) Active confirmed Problem Long-term current use of aspirin (341687887284009 ) Aspirin long-term use (Z79.82) Active confirmed Plan Of Treatment Future Test Test Name Order Date COLONOSCOPY 05/14/2022 Insurance Providers Payer Name Payer Address Payer Phone Subscriber Number Group Number Insured Name Patient Relationship to Insured Coverage Start Date Coverage End Date [employer] Medicare Advantage Plan [address] [address] [place] [address] [phone] [id number] ROHINI FELIZ Self - patient is the insured Medical (General) History Medical History History ICD Code NIDDM HTN Sacroiliac pain on the right[place] [facility] [place] AL,CVA,Lung disease,renal disease Constipation Surgical History Surgery Date(Month/Year) Left inguinal hernia
--- OUTSIDE RECORDS SUMMARY | 2025-10-19 15:35 | XMS_ITS | Encounter Summary ---
Author Organization [facility] Address [address] [facility] [address] [place] [address] Phone Care Team Providers Care Er Physician Name Role Phone Kev Miranda MD Unavailable Zainab Bardales PLANNING MANAGER Unavailable Dorina Patel PLANNING MANAGER Unavailable [phone] Dwayne Candelaria MD Unavailable Kev Miranda MD Primary Care Provider [phone] Kev Miranda MD Unavailable [phone] Encounter Details Date Type Department Care Team (Late st Contact Info) Description 04/03/2021 Procedure Pass [address] [place] [address] Social History Tobacco Use Types Packs/Day Years [...] Description 10/20/2025 3:00 PM EST Office Visit [facility] Internal Medicine [address] [place] [address] ERNIE Mckenna [address] Kev Miranda MD [address] [place], [place] [phone] 10/23/2025 2:00 PM EST Office Visit [facility] [address] [place] [address] [place] [address] Jam Álvarez DO [address] [place] [address] 11/27/2025 1:00 PM EST Office Visit [facility] Internal Medicine [address] [place], [place] [phone] Kev Miranda MD [address] [place] [phone] 11/28/2025 2:15 PM EST Office Visit [facility] [address] [place] [address] 3rd Floor, [address] [place] [address] Cuate Ramos MD [address] [place] [address], [address] [address] documented as of this encounter Visit Diagnoses Not on filedocumented in this encounter Additional Health Concerns Assessment Noted Time PHQ-2 Depression Total Score: 0 02/23/20 21 12:57 PM EDT documented as of this encounter Care Teams Er Physician Relationship Specialty Start Date End Date Kev Miranda MD [address] [place] [address] [phone] PCP - General 10/29/17 Kev Miranda MD [address] [place] [address] [phone] Historical LMR Provider 09/20/17 Zainab Bardales NP [address] [facility] [address] [place] [address] Historical LMR Provider 09/20/17 2 Dorina Patel NP [address] [facility] [address] [place] [address] Historical LMR Provider 09/20/17 12/07/21 Dwayne Candelaria MD [address] [place] [phone] Historical LMR Provider 09/20/17 2 Kev Miranda MD [address] [place] [address] Insurance Assigned Provider 02/27/1808/10 documented as of this encounter Additional Source Comments The information contained in this document represents components of the legal health record. It is not the complete legal health record.[facility]
--- OUTSIDE RECORDS SUMMARY | 2025-10-19 15:35 | XMS_ITS | Encounter Summary ---
Author Organization [facility] Address [address] [place] [address] Phone Care Team Providers Care Supervisor Anodizing Name Role Phone Kev Miranda MD Primary Care Provider [phone] Encounter Details Date Type Department Care Team (Late st Contact Info) Description 02/01/2025 Documentation Only [facility], [address] [place] [address] Nisha Amor [address] [place] [phone] Social History Tobacco Use Types Packs/Day Years [...] filedocumented in this encounter Care Teams Supervisor Anodizing Relationship Specialty Start Date End Date Kev Miranda MD [address] [place] [address] PCP - General Internal Medicine 01/31/25 documented as of this encounter
--- OUTSIDE RECORDS SUMMARY | 2025-10-19 15:36 | XMS_ITS | Encounter Summary ---
Author Organization [facility] Address [address] [place] [address] Phone Care Team Providers Care Fitness Management Director Name Role Phone Kev Miranda MD Primary Care Provider [phone] Encounter Details Date Type Department Care Team (Late st Contact Info) Description 02/01/2025 Documentation Only [facility], [address] [place] [address] Nisha Amor [address] [place] [phone] Social History Tobacco Use Types Packs/Day Years [...] on filedocumented in this encounter Care Teams Fitness Management Director Relationship Specialty Start Date End Date Kev Miranda MD [address] [place] [address] PCP - General Internal Medicine 01/31/25 documented as of this encounter
--- OUTSIDE RECORDS SUMMARY | 2025-10-19 15:36 | XMS_ITS | Encounter Summary ---
Author Organization [facility] Address [address] [place] [address] Phone Care Team Providers Care Wood Piler Name Role Phone Kev Miranda MD Primary Care Provider [phone] Encounter Details Date Type Department Care Team (Late st Contact Info) Description 02/01/2025 Documentation Only [facility], [address] [place] [address] Nisha Amor [address] [place] [phone] Social History Tobacco Use Types Packs/Day Years [...] filedocumented in this encounter Care Teams Wood Piler Relationship Specialty Start Date End Date Kev Miranda MD [address] [place] [address] PCP - General Internal Medicine 01/31/25 documented as of this encounter
--- OUTSIDE RECORDS SUMMARY | 2025-10-19 15:36 | XMS_ITS | Encounter Summary ---
Author Organization [facility] Address [address] [place] [address] Phone Care Team Providers Care Sand Car Worker Name Role Phone Kev Miranda MD Primary Care Provider [phone] Encounter Details Date Type Department Care Team (Late st Contact Info) Description 02/01/2025 Documentation Only [facility], [address] [place] [address] Nisha Amor [address] [place] [phone] Social History Tobacco Use Types Packs/Day Years [...] on filedocumented in this encounter Care Teams Sand Car Worker Relationship Specialty Start Date End Date Kev Miranda MD [address] [place] [address] PCP - General Internal Medicine 01/31/25 documented as of this encounter
--- OUTSIDE RECORDS SUMMARY | 2025-10-19 15:36 | XMS_ITS | Encounter Summary ---
Author Organization [facility] Address [address] [place] [address] Phone Care Team Providers Care Munitions Worker Name Role Phone Kev Miranda MD Primary Care Provider [phone] Encounter Details Date Type Department Care Team (Late st Contact Info) Description 02/01/2025 Documentation Only [facility] [place], [address] [place] [address] Nisha Amor [address] [place] [phone] Social History Tobacco Use Types Packs/Day Years [...] on filedocumented in this encounter Care Teams Munitions Worker Relationship Specialty Start Date End Date Kev Miranda MD [address] [place] [address] PCP - General Internal Medicine 01/31/25 documented as of this encounter
--- OUTSIDE RECORDS SUMMARY | 2025-10-19 15:36 | XMS_ITS | Encounter Summary ---
Author Organization [facility] Address [address] [place] [address] Phone Care Team Providers Care Commercial Crabber Name Role Phone Kev Miranda MD Primary Care Provider [phone] Encounter Details Date Type Department Care Team (Late st Contact Info) Description 02/01/2025 Documentation Only [facility] [place], [address] [place] [address] Nisha Amor [address] [place] [phone] Social History Tobacco Use Types Packs/Day Years [...] on filedocumented in this encounter Care Teams Commercial Crabber Relationship Specialty Start Date End Date Kev Miranda MD [address] [place] [address] PCP - General Internal Medicine 01/31/25 documented as of this encounter
--- OUTSIDE RECORDS SUMMARY | 2025-10-19 15:36 | XMS_ITS | Encounter Summary ---
Author Organization [facility] Address [address] [place] [address] Phone Care Team Providers Care Gallery Or Museum Attendant Name Role Phone Kev Miranda MD Primary Care Provider [phone] Encounter Details Date Type Department Care Team (Late st Contact Info) Description 02/01/2025 Documentation Only [facility] [place], [address] [place] [place] [address] Nisha Amor [address] [place] [phone] Social History Tobacco Use Types Packs/Day Years [...] filedocumented in this encounter Care Teams Gallery Or Museum Attendant Relationship Specialty Start Date End Date Kev Miranda MD [address] [place] [address] PCP - General Internal Medicine 01/31/25 documented as of this encounter
--- OUTSIDE RECORDS SUMMARY | 2025-10-19 15:37 | XMS_ITS | Encounter Summary ---
Author Organization [facility] Address [address] [place] [address] Phone Care Team Providers Care Consulting Engineer Name Role Phone Kev Miranda MD Primary Care Provider [phone] Encounter Details Date Type Department Care Team (Late st Contact Info) Description 02/03/2025 Documentation Only [facility] [place], [address] [place] [address] [place], [place] [address] [place] [phone] Social History Tobacco Use Types Packs/Day Years [...] on filedocumented in this encounter Care Teams Consulting Engineer Relationship Specialty Start Date End Date Kev Miranda MD [address] [place] [address] PCP - General Internal Medicine 01/31/25 documented as of this encounter
--- OUTSIDE RECORDS SUMMARY | 2025-10-19 15:37 | XMS_ITS | Encounter Summary ---
Author Organization [facility] Address [address] [place] [address] Phone Care Team Providers Care School Office Assistant Name Role Phone Kev Miranda MD Primary Care Provider [phone] Encounter Details Date Type Department Care Team (Late st Contact Info) Description 01/31/2025 Documentation Only [facility] [place], [address] [place] [place] [address] [place], [place] [address] [place] [phone] Social History Tobacco Use Types Packs/Day Years [...] on filedocumented in this encounter Care Teams School Office Assistant Relationship Specialty Start Date End Date Kev Miranda MD [address] [place] [address] PCP - General Internal Medicine 01/31/25 documented as of this encounter
--- OUTSIDE RECORDS SUMMARY | 2025-10-19 15:37 | XMS_ITS | Encounter Summary ---
Author Organization [facility] Address [address] [place] [address] Phone Care Team Providers Care Independent Film Maker Name Role Phone Kev Miranda MD Primary Care Provider [phone] Encounter Details Date Type Department Care Team (Late st Contact Info) Description 02/01/2025 Documentation Only [facility] [place], [address] [place] [place] [address] Nisha Amor [address] [place] [phone] Social History Tobacco Use Types Packs/Day Years [...] on filedocumented in this encounter Care Teams Independent Film Maker Relationship Specialty Start Date End Date Kev Miranda MD [address] [place] [address] PCP - General Internal Medicine 01/31/25 documented as of this encounter
--- OUTSIDE RECORDS SUMMARY | 2025-10-19 15:37 | XMS_ITS | Encounter Summary ---
Author Organization [facility] Address [address] [place] [address] Phone Care Team Providers Care Box Person Name Role Phone Kev Miranda MD Primary Care Provider [phone] Encounter Details Date Type Department Care Team (Late st Contact Info) Description 02/01/2025 Documentation Only [facility] [place], [address] [place] [address] Nisha Amor [address] [place] [phone] Social History Tobacco Use Types Packs/Day Years [...] on filedocumented in this encounter Care Teams Box Person Relationship Specialty Start Date End Date Kev Miranda MD [address] [place] [address] PCP - General Internal Medicine 01/31/25 documented as of this encounter
--- OUTSIDE RECORDS SUMMARY | 2025-10-19 15:37 | XMS_ITS | Clinical Summary ---
Author Organization [facility] [place], Address [address] [place] [address] [place] [address] Phone Care Team Providers Care Labor And Delivery Registered Nurse Name Role Phone Kev Miranda MD Primary Care Provider [phone] Allergies Active Allergy Reactions Criticality Noted Date [...] day in the morning Active Chlorphen-Phenyle ph-ASA ([place] Severe Cold) 2-7.8-325 MG effervescent tablet Take [...] mouth 1 (one) time each day Active [place]-3 Fatty Acids (OMEGA 3 PO) Take 1,000 [...] patient's age to complete this topic Insurance [facility] Medicare Care Teams Labor And Delivery Registered Nurse Relationship Specialty Start Date End Date Kev Miranda MD [address] [place] [address] PCP - General Internal Medicine 01/31/25
--- OUTSIDE RECORDS SUMMARY | 2025-10-19 15:37 | XMS_ITS | Encounter Summary ---
Author Organization [facility] Address [address] [place] [address] Phone Care Team Providers Care Tester [employer] Packages Name Role Phone Kev Miranda MD Primary Care Provider [phone] Encounter Details Date Type Department Care Team (Late st Contact Info) Description 02/01/2025 Documentation Only [facility] [place], [address] [place] [address] Nisha Amor [address] [place] [phone] Social History Tobacco Use Types Packs/Day Years [...] on filedocumented in this encounter Care Teams Tester [employer]iconductor Packages Relationship Specialty Start Date End Date Kev Miranda MD [address] [place] [address] PCP - General Internal Medicine 01/31/25 documented as of this encounter
--- OUTSIDE RECORDS SUMMARY | 2025-10-19 15:38 | XMS_ITS | Patient Health Record ---
Author Organization [facility] Address [address] [place] [address] Care Team Providers Care Director Medical Writing Name Role Phone Kev Miranda MD Primary Care Provider Denny Nunez Unavailable [phone] Allergies No Known Allergies Reason For Referral [...] Problem Acquired hammer toe of right foot (2491906331620646 ) Other hammer toe(s) (acquired), right foot (M20.41) Active confirmed Problem Acquired hammer toe of left foot (8173911826043354 ) Other hammer toe(s) (acquired), left foot (M20.42) Active confirmed Problem Polyneuropathy due to type 2 diabetes mellitus (113149153) Type 2 diabetes mellitus with diabetic polyneuropathy (E11.42) Active confirmed Plan Of Treatment No Information Insurance Providers Payer Name Payer Address Payer Phone Subscriber Number Group Number Insured Name Patient Relationship to Insured Coverage Start Date Coverage End Date [employer] Medicare [id number] [address] [address] [place] [address] [id number] Aden Smith Self - patient is the insured Medical (General) History Medical History History ICD Code Diabetic High blood pressure Sciatica Surgical History Surgery Date(Month/Year) spinal stenosis surgery 01/02/2023
--- OUTSIDE RECORDS SUMMARY | 2025-10-19 15:38 | XMS_ITS | Encounter Summary ---
Author Organization [facility] Address [address] [place] [address] Phone Care Team Providers Care Handle Lathe Operator Name Role Phone Kev Miranda MD Unavailable [phone] Kev Miranda MD Primary Care Provider [phone] Encounter Details Date Type Department Care Team (Late st Contact Info) Description 11/01/2024 Procedure Pass [facility] [place] [place] [address] Social History Tobacco Use Types Packs/Day Years [...] Description 10/20/2025 3:00 PM EST Office Visit [facility] Internal Medicine [address] [place] [address] Kev Miranda MD [address] [place] [address] 10/23/2025 2:00 PM EST Office Visit [facility] [address] [place] [address] Jam Álvarez DO [address] [place] [address] 11/27/2025 1:00 PM EST Office Visit [facility] Internal Medicine [address] [place] [address] Kev Miranda MD [address] [place] [address] 11/28/2025 2:15 PM EST Office Visit [facility] [address], [address] [place] [phone] Cuate Ramos MD [address] [facility], [address] [phone] documented as of this encounter Visit Diagnoses Not on filedocumented in this encounter Additional Health Concerns Assessment Noted Time PHQ-2 Depression Total Score: 2 10/10/20 24 7:04 PM EST documented as of this encounter Care Teams Handle Lathe Operator Relationship Specialty Start Date End Date Kev Miranda MD [address] [place] [address] [email or web address] PCP - General 10/29/17 Kev Miranda MD [address] [place] [address] [email or web address] Historical LMR Provider 09/20/17 documented as of this encounter Additional Source Comments The information contained in this document represents components of the legal health record. It is not the complete legal health record.[facility]
[2025-10-30 10:19] VITALS: BMI 18.4
[2025-10-30 10:20] VITALS: BMI 41.1
[2025-11-01] VITALS (8 sets, daily range): BP systolic 102–137; BP diastolic 49–84; PULSE 70–99; RESP 12–23; TEMP 36.3–37.1; O2SAT 93–95
--- NOTE | ~2025-11-01 | FL_ITS ---
EXAMINATION: FL GUIDANCE ONLY HISTORY: SPINAL CORD STIM IMPLANT COMPARISON: None available. TECHNIQUE: Fluoroscopy time: 3 minutes, 36.8 seconds. Cumulative Dose: 136.44 mGy. DAP: 19.579 Gycm2 Images: 4. FINDINGS: Fluoroscopic spot films of the thoracolumbar junction demonstrate a spinal stimulator in place with the tip of the lead at the superior endplate of T8. FL/FL guidance in OR IMPRESSION: Fluoroscopy during procedure. Please see procedure report for additional information. Electronically signed by: Kev Elise MD 11/02/2025 07:13 AM [facility]
[2025-11-01 12:07] LABS: Glucose, Whole Blood 142 mg/dL (60-115)
[2025-11-01] MEDS: Lactated Ringers 1,000 ML 100 ML IVCONT (12:09)
--- NOTE | 2025-11-01 13:00 | MHC.SHP ---
Pre-Procedural Eval Section A - 24 Hr Update-Section A only Date of Service: 11/01/25 The patient is an INPATIENT: No Changes since office visit: Yes Patient answered all questions The patient has been examined within 24 hours of the surgical procedure. The History & Physical has been completed within 30 days and I have reviewed it.: No Section B - Complete if H&P > 30 days Chief Complaint: Postlaminectomy syndrome, not elsewhere classified Relevant Family History (Specify if Yes): No Relevant Social History: None Present Medications: see Short Stay Collaborative assessment Medical History: No relevant PMH History of Previous Operations: No relevant previous surgery Allergies: Allergies Allergy/AdvReac Type Severity Reaction Status Date / Time metoprolol AdvReac Severe Fatigued Verified 09/01/25 10:50 carvedilol AdvReac Intermediate Headache, Verified 10/30/25 10:20 Gastrointestinal Upset spironolactone AdvReac Intermediate headache, Verified 10/30/25 10:20 Gastrointestinal Upset Review of Systems Sugical H&P ROS: Negative: Constitution, Cardiovascular and Respiratory Exam Surgical H&P Exam: Normal: HEENT, Normal: Heart and Normal: Lungs Plan Diagnosis/Plan: Unchanged I have reviewed the history and physical and performed a pertinent physical examination on my patient. No changes have occurred unless specified. Time Spent With Patient Time: Total time managing care of this patient today ____ minutes.
--- NOTE | 2025-11-01 13:02 | HO.ANESPROP2 ---
Documented by User: Mavis Garcia NP 10/30/25 09:37 HPI - Anesthesia Eval Consult details Narrative: 74yo M for Spinal Cord Stimulation Implant s/p stim trial 07/2025 with TIVA PMFSH Active Problems Active Problems: All Active Problems Lumbar radicular pain (Acute) Lower urinary tract symptoms (LUTS) (Acute) Sacroiliac joint pain (Acute) Post laminectomy syndrome (Acute) Intractable back pain (Acute) Lumbar spondylosis (Acute) Lumbar radiculopathy (Acute) Spinal stenosis, lumbar region with neurogenic claudication (Acute) Sacroiliac joint dysfunction of right side (Acute) Cluneal neuropathy (Acute) Seizure disorder (Acute) Hypertension (Acute) Type 2 diabetes mellitus (Acute) Past Medical History Medical History JOSÉ MIGUEL (obstructive sleep apnea) Back pain HLD (hyperlipidemia) Nausea Hx of spinal stenosis Cluneal neuropathy Seizure disorder Hypertension Type 2 diabetes mellitus Family History Family history of problems with anesthesia: No Surgical History Surgical History S/P placement of nerve stimulator Hx of spinal surgery (12/2022) Hx of hernia repair (~2010) History of Problems with Anesthesia: No Social History Social History Are you a primary medicare coordinator to a significant other at home: No Do you presently have visiting nurse or other home services: No Patient Tobacco Use Status: Former Tobacco user Tobacco use type: Cigarette Second Hand Smoke Exposure: No Use of substances other than those prescribed or required for medical reasons: No Have you been hit, kicked, punched, or otherwise hurt by someone within the past year? If so, by whom?: No Are you DNR?: No Advance Directives: No Advance Directives Information Provided: Yes Advance Directives on File: No Meds Allergies Allergy/AdvReac Type Severity Reaction Status Date / Time metoprolol AdvReac Severe Fatigued Verified 09/01/25 10:50 carvedilol AdvReac Intermediate Headache, Verified 10/30/25 10:20 Gastrointestinal Upset spironolactone AdvReac Intermediate headache, Verified 10/30/25 10:20 Gastrointestinal Upset Home Medications ?Medication ?Instructions ?Recorded ?Confirmed ?Last Taken ?Type glimepiride 4 mg tablet 4 mg PO DAILY 05/12/22 11/01/25 10/14/23 History irbesartan 300 mg tablet 300 mg PO DAILY 05/12/22 11/01/25 10/14/23 History levetiracetam 500 mg tablet 500 mg PO BID 05/12/22 11/01/25 11/01/25 History rosuvastatin 5 mg tablet 5 mg PO DAILY 05/12/22 11/01/25 10/14/23 History pioglitazone 30 mg tablet 30 mg PO DAILY 01/07/24 11/01/25 Unknown History ibuprofen 600 mg tablet 600 mg PO DAILY PRN Pain 02/27/25 11/01/25 Unknown History amlodipine 2.5 mg tablet 2.5 mg PO DAILY 07/17/25 11/01/25 11/01/25 History Assessment and Plan Assessment Anesthesia Assessment: Chart Reviewed Final Anesthetic Review Family History of Problems with Anesthesia: No History of Problems with Anesthesia: No Documented by User: Syl Alfred DO 11/01/25 13:04 [facility] Past Medical History Medical History JOSÉ MIGUEL (obstructive sleep apnea) Back pain HLD (hyperlipidemia) Nausea Hx of spinal stenosis Cluneal neuropathy Seizure disorder Hypertension Type 2 diabetes mellitus Family History Family history of problems with anesthesia: No Surgical History Surgical History S/P placement of nerve stimulator Hx of spinal surgery (12/2022) Hx of hernia repair (~2010) History of Problems with Anesthesia: No Social History Social History Are you a primary medicare coordinator to a significant other at home: No Do you presently have visiting nurse or other home services: No Patient Tobacco Use Status: Former Tobacco user Tobacco use type: Cigarette Second Hand Smoke Exposure: No Use of substances other than those prescribed or required for medical reasons: No Have you been hit, kicked, punched, or otherwise hurt by someone within the past year? If so, by whom?: No Are you DNR?: No Advance Directives: No Advance Directives Information Provided: Yes Advance Directives on File: No Meds Allergies Allergy/AdvReac Type Severity Reaction Status Date / Time metoprolol AdvReac Severe Fatigued Verified 09/01/25 10:50 carvedilol AdvReac Intermediate Headache, Verified 10/30/25 10:20 Gastrointestinal Upset spironolactone AdvReac Intermediate headache, Verified 10/30/25 10:20 Gastrointestinal Upset Home Medications ?Medication ?Instructions ?Recorded ?Confirmed ?Last Taken ?Type glimepiride 4 mg tablet 4 mg PO DAILY 05/12/22 11/01/25 10/14/23 History irbesartan 300 mg tablet 300 mg PO DAILY 05/12/22 11/01/25 10/14/23 History levetiracetam 500 mg tablet 500 mg PO BID 05/12/22 11/01/25 11/01/25 History rosuvastatin 5 mg tablet 5 mg PO DAILY 05/12/22 11/01/25 10/14/23 History pioglitazone 30 mg tablet 30 mg PO DAILY 01/07/24 11/01/25 Unknown History ibuprofen 600 mg tablet 600 mg PO DAILY PRN Pain 02/27/25 11/01/25 Unknown History amlodipine 2.5 mg tablet 2.5 mg PO DAILY 07/17/25 11/01/25 11/01/25 History Exam Exam Date and Time: 11/01/25 1200 Height,Weight and Vital Signs: Height 5 ft 11 in Weight 133.81 kg Vital Signs Temperature 98.8 F 11/01/25 12:01 Pulse Rate 99 11/01/25 12:01 Respiratory Rate 18 11/01/25 12:01 Blood Pressure 137/84 11/01/25 12:01 Pulse Oximetry 95 11/01/25 12:01 Oxygen Delivery Method Room Air 11/01/25 12:01 Temperature 98.8 F 11/01/25 12:01 Pulse Rate 99 11/01/25 12:01 Respiratory Rate 18 11/01/25 12:01 Blood Pressure 137/84 11/01/25 12:01 Pulse Oximetry 95 11/01/25 12:01 Oxygen Delivery Method Room Air 11/01/25 12:01 Airway Mallampati Class: II TM Dist: >3cm Neck ROM: Full Loose/Missing/Broken Teeth: Yes (multiple missing teeth) Heart: S1S2 Lungs: CTAB Assessment and Plan Assessment Anesthesia Assessment: Anesthesia Plan Discussed and Chart Reviewed Final Anesthetic Review Family History of Problems with Anesthesia: No History of Problems with Anesthesia: No NPO: Yes ASA Class: III Final Preanesthetic Review: No Changes in Pt Med Stat, Meds/Allgs Chart Reviewed, Consent Obtained/Reviewed and Anes Risks/Benef Reviewed Patient Risk: Low Procedure Risk: Intermediate Anesthetic Plan Anesthetic Plan: GA and Agree w/ Assess. and Plan Disposition: Standard PACU
--- NOTE | 2025-11-01 13:03 | PM.OP ---
Brief Operative Note Date of Service: 11/01/25 Pre-op diagnosis: Postlaminectomy syndrome Procedure: Lumbar spinal cord stimulation implant Implants: [employer] Alpha WaveWriter SCS System Surgeon: Michele Rangel MD Anesthesia: GETA Was an Splitting Machine Operator Helper used for this Procedure?: No Estimated blood loss (mL): 10 Pathology: none sent Condition: stable Disposition: PACU
--- NOTE | 2025-11-01 13:03 | W.PM.OPN ---
Operative Note Operative Note Date of Service: 11/01/25 Narrative: Preoperative diagnosis: Post-laminectomy syndrome Postoperative diagnosis: Post-laminectomy syndrome Procedure: Lumbar SCS Implant After proper identification, the patient was brought to the operating room. The patient was induced under general anesthesia and placed in a prone position. Care was taken during positioning to protect and pad all pressure points. Cefazolin 2gm was given as preoperative antibiotic prophylaxis. The back was prepped and draped in the usual sterile fashion using Chloroprep. The fluoroscope unit was sterilely draped and brought into field, the vertebral target and the T12/L1 interspace was localized with fluoroscopy after the skin was anesthetized with 0.25% bupivicaine with 1:200,000 epinephrine and 1% lidocaine using a 25-gauge needle. A 6 cm incision was then made in the midline back with a 15 blade between the L2 and L3 spinous processes. Electrocautery was used to dissect down to the prevertebral fascia. Two 14-gauge introducer Epimed needles were advanced using AP and contralateral oblique fluoroscopy views to the target T12/L1 interspace on either side of the inferior spinous process. Upon loss of resistance, a flexible stylet was advanced and verified to be in the epidural space.? The electrodes were then threaded up to the middle of T8 vertebral body. With the needles covering the leads, we placed 2 sets of Tycron sutures per electrode for the anchor stitches. We then backed out the needle under live fluoroscopy, verifying that the electrodes were in the correct position and we then used the locking anchors to secure the electrodes down to the prevertebral fascia, tying them down with the Tycron sutures. At this point, a pocket for the generator was made in the left iliac fossa. With the skin and subcutaneous tissues anesthetized with 0.25% bupivicaine with 1:200,000 epinephrine and 1% lidocaine, a horizontal 2-inch incision was made using a 15 blade and combination of sharp dissection, blunt dissection and electrocautery was used. A pocket was created about half an inch below the skin. The pocket was then irrigated with normal saline containing vancomycin. Hemostasis was attained with electrocautery. We then tunneled the electrodes from the back into the pocket using the tunneling device. The electrodes were then connected to the generator. Two Tycron sutures were thrown across the floor of the pocket and through the anchor holes of the generator. After interrogation with impedance check the generator was placed into the subcutaneous pocket and the anchoring sutures tied. Care was taken not to get fluid in the generator connector block. The excess lead was closed beneath the generator creating a loop of strain relief as well. The neurostimulator generator was placed parallel to the skin at a depth of half an inch along for successful telemetry and impedence. The pocket was reirrigated and closed with the generator name facing out. Final electronic analysis was performed to ensure proper functioning. Positioning of the leads were rechecked and confirmed with fluoroscopy and images saved. Both incisions were closed with a fascial layer of 2-0 Vicryl sutures and the deep dermal layer with 3-0 Vicryl sutures, simple interrupted. We then secured the incision with Dermabond, steristrips and OpSites over both incisions. The patient tolerated the procedure well. The patient was then flipped back into the supine position, woken up and brought to the PACU in stable condition. Complications: None EBL: 20 mL
[2025-11-01 13:46] LABS: MRSA Nasal PCR NEGATIVE (Negative); SA Nasal PCR POSITIVE (Negative)
== END 2025-11-01 17:00 | disposition home or self-care (01) ==
PROVIDERS: Registered Nurse Emergency; PCP Internal Medicine; Visit Provider Internal Medicine
PROC: (CPT 63685; principal; 2025-11-01 12:50)
DX: M96.1 Postlaminectomy syndrome, not elsewhere classified (principal); G89.29 Other chronic pain; M54.50 Low back pain, unspecified; G40.909 Epilepsy, unspecified, not intractable, without status epilepticus; G47.33 Obstructive sleep apnea (adult) (pediatric); G58.8 Other specified mononeuropathies; G62.9 Polyneuropathy, unspecified; I10 Essential (primary) hypertension; E11.9 Type 2 diabetes mellitus without complications; E78.5 Hyperlipidemia, unspecified; Z79.1 Long term (current) use of non-steroidal anti-inflammatories (NSAID); Z79.84 Long term (current) use of oral hypoglycemic drugs; Z79.899 Other long term (current) drug therapy; Z88.8 Allergy status to other drugs, medicaments and biological substances; Z98.890 Other specified postprocedural states; Z87.891 Personal history of nicotine dependence
CPT/HCPCS: 63685; 63650 ×2; 82947; 87640; 87641; C1778; C1787; C1820; C1889; J0690; J1100; J2003; J2371; J2405; J2704; J3010; J3374

== ENCOUNTER → 2025-11-01 11:22 | Outpatient (BNV) | payer MEDICARE, SELFPAY | PROVIDERS: PCP Internal Medicine; Visit Provider Internal Medicine | DX: M96.1 Postlaminectomy syndrome, not elsewhere classified (principal) | CPT/HCPCS: 63650; 63685 ==

== ENCOUNTER 2025-11-08 10:44 | Outpatient (AMB) | payer MEDICARE, SELFPAY ==
[2025-11-08 11:13] VITALS: BP 141/84; PULSE 114; O2SAT 93; BMI 39.9
--- NOTE | 2025-11-08 11:13 | A.OFFVIS_ITS ---
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 Mechanic offered & declined Allergies metoprolol Adverse Reaction (Severe, Verified 11/08/25 11:14) Fatigued carvedilol Adverse Reaction (Intermediate, Verified 11/08/25 11:14) Headache, Gastrointestinal Upset spironolactone Adverse Reaction (Intermediate, Verified 11/08/25 11:14) headache, Gastrointestinal Upset Medication List - Last Reconciled 11/08/25 by Marisol Maguire, HADOOP CONSULTANT amlodipine 2.5 mg PO DAILY cephalexin 750 mg PO TID glimepiride 4 mg PO DAILY ibuprofen 600 mg PO DAILY PRN irbesartan 300 mg PO DAILY levetiracetam 500 mg PO BID oxycodone-acetaminophen 5-325 mg 1 tab PO Q8H PRN pioglitazone 30 mg PO DAILY rosuvastatin 5 mg PO DAILY HPI HPI S/p [employer] SCS Implant 11/01/25: Details: History of Present Illness The patient is a 75 year old male presenting for a follow-up visit after a spinal cord stimulator implant. He reports multiple postoperative side effects, including constipation for six days, which he treated at home. He discontinued oxycodone on Thursday due to this constipation and had a significant bowel movement on Thursday, followed by severe diarrhea, weakness, and subsequent intake of Powerade for electrolytes. He has experienced nonstop nausea, which is exacerbated by sitting or reclining, and improves when standing. The nausea has also been causing difficulty sleeping. He reports using a sublingual anti-nausea medication (Zofran) which provides some relief. Additional complaints include swollen feet and legs, and a lack of appetite. He notes that his incisional back pain is tolerable and has improved, but he has been largely inactive. He also mentions that the postoperative corset causes a pulling sensation on the incision when he moves from a flat to an upright position. Pain Description - Location: Incisional back pain. - Severity: The pain is currently tolerable and less than before, though the patient has been inactive. - Exacerbating Factors: The back corset causes a pulling or dragging sensation on the incision when moving from a lying to an upright position. - Relieving Factors: Pain is relieved when lying flat and feels better when standing. Physical Exam - Integumentary: The surgical dressing on the back is intact and dry. - There is no evidence of bleeding or discharge. - The incision site does not appear red or swollen. - The dressing was reinforced. Pain Management - Affect: The patient reports feeling not good and sleeping poorly due to nausea. - Analgesia: He has stopped taking oxycodone since last Thursday. - His incisional back pain is described as tolerable. - Adverse Effects: He reports constipation, subsequent severe diarrhea, nonstop nausea, swollen feet and legs, poor sleep, and a lack of appetite. - Activities of Daily Living: The patient reports having been very inactive since the procedure. - Aberrant Drug Related Behaviors: None noted; the patient self-discontinued oxycodone due to side effects. [facility] Medical History JOSÉ MIGUEL (obstructive sleep apnea) Back pain HLD (hyperlipidemia) Nausea Hx of spinal stenosis Cluneal neuropathy Seizure disorder Hypertension Type 2 diabetes mellitus Surgical History S/P placement of nerve stimulator Hx of spinal surgery (12/2022) Hx of hernia repair (~2010) Social History Are you a primary critical care technician to a significant other at home: No Do you presently have visiting nurse or other home services: No Comment: medicated Patient Tobacco Use Status: Former Tobacco user Tobacco use type: Cigarette Second Hand Smoke Exposure: No Physical Exam Vital Signs: Last Vital Signs Pulse 114 H 11/08/25 11:13 BP 141/84 H 11/08/25 11:13 Pulse Ox 93 11/08/25 11:13 Oxygen Delivery Method Room Air 11/08/25 11:13 BMI result Body Mass Index 39.9 Assessment & Plan Assessment & Plan (1) Post laminectomy syndrome: Code(s): M96.1 - Postlaminectomy syndrome, not elsewhere classified Category: Medical Plan Plan Patient was informed and verbally consented to the use of an ambient scribe for clinic note documentation during this visit. 1. Postlaminectomy syndrome, not elsewhere classified M96.1 - The patient's postoperative symptoms including nausea and constipation are likely side effects from anesthesia and opioids. - The surgical dressing was inspected, noted to be clean and dry without signs of infection, and was reinforced. - The patient is advised to continue wearing the back corset for another week but can remove it intermittently. - He is cleared to shower in three days, on Thursday, and advised to keep the incision area dry to prevent infection. - A follow-up appointment is scheduled for next Thursday at 11 a.m. for dressing removal. 2. Postoperative Nausea - It was noted that the patient has a sensitive chemoreceptor pathway, making him prone to nausea. - The patient should continue to use Zofran (ondansetron) as needed for nausea. - He confirmed he has an adequate supply of the medication. 3. Postoperative Constipation - The patient is to continue taking MiraLax and stool softeners as needed. - A dietary recommendation was made to eat two dried figs per day to prevent constipation. 4. Acute Postoperative Pain - The patient is instructed to stop taking oxycodone. - He may use Tylenol or ibuprofen for pain management as needed. Discussion Notes I discussed with the patient that his symptoms of constipation, nausea, and swelling are common side effects related to the anesthesia and opioids he received during his procedure. I advised him to discontinue oxycodone and manage any pain with Tylenol or ibuprofen. We discussed continuing Zofran for nausea and managing constipation with MiraLax and the addition of dried figs to his diet. I examined his surgical incision, noted it appeared to be healing well without signs of infection, and reinforced the dressing. I explained the importance of avoiding infection, including the risk of needing to remove the implant if an infection were to occur. I advised him to wait another three days before showering and to keep the dressing on for another week, though it can be removed periodically. I arranged a follow-up appointment for him next Thursday for dressing removal and provided reassurance that he is recovering as expected. Patient Instructions - Stop taking Oxycodone. - You may take Tylenol or ibuprofen if you have pain. - Continue taking the Zofran pill that dissolves under your tongue for nausea as you need it. - To prevent constipation, you may use MiraLax. - It is also recommended to eat two dried figs per day. - Continue to wear your back brace for another week. - You can take it off for short periods to let the skin air out and apply lotion if it gets itchy. - You may take a shower starting this Thursday (in 3 days). - Try to keep the bandage as dry as possible. - Your next appointment is scheduled for next Thursday at 11:00 AM for dressing removal. Coding Level of Care Code Est Pt Level 4 (24674) Diagnoses Post laminectomy syndrome M96.1
== END 2025-11-08 11:34 | disposition home or self-care (01) ==
LOC: HO.PMC 10:45
PROVIDERS: PCP Internal Medicine; Visit Provider Internal Medicine
DX: M96.1 Postlaminectomy syndrome, not elsewhere classified (principal)
CPT/HCPCS: 99024

== ENCOUNTER → 2025-11-08 10:44 | Outpatient (BNVA) | payer MEDICARE, SELFPAY | PROVIDERS: PCP Internal Medicine; Visit Provider Internal Medicine | DX: M96.1 Postlaminectomy syndrome, not elsewhere classified (principal); K59.09 Other constipation; R11.0 Nausea; Z98.890 Other specified postprocedural states | CPT/HCPCS: 99212 ==

== ENCOUNTER 2025-11-15 10:52 | Outpatient (AMB) | payer MEDICARE, SELFPAY ==
--- NOTE | 2025-11-15 11:07 | A.OFFVIS_ITS ---
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 Allergies metoprolol Adverse Reaction (Severe, Verified 11/15/25 11:10) Fatigued carvedilol Adverse Reaction (Intermediate, Verified 11/15/25 11:10) Headache, Gastrointestinal Upset spironolactone Adverse Reaction (Intermediate, Verified 11/15/25 11:10) headache, Gastrointestinal Upset Medication List - Last Reconciled 11/15/25 by Concepcion Lewis LPN amlodipine 2.5 mg PO DAILY glimepiride 4 mg PO DAILY ibuprofen 600 mg PO DAILY PRN irbesartan 300 mg PO DAILY levetiracetam 500 mg PO BID pioglitazone 30 mg PO DAILY rosuvastatin 5 mg PO DAILY HPI HPI DRESSING REMOVAL: Details: History of Present Illness The patient is a 75 year old male presenting for a postoperative check after a spinal cord stimulator (SCS) implant. He reports that his pain in the targeted area has improved since the procedure. Over the last week, he has developed new symptoms in both feet, described as a sensation of walking on a cushion, pins and needles, and some burning. He also reports swelling in both his legs and feet, which became more noticeable recently. The stimulator was paused overnight, but the foot symptoms did not change. The patient has a history of issues with blood pressure medications for over a year, which he relates to his pain and inability to rest. He is currently taking Eplerenone, which was increased from every other day to daily about a week before his surgery. He notes that he looked up this medication and found that both swelling and constipation are listed as side effects. He experienced some constipation before the surgery and has required laxatives recently. Pain Description - Location: The patient notes his pain is better in the area that was targeted by the spinal cord stimulator. - Quality: He has developed a new sensation in both feet, described as feeling like he is walking on a cushion, with pins and needles and some burning. - Onset: The new foot symptoms started about a week ago. Physical Exam - Back/Wound: Examination of the surgical sites shows the midline incision is not quite healed, while the incision for the implantable pulse generator (IPG) is well-healed. Pain Management: - Analgesia: The patient reports his pain is better in the area targeted by the spinal cord stimulator. - Adverse Effects: He is experiencing new-onset bilateral foot symptoms, including a burning and cushion-like sensation, which may be related to lead migration. - The patient also reports swelling in his legs and feet as well as constipation, which he believes may be side effects of his blood pressure medication, Eplerenone. [facility] Medical History JOSÉ MIGUEL (obstructive sleep apnea) Back pain HLD (hyperlipidemia) Nausea Hx of spinal stenosis Cluneal neuropathy Seizure disorder Hypertension Type 2 diabetes mellitus Surgical History S/P placement of nerve stimulator Hx of spinal surgery (12/2022) Hx of hernia repair (~2010) Social History Are you a primary healthcare insurance sales agent to a significant other at home: No Do you presently have visiting nurse or other home services: No Comment: medicated Patient Tobacco Use Status: Former Tobacco user Tobacco use type: Cigarette Second Hand Smoke Exposure: No Physical Exam Vital Signs: Last Vital Signs Pulse 100 11/15/25 11:09 Resp 16 11/15/25 11:09 BP 198/89 H 11/15/25 11:09 Pulse Ox 91 L 11/15/25 11:09 Oxygen Delivery Method Room Air 11/15/25 11:09 BMI result Body Mass Index 40.3 Assessment & Plan Assessment & Plan (1) Post laminectomy syndrome: Code(s): M96.1 - Postlaminectomy syndrome, not elsewhere classified Category: Medical Plan: Plan Patient was informed and verbally consented to the use of an ambient scribe for clinic note documentation during this visit. 1. Postoperative Status, Spinal Cord Stimulator (Scs) Implant - The patient reports improvement in his targeted pain but has new-onset paresthesia and burning in his feet. - There is concern for lead migration, which may be causing the new foot symptoms. - The SCS was reprogrammed with two no feel programs to attempt to resolve the foot symptoms. - A thoracic spine X-ray has been ordered to check the lead position, which will inform any further programming adjustments if needed. - The midline surgical incision is not fully healed; a new dressing was applied with instructions for the patient to remove it in one week. - The IPG incision is well-healed and requires no further dressing. - The team will text him by Thursday for an update on his symptoms. - He should follow up as needed if pain is not controlled or if issues with the stimulator arise. 2. Peripheral Edema - The patient has new swelling in his legs and feet, which is considered unlikely to be related to the spinal cord stimulator. - The swelling is possibly a side effect of his medication, Eplerenone, or related to recent surgery and IV fluids. - The patient was advised to address the swelling with his primary care physician. - The patient has a follow-up appointment with his primary care physician, Dr. Kev Miranda, tomorrow. - Today's visit note will be faxed to his PCP. 3. Constipation - The patient reports issues with constipation, requiring laxatives. - He notes that constipation is a listed side effect of his blood pressure medication, Eplerenone. - The management of this issue will be deferred to his primary care physician. Discussion Notes I saw the patient for his postoperative check following a spinal cord stimulator implant. I explained that while his targeted pain has improved, the new burning and paresthesia in his feet could be due to a possible migration of one of the stimulator leads, though it could also be related to other factors. To investigate, I ordered a thoracic spine X-ray. I clarified that we would only need to act on the X-ray if his symptoms do not improve with the new programming we adjusted today. I informed the patient that the swelling in his legs and feet is likely a separate issue, unrelated to the stimulator, and could be a side effect of his medications or a result of the recent surgery. I advised him to address this with his primary care physician, whom he is scheduled to see tomorrow. I inspected his incisions, placed a new dressing on the one that is still healing, and instructed him on its removal in one week. I informed him that he should follow up as needed if his pain control worsens and that my team would check in on him later this week. Patient Instructions - Please go to the radiology department for a walk-in X-ray of your back today. - You can remove the new dressing on your back incision yourself in about one week. - The other incision from your surgery is healed and does not need a dressing. - Be sure to discuss the swelling in your legs and feet with your primary care doctor at your appointment tomorrow. - Our office will check in with you by Thursday to see how you are doing with the new stimulator settings. - Call our office to make an appointment if your pain does not get better or you have any other problems with your stimulator. Coding Level of Care Code Est Pt Level 4 (44676) Diagnoses Post laminectomy syndrome M96.1
[2025-11-15 11:09] VITALS: BP 198/89; PULSE 100; RESP 16; O2SAT 91; BMI 40.3
--- OUTSIDE RECORDS SUMMARY | 2025-11-15 14:11 | XMS_ITS | Patient Health Record ---
Author Organization [facility] Address [address] [place] [id number] Care Team Providers Care Sheep Herder Name Role Phone Kev Miranda MD Primary Care Provider Kev Carreno Unavailable [phone] Allergies No Known Allergies Reason For Referral [...] Problem Screening for malignant neoplasm of colon (760068540) Encounter for screening for malignant neoplasm of colon (Z12.11) Active confirmed Problem Constipation (44842234) Constipation (K59.00) Active confirmed Problem Pre-procedure evaluation check (833412012) Encounter for other preprocedural examination (Z01.818) Active confirmed Problem Long-term current use of aspirin (532548116518141 ) Aspirin long-term use (Z79.82) Active confirmed Plan Of Treatment Future Test Test Name Order Date COLONOSCOPY 05/14/2022 Insurance Providers Payer Name Payer Address Payer Phone Subscriber Number Group Number Insured Name Patient Relationship to Insured Coverage Start Date Coverage End Date [employer] Medicare Advantage Plan [address] [address] [place] [address] [id number] ROHINI FELIZ Self - patient is the insured Medical (General) History Medical History History ICD Code NIDDM HTN Sacroiliac pain on the right-seeing Dr. Rangel in Pain Management at [facility] Denies RI,CVA,Lung disease,renal disease Constipation Surgical History Surgery Date(Month/Year) Left inguinal hernia
--- OUTSIDE RECORDS SUMMARY | 2025-11-15 14:11 | XMS_ITS | Patient Health Record ---
Author Organization [facility] Address [address] [place] [address] Care Team Providers Care Resume Writer Name Role Phone Kev Miranda MD Primary Care Provider Denny Nunez Unavailable [phone] Allergies No Known Allergies Reason For Referral [...] Problem Acquired hammer toe of right foot (6788808942324307 ) Other hammer toe(s) (acquired), right foot (M20.41) Active confirmed Problem Acquired hammer toe of left foot (2384795799357096 ) Other hammer toe(s) (acquired), left foot (M20.42) Active confirmed Problem Polyneuropathy due to type 2 diabetes mellitus (142260893) Type 2 diabetes mellitus 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
== END 2025-11-15 11:50 | disposition home or self-care (01) ==
LOC: HO.PMC 10:53
PROVIDERS: PCP Internal Medicine; Visit Provider Internal Medicine
DX: M96.1 Postlaminectomy syndrome, not elsewhere classified (principal)
CPT/HCPCS: 99214

== ENCOUNTER 2025-11-15 10:52 | Outpatient (REF) | payer MEDICARE, SELFPAY ==
--- NOTE | ~2025-11-15 | XR_ITS ---
EXAMINATION: XR THORACIC SPINE CLINICAL INFORMATION: M96.1 - Postlaminectomy syndrome, not elsewhere classified COMPARISON: None available. TECHNIQUE: AP and lateral x-rays of the thoracic spine FINDINGS: There is 15 degrees convex right curvature of the thoracic spine. 2 Lead neurostimulator projects over the posterior epidural space at T8-T9 There are flowing osteophytes versus syndesmophytes anteriorly. XR/XR thoracic spine 2V IMPRESSION: Mild dextroscoliosis. Posterior epidural neurostimulator at T8-T9. Mild degenerative changes. Electronically signed by: Geoff Nye MD 11/15/2025 12:52 PM EST
--- OUTSIDE RECORDS SUMMARY | 2025-11-15 16:22 | XMS_ITS | Clinical Summary ---
Author Organization [facility] Address [address] [facility] [address] [place] [address] Phone Care Team Providers Care Airplane Pilot Photogrammetry Name Role Phone Kev Miranda MD Unavailable [phone] Kev Miranda MD Primary Care Provider [phone] Allergies Active Allergy Reactions Criticality Noted Date [...] GUIDE ME GLUCOSE MTR Misc meter by Agenusaneous route as needed. 1 each 021 Active [...] TO CHECK GLUCOSE TWICE DAILY, Reported on 10/23/2025 ACCU-CHEK FASTCLIX LANCET [facility] USE 1 TO CHECK GLUCOSE TWICE DAILY 204 each 024 Active irbesartan (AVAPRO) 300 MG tabletIndicatio ns:Resistant hypertension Take 1 tablet (300 mg total) by mouth daily. 90 tablet 3 025 Active rosuvastatin (CRESTOR) 5 MG tabletIndicatio ns:Hyperlipidem ia LDL goal <100 Take 1 tablet by mouth once daily 90 tablet 3 025 Active pyridoxine HCl, vitamin B6, (VITAMIN B-6 ORAL) Take 1 capsule by mouth daily. Active levETIRAcetam (KEPPRA) 500 MG tabletIndicatio ns:History of seizure Take 1 tablet by mouth twice daily 180 tablet 3 025 Active cyanocobalamin, vitamin B-12, (VITAMIN B-12 ORAL) Take 1 capsule by mouth daily. Active eplerenone (INSPRA) 25 MG tabletIndicatio ns:Essential hypertension Take 1 tablet (25 mg total) by mouth daily. 30 tablet 3 025 Active pioglitazone (ACTOS) 30 MG tabletIndicatio ns:Type 2 diabetes mellitus with diabetic polyneuropathy, without long-term current use of insulin Take 1 tablet (30 mg total) by mouth daily. 90 tablet 1 025 Active glimepiride (AMARYL) 4 MG tabletIndicatio ns:Type 2 diabetes mellitus with diabetic polyneuropathy, without long-term current use of insulin TAKE 1 AND 1/2 (ONE & ONE-HALF) TABLET BY MOUTH ONCE DAILY BEFORE BREAKFAST AND 1/2 (ONE-HALF) TABLET WITH EVENING MEAL 180 tablet 1 025 Active fluticasone furoate (FLONASE SENSIMIST) 27.5 mcg/actuation nasal spray 2 sprays by Nasal route daily. 2024 Discontinued(N o longer taking) pioglitazone (ACTOS) 30 MG tabletIndicatio ns:Type 2 diabetes mellitus with diabetic polyneuropathy, without long-term current use of insulin Take 1 tablet by mouth once daily 90 tablet 025 2024 Discontinued(R eorder) zafirlukast (ACCOLATE) 20 MG tablet Take 1 tablet (20 mg total) by mouth 2 (two) times a day. 60 tablet 11 025 2024 Discontinued eplerenone (INSPRA) 25 MG tabletIndicatio ns:Essential hypertension Take 1 tablet (25 mg total) by mouth daily. 30 tablet 1 025 2024 Discontinued glimepiride (AMARYL) 4 MG tabletIndicatio ns:Type 2 diabetes mellitus with diabetic polyneuropathy, without long-term current use of insulin TAKE 1 AND 1/2 (ONE & ONE-HALF) TABLET BY MOUTH ONCE DAILY BEFORE BREAKFAST AND 1/2 (ONE-HALF) TABLET WITH EVENING MEAL 180 tablet 025 2024 Discontinued(R eorder) eplerenone (INSPRA) 25 MG tabletIndicatio ns:Essential hypertension Take 1 tablet (25 mg total) by mouth daily. 30 tablet 3 025 2024 Discontinued Active Problems Problem Noted Date Diagnosed Date Acne 10/23/2025 Assessment & Plan (10/23/2025 2:44 PM EST): Patient states he has worsening acne over the last 6 months he does not understand why. He states that this is like what happens to teenagers. He saw an back digger operator who could not find any thing wrong with his skin. He is scheduled to see a fleet administrator. He did inquire why he could have acne and the only thing that I can think of is high testosterone levels so I will check testosterone levels and he should do it fasting. He is presently not using anabolic hormones. Post laminectomy syndrome 08/03/2024 Overview (08/03/2024): [facility] pain- Dr. Michele Rangel MD last ov 07/06/24 plan repeat SI injection had injection 07/14 Ingrown nail 05/28/2023 IGTN (ingrowing toe nail) 05/15/2022 Assessment & Plan (05/15/2022 4:13 PM EDT): Strongly encouraged patient to f/u with Feedlot Manager due to current nail and risk of infection given h/o DM2 Patient verbalized understanding and agreement of the above Paronychia of toe of left foot 05/15/2022 Assessment & Plan (05/15/2022 4:12 PM EDT): Trial of Augmentin for possible infection educ re risks/benefits Hyperlipidemia LDL goal <100 03/04/2022 Assessment & Plan (10/23/2025 2:41 PM EST): Controlled. LDL 52 mg/dL continue rosuvastatin 5 mg Assessment & Plan (04/20/2025 4:12 PM EDT): [...] no diabetic complications noted. Assessment & Plan (10/23/2025 2:42 PM EST): Controlled. Hemoglobin A1c 6.2% continue current regimen. Repeat hemoglobin A1c in 6 months and urine microalbumin as well as lipid panel. Assessment & Plan (04/20/2025 4:11 PM EDT): [...] happen assuming his glucose is not too [id number]. He will have to drink proper amounts [...] Encounters Date Type Department Care Team Description 11/13/2025 Telephone [facility] Care [facility] [address] [place] [address] Zulay Mobley RN Medication Problem 2025 Orders Only [facility] [address] [place] [address] Marcela Baxter MD 10/23/2025 2:00 PM EST Office Visit [facility] [address] [place] [address] Jam Álvarez DO Type 2 diabetes mellitus with diabetic polyneuropathy, without long-term current use of insulin (Primary Dx); Hyperlipidemia LDL goal <70; Acne, unspecified acne type 10/20/2025 3:00 PM EST Office Visit [facility] [address] [facility] [place] [address] Kev Miranda MD Essential hypertension 10/13/2025 Telephone [facility] [address] [facility] [place] [address] Kev Miranda MD Follow Up Visit 10/03/2025 Refill [facility] [address] [place] [address] Jam Álvarez DO Medication Refill 09/08/2025 3:00 PM EDT Office Visit [facility] [address] [place] [address] Kev Miranda MD Essential hypertension (Primary Dx); Ingrown nail; Chronic right-sided low back pain with bilateral sciatica; Rash of face; Type 2 diabetes mellitus with diabetic polyneuropathy, without long-term current use of insulin 09/08/2025 Telephone [facility] [address] [place] [address] Kev Miranda MD Medication Problem 09/05/2025 Telephone [facility] [address] [facility] [place] [address] Kev Miranda MD Medication Problem 08/31/2025 Refill [facility] [address] [facility] [place] [address] Kev Miranda MD Medication Refill 08/24/2025 Orders Only [facility] [address] [facility] [place] [address] Marcela Baxter MD from Last 3 Months Immunizations Immunization Administration [...] Sign Reading Time Taken Comments Blood Pressure 152/80 10/23/2025 2:31 PM EST Pulse 100 10/23/2025 2:31 PM EST Temperature 36.7 C (98.1 F) 10/20/2025 3:21 PM EST Respiratory Rate 20 10/23/2025 2:31 PM EST Oxygen Saturation 98% 10/23/2025 2:31 PM EST Inhaled Oxygen Concentration - - Weight 135.4 kg (298 lb 9.6 oz) 10/23/2025 2:31 PM EST Height 177.8 cm (5' 10 ) 10/20/2025 3:21 PM EST Body Mass Index 42.84 10/20/2025 3:21 PM EST Plan of Treatment Upcoming Encounters Date Type Department Care Team (Late st Contact Info) Description 11/16/2025 2:00 PM EST Office Visit [facility] [address] [place] [address] An Garcia PA-C [address] [place] [address] 11/27/2025 1:00 PM EST Office Visit [facility] [address] [place] [address] Kev Miranda MD [address] [place], [place] [phone] 11/28/2025 2:15 PM EST Office Visit [facility] [address] [place] [address] 3rd Floor, [address] [place] [address] Cuate Ramos MD [address] [facility], [address] [place] [address] 04/24/2026 1:40 PM EDT Office Visit [facility] [address] [place] [address] Jam Álvarez DO [address] [place] [address] [email or web address] Health Maintenance Due Date Last Done Comments ZOSTER VACCINES (1 of 2) 1998 DIABETIC EYE EXAM 04/26/2025 04/26/2024, , 01/04/2021, Additional history exists COVID-19 VACCINE ( season) 2026 08/14/2025, 08/07/2024, 09/11/2023, Additional history exists HEMOGLOBIN A1C 04/11/2026 10/12/2025, 03/30, 09/22/2024, Additional history exists BLOOD PRESSURE 04/22/2026 10/23/2025 CREATININE LEVEL 10/12/2026 10/12/2025, 10/2025, 12/27/2024, Additional history exists POTASSIUM LEVEL 10/12/2026 10/12/2025, 03/30, 12/27/2024, Additional history exists DEPRESSION SCREENING 10/20/2026 10/20/2025, 10/20/20 25 SMOKING Hx and SMOKELESS TOBACCO SCREENING 10/20/2026 10/20/2025 Adult Td,Tdap Booster 09/11/2027 09/11/2017, 007 PNEUMOCOCCAL [...] Date/Time Associated Diagnosis Comments OUTSIDE IMAGING Routine 11/01/2025 11:40 AM EST CBC AND DIFFERENTIAL Routine 10/12/2025 11:28 AM [...] Maintenance Results * Outside Imaging Report Only (11/01/2025 11:40 AM EST) us Historical Provider MD SALAZAR XR CHEST Final Res ult * (ABNORMAL) Comprehensive Metabolic Panel (CMP) (10/12/2025 11:28 AM EST) Sodium 136 136 - 145 mmol/L 10/12/2025 9:14 PM EST [facility] Potassium 4.3 3.4 - 5.1 mmol/L 10/12/2025 9:14 PM EST [facility] Chloride 101 98 - 107 mmol/L 10/12/2025 9:14 PM EST [facility] CO2 24 20 - 31 mmol/L 10/12/2025 9:14 PM [facility] Anion Gap 11 3 - 17 mmol/L 10/12/2025 9:14 PM [facility] BUN 25(H) 6 - 23 mg/dL 10/12/2025 9:14 PM [facility] Creatinine 0.80 0.60 - 1.30 mg/dL 10/12/2025 9:14 PM [facility] eGFR 92 >59 mL/min/1.7 3m2 10/12/2025 9:14 PM [facility] Comment:Estimated glomerular filtration rate calculated using the CKD-EPI refit equation. Glucose 135(H) 70 - 99 mg/dL 10/12/2025 9:14 PM [facility] Calcium 9.1 8.5 - 10.5 mg/dL 10/12/2025 9:14 PM [facility] AST 28 <40 U/L 10/12/2025 9:14 PM [facility] ALT 17 <50 U/L 10/12/2025 9:14 PM [facility] Alkaline Phosphatase 87 40 - 130 U/L 10/12/2025 9:14 PM [facility] Bilirubin, Total 0.6 0.0 - 1.2 mg/dL 10/12/2025 9:14 PM [facility] Total Protein 6.9 6.4 - 8.3 g/dL 10/12/2025 9:14 PM [facility] Albumin 3.9 3.5 - 5.2 g/dL 10/12/2025 9:14 PM [facility] Globulin 3.0 1.9 - 4.1 g/dL 10/12/2025 9:14 PM [facility] Blood 10/12/2025 11:2 8 AM EST 10/12/2025 11:28 AM EST us Kev Miranda MD LAB BLOOD BKR ORDERABLES Charissa hernandez Result [facility] [address] [place] [address] * (ABNORMAL) CBC and Differential (10/12/2025 11:28 AM EST) [facility] Signature WBC 7.05 4.00 - 11.00 K/uL 10/12/2025 8:38 PM [facility] RBC 4.42(L) 4.50 - 5.90 M/uL 10/12/2025 8:38 PM [facility] Hemoglobin 13.6 13.5 - 17.5 g/dL 10/12/2025 8:38 PM [facility] Hematocrit 40.6(L) 41.0 - 53.0 % 10/12/2025 8:38 PM [facility] MCV 91.9 80.0 - 100.0 fL 10/12/2025 8:38 PM [facility] MCH 30.8 27.0 - 31.0 pg 10/12/2025 8:38 PM [facility] MCHC 33.5 32.0 - 36.0 g/dL 10/12/2025 8:38 PM [facility] MPV 10.2 8.4 - 12.0 fL 10/12/2025 8:38 PM [facility] RDW-CV 13.0 11.5 - 14.5 % 10/12/2025 8:38 PM [facility] PLT 190 150 - 450 K/uL 10/12/2025 8:38 PM [facility] Neutrophils 64.2 % 10/12/2025 8:38 PM [facility] Lymphocytes 22.7 % 10/12/2025 8:38 PM [facility] Monocytes 10.8 % 10/12/2025 8:38 PM [facility] Eosinophils 1.6 % 10/12/2025 8:38 PM [facility] Basophils 0.4 % 10/12/2025 8:38 PM [facility] Imm Grans 0.3 % 10/12/2025 8:38 PM [facility] NRBC 0.0 <=0.0 /100 WBCs 10/12/2025 8:38 PM [facility] Absolute Neutrophils 4.53 1.92 - 7.60 K/uL 10/12/2025 8:38 PM [facility] Absolute Lymphocytes 1.60 0.72 - 4.10 K/uL 10/12/2025 8:38 PM [facility] Absolute Monocytes 0.76 0.16 - 1.10 K/uL 10/12/2025 8:38 PM [facility] Absolute Eosinophils 0.11 0.00 - 0.50 K/uL 10/12/2025 8:38 PM [facility] Absolute Basophils 0.03 0.00 - 0.15 K/uL 10/12/2025 8:38 PM [facility] Absolute Imm Grans 0.02 0.00 - 0.09 K/uL 10/12/2025 8:38 PM [facility] Absolute NRBC 0.00 <=0.00 K cells/uL 10/12/2025 8:38 PM [facility] Absolute Neutrophils 4.53 1.92 - 7.60 K/uL 10/12/2025 8:38 PM [facility] Comment:Automated cell count . Manual ANC may differ if performed. Diff Type Auto 10/12/2025 8:38 PM [facility] Blood 10/12/2025 11:2 8 AM EST 10/12/2025 11:28 AM EST us Kev Miranda MD LAB BLOOD BKR ORDERABLES Charissa hernandez Result [address] [address] * (ABNORMAL) Hemoglobin A1c (10/12/2025 11:28 AM EST) Hemoglobin A1c 6.2(H) 4.3 - 5.6 % 10/12/2025 9:29 PM [facility] Calculated Mean Blood Glucose 131 mg/dL 10/12/2025 9:29 PM [facility] Comment:There is no establis [facility] normal range for the Estimated Average [...] LAB BLOOD BKR ORDERABLES Final R esult Performing Organization Address [facility]/ZIP Co de Phone Number [address] [address] * Outside Imaging Report Only (08/23/2025 12:08 PM EDT) Historical Provider IMG XR CHEST Final Res ult * DIABETES EYE EXAM FOR RESULT ENTRY ONLY (04/26/2024) EYE EXAM no retinopathy Historical Provider HEALTH MAINTENANCE Final Result * Hepatitis C antibody, qualitative (10/21/2019 8:38 AM EST) HCV NON-REACTIV E NON-REACTI VE [facility] Blood 10/21/2019 8:38 AM EST 10/21/2019 8:41 AM EST Kev Miranda MD LAB BLOOD BKR ORDERABLES Charissa l Result Performing Organization Address [facility] Co de Phone Number [address] [address] from Last 3 Months or Most Recently Relevant to Health Maintenance Insurance [facility] MEDICARE REPLACEMENT MEDICARE REPLACEMENT MEDICARE [place] [address] [place] [address] MEDICARE REPLACEMENT MEDICARE REPLACEMENT MEDICARE [place] [address] [place] [address] MEDICARE REPLACEMENT [facility] MEDICARE REPLACEMENT [facility] MEDICARE REPLACEMENT Member Subscriber Plan / Payer (Ef fective 2020-Present) Name:Aden Smith Relation to Subscriber:Self Name:Aden Smith Payer ID:[id number] (NAIC) Type:Medicare Address: [place] [id number] Care Teams Airplane Pilot Photogrammetry Relationship Specialty Start Date End Date Kev Miranda MD [address] [place] [address] PCP - General 10/29/17 Kev Miranda MD [address] [place] [address] Historical LMR Provider 09/20/17 Additional Source Comments The information contained in this document represents components of the legal health record. It is not the complete legal health record.[facility]
--- OUTSIDE RECORDS SUMMARY | 2025-11-15 16:22 | XMS_ITS | Encounter Summary ---
Author Organization [facility] Address [address] [place] [address] Phone Care Team Providers Care Industrial Real Estate Agent Name Role Phone Kev Miranda MD Unavailable [phone] Kev Miranda MD Primary Care Provider [phone] Reason for Visit * Reason Onset Date Comments Medication Problem 11/13/2025 Encounter Details Date Type Department Care Team (Late st Contact Info) Description 11/13/2025 Telephone [facility] [address] [place], [place] [phone] Zulay Mobley, BILLY [address] [place], [place] [phone] [email or web address] Medication Problem Social History Tobacco Use Types [...] as of this encounter Progress Notes * Leena Graham RN - 11/15/2025 8:30 AM EST Spoke to Aden and advised. Scheduled with Joseph tomorrow at 2 pm. * Kev Miranda MD - 11/14/2025 10:16 PM EST He needs to stay on this med. His symptoms are not a side effect of the med he is on. He can take miralax or sennakot daily for constipation. Set up appt ras * Olga Hines - 11/14/2025 4:57 PM EST Patient upset states he has been waiting all day for call back and knows Dr Miranda is off on and wants to know why message wasn't sent to another Provider as he says is having reaction and has been waiting 2 days for reply - patient would like call back today [phone] * Zulay Mobley RN - 11/14/2025 10:01 AM EST Spoke to Aden. States he was on eplerenone for about a month, every other day. He had an OV, labs were ok, and he's been on it since. States the effects must be cumulative. States last week and the week before, he had severe bouts of constipation. States he was taking everything, laxatives andstool softeners. States he was also having bilateral lower leg swelling. States these are both sideeffects that he read about. States it seems like everything he puts me on, has worse side effects than the last. Stopped it Thursday. States he finally had a tremendous bowel movement yesterday. States his legs are still slightly swollen, but improved. Do not improve after elevation. No chest pain or SOB. Will review with PCP. * Zulay Mobley RN - 11/13/2025 12:30 PM EST Phone rings and rings, no option to LVM. * Zulay Mobley RN - 11/13/2025 12:29 PM EST Aden called and LVM. States Dr Miranda has had him on eplerenone (INSPRA) 25 MG tablet daily for about 3 weeks. States it causes constipation and leg swelling. He has taken himself off it for the last 3 days. documented in this encounter Plan of Treatment Upcoming Encounters Date Type Department Care Team (Late st Contact Info) Description 11/16/2025 2:00 PM EST Office Visit [facility] [address] [place] [address] An Garcia PA-C [address] [place] [address] 11/27/2025 1:00 PM EST Office Visit [facility] [address] [place] [address] Kev Miranda MD [address] [place] [address] 11/28/2025 2:15 PM EST Office Visit [facility] [address] [place] [address] 3rd Floor, [address] [place] [address] Cuate Ramos MD [address] [place] [address], [address] [address] 04/24/2026 1:40 PM EDT Office Visit [facility] [address] [place] [address] Jam Álvarez DO [address] [place] [address] documented as of this encounter Visit Diagnoses Not on filedocumented in this encounter Additional Health Concerns Assessment Noted Time PHQ-9 Depression Total Score: 7 10/20/20 25 2:53 PM EST PHQ-2 Depression Total Score: 2 10/20/20 25 2:53 PM EST documented as of this encounter Care Teams Industrial Real Estate Agent Relationship Specialty Start Date End Date Kev Miranda MD [address] [place] [address] PCP - General 10/29/17 Kev Miranda MD [address] [place] [address] Historical LMR Provider 09/20/17 documented as of this encounter Additional Source Comments The information contained in this document represents components of the legal health record. It is not the complete legal health record.[facility]
--- OUTSIDE RECORDS SUMMARY | 2025-11-15 16:22 | XMS_ITS | Encounter Summary ---
Author Organization [facility] Address [address] [place] [address] Phone Care Team Providers Care Cassandra Consultant Name Role Phone Kev Miranda MD Unavailable [phone] Kev Miranda MD Primary Care Provider Encounter Details Date Type Department Care Team (Late st Contact Info) Description 2025 Orders Only [facility] [address] [place] [address] Provider, MD Marcela [address] [place], [place] [id number] Social History Tobacco Use Types Packs/Day Years [...] Description 11/16/2025 2:00 PM EST Office Visit [facility] [address] [place], [place] [phone] An Garcia PA-C [address] [place] [address] 11/27/2025 1:00 PM EST Office Visit [facility] Primary Care [facility] [address] [place] [address] Kev Miranda MD [address] [place] [address] 11/28/2025 2:15 PM EST Office Visit [facility] [address] [place] [address] 3rd Floor, [address] [place] [address] Cuate Ramos MD [address] [place] [address], [address] [address] 04/24/2026 1:40 PM EDT Office Visit [facility] [address] [place] [address] [place] [address] Jam Álvarez DO [address] [place] [address] documented as of this encounter Procedures Procedure Name Priority Date/Time Associated Diagnosis Comments OUTSIDE IMAGING Routine 11/01/2025 11:40 AM EST documented in this encounter Results * Outside Imaging Report Only (11/01/2025 11:40 AM EST) us Historical Provider IMF[facility] XR CHEST Final Res ult documented in this encounter Visit Diagnoses Not on filedocumented in this encounter Additional Health Concerns Assessment Noted Time PHQ-9 Depression Total Score: 7 10/20/20 2:53 PM EST PHQ-2 Depression Total Score: 2 10/20/20 2:53 PM EST documented as of this encounter Care Teams Cassandra Consultant Relationship Specialty Start Date End Date Kev Miranda MD [address] [place] [address] PCP - General 10/29/17 Kev Miranda MD [address] [place] [address] Historical LMR Provider 09/20/17 documented as of this encounter Additional Source Comments The information contained in this document represents components of the legal health record. It is not the complete legal health record.[facility]
--- OUTSIDE RECORDS SUMMARY | 2025-11-15 16:22 | XMS_ITS | Encounter Summary ---
Author Organization [facility] Address [address] [place] [address] Phone Care Team Providers Care Drug Abuse Technician Name Role Phone Kev Miranda MD Unavailable [phone] Kev Miranda MD Primary Care Provider [phone] Encounter Details Date Type Department Care Team (Late st Contact Info) Description 11/01/2024 Procedure [facility] [address] [place] [address] Social History Tobacco Use Types Packs/Day Years [...] Description 11/16/2025 2:00 PM EST Office Visit [facility] Primary Care [facility] [address] [place] [address] An Garcia PA-C [address] [place] [address] 11/27/2025 1:00 PM EST Office Visit [facility] [address] [place] [address] Kev Miranda MD [address] [place] [address] 11/28/2025 2:15 PM EST Office Visit [facility] [address] [place] [address] 3rd Floor, [address] [place] [address] Cuate Ramos MD [address] [place] [address] 04/24/2026 1:40 PM EDT Office Visit [facility] [address] [place] [address] [place] [address] Jam Álvarez DO [address] [place] [address] documented as of this encounter Visit Diagnoses Not on filedocumented in this encounter Additional Health Concerns Assessment Noted Time PHQ-2 Depression Total Score: 2 10/10/20 24 7:04 PM EST documented as of this encounter Care Teams Drug Abuse Technician Relationship Specialty Start Date End Date Kev Miranda MD [address] [place] [address] PCP - General 10/29/17 Kev Miranda MD [address] [place] [address] Historical LMR Provider 09/20/17 documented as of this encounter Additional Source Comments The information contained in this document represents components of the legal health record. It is not the complete legal health record.[facility]
--- OUTSIDE RECORDS SUMMARY | 2025-11-15 16:22 | XMS_ITS | Encounter Summary ---
Author Organization [facility] Address [address] [place] [address] Phone Care Team Providers Care Toe Puller Name Role Phone Kev Miranda MD Unavailable Zainab Bardales BLUE PRINT CONTROL CLERK Unavailable [phone] Dorina Patel BLUE PRINT CONTROL CLERK Unavailable [phone] Dwayne Candelaria MD Unavailable Kev Miranda MD Primary Care Provider [phone] Kev Miranda MD Unavailable [phone] Encounter Details Date Type Department Care Team (Late st Contact Info) Description 04/03/2021 Procedure Pass [address] [place] [address] Social History Tobacco Use Types Packs/Day Years [...] Description 11/16/2025 2:00 PM EST Office Visit [facility] 40 [facility] ERNIE Mckenna [address] An Garcia PA-C 40 [place], [place] [id number] 11/27/2025 1:00 PM EST Office Visit [facility] 40 [place] [address] Kev Miranda MD 40 [place] [address] 11/28/2025 2:15 PM EST Office Visit [facility] [address] [place] [address] 3rd Floor, [address] [place] [address] Cuate Ramos MD [address] [place] [address] 04/24/2026 1:40 PM EDT Office Visit [facility] [address] [place] [address] Jam Álvarez DO 22 [place] [address] documented as of this encounter Visit Diagnoses Not on filedocumented in this encounter Additional Health Concerns Assessment Noted Time PHQ-2 Depression Total Score: 0 02/23/20 21 12:57 PM EDT documented as of this encounter Care Teams Toe Puller Relationship Specialty Start Date End Date Kev Miranda MD 40 [place] [address] PCP - General 10/29/17 Kev Miranda MD [address] [place] [address] Historical LMR Provider 09/20/17 Zainab Bardales NP 21 [facility] [address] [place] [address] Historical LMR Provider 09/20/17 2 Dorina Patel NP 26 [facility] 6 [place] [address] Historical LMR Provider 09/20/17 12/07/21 Dwayne Candelaria MD [address] [place] [phone] Historical LMR Provider 09/20/17 2 Kev Miranda MD [address] [place] [address] Insurance Assigned Provider 02/27/1808/10 documented as of this encounter Additional Source Comments The information contained in this document represents components of the legal health record. It is not the complete legal health record.[facility]
== END 2025-11-15 10:53 | disposition home or self-care (01) ==
LOC: HO.XRAY 10:52
PROVIDERS: PCP Internal Medicine; Visit Provider Internal Medicine
DX: M96.1 Postlaminectomy syndrome, not elsewhere classified (principal)
CPT/HCPCS: 72070

== ENCOUNTER → 2025-11-15 12:32 | Outpatient (BNV) | payer MEDICARE, SELFPAY | PROVIDERS: PCP Internal Medicine; Visit Provider Radiology Diagnostic Radiology | DX: M96.1 Postlaminectomy syndrome, not elsewhere classified (principal); M51.34 Other intervertebral disc degeneration, thoracic region; M41.84 Other forms of scoliosis, thoracic region; Z96.82 Presence of neurostimulator | CPT/HCPCS: 72070 ==

== ENCOUNTER 2025-11-29 09:51 | Outpatient (AMB) | payer MEDICARE, SELFPAY ==
--- OUTSIDE RECORDS SUMMARY | 2025-11-27 13:00 | XMS_ITS | Encounter Summary ---
Author Organization [facility] Address [address] [place] [address] Phone Care Team Providers Care Power Plant Operator Apprentice Name Role Phone Kev Miranda MD Unavailable [phone] Kev Miranda MD Primary Care Provider [phone] Reason for Visit * Reason Comments Medicare Annual Wellness Visit Subsequen t Encounter Details Date Type Department Care Team (Late st Contact Info) Description 11/27/2025 1:00 PM EST Office Visit [facility] 40 [place] [address] Kev Miranda MD 40 [place] [address] [email or web address] Routine general medical examination at a health care facility (Primary Dx); Essential hypertension; Lower extremity edema; Severe obesity (BMI >= 40); Rash of face Social History Tobacco Use Types Packs/Day Years [...] ecorded Denied Basic Needs Not on file 11/20/2025 In the past 12 months have y ou been in a relationship with a person who hurts, threatens, or tries to control you? No 11/20/2025 Worried food would run out Not on file 11/20 In the past 12 months have y ou been in a relationship with a person who hurts, threatens, or tries to control you? No 11/20/2025 Sex and Gender Information Value Date Recorded Sex Assigned at Male 05/15/2022 3:38 PM EDT Legal Sex Male 10:05 PM EDT Gender Identity Male 05/15/2022 3:38 PM EDT Sexual Orientation Straight 05/15/2022 3: 38 PM EDT documented as of this encounter Last Filed Vital Signs Vital Sign Reading Time Taken Comments Blood Pressure 136/80 11/27/2025 1:02 PM EST Pulse 108 11/27/2025 1:02 PM EST Temperature 36.5 C (97.7 F) 11/27/2025 1:02 PM EST Respiratory Rate - - Oxygen Saturation 95% 11/27/2025 1:02 PM EST Inhaled Oxygen Concentration - - Weight 130.5 kg (287 lb 12.8 oz) 11/27/2025 1:02 PM EST Height 180 cm (5' 10.87 ) 11/27/2025 1:02 PM EST Body Mass Index 40.29 11/27/2025 1:02 PM EST documented in this encounter Functional Status * Have you fallen and hurt yourself in the past year? Answer Date of Assessment Author N 11/20/2025 12:05 PM EST Phs, Par [facility] Patient [place] * Have you fallen 2 or more times in the past year? Answer Date of Assessment Author N 11/20/2025 12:05 PM EST Phs, Par t[facility] Patient [place] * Are you afraid that you might fall because of balance or walking problems? Answer Date of Assessment Author N 11/20/2025 12:05 PM EST Phs, Par tners Patient [place] * DAST Total Score (calculation) Answer Date of Assessment Author 0 11/20/2025 12:05 PM EST Phs, Par tners Patient [place] * How often do you have a drink containing alcohol? Answer Date of Assessment Author 1 11/20/2025 12:05 PM EST Phs, Par tners Patient [place] * How many standard drinks containing alcohol do you have on a typical day? Answer Date of Assessment Author 0 11/20/2025 12:05 PM EST Phs, Par tners Patient [place] * How often do you have 6 drinks or more on one occasion? Answer Date of Assessment Author 0 11/20/2025 12:05 PM EST Phs, Par tners Patient [place] * Audit-C Score Answer Date of Assessment Author 1 11/20/2025 12:05 PM EST Phs, Par tners Patient [place] documented as of this encounter Progress Notes * Kev Miranda MD - 11/27/2025 1:00 PM EST Subjective Aden Smith is a 75 y.o. male. History of Present Illness Aden Smith is a 75 year old male who presents for a Medicare wellness visit. He has experienced improvement in his chronic low back pain since the insertion of a spinal cord stimulator on November 01. However, he now experiences discomfort in the backs of his thighs and the bottoms of his feet, particularly when walking. No current pain in his feet, but it occurs sometimes, especially when walking. He reports significant reduction in leg swelling with the use of eplerenone. However, he experiences itching, particularly on the upper torso, arms, sides, and chest, which affects his quality of life. He describes feeling bloated and experiencing stomach churning, similar to having eaten too much spicy food. He has had irregular bowel movements, with a good movement on Thursday and a small one on the morning of the visit. He uses Miralax, which takes several days to work. He has not had a colonoscopy but completed a Cologuard test within the past year. He maintains a diet with very little red meat, mostly chicken and fish, and includes vegetables and fruit daily. He consumed two beers over the holiday. His memory is generally good, although he forgot the three words he was asked to remember earlier in the visit. He has not had any prostate surgery but had an ultrasound at [facility] within the past six months, which showed no abnormalities. He mentions a concern about his complexion and increased bourne growth, which he discussed with another doctor who suggested checking his testosterone levels. He has an order for this test but has notyet completed it. His blood pressure is well controlled on epleronone. However he has side effects including constipation, rash and itching.He's had adverse reactions to multiple medications. I am going to discuss with Dr. Atkinson if he has any other treatment choices for this patient. He lives in [place] and has a granddaughter who recently eloped and got . Current Outpatient Medications Ordered in [facility] Medication Sig ACCU-CHEK FASTCLIX LANCET DRUM Misc USE 1 TO CHECK GLUCOSE TWICE DAILY ACCU-CHEK GUIDE ME GLUCOSE MTR Misc meter by Miscellaneous route as needed. ACCU-CHEK GUIDE TEST STRIPS Strp strips USE TO CHECK GLUCOSE TWICE DAILY (Patient taking differently: as needed. USE TO CHECK GLUCOSE TWICE DAILY) acetaminophen (TYLENOL) 500 MG tablet Take 500 mg by mouth every morning. (Patient taking differently: Take 500 mg by mouth as needed.) cholecalciferol (VITAMIN D3) 1,000 unit tablet Take 2,000 Units by mouth daily. cyanocobalamin, vitamin B-12, (VITAMIN B-12 ORAL) Take 1 capsule by mouth daily. glimepiride (AMARYL) 4 MG tablet TAKE 1 AND 1/2 (ONE & ONE-HALF) TABLET BY MOUTH ONCE DAILY BEFORE BREAKFAST AND 1/2 (ONE-HALF) TABLET WITH EVENING MEAL ibuprofen (ADVIL,MOTRIN) 200 MG tablet Take 200 mg by mouth every morning. 3 tabs in the a.m and 2 tabs at night (Patient taking differently: Take 600 mg by mouth every morning. and 600 mg tabs at night as needed) irbesartan (AVAPRO) 300 MG tablet Take 1 tablet (300 mg total) by mouth daily. levETIRAcetam (KEPPRA) 500 MG tablet Take 1 tablet by mouth twice daily omega-3 fatty acids 1,000 mg Cap 1 tab Orally once a day pioglitazone (ACTOS) 30 MG tablet Take 1 tablet (30 mg total) by mouth daily. polyethylene glycol (MIRALAX) 17 gram/dose powder Take 17 g by mouth every morning. pyridoxine HCl, vitamin B6, (VITAMIN B-6 ORAL) Take 1 capsule by mouth daily. rosuvastatin (CRESTOR) 5 MG tablet Take 1 tablet by mouth once daily eplerenone (INSPRA) 25 MG tablet Take 1 tablet (25 mg total) by mouth daily. furosemide (LASIX) 20 MG tablet Take 1 tablet (20 mg total) by mouth daily. Review of Systems Constitutional: Negative for unexpected weight change. HENT: Negative for changes in hearing. Eyes: Negative for unexpected vision change. Respiratory: Negative for cough and shortness of breath. Cardiovascular: Negative for chest pain and palpitations. Gastrointestinal: Positive for constipation. Negative for abdominal pain, blood in stool and diarrhea. Genitourinary: Positive for erectile dysfunction. Negative for problems with urination and blood inurine. Neurological: Negative for dizziness, headaches and changes in memory. Skin: Negative for persistent rash. Musculoskeletal: Negative for joint pain. Objective Physical Exam BP 136/80 (BP Location: Right arm, Patient Position: Sitting, Cuff Size: Medium) Pulse (!) 108 Temp 36.5 ??C (97.7 ??F) (Oral) Ht 180 cm (5' 10.87 ) Wt 130.5 kg (287 lb 12.8 oz) SpO2 95% BMI 40.29 kg/m?? HEENT:PERRTL, EOM intact, fundi benign, TM's clear, throat clear. NECK: supple, no thyroid megaly, no adenopathy. LUNGS: clear to A&P,no wheezing/rhonichi/rales. HEART: RRR S1S2 without murmurs, rubs or gallops. ABDOMEN: bowel sounds: normal, soft non tender without masses. EXTREMITIES: without edema, clubbing or cyanosis. NEUROLOGICAL: Sensation intact in lower extremities. Vibration sense intact in lower extremities. Temperature sensation intact in lower extremities. Vibration sense intact, pressure felt more than vibration. : Normal, testicles without masses, no hernias. PROSTATE: 1+ BPH, no nodules. Assessment & Plan Routine medical exam Chronic low back pain with bilateral sciatica Pain improved, localized to thighs and feet during walking. Spinal cord stimulator effective, no pain at rest. - Continue current management with spinal cord stimulator. Lower extremity edema Improved with eplerenone, but causes rash and pruritus on upper torso, arms, sides, and chest. - Take eplerenone every other day for a week. - Refilled eplerenone prescription with 30 pills. - Will discuss alternative medications with prescribing physician. Rash and pruritus Localized rash and pruritus due to eplerenone, affecting upper torso, arms, sides, and chest. - Adjust eplerenone dosing to every other day to minimize rash and pruritus. Essential hypertension Managed with current medication regimen. - Continue current antihypertensive regimen. General Health Maintenance Routine health maintenance discussed. Diet includes minimal red meat, with chicken, fish, vegetables, and fruits. Occasional alcohol consumption. - Continue current dietary habits. I obtained verbal consent from the patient or their proxy to record this visit for purposes of producing a draft of the encounter documentation. documented in this encounter Plan of Treatment Upcoming Encounters Date Type Department Care Team (Late st Contact Info) Description 01/12/2026 3:30 PM EST Office Visit [facility] [address] [place] [address] Kev Miranda MD [address] [place] [address] 02/26/2026 2:20 PM EDT Office Visit [facility] [address] [place] [address] 3rd Floor, [address] [address] Kev Short MD, [place] 22 [facility], [address] [address] 04/24/2026 1:40 PM EDT Office Visit [facility] [address] [place] [address] [place] [address] Jam Álvarez DO [address] [place] [address] Scheduled Orders Name Type Priority Associated Diagnoses Orde r Schedule Comprehensive Metabolic Panel (CMP) Lab Routine Essential hypertension Expected: 11/27/2025, Expires: 11/27/2026 CBC and Differential Lab Routine Essential hypertension Expected: 11/27/2025, Expires: 11/27/2026 Testosterone, Total Lab Routine Rash of face Expected: 11/27/2025, Expires: 11/27/2026 documented as of this encounter Visit Diagnoses Diagnosis Routine general medical examination at a health care facility- Primary Essential hypertension Unspecified essential hypertension Lower extremity edema Edema Severe obesity (BMI >= 40) Rash of face documented in this encounter Additional Health Concerns Assessment Noted Time PHQ-9 Depression Total Score: 7 11/20/20 12:08 PM EST PHQ-2 Depression Total Score: 2 11/20/20 12:08 PM EST documented as of this encounter Care Teams Power Plant Operator Apprentice Relationship Specialty Start Date End Date Kev Miranda MD 40 [place] [address] [email or web address] PCP - General 10/29/17 Kev Miranda MD 40 [place] [address] Historical LMR Provider 09/20/17 documented as of this encounter Additional Source Comments The information contained in this document represents components of the legal health record. It is not the complete legal health record.[facility]
--- OUTSIDE RECORDS SUMMARY | 2025-11-28 14:15 | XMS_ITS | Encounter Summary ---
Author Organization [facility] Address [address] [facility] [address] [place] [address] Phone Care Team Providers Care Drone Pilot Name Role Phone Kev Miranda MD Unavailable [phone] Kev Miranda MD Primary Care Provider [phone] Encounter Details Date Type Department Care Team (Latest Contact Info) Description 11/28/2025 2:15 PM EST Office Visit [facility] [address] [place] [address] 3rd Floor, [address] [place] [address] Cuate Ramos MD 22 [facility], [address] [address] [email or web address] JOSÉ MIGUEL (obstructive sleep apnea) (Primary [...] Sign Reading Time Taken Comments Blood Pressure 172/74 11/28/2025 2:13 PM EST Pulse 99 11/28/2025 2:13 PM EST Temperature - - Respiratory Rate - - Oxygen Saturation 94% 11/28/2025 2:13 PM EST Inhaled Oxygen Concentration - - Weight - - Height 180 cm (5' 10.87 ) 11/28/2025 2:13 PM EST Body Mass Index - - documented in this encounter Progress Notes * Cuate Ramos MD - 11/28/2025 2:15 PM EST Aden Smith [id number] 11/28/2025 He hasn't been using the cpap due to restlessness: however, he just had an implant for back pain. The back pain is much better He is still fatigued He just bought a new bracket to hold the cpap tube. He will restart the cpap Baseline 21-40 CPAP: Mask Type nasal pillows Drowsiness while Driving does not Trouble with Device or Mask does He never got the zafirlukast as his insurance doesn't cover, and he is still bothered by nasal congestion Current Outpatient Medications: ACCU-CHEK FASTCLIX LANCET DRUM Mis, USE 1 TO CHECK GLUCOSE TWICE DAILY, [...] tablet, Take 500 mg by mouth every morning. (Patient taking differently: Take 500 mg by mouth as needed.), Disp: , Rfl: , Last Dispense: Unknown (patient-reported) cholecalciferol (VITAMIN D3) 1,000 unit tablet, Take 2,000 Units by mouth daily. , Disp: , Rfl: , Last Dispense: Unknown (patient-reported) cyanocobalamin, vitamin B-12, (VITAMIN B-12 ORAL), Take 1 capsule by mouth daily., Disp: , Rfl: , Last Dispense: Unknown (patient-reported) eplerenone (INSPRA) 25 MG tablet, Take 1 tablet (25 mg total) by mouth daily., Disp: 30 tablet, Rfl: 3, Last Dispense: Unknown (outside pharmacy) furosemide (LASIX) 20 MG tablet, Take 1 tablet (20 mg total) by mouth daily., Disp: 14 tablet, Rfl:0, Last Dispense: Unknown (outside pharmacy) glimepiride (AMARYL) 4 MG tablet, TAKE 1 AND 1/2 (ONE & ONE-HALF) TABLET BY MOUTH ONCE DAILY BEFORE BREAKFAST AND 1/2 (ONE-HALF) TABLET WITH EVENING MEAL, Disp: 180 tablet, Rfl: 1, Last Dispense:Unknown (outside pharmacy) ibuprofen (ADVIL,MOTRIN) 200 MG tablet, Take 200 mg by mouth every morning. 3 tabs in the a.m and 2tabs at night (Patient taking differently: Take 600 mg by mouth every morning. and 600 mg tabs at night as needed), Disp: , Rfl: , Last Dispense: Unknown [...] (ACTOS) 30 MG tablet, Take 1 tablet (30 mg total) by mouth daily., Disp: 90 tablet, Rfl: 1, Last Dispense: Unknown (outside pharmacy) polyethylene glycol (MIRALAX) 17 gram/dose powder, Take 17 g by mouth every morning., Disp: , Rfl: , Last Dispense: Unknown (patient-reported) pyridoxine HCl, vitamin B6, (VITAMIN B-6 ORAL), Take 1 capsule by mouth daily., Disp: , Rfl: , LastDispense: Unknown (patient-reported) rosuvastatin (CRESTOR) 5 MG tablet, Take 1 tablet by mouth once daily, Disp: 90 tablet, Rfl: 3, Last Dispense: Unknown (outside pharmacy) Atorvastatin, Diltzac er [diltiazem hcl], Doxazosin, Hctz [hydrochlorothiazide], Hydralazine, Lisinopril, Metformin, Metoprolol succinate, Nifedipine, Spironolactone, Amlodipine, Carvedilol, Eplerenone, Nadolol, and Olmesartan BP (!) 172/74 Pulse 99 Ht 180 cm (5' 10.87 ) SpO2 94% BMI 40.29 kg/m?? Social History Socioeconomic History Marital status: /Civil Union Spouse name: Not on file Number of children: Not on file Years of education: Not on file Highest education level: Not on file Occupational History Not on file Tobacco Use Smoking status: Former Current packs/day: 0.00 Types: Cigarettes Start date: 1967 Quit date: 1986 Years since quittin.0 Smokeless tobacco: Never Tobacco comments: Ciggs a [...] Physical Exam Assessment: JOSÉ MIGUEL and CPAP: Clinical response is he is not using. The mask is unsteady and dislodges His back pain is now better with the implant Plan: Nasal mask Resume cpap Trial montelukast for nasal congestion documented in this encounter Plan of Treatment Upcoming Encounters Date Type Department Care Team (Late st Contact Info) Description 01/12/2026 3:30 PM EST Office Visit [facility] [address] [place] [address] Kev Miranda MD [address] [place] [id number] 02/26/2026 2:20 PM EDT Office Visit [facility] [address] [place] [address] 3rd Floor, [address] [place] [address] Kev Short MD, MS 22 [facility], [address] [address] 04/24/2026 1:40 PM EDT Office Visit [facility] [address] [place] [address] Jam Álvarez DO [address] [place] [address] documented as of this encounter Visit Diagnoses Diagnosis JOSÉ MIGUEL (obstructive sleep apnea)- Primary Obstructive sleep apnea (adult) (pediatric) Allergic rhinitis due to pollen, unspecified seasonality documented in this encounter Additional Health Concerns Assessment Noted Time PHQ-9 Depression Total Score: 7 11/20/20 12:08 PM EST PHQ-2 Depression Total Score: 2 11/20/20 12:08 PM EST documented as of this encounter Care Teams Drone Pilot Relationship Specialty Start Date End Date Kev Miranda MD [address] [place] [address] [email or web address] PCP - General 10/29/17 Kev Miranda MD [address] [place] [address] [email or web address] Historical LMR Provider 09/20/17 documented as of this encounter Additional Source Comments The information contained in this document represents components of the legal health record. It is not the complete legal health record.[facility]
--- NOTE | 2025-11-29 10:02 | MHC.OFFVIS ---
Vital Signs 11/29/25 10:04 Height 6 ft Weight 290 lb BMI 39.3 BP 185/84 H Blood Pressure Location Lt radial Position Sitting Respiration 16 Pulse 103 H Pulse Source Pulse Oximeter Pulse Oximetry (%) 91 L Oxygen Delivery Method Room Air Intake Visit Reasons: Pain/ Reading Sci SCS Implant 11/01/25 Reviewer Sales Required: No Allergies metoprolol Adverse Reaction (Severe, Verified 11/29/25 10:05) Fatigued carvedilol Adverse Reaction (Intermediate, Verified 11/29/25 10:05) Headache, Gastrointestinal Upset spironolactone Adverse Reaction (Intermediate, Verified 11/29/25 10:05) headache, Gastrointestinal Upset Medication List - Last Reconciled 11/29/25 by Concepcion Lewis LPN eplerenone 25 mg PO Q OTHER DAY furosemide 20 mg PO DAILY glimepiride 4 mg PO DAILY ibuprofen 600 mg PO DAILY PRN irbesartan 300 mg PO DAILY levetiracetam 500 mg PO BID pioglitazone 30 mg PO DAILY rosuvastatin 5 mg PO DAILY HPI HPI Pain/ Reading Sci SCS Implant 11/01/25: Details: History of Present Illness The patient is a 75 year old male presenting for follow-up and management of his spinal cord stimulator. He reports that the initial upper right-sided pain for which the device was implanted is much better. However, he has developed new, constant pain that has moved to his bilateral lower extremities, specifically the calves and feet, which he describes as tense and achy. He also reports disturbed sleep, which he attributes to both burning pain in his buttocks that begins after 4-5 hours of sleep and awakens him, as well as severe sleep apnea. He saw a sleep specialist recently and was prescribed a new mask. The new lower extremity and buttock symptoms were not present during his spinal cord stimulator trial. His primary care physician noted his blood pressure is well-controlled on a new medication which was started around the same time as the stimulator procedure. The patient has been avoiding ibuprofen as intended since the procedure. Past imaging included an x-ray which showed a slight movement of the stimulator lead. Pain Description - Location: The patient reports new pain in his bilateral lower extremities, specifically the posterior calves down to the feet, and burning pain in both buttocks. - Quality: The leg pain is described as tense, achy, and burning, while the buttock pain is characterized as burning. - Severity and Timing: The leg pain is constant and described as being worse than his original upper back pain. - Interference with Function: The pain, particularly the buttock pain, interferes with his sleep, waking him after 4-5 hours. - Modifying Factors: Turning the stimulator off for a few hours did not provide significant relief from the new pain. - Associated Symptoms: Sensation of numbness in the feet is reported, but sensation was found to be intact on exam by his primary care physician. - Prior Pain: His initial pain in the upper right back, which was activity-related, is now much improved. Physical Exam - Back: Surgical incisions are well-healed. - There is no tenderness to palpation. Results - Prior X-ray: Showed slight movement of a spinal cord stimulator lead. Pain Management: - Affect: The patient expresses that his sleep is poor due to the new pain. - Analgesia: The spinal cord stimulator has successfully treated his original upper right-sided pain. - He now has new, constant bilateral lower extremity and buttock pain, which is worse than his original pain. - Adverse effects: The new pain in his legs and buttocks is a potential complication of the spinal cord stimulator placement, possibly related to lead positioning. - Activities of daily living: His sleep is significantly impacted by the new pain. - Aberrant drug-related behaviors: None noted. [facility] Medical History JOSÉ MIGUEL (obstructive sleep apnea) Back pain HLD (hyperlipidemia) Nausea Hx of spinal stenosis Cluneal neuropathy Seizure disorder Hypertension Type 2 diabetes mellitus Surgical History S/P placement of nerve stimulator Hx of spinal surgery (12/2022) Hx of hernia repair (~2010) Social History Are you a primary neonatal intensive care unit nurse to a significant other at home: No Do you presently have visiting nurse or other home services: No Comment: medicated Patient Tobacco Use Status: Former Tobacco user Tobacco use type: Cigarette Second Hand Smoke Exposure: No Physical Exam Vital Signs: Last Vital Signs Pulse 103 H 11/29/25 10:04 Resp 16 11/29/25 10:04 BP 185/84 H 11/29/25 10:04 Pulse Ox 91 L 11/29/25 10:04 Oxygen Delivery Method Room Air 11/29/25 10:04 BMI result Body Mass Index 39.3 Assessment & Plan Assessment & Plan (1) Post laminectomy syndrome: Code(s): M96.1 - Postlaminectomy syndrome, not elsewhere classified Category: Medical Plan Plan Patient was informed and verbally consented to the use of an ambient scribe for clinic note documentation during this visit. 1. Bilateral Lower Extremity Pain - The patient's new bilateral lower extremity pain is in an L5-S1 distribution, and the working diagnosis is nerve root irritation, potentially from the spinal cord stimulator leads. - The initial plan is to reprogram the stimulator to provide coverage for this new pain. - The patient will follow up in one week to assess the efficacy of the reprogramming. - If the pain persists, a caudal epidural steroid injection will be considered to reduce inflammation. - The possibility of future lead removal was discussed as a definitive treatment for mechanical compression, but this is not a current priority. 2. Sleep Disturbance - The patient's sleep is disrupted by both pain and severe sleep apnea. - The plan to address the pain via stimulator reprogramming may improve sleep. - He is already under the care of a sleep specialist for his sleep apnea and was recently provided a new mask. Discussion Notes I discussed with the patient that his new pain in the legs and buttocks is suggestive of nerve root irritation, likely in the L5-S1 distribution. I explained that this could be a complication of the spinal cord stimulator placement, either due to mechanical pressure from the leads or an inflammatory response. We discussed a stepwise approach, starting with reprogramming the device today to attempt to cover and treat these new symptoms. I advised that if this is not effective, the next step would be to consider a caudal epidural steroid injection to decrease inflammation. I also mentioned that if the issue proves to be mechanical compression, lead removal could be a future option, though it is not a priority now. The patient agreed with the plan to try reprogramming first and to follow up in one week to assess his response. Patient Instructions - Your spinal cord stimulator has been reprogrammed to try and help with the new pain in your legs and buttocks. - Please contact our office in one week to let us know how your pain is with the new settings. - Depending on how you feel in a week, we will decide if the next step should be a cortisone injection in your low back. - Continue to follow up with your sleep doctor and use the new mask for your sleep apnea as prescribed. - Continue to avoid taking anti-inflammatory medications like ibuprofen. Coding Level of Care Code Est Pt Level 3 (23574) Diagnoses Post laminectomy syndrome M96.1
[2025-11-29 10:04] VITALS: BP 185/84; PULSE 103; RESP 16; O2SAT 91; BMI 39.3
--- OUTSIDE RECORDS SUMMARY | 2025-11-29 10:33 | XMS_ITS | Encounter Summary ---
Author Organization [facility] Address [address] [place] [address] Phone Care Team Providers Care Emergency Vehicle Driver Name Role Phone Kev Miranda MD Unavailable Zainab Bardales TICKET PRINTER [employer] TAGGER Unavailable Dorina Patel TICKET PRINTER AND TAGGER Unavailable [phone] Dwayne Candelaria MD Unavailable [phone] Kev Miranda MD Primary Care Provider [phone] Kev Miranda MD Unavailable Encounter Details Date Type Department Care Team (Late st Contact Info) Description 04/03/2021 Procedure Pass [address] [place] [address] Social History Tobacco Use Types Packs/Day Years [...] Description 01/12/2026 3:30 PM EST Office Visit [facility] [address] [facility] [place] [address] Kev Miranda MD [address] [place], [place] [phone] 02/26/2026 2:20 PM EDT Office Visit [facility] [address] [facility] 3rd Floor, [address] [place] [address] Kev Short MD, [place] 22 [facility], [address] [address] 04/24/2026 1:40 PM EDT Office Visit [facility] [address] [place] [address] Jam Álvarez DO [address] [place] [address] documented as of this encounter Visit Diagnoses Not on filedocumented in this encounter Additional Health Concerns Assessment Noted Time PHQ-2 Depression Total Score: 0 02/23/20 12:57 PM EDT documented as of this encounter Care Teams Emergency Vehicle Driver Relationship Specialty Start Date End Date Kev Miranda MD [address] [place] [address] PCP - General 10/29/17 Kev Miranda MD [address] [place] [address] Historical LMR Provider 09/20/17 Zainab Bardales NP [address] [place] [address] Historical LMR Provider 09/20/[address] [facility] [address] [place] [address] [email or web address] Historical LMR Provider 09/20/17 12/07/21 Dwayne Candelaria MD [facility] [place] [phone] Historical LMR Provider 09/20/17 2 Kev Miranda MD [address] [place] [address] [email or web address] Insurance Assigned Provider 02/27/1808/10 documented as of this encounter Additional Source Comments The information contained in this document represents components of the legal health record. It is not the complete legal health record.[facility]
--- OUTSIDE RECORDS SUMMARY | 2025-11-29 10:33 | XMS_ITS | Encounter Summary ---
Author Organization [facility] Address [address] [place] [address] Phone Care Team Providers Care Travel Information Center Supervisor Name Role Phone Kev Miranda MD Unavailable [phone] Kev Miranda MD Primary Care Provider [phone] Encounter Details Date Type Department Care Team (Late st Contact Info) Description 11/15/[address] [facility] [address] [place] [address] Provider, MD Marcela [address] [place], [place] [phone] Social History Tobacco Use Types Packs/Day Years [...] Description 01/12/2026 3:30 PM EST Office Visit [facility] [address] [place], [place] [phone] Kev Miranda MD [address] [place] [address] 02/26/2026 2:20 PM EDT Office Visit [facility] [address] [place] [address] 3rd Floor, [address] [place] [address] Kev Short MD, [place] 22 [facility], [address] [address] 04/24/2026 1:40 PM EDT Office Visit [facility] [address] [place] [address] Jam Álvarez DO [address] [place] [address] documented as of this encounter Procedures Procedure Name Priority Date/Time Associated Diagnosis Comments OUTSIDE IMAGING Routine 11/15/2025 4:59 PM EST documented in this encounter Results * Outside Imaging Report Only (11/15/2025 4:59 PM EST) us Historical Provider MD IMG XR CHEST Final Res ult documented in this encounter Visit Diagnoses Not on filedocumented in this encounter Additional Health Concerns Assessment Noted Time PHQ-9 Depression Total Score: 7 10/20/20 25 2:53 PM EST PHQ-2 Depression Total Score: 2 10/20/20 25 2:53 PM EST documented as of this encounter Care Teams Travel Information Center Supervisor Relationship Specialty Start Date End Date Kev Miranda MD [address] [place] [address] [email or web address] PCP - General 10/29/17 Kev Miranda MD [address] [place] [address] Historical LMR Provider 09/20/17 documented as of this encounter Additional Source Comments The information contained in this document represents components of the legal health record. It is not the complete legal health record.[facility]
--- OUTSIDE RECORDS SUMMARY | 2025-11-29 10:33 | XMS_ITS | Clinical Summary ---
Author Organization [facility] Address [address] [facility] [address] [place] [address] Phone Care Team Providers Care Cutter Aluminum Sheet Name Role Phone Kev Miranda MD Unavailable [phone] Kev Miranda MD Primary Care Provider [phone] Allergies Active Allergy Reactions Criticality Noted Date Comments Amlodipine Fatigue Low 11/27/2025 Atorvastatin Hives Medium 09/25/2021 Carvedilol Itching,Rash,Fatigue Low 08/23/2024 Diltiazem Hcl Constipation 07/09/2025 Severe constipation Doxazosin Other (See Comments) 03/16/2025 dyspnea Eplerenone Rash,Constipation Low 11/27/2025 Itching on rash and in areas without rash Hydrochlorothiazide Other (See Comments) 2023 Increased urination [...] by Miscellaneous route as needed. 1 each 12/26/19 21 Active acetaminophen (TYLENOL) 500 MG tablet Take 500 mg by mouth every morning. Active ACCU-CHEK GUIDE TEST STRIPS Strp stripsIndication s:Type 2 diabetes mellitus with diabetic polyneuropathy, without long-term current use of insulin USE TO CHECK GLUCOSE TWICE DAILY 200 strip 3 05/11/20 24 Active Additional Information Patient taking differently: As needed, USE TO CHECK GLUCOSE TWICE DAILY, Reported on 11/28/2025 ACCU-CHEK FASTCLIX LANCET DRUM Misc USE 1 TO CHECK GLUCOSE TWICE DAILY 204 each 05/11/20 24 Active irbesartan (AVAPRO) 300 MG tabletIndication s:Resistant hypertension Take 1 tablet (300 mg total) by mouth daily. 90 tablet 3 02/10/20 25 Active rosuvastatin (CRESTOR) 5 MG tabletIndication s:Hyperlipidemia LDL goal <100 Take 1 tablet by mouth once daily 90 tablet 3 06/13/20 25 Active pyridoxine HCl, vitamin B6, (VITAMIN B-6 ORAL) Take 1 capsule by mouth daily. Active levETIRAcetam (KEPPRA) 500 MG tabletIndication s:History of seizure Take 1 tablet by mouth twice daily 180 tablet 3 08/31/20 25 Active cyanocobalamin, vitamin B-12, (VITAMIN B-12 ORAL) Take 1 capsule by mouth daily. Active pioglitazone (ACTOS) 30 MG tabletIndication s:Type 2 diabetes mellitus with diabetic polyneuropathy, without long-term current use of insulin Take 1 tablet (30 mg total) by mouth daily. 90 tablet 1 10/23/20 25 Active glimepiride (AMARYL) 4 MG tabletIndication s:Type 2 diabetes mellitus with diabetic polyneuropathy, without long-term current use of insulin TAKE 1 AND 1/2 (ONE & ONE-HALF) TABLET BY MOUTH ONCE DAILY BEFORE BREAKFAST AND 1/2 (ONE-HALF) TABLET WITH EVENING MEAL 180 tablet 1 10/23/20 25 Active polyethylene glycol (MIRALAX) 17 gram/dose powder Take 17 g by mouth every morning. Active furosemide (LASIX) 20 MG tabletIndication s:Lower extremity edema Take 1 tablet (20 mg total) by mouth daily. 14 tablet 11/27/20 25 Active eplerenone (INSPRA) 25 MG tabletIndication s:Essential hypertension Take 1 tablet (25 mg total) by mouth daily. 30 tablet 3 11/27/20 25 Active montelukast (SINGULAIR) 10 mg tablet Take 1 tablet (10 mg total) by mouth nightly at bedtime. 30 tablet 11 11/28/20 25 Active eplerenone (INSPRA) 25 MG tabletIndication s:Essential hypertension Take 1 tablet (25 mg total) by mouth daily. 30 tablet 3 10/20/20 25 025 Discontin ued(Reord er) furosemide (LASIX) 20 MG tabletIndication s:Lower extremity edema Take 1 tablet (20 mg total) by mouth daily. 14 tablet 11/16/20 25 025 Discontin ued(Reord er) Active Problems Problem Noted Date Diagnosed Date Drug-induced constipation 11/16/2025 Assessment & Plan (11/16/2025 3:10 PM EST): Patient reports constipation following his recent back surgery for which he used oxycodone for 2 days. Constipation likely induced from the opioid medication, advised use of MiraLAX and senna with docusate as needed for constipation relief. No associated abdominal pain. Lower extremity edema 11/16/2025 Assessment & Plan (11/16/2025 3:10 PM EST): He reports lower extremity edema following his back surgery on 11/01/2025 that has not improved. He has been elevating his legs but does not use compression stockings. Advised the use of compression stockings. He suspects that the lower extremity edema was from the Inspra, advised that that is not a documented side effect of the medication. Advised the importance of reinitiating Inspra given his cardiac history and recommendations from his PCP. He restarted this medication 2 days ago. Given the persistent lower extremity edema, 3+ on exam, will initiate Lasix 20 mg daily. Patient does have a follow-up with his PCP on 11/27/2025, at that time would recommend getting a BMP to assess his potassium levels. Reviewed with up-to-date, no interactions between Inspra and Lasix, however he should be cautious about hypotension, blood pressure is significantly elevated today even on the antihypertensive that he is currently on so I suspect adding on Lasix will be okay. Advised caution if he experiences symptoms of hypotension such as dizziness. Discussed obtaining an echocardiogram to assess his cardiac function and valve function, patient would like to defer this and have a discussion with his PCP on 11/27/2025. Acne 10/23/2025 Assessment & Plan (10/23/2025 2:44 PM EST): Patient states he has worsening acne over the last 6 months he does not understand why. He states that this is like what happens to teenagers. He saw an paint sprayer sandblaster who could not find any thing wrong with his skin. He is scheduled to see a satellite specialist. He did inquire why he could have acne and the only thing that I can think of is high testosterone levels so I will check testosterone levels and he should do it fasting. He is presently not using anabolic hormones. Post laminectomy syndrome 08/03/2024 Overview (08/03/2024): [facility] w [facility] [place] pain- Dr. Michele Rangel MD last ov 07/06/24 plan repeat SI injection had injection 07/14 Ingrown nail 05/28/2023 IGTN (ingrowing toe nail) 05/15/2022 Assessment & Plan (05/15/2022 4:13 PM EDT): Strongly encouraged patient to f/u with Manager Department due to current nail and risk of [...] 02/22/2021 Essential hypertension 03/15/2018 Assessment & Plan (11/16/2025 3:10 PM EST): Blood pressure continues to be significantly elevated despite antihypertensive indications including irbesartan 300 mg daily, Inspra 25 mg daily. Will add on Lasix 20 mg daily and follow-up with his PCP on 11/27/2025. Discussed side effects of Lasix including potassium abnormalities as well as increased urinary frequency, patient reports understanding. Advised to monitor blood pressure at home, he reports that he is unable to monitor his blood pressure at home, discussed symptoms of hypotension. Assessment & Plan (05/15/2022 4:11 PM EDT): [...] happen assuming his glucose is not too [id number]. He will have to drink proper amounts [...] Encounters Date Type Department Care Team Description 11/28/2025 2:15 PM EST Office Visit [facility] [address] [facility] 3rd Floor, [address] [place] [address] Cuate Ramos MD JOSÉ MIGUEL (obstructive sleep apnea) (Primary Dx); Allergic rhinitis due to pollen, unspecified seasonality 11/27/2025 1:00 PM EST Office Visit [facility] [address] [facility] [place] [address] Kev Miranda MD Routine general medical examination at a health care facility (Primary Dx); Essential hypertension; Lower extremity edema; Severe obesity (BMI >= 40); Rash of face 11/16/2025 2:00 PM EST Office Visit [facility] [address] [facility] [place] [address] Garcia, An, PA-C Lower extremity edema (Primary Dx); Drug-induced constipation; Essential hypertension 11/16/2025 Orders Only [facility] [address] [place] [address] Marcela Baxter MD 11/15/2025 Orders Only [facility] [address] [place] [address] Marcela Baxter MD 11/13/2025 Telephone [facility] [address] [place] [address] Zulay Mobley RN Medication Problem 2025 Orders Only [facility] [address] [place] [address] ProviderMarcela MD 10/23/2025 2:00 PM EST Office Visit [facility] [address] [place] [address] Jam Álvarez DO Type 2 diabetes mellitus with diabetic polyneuropathy, without long-term current use of insulin (Primary Dx); Hyperlipidemia LDL goal <70; Acne, unspecified acne type 10/20/2025 3:00 PM EST Office Visit [facility] [address] [place] [address] Kev Miranda MD Essential hypertension 10/13/2025 Telephone [facility] [address] [place] [address] Kev Miranda MD Follow Up Visit 10/03/2025 Refill [facility] [address] [place] [address] Jam Álvarez DO Medication Refill 09/08/2025 3:00 PM EDT Office Visit [facility] [address] [place] [address] Kev Miranda MD Essential hypertension (Primary Dx); Ingrown nail; Chronic right-sided low back pain with bilateral sciatica; Rash of face; Type 2 diabetes mellitus with diabetic polyneuropathy, without long-term current use of insulin 09/08/[address] [facility] [address], [place] [address] Kev Miranda MD Medication Problem 09/05/2025 Telephone [facility] [address], [place] [address] Kev Miranda MD Medication Problem 08/31/2025 Refill [facility] [address], [place] [address] Kev Miranda MD Medication Refill from Last 3 Months Immunizations Immunization Administration [...] Pulse 99 11/28/2025 2:13 PM EST Temperature 36.5 C (97.7 F) 11/27/2025 1:02 PM EST Respiratory Rate 13 11/16/2025 1:55 PM EST Oxygen Saturation 94% 11/28/2025 2:13 PM EST Inhaled Oxygen Concentration - - Weight 130.5 kg (287 lb 12.8 oz) 11/27/2025 1:02 PM EST Height 180 cm (5' 10.87 ) 11/28/2025 2:13 PM EST Body Mass Index 40.29 11/27/2025 1:02 PM EST Plan of Treatment Upcoming Encounters Date Type Department Care Team (Late st Contact Info) Description 01/12/2026 3:30 PM EST Office Visit [facility] [address] [place] [address] Kev Miranda MD [address] [place] [address] 02/26/2026 2:20 PM EDT Office Visit [facility] [address] Floor, [address] [place] [address] Kev Short MD, MS [address] [facility], [address] [place] [address] 04/24/2026 1:40 PM EDT Office Visit [facility] [address] [place] [address] Jam Álvarez DO 22 [place] [address] Health Maintenance Due Date Last Done Comments ZOSTER VACCINES (1 of 2) 1998 DIABETIC EYE EXAM 04/26/2025 04/26/2024, , 01/04/2021, Additional history exists COVID-19 VACCINE ( season) 2026 08/14/2025, 08/07/2024, 09/11/2023, Additional history exists HEMOGLOBIN A1C 04/11/2026 10/12/2025, 03/30, 09/22/2024, Additional history exists BLOOD PRESSURE 05/29/2026 11/28/2025 CREATININE LEVEL 10/12/2026 10/12/2025, 10/2025, 12/27/2024, Additional history exists POTASSIUM LEVEL 10/12/2026 10/12/2025, 03/30, 12/27/2024, Additional history exists DEPRESSION SCREENING 11/20/2026 11/20/2025, 11/20/20 25 SMOKING Hx and SMOKELESS TOBACCO SCREENING 11/27/2026 11/27/2025 Adult Td,Tdap Booster 09/11/2027 09/11/2017, 007 PNEUMOCOCCAL [...] Date/Time Associated Diagnosis Comments OUTSIDE IMAGING Routine 11/16/2025 6:54 AM EST OUTSIDE IMAGING Routine 11/15/2025 4:59 PM EST OUTSIDE IMAGING Routine 11/01/2025 11:40 AM EST CBC AND DIFFERENTIAL Routine 10/12/2025 11:28 AM EST Essential hypertension CBC AND DIFFERENTIAL Routine 10/12/2025 11:28 AM EST Essential hypertension COMPREHENSIVE METABOLIC PANEL (CMP) Routine 10/12/2025 11:28 AM EST Essential hypertension HEMOGLOBIN A1C Routine 10/12/2025 11:28 AM EST Type 2 diabetes mellitus with diabetic polyneuropathy, without long-term current use of insulin DIABETES EYE EXAM FOR RESULT ENTRY ONLY Routine 04/26/2024 HEPATITIS C ANTIBODY, QUALITATIVE Routine 10/21/2019 8:38 AM EST Need for hepatitis C screening test from Last 3 Months or Most Recently Relevant to Health Maintenance Results * Outside Imaging Report Only (11/16/2025 6:54 AM EST) us Historical Provider MD SALAZAR XR CHEST Final Res ult * Outside Imaging Report Only (11/15/2025 4:59 PM EST) us Historical Provider MD SALAZAR XR CHEST Final Res ult * Outside Imaging Report Only (11/01/2025 11:40 AM EST) us Historical Provider IMFly XR CHEST Final Res ult * (ABNORMAL) Comprehensive Metabolic Panel (CMP) (10/12/2025 11:28 AM EST) Sodium 136 136 - 145 mmol/L 10/12/2025 9:14 PM [facility] Potassium 4.3 3.4 - 5.1 mmol/L 10/12/2025 9:14 PM [facility] Chloride 101 98 - 107 mmol/L 10/12/2025 9:14 PM [facility] CO2 24 20 - 31 mmol/L 10/12/2025 9:14 PM [facility] Anion Gap 11 3 - 17 mmol/L 10/12/2025 9:14 PM [facility] BUN 25(H) 6 - 23 mg/dL 10/12/2025 9:14 PM [facility] Creatinine 0.80 0.60 - 1.30 mg/dL 10/12/2025 9:14 PM [facility] eGFR 92 >59 mL/min/1.7 3m2 10/12/2025 9:14 PM [facility] Comment:Estimated glomerular filtration rate calculated using the CKD-EPI refit equation. Glucose 135(H) 70 - 99 mg/dL 10/12/2025 9:14 PM [facility] Calcium 9.1 8.5 - 10.5 mg/dL 10/12/2025 9:14 PM [facility] AST 28 <40 U/L 10/12/2025 9:14 PM [facility] ALT 17 <50 U/L 10/12/2025 9:14 PM [facility] Alkaline Phosphatase 87 40 - 130 U/L 10/12/2025 9:14 PM [facility] Bilirubin, Total 0.6 0.0 - 1.2 mg/dL 10/12/2025 9:14 PM [facility] Total Protein 6.9 6.4 - 8.3 g/dL 10/12/2025 9:14 PM [facility] Albumin 3.9 3.5 - 5.2 g/dL 10/12/2025 9:14 PM [facility] Globulin 3.0 1.9 - 4.1 g/dL 10/12/2025 9:14 PM [facility] Blood 10/12/2025 11:2 8 AM EST 10/12/2025 11:28 AM EST us Kev Miranda MD LAB BLOOD BKR ORDERABLES Charissa hernandez Result Performing Organization Address City/State/[facility] Co de Phone Number [address] [address] * (ABNORMAL) CBC and Differential (10/12/2025 11:28 AM EST) WBC 7.05 4.00 - 11.00 K/uL 10/12/2025 8:38 PM [facility] RBC 4.42(L) 4.50 - 5.90 M/uL 10/12/2025 8:38 PM [facility] Hemoglobin 13.6 13.5 - 17.5 g/dL 10/12/2025 8:38 PM [facility] Hematocrit 40.6(L) 41.0 - 53.0 % 10/12/2025 8:38 PM [facility] MCV 91.9 80.0 - 100.0 fL 10/12/2025 8:38 PM [facility] MCH 30.8 27.0 - 31.0 pg 10/12/2025 8:38 PM [facility] MCHC 33.5 32.0 - 36.0 g/dL 10/12/2025 8:38 PM [facility] MPV 10.2 8.4 - 12.0 fL 10/12/2025 8:38 PM [facility] RDW-CV 13.0 11.5 - 14.5 % 10/12/2025 8:38 PM [facility] PLT 190 150 - 450 K/uL 10/12/2025 8:38 PM [facility] Neutrophils 64.2 % 10/12/2025 8:38 PM [facility] Lymphocytes 22.7 % 10/12/2025 8:38 PM [facility] Monocytes 10.8 % 10/12/2025 8:38 PM [facility] Eosinophils 1.6 % 10/12/2025 8:38 PM [facility] Basophils 0.4 % 10/12/2025 8:38 PM [facility] Imm Grans 0.3 % 10/12/2025 8:38 PM [facility] NRBC 0.0 <=0.0 /100 WBCs 10/12/2025 8:38 PM [facility] Absolute Neutrophils 4.53 1.92 - 7.60 K/uL 10/12/2025 8:38 PM [facility] Absolute Lymphocytes 1.60 0.72 - 4.10 K/uL 10/12/2025 8:38 PM [facility] Absolute Monocytes 0.76 0.16 - 1.10 K/uL 10/12/2025 8:38 PM [facility] Absolute Eosinophils 0.11 0.00 - 0.50 K/uL 10/12/2025 8:38 PM [facility] Absolute Basophils 0.03 0.00 - 0.15 K/uL 10/12/2025 8:38 PM [facility] Absolute Imm Grans 0.02 0.00 - 0.09 K/uL 10/12/2025 8:38 PM [facility] Absolute NRBC 0.00 <=0.00 K cells/uL 10/12/2025 8:38 PM [facility] Absolute Neutrophils 4.53 1.92 - 7.60 K/uL 10/12/2025 8:38 PM [facility] Comment:Automated cell count . Manual ANC may differ if performed. Diff Type Auto 10/12/2025 8:38 PM [facility] Blood 10/12/2025 11:2 8 AM EST 10/12/2025 11:28 AM EST us Kev Miranda MD LAB BLOOD BKR ORDERABLES Charissa hernandez Result [facility] [address] [place] [address] * (ABNORMAL) Hemoglobin A1c (10/12/2025 11:28 AM EST) Hemoglobin A1c 6.2(H) 4.3 - 5.6 % 10/12/2025 9:29 PM EST [facility] Calculated Mean Blood Glucose 131 mg/dL 10/12/2025 9:29 PM EST [facility] Comment:There is no [facility] normal range for the Estimated Average Glucose [...] ORDERABLES Final R esult Performing Organization Address City/[facility]/ZIP Co de Phone Number [address] [address] * DIABETES EYE EXAM FOR RESULT ENTRY ONLY (04/26/2024) Pathologist [facility] EYE EXAM no retinopathy Marcela Baxter MD HEALTH MAINTENANCE Final Result * Hepatitis C antibody, qualitative (10/21/2019 8:38 AM EST) [facility] HCV NON-REACTIV E NON-REACTI VE [facility] Blood 10/21/2019 8:38 AM EST 10/21/2019 8:41 AM EST Kev Miranda MD LAB BLOOD BKR ORDERABLES Charissa l Result [address] [phone] from Last 3 Months or Most Recently Relevant to Health Maintenance Insurance [facility] AARP MEDICARE REPLACEMENT MEDICARE REPLACEMENT MEDICARE REPLACEMENT MEDICARE REPLACEMENT MEDICARE REPLACEMENT MEDICARE REPLACEMENT MEDICARE REPLACEMENT MEDICARE REPLACEMENT MEDICARE REPLACEMENT Care Teams Cutter Aluminum Sheet Relationship Specialty Start Date End Date Kev Miranda MD [address] [place] [phone] PCP - General 10/29/17 Kev Miranda MD [address] [place] [address] [email or web address] Historical LMR Provider 09/20/17 Additional Source Comments The information contained in this document represents components of the legal health record. It is not the complete legal health record.[facility]
--- OUTSIDE RECORDS SUMMARY | 2025-11-29 10:33 | XMS_ITS | Encounter Summary ---
Author Organization [facility] Address [address] [place] [address] Phone Care Team Providers Care Cloth Bleaching Supervisor Name Role Phone Kev Miranda MD Unavailable [phone] Kev Miranda MD Primary Care Provider [phone] Encounter Details Date Type Department Care Team (Late st Contact Info) Description 2025 Orders Only [facility] [address] [place] [address] Provider, MD Marcela [address] [place], [place] [id number] Social History Tobacco Use Types Packs/Day Years [...] Description 01/12/2026 3:30 PM EST Office Visit [facility] [address] [place] [address] Kev Miranda MD [address] [place] [address] 02/26/2026 2:20 PM EDT Office Visit [facility] [address] [place] [address] 3rd Floor, [address] [place] [address] Kev Short MD, MS 22 [facility], [address] [address] 04/24/2026 1:40 PM EDT Office Visit [facility] [address] [place] [address] Jam Álvarez DO [address] [place] [address] documented as of this encounter Procedures Procedure Name Priority Date/Time Associated Diagnosis Comments OUTSIDE IMAGING Routine 11/01/2025 11:40 AM EST documented in this encounter Results * Outside Imaging Report Only (11/01/2025 11:40 AM EST) us Historical Provider MD IMG XR CHEST Final Res ult documented in this encounter Visit Diagnoses Not on filedocumented in this encounter Additional Health Concerns Assessment Noted Time PHQ-9 Depression Total Score: 7 10/20/20 25 2:53 PM EST PHQ-2 Depression Total Score: 2 10/20/20 25 2:53 PM EST documented as of this encounter Care Teams Cloth Bleaching Supervisor Relationship Specialty Start Date End Date Kev Miranda MD [address] [place] [address] [email or web address] PCP - General 10/29/17 Kev Miranda MD [address] [place] [address] Historical LMR Provider 09/20/17 documented as of this encounter Additional Source Comments The information contained in this document represents components of the legal health record. It is not the complete legal health record.[facility]
--- OUTSIDE RECORDS SUMMARY | 2025-11-29 10:33 | XMS_ITS | Encounter Summary ---
Author Organization [facility] Address [address] [place] [address] Phone Care Team Providers Care Rental Clerk Tool And Equipment Name Role Phone Kev Miranda MD Unavailable [phone] Kev Miranda MD Primary Care Provider [phone] Encounter Details Date Type Department Care Team (Late st Contact Info) Description 11/16/2025 Orders Only [facility] [address] [place] [address] Provider, MD Marcela [address] [place], [place] [id number] Social History Tobacco Use Types Packs/Day Years [...] Description 01/12/2026 3:30 PM EST Office Visit [facility] [address] [place], [place] [phone] Kev Miranda MD [address] [place] [address] 02/26/2026 2:20 PM EDT Office Visit [facility] [address] [place] [address] 3rd Floor, [address] [place] [address] Kev Short MD, MS 22 [facility], [address] [address] 04/24/2026 1:40 PM EDT Office Visit [facility] [address] [place] [address] Jam Álvarze DO [address] [place] [address] documented as of this encounter Procedures Procedure Name Priority Date/Time Associated Diagnosis Comments OUTSIDE IMAGING Routine 11/16/2025 6:54 AM EST documented in this encounter Results * Outside Imaging Report Only (11/16/2025 6:54 AM EST) us Historical Provider MD IMG XR CHEST Final Res ult documented in this encounter Visit Diagnoses Not on filedocumented in this encounter Additional Health Concerns Assessment Noted Time PHQ-9 Depression Total Score: 7 10/20/20 25 2:53 PM EST PHQ-2 Depression Total Score: 2 10/20/20 25 2:53 PM EST documented as of this encounter Care Teams Rental Clerk Tool And Equipment Relationship Specialty Start Date End Date Kev Miranda MD [address] [place] [address] [email or web address] PCP - General 10/29/17 Kev Miranda MD [address] [place] [address] Historical LMR Provider 09/20/17 documented as of this encounter Additional Source Comments The information contained in this document represents components of the legal health record. It is not the complete legal health record.[facility]
--- OUTSIDE RECORDS SUMMARY | 2025-11-29 10:34 | XMS_ITS | Encounter Summary ---
Author Organization [facility] Address [address] [place] [address] Phone Care Team Providers Care Shipping Technician Name Role Phone Kev Miranda MD Unavailable [phone] Kev Miranda MD Primary Care Provider [phone] Encounter Details Date Type Department Care Team (Late st Contact Info) Description 11/01/2024 Procedure Pass [facility] [address] [place] [address] Social History Tobacco Use Types Packs/Day Years [...] Office Visit [facility] [address] [place] [address] Kev Miranda MD [address], [place] [id number] 02/26/2026 2:20 PM EDT Office Visit [facility] [address] [place] [address] [address]rd Floor, [address] [place] [id number] Kev Short MD, [place] 22 [facility], [address] [address] 04/24/2026 1:40 PM EDT Office Visit [facility] [address] [place] [address] Jam Álvarez DO [address] [place] [id number] documented as of this encounter Visit Diagnoses Not on filedocumented in this encounter Additional Health Concerns Assessment Noted Time PHQ-2 Depression Total Score: 2 10/10/20 24 7:04 PM EST documented as of this encounter Care Teams Shipping Technician Relationship Specialty Start Date End Date Kev Miranda MD [address], [place] [phone] PCP - General 10/29/17 Kev Miranda MD [address] [place] [id number] [email or web address] Historical LMR Provider 09/20/17 documented as of this encounter Additional Source Comments The information contained in this document represents components of the legal health record. It is not the complete legal health record.[facility]
--- OUTSIDE RECORDS SUMMARY | 2025-11-29 10:34 | XMS_ITS | Patient Health Record ---
Author Organization [facility] Address [address] [place] [address] Care Team Providers Care Powerhouse Operator Name Role Phone Kev Miranda MD Primary Care Provider Denny Nunez Unavailable [phone] Allergies No Known Allergies Reason For Referral [...] Problem Acquired hammer toe of right foot (5808505793700369 ) Other hammer toe(s) (acquired), right foot (M20.41) Active confirmed Problem Acquired hammer toe of left foot (4086990213569132 ) Other hammer toe(s) (acquired), left foot (M20.42) Active confirmed Problem Polyneuropathy due to type 2 diabetes mellitus (555677596) Type 2 diabetes mellitus with diabetic polyneuropathy (E11.42) Active confirmed Plan Of Treatment No Information Insurance Providers Payer Name Payer Address Payer Phone Subscriber Number Group Number Insured Name Patient Relationship to Insured Coverage Start Date Coverage End Date [employer] Medicare [id number] [address] [address] [place] [address] [id number] Aedn Smith Self - patient is the insured Medical (General) History Medical History History ICD Code Diabetic High blood pressure Sciatica Surgical History Surgery Date(Month/Year) spinal stenosis surgery 01/02/2023
== END 2025-11-29 10:46 | disposition home or self-care (01) ==
LOC: HO.PMC 09:52
PROVIDERS: PCP Internal Medicine; Visit Provider Internal Medicine
DX: M96.1 Postlaminectomy syndrome, not elsewhere classified (principal)
CPT/HCPCS: 99213

== ENCOUNTER → 2025-11-29 09:51 | Outpatient (BNVA) | payer MEDICARE, SELFPAY | PROVIDERS: PCP Internal Medicine; Visit Provider Internal Medicine | DX: M96.1 Postlaminectomy syndrome, not elsewhere classified (principal); Z45.42 Encounter for adjustment and management of neurostimulator; M79.661 Pain in right lower leg; M79.662 Pain in left lower leg; G47.33 Obstructive sleep apnea (adult) (pediatric); Z99.89 Dependence on other enabling machines and devices | CPT/HCPCS: 99212 ==